=== PATIENT | male | born 1985 | race Two or more races ===

== ENCOUNTER 2016-12-04 17:34 | Inpatient (IN) | payer OTHER ==
[2016-12-04] MEDS ORDERED: LORAZEPAM CARPU-JECT 2 MG/ML DISP.SYRIN ONE ×4 (17:39→23:55)
[2016-12-04] MEDS ORDERED: LORAZEPAM CARPU-JECT 2 MG/ML DISP.SYRIN IVPUSH ONE ×4 (17:48→23:08)
[2016-12-04] MEDS ORDERED: levETIRAcetam 500 MG/5 ML INJECTION VIAL IVPB ONE ×2 (18:28→18:39)
--- NOTE | 2016-12-04 18:37 | PDOC ---
[id number] 4d Clinical Condition (Mental Retardation ) - History of Present Illness Initial Comments: 12/04/16 21:37 The patient is a 31 year old male brought via EMS and presenting with a manager respiratory care from [facility], with a significant past medical history of severe mental retardation (carbamazepine 400 mg BID, tiagabine 4 mg TID), congenital quadraplegia, esophagitis, epilepsy, osteoporosis, non verbal, and scoliosis, who presents to the emergency department with multiple seizures occurring today. On presentation the patient is actively having another seizure , lasting a few seconds before resolving. The patient is non verbal on baseline. According to his old records, the patient usually has two seizures daily. Allergies: None Past surgical history: Peg tube Social history: No alcohol, tobacco or drug use reported <Trey Steel - Last Filed: 12/04/16 22:38> - General History Source: Care Provider, EMS, [facility]way Records, Old Records <Flynn York - Last Filed: 12/07/16 15:48> - General Chief Complaint: Seizure Stated Complaint: SEIZURES Time Seen by Provider: 12/04/16 17:45 Past History <Trey Steel - Last Filed: 12/04/16 22:38> - Past Medical History GI Disorders: Yes (ESOPHAGITIS.) Seizures: Yes Other medical history: PROFOUND MR. CONGENITAL QUADREPLEGIA. OSTEOPOROSIS. SCOLIOSIS. - Surgical History Abdominal Surgery: Yes GI Surgery: Yes (PEG TUBE.) - Psycho/Social/Smoking Cessation Hx Anxiety: No Suicidal Ideation: No Smoking History: Never smoked Number of Cigarettes Smoked Daily: 0 Hx Alcohol Use: No Drug/Substance Use Hx: No Substance Use Type: None <Flynn York - Last Filed: 12/07/16 15:48> - Past Medical History Allergies/Adverse Reactions: Allergies Allergy/AdvReac Type Severity Reaction Status Date / Time No Known Allergies Allergy Verified 12/04/16 17:45 Home Medications: Ambulatory Orders Calcium 500Mg/Vit-D 200 Units [Os-Jose Maria 500+D -] 1 tab GT HS 10/21/14 Cholecalciferol (Vitamin D3) [Vitamin D3] 400 unit GT DAILY 10/21/14 Lactose-Reduced Food/Fiber [Jevity 1.2 Jose Maria Liquid] 100 ml GT Q8H 10/21/14 Magnesium Hydroxide [Milk of Magnesia] 30 ml GT HS 10/21/14 Albuterol 0.083% Nebulizer Denise [Ventolin 0.083% Nebulizer Soln -] 1 neb NEB Q4H PRN 07/08/16 Nystatin Cream [Mycostatin Cream -] 1 applic TP BID 07/08/16 Selenium Sulfide [Selenium Sulfide 2.25% Shampoo] 1 applic TP BID 07/08/16 Triamcinolone 0.5% Ointment [Aristocort 0.5% Ointment -] 0 gm TP TID 07/08/16 Carbamazepine [Carbamazepine ER] 100 mg GT BID 08/21/16 Carbamazepine [Carbamazepine ER] 300 mg GT BID 08/21/16 Clonazepam [Klonopin -] 0.5 mg GT TID 08/21/16 Diazepam Rectal Gel [Diastat Rectal Gel -] 5 mg DC ASDIR PRN 08/21/16 Sennosides [Senna] 2 tab GT HS 08/21/16 Sodium Chloride 2 gm GT TID 08/21/16 Tiagabine HCl 4 mg GT TID 08/21/16 Tizanidine HCl [Zanaflex] 2 mg PO TID 12/05/16 Levetiracetam [Keppra -] 500 mg PO BID #60 tablet 12/06/16 Phenytoin [Dilantin Chewable Tablet -] 100 mg PO TID #90 tab 12/06/16 Review of Systems - Review of Systems Able to Perform ROS?: No Comments:: 12/04/16 21:38 ROS unattainable due to patient medical condition. <Trey Steel - Last Filed: 12/04/16 22:38> *Physical Exam - Vital Signs Last Vital Signs Temp Pulse Resp BP Pulse Ox 100.8 F H 100 H 18 140/70 99 12/04/16 18:48 12/04/16 18:48 12/04/16 18:48 12/04/16 18:48 12/04/16 18:48 - Physical Exam Comments: 12/04/16 21:39 GENERAL: Awake HEAD: No signs of trauma, normocephalic, atraumatic EYES: PERRLA, EOMI, sclera anicteric, conjunctiva clear ENT: Auricles normal inspection, hearing grossly normal, nares patent, oropharynx clear without exudates. Moist mucosa NECK: Normal ROM, supple, no lymphadenopathy, JVD, or masses LUNGS: No distress, speaks full sentences, clear to auscultation bilaterally HEART: +Tachycardia, normal S1 and S2, no murmurs, rubs or gallops, peripheral pulses normal and equal bilaterally. ABDOMEN: +G-tube in place, clean, dry and intact. Soft, nontender, normoactive bowel sounds. No guarding, no rebound. No masses EXTREMITIES: +Spasticity lower and upper extremity. left lower extremity IO. No edema. No clubbing or cyanosis. NEUROLOGICAL: +Grand mal seizures. SKIN: Warm, Dry, normal turgor, no rashes or lesions noted. <Trey Steel - Last Filed: 12/04/16 22:38> - Vital Signs Last Vital Signs Temp Pulse Resp BP Pulse Ox 103 H 24 144/70 98 12/04/16 17:43 12/04/16 17:43 12/04/16 17:43 12/04/16 17:43 <Flynn York - Last Filed: 12/07/16 15:48> Procedures - Central Line Central Line Lumen: triple Central Line Position: femoral (R), femoral (L) Anesthesia: 1% Lidocaine Amount of anesthesia (ccs): 5 Progress: Consent was obtained by the nurse and physician at the facility. Under ultrasound guidance and sterile procedure, multiple attempts were made at R femoral vein. Unable to cannulate despite numerous attempts. An attempt made at the left femoral vein. Again, unable to cannulate despite multiple attempts. ?anatomical variation? Decision was made to leave an angiocath in the left femoral vein for access given multiple seizures. <Flynn York - Last Filed: 12/07/16 15:48> Heart Score/ECG Review #1 ECG reviewed & interpreted by me at: 17:50 12/04/16 22:37 NSR 94, LAFB, Q wave III, no std/nisa, QTC 422 msec <Flynn York - Last Filed: 12/07/16 15:48> ED Treatment Course - LABORATORY CBC & Chemistry Diagram: 12/04/16 18:45 12/04/16 18:45 - ADDITIONAL ORDERS Additional order review: Laboratory Results 12/04/16 12/04/16 18:45 18:45 Sodium 133 L Potassium 4.3 Chloride 96 L Carbon Dioxide 26 Anion Gap 11 BUN 7 Creatinine 0.4 L D Creat Clearance w eGFR > 60 Random Glucose 71 L D Calcium 9.0 Magnesium 2.7 H Total Bilirubin 0.2 D AST 43 H D ALT 71 D Alkaline Phosphatase 156 H Creatine Kinase 104 Troponin I < 0.02 Total Protein 9.3 H Albumin 4.5 Carbamazepine 10.0 12/04/16 18:45 RBC 4.84 MCV 95.9 MCHC 33.7 RDW 12.9 MPV 7.7 Neutrophils % 88.9 H D Lymphocytes % 6.4 L D Monocytes % 3.9 Eosinophils % 0.3 D Basophils % 0.5 - Medications Given in the ED: ED Medications Discontinued Medications Generic Name Dose Route Start Last Admin Trade Name Freq PRN Reason Stop Dose Admin Levetiracetam 1,000 mg 12/04/16 18:28 12/04/16 18:47 Keppra Injection - IVPB 12/04/16 18:29 1,000 mg ONCE ONE Administration Lorazepam 1 mg 12/04/16 17:48 12/04/16 17:48 Ativan Injection - IVPUSH 12/04/16 17:49 1 mg ONCE ONE Administration Lorazepam 2 mg 12/04/16 18:23 12/04/16 18:23 Ativan Injection - IVPUSH 12/04/16 18:24 2 mg ONCE ONE Administration Lorazepam 2 mg 12/04/16 19:07 12/04/16 19:16 Ativan Injection - IVPUSH 12/04/16 19:08 2 mg ONCE ONE Administration <Trey Steel - Last Filed: 12/04/16 22:38> - LABORATORY CBC & Chemistry Diagram: 12/06/16 06:30 12/06/16 06:30 - RADIOLOGY Radiology Studies Ordered: Category Date Time Status CHEST X-RAY PORTABLE* [RAD] Stat Radiology 12/04/16 17:48 Ordered - Medications Given in the ED: ED Medications Discontinued Medications Generic Name Dose Route Start Last Admin Trade Name Freq PRN Reason Stop Dose Admin Lorazepam 1 mg 12/04/16 17:48 12/04/16 17:48 Ativan Injection - IVPUSH 12/04/16 17:49 1 mg ONCE ONE Administration <Flynn York - Last Filed: 12/07/16 15:48> Medical Decision Making - Critical Care Time Total Critical Care Time (minutes): 60 Critical Care Statement: The care of this patient involved high complexity decision making to prevent further life threatening deterioration of the patient 's condition and/or to evalute & treat vital organ system(s) failure or risk of failure. - Medical Decision Making 12/04/16 20:27 Dr. Zhou was consulted regarding the patient at 6:26pm [phone] At 7:11pm Dr. York obtained permission from the [facility] staff to do a central line. <Trey Steel - Last Filed: 12/04/16 22:38> - Medical Decision Making 12/04/16 18:39 Patient arrives by ambulance to the emergency department. Nursing notes are reviewed and incorporated into the medical decision-making. Vital signs reviewed. Peripheral IV access obtained by the nurse, laboratory studies are drawn and sent, reviewed and interpreted by myself. Vital Signs Temp Pulse Resp BP Pulse Ox 103 H 24 144/70 98 12/04/16 17:43 12/04/16 17:43 12/04/16 17:43 12/04/16 17:43 31 year old male From [facility], past medical history of epilepsy on carbamazepine 400 mg BID, tiagabine 4 mg TID, severe mental retardation, congenital quadriplegia, general convulsive epilepsy, pegged, nonverbal presents with multiple seizures. According to the water filter cleaner, the patient has had intermittent seizures since 4:30 PM today. They noted vital signs at [facility] with temperature 98.4, pulse of 126, 95% O2, blood pressure 117/86. They had O2 saturations of 84% during seizures. They had given her first doses Diastat with no effect. The given a second dose of Diastat at 4:36 but the seizures persisted and the patient came into the ED. According to the facility, the patient has been giving his medications. The patient arrived by EMS. EMS had placed a left prox tib IO. The patient has several seizures here. Patient was given repeated doses of Ativan. Case is discussed with neurologist field operations manager Dr. Zhou. Medication list was reviewed. States to start 1 g of Keppra. We'll need to figure out the underlying cause of patient's status epilepticus. 12/04/16 22:31 CBC, BMP 12/04/16 18:45 12/04/16 18:45 CMP Sodium 133 mmol/L (136-145) L 12/04/16 18:45 Potassium 4.3 mmol/L (3.5-5.1) 12/04/16 18:45 Chloride 96 mmol/L (98-107) L 12/04/16 18:45 Carbon Dioxide 26 mmol/L (21-32) 12/04/16 18:45 Anion Gap 11 (8-16) 12/04/16 18:45 BUN 7 mg/dL (7-18) 12/04/16 18:45 Creatinine 0.4 mg/dL (0.7-1.3) L D 12/04/16 18:45 Creat Clearance w eGFR > 60 (>60) 12/04/16 18:45 Random Glucose 71 mg/dL (74-106) L D 12/04/16 18:45 Calcium 9.0 mg/dL (8.5-10.1) 12/04/16 18:45 Magnesium 2.7 mg/dL (1.8-2.4) H 12/04/16 18:45 Total Bilirubin 0.2 mg/dL (0.2-1.0) D 12/04/16 18:45 AST 43 U/L (15-37) H D 12/04/16 18:45 ALT 71 U/L (12-78) D 12/04/16 18:45 Alkaline Phosphatase 156 U/L (45-117) H 12/04/16 18:45 Creatine Kinase 104 IU/L (39-308) 12/04/16 18:45 Troponin I < 0.02 ng/ml (0.00-0.05) 12/04/16 18:45 Total Protein 9.3 g/dl (6.4-8.2) H 12/04/16 18:45 Albumin 4.5 g/dl (3.4-5.0) 12/04/16 18:[address] ordered, though likely secondary to epilepsy. Labs reviewed. Patient continued seizures. Initially, we had difficulty obtaining access. Given that the patient is having repeated seizures, decision to place a central line was discussed with the facility. The facility consent for central venous line placement. Under ultrasound guidance, multiple attempts were made on the right femoral vein but unable to cannulate. There was potentially some concerns for anatomical variation that may have given difficult access. A left-sided femoral was attempted but unsuccessful. Ultimately, given the emergent nature of additional line placements and persistent seizures, decision was made to place an Angiocath in the left femoral vein. Patient was then ordered 1 g of fosphenytoin. After receiving medications, patient's seizures had stopped. Case is discussed with Dr. Zhou. Recommends 500 mg IV keppra BID and 100 mg IV dilantin TID. Case is discussed with Dr. Ramirez who accepts patient to her service. Case discussed with ICU LOAD DROPPER Ricarda who accepts the patient. Case discussed in detail with admitting physician including history, physical exam and ancillary studies. Admitting physician has assumed care for the patient, will follow all pending diagnostics and will complete the evaluation and treatment. 12/05/16 00:55 Pt was noted to have a temp of 100.8. Will initiate IV vanc and zosyn. Obtain blood cultures. <Flynn York - Last Filed: 12/07/16 15:48> *DC/Admit/Observation/Transfer - Attestations Scribe Attestion: 12/04/16 21:39 Documentation prepared by Trey Steel, acting as medical staff manager for Flynn York MD <Trey Steel - Last Filed: 12/04/16 22:38> - Discharge Dispostion Admit: Yes <Flynn York - Last Filed: 12/07/16 15:48> Diagnosis at time of Disposition: Status epilepticus - Discharge Dispostion Disposition: HOME Condition at time of disposition: Stable - Prescriptions
[2016-12-04 18:58] LABS: BASOPHIL 0.5 % (0-2.0); EOSINOPHIL 0.3 % (0-4.5); MCH 32.3 pg (25.7-33.7); MCHC 33.7 g/dl (32.0-35.9); MEAN CELL VOLUME 95.9 fl (80-96); MEAN PLT VOLUME 7.7 fl (7.5-11.1); NEUTROPHILS 88.9 % (42.8-82.8); PLATELET COUNT 427 K/MM3 (134-434); RDW 12.9 % (11.9-15.9); WHITE BLOOD COUNT 20.7 K/mm3 (4.0-10.0)
[2016-12-04] MEDS ORDERED: FOSPHENYTOIN SODIUM 100 MG/2 ML VIAL IVPUSH ONE (19:07)
[2016-12-04 19:36] LABS: ALBUMIN 4.5 g/dl (3.4-5.0); ANION GAP 11 (8-16); BILIRUBIN,TOTAL 0.2 mg/dL (0.2-1.0); CO2 26 mmol/L (21-32); COCKROFT - GAULT 168.23; CREATININE 0.4 mg/dL (0.7-1.3); GLUCOSE,RANDOM 71 mg/dL (74-106); MAGNESIUM 2.7 mg/dL (1.8-2.4); SGOT/AST 43 U/L (15-37); SGPT/ALT 71 U/L (12-78); TOT PROT 9.3 g/dl (6.4-8.2)
[2016-12-04 19:39] LABS: ALK PHOS 156 U/L (45-117); TROPONIN I < 0.02 ng/ml (0.00-0.05)
[2016-12-04] MEDS ORDERED: DEXTROSE 50%-WATER - 25 GM/50 ML VIAL IVPUSH ONE (21:28)
[2016-12-04] MEDS ORDERED: DEXTROSE 50%-WATER 50 ML DISP.SYRIN ONE (22:19)
--- NOTE | 2016-12-04 22:56 | HP ---
[id number] yo M presents from [facility] with Hx significant for seizures. Patient brought to the ED today after multiple episodes of seizure with no improvement on medications. Patient is a poor historian due to severe mental retardation and is nonverbal. ER course was notable for: (1) During his time at ED patient had multiple episodes of seizures and a was given multiple doses of ativan (2) As per recommendations of neurologist, 1000 mg of Kepro was given and 1000 mg of fosfo pentalyn (3) Patient also noted to have low glucose of 70 and dextrose was given (4) Labs reported Leukocytosis Recent Travel: Denies PAST MEDICAL HISTORY:severe mental retardation (carbamazepine 400 mg BID, tiagabine 4 mg TID), congenital quadriplegia, esophagitis, general compulsive epilepsy, cortical blindness, osteoporosis, non verbal, exotropia, and scoliosis PAST SURGICAL HISTORY: orchiopexy. Bilateral femoral head resection. Social History: Smoking: Denies Alcohol: Denies Drugs: Denies Family History: Noncontributory Allergies No Known Allergies Allergy (Verified 12/04/16 17:45) HOME MEDICATIONS: Home Medications Medication Instructions Recorded Calcium 500Mg/Vit-D 200 Units 2 tab GT HS 10/21/14 [Os-Jose Maria 500+D -] Carbamazepine 300 mg GT BID 10/21/14 Cholecalciferol (Vitamin D3) 400 unit GT DAILY 10/21/14 [Vitamin D3] Clonazepam [KlonoPIN] 0.5 mg GT DAILY 10/21/14 Diazepam Rectal Gel [Diastat 5 mg RC PRN PRN 10/21/14 *Rectal Gel*] Lactose-Reduced Food/Fiber [Jevity 100 ml GT Q8H 10/21/14 1.2 Jose Maria Liquid] Magnesium Hydroxide [Milk of 30 ml GT HS 10/21/14 Magnesia] Sodium Chloride 2 gm GT TID 10/21/14 Sodium Chloride 500 mg GT HS 10/21/14 Tiagabine HCl [Gabitirl (Nf) -] 4 mg GT TID 10/21/14 Tizanidine HCl [Zanaflex] 2 mg GT TID 10/21/14 Albuterol 0.083% Nebulizer Denise 1 neb NEB Q4H PRN 07/08/16 [Ventolin 0.083%] Mupirocin Ointment [Bactroban] 1 applic TP BID 07/08/16 Nystatin Cream [Mycostatin] 1 applic TP BID 07/08/16 Selenium Sulfide [Selenium Sulfide 1 applic TP BID 07/08/16 2.25% Shampoo] Sennosides [Senna] 2 tab GT HS 07/08/16 Sulfamethoxazole/Trimethoprim 1 tab PO BID 07/08/16 [Bactrim Ds -] Triamcinolone 0.5% Ointment 0 gm TP TID 07/08/16 [Kenalog] Albuterol 0.083% Nebulizer Denise 1 neb NEB Q4H PRN 08/21/16 [Ventolin 0.083%] Calcium Carbonate/Vitamin D3 1 each GT HS 08/21/16 [Oyster Shell 500-Vit D3 200 Tb] Carbamazepine [Carbamazepine ER] 100 mg GT BID 08/21/16 Carbamazepine [Carbamazepine ER] 300 mg GT BID 08/21/16 Cholecalciferol (Vitamin D3) 2,000 unit GT DAILY 08/21/16 [Vitamin D3] Clonazepam [Klonopin -] 0.5 mg GT TID 08/21/16 Diazepam Rectal Gel [Diastat 5 mg [place] ASDIR PRN 08/21/16 Rectal Gel -] Lactose-Reduced Food/Fiber [Jevity] 100 ml GT ASDIR 08/21/16 Magnesium Hydrox 2400MG/30Ml [Milk 30 ml GT DAILY 08/21/16 of Magnesia -] Sennosides [Senna] 8.6 mg GT HS 08/21/16 Sodium Chloride 2 gm GT TID 08/21/16 Sodium Chloride 500 mg GT HS 08/21/16 Tiagabine HCl 4 mg GT TID 08/21/16 Tizanidine HCl 2 mg GT TID 08/21/16 REVIEW OF SYSTEMS Unable to obtain because patient is nonverbal secondary to severe mental retardation. PHYSICAL EXAMINATION Vital Signs - 24 hr 12/04/16 12/04/16 17:43 18:48 Temperature 100.8 F H Pulse Rate 103 H Pulse Rate [ 100 H Left Radial] Respiratory 24 18 Rate Blood Pressure 144/70 Blood Pressure 140/70 [Right Arm] O2 Sat by Pulse 98 99 Oximetry (%) GENERAL: Awake, alert, and fully oriented, nonverbal. HEENT: Microcephalic with pupils dilated. Oral mucosa without any lesions. No tongue bite escudero. LUNGS: Breath sounds equal, clear to auscultation bilaterally. No wheezes, and no crackles. No accessory muscle use. HEART: Regular rate and rhythm, normal S1 and S2 without murmur, rub or gallop. ABDOMEN: Soft, nontender, not distended, normoactive bowel sounds, no guarding, no rebound, no masses. No hepatomegaly or splenomegaly. Peg with no signs of infection. Surgical scar in LUQ. : Patient in diapers. Incontinent. MUSCULOSKELETAL: Muscle atrophy. No CVA tenderness. UPPER EXTREMITIES: 2+ pulses, warm, Increased muscular tone and contracted with hyperflexion of the wrist. LOWER EXTREMITIES: 2+ pulses, warm, bilateral muscle atrophy and contracted feet. No peripheral edema. NEUROLOGICAL: Severe mental retardation and sedated. PSYCHIATRIC: Sedated SKIN: Warm, dry, normal turgor, no rashes or lesions noted, normal capillary refill. Laboratory Results - last 24 hr 12/04/16 12/04/16 12/04/16 18:45 18:45 18:45 WBC 20.7 H D RBC 4.84 Hgb 15.6 Hct 46.4 MCV 95.9 MCHC 33.7 RDW 12.9 Plt Count 427 D MPV 7.7 Neutrophils % 88.9 H D Lymphocytes % 6.4 L D Monocytes % 3.9 Eosinophils % 0.3 D Basophils % 0.5 Sodium 133 L Potassium 4.3 Chloride 96 L Carbon Dioxide 26 Anion Gap 11 BUN 7 Creatinine 0.4 L D Creat Clearance w eGFR > 60 Random Glucose 71 L D Calcium 9.0 Magnesium 2.7 H Total Bilirubin 0.2 D AST 43 H D ALT 71 D Alkaline Phosphatase 156 H Creatine Kinase 104 Troponin I < 0.02 Total Protein 9.3 H Albumin 4.5 Carbamazepine 10.0 Assessment and Plan 1.) Status epilepticus. -Continue with keppra 500 mg BID -Dilantin 100 mg TID -Ativan 2 mg IV PUSH PRN -Neurology consult -Neuro checks -Aspiration precautions -Ventimask 50 % -Consider intubation to protect airway if needed -Continue peg tube feeding and IVF D5NS @ 100 cc/hr -Follow CBC CMP -MagPhos lactic acid -UA in AM 2.) SIRS criteria. Sepsis source unknown -Zosin -Follow cultures -ID consult Dr. Fitzgerald Documentation prepared by Анна Verduzco, acting as director medical writing for Genevieve Ramirez M.D. <Genevieve Ramirez - Last Filed: 12/19/16 01:05> Visit type - Emergency Visit Emergency Visit: Yes ED Registration Date: 12/05/16 Care time: The patient presented to the Emergency Department on the above date and was hospitalized for further evaluation of their emergent condition. - New Patient This patient is new to me today: Yes Date on this admission: 12/19/16 - Critical Care Critical Care patient: Yes Total Critical Care Time (in minutes): 45 Critical Care Statement: The care of this patient involved high complexity decision making to prevent further life threatening deterioration of the patient 's condition and/or to evalute & treat vital organ system(s) failure or risk of failure.
[2016-12-04] MEDS ORDERED: ACETAMINOPHEN 650 MG SUPP.RECT PR PRN (23:02)
[2016-12-04] MEDS ORDERED: ONDANSETRON 4 MG/2 ML VIAL IVPB PRN (23:02)
[2016-12-04] MEDS ORDERED: DEXTROSE 5%-NORMAL SALINE 1,000 ML IV SCH (23:15)
[2016-12-04] MEDS: PHENYTOIN SODIUM 100 MG/2 ML VIAL IVPB SCH (23:44)
[2016-12-05] MEDS ORDERED: PIPERACILLIN/TAZOB 3.375 GM/50 ML PRE-DOCKED IVPB ONE ×2 (00:54→15:40)
[2016-12-05] MEDS ORDERED: VANCOMYCIN 1,000 MG in DEXTROSE 5%-WATER - 250 ML IVPB ONE (00:54)
[2016-12-05] MEDS ORDERED: VANCOMYCIN 1 GRAM (PRE-DOCKED) 250 ML IVPB ONE (02:19)
[2016-12-05] MEDS ORDERED: LORAZEPAM CARPU-JECT 2 MG/ML DISP.SYRIN IVPUSH ONE (02:48)
[2016-12-05] MEDS ORDERED: LORAZEPAM CARPU-JECT 2 MG/ML DISP.SYRIN ONE (02:48)
--- NOTE | 2016-12-05 04:05 | CONSULT ---
Consult Consult Specialty:: Pulm/CCM Reason for Consultation:: Seizures - History of Present Illness Chief Complaint: Seizures History of Present Illness: 31 yom [facility] resident with PMHX of severe mental retardation, congenital quadraplegia, epilepsy( on Carbamazepine and tiagabine), scoliosis and non-verbal who is brought in by EMS after multiple seizures refractory to normal medical therapy. Lt tibia IO placed by EMS. In ED had witnessed grand mal/partial seizures that was refractory to Keppra but improved with fosphenytoin IV and multiple Ativan pushes. He was seen by neurologist. Started on standing AED's. Labs notable for WBC 20. Blood cultures sent and stated on vanco and Zosyn. He was transferred to ICU for further management Rec'd with O2 sat 1005 on ventimask 50%. No seizure activity noted. Lt fem IV line and Lt tibia IO line in place. 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: Seizure Gastrointestinal: Yes: Other (g-tube) - Alcohol/Substance Use Hx Alcohol Use: No - Smoking History Smoking history: Never smoked Aproximately how many cigarettes per day: 0 Home Medications - Allergies Allergies/Adverse Reactions: Allergies Allergy/AdvReac Type Severity Reaction Status Date / Time No Known Allergies Allergy Verified 12/04/16 17:45 - Home Medications Home Medications: Ambulatory Orders Calcium 500Mg/Vit-D 200 Units [Os-Jose Maria 500+D -] 1 tab GT HS 10/21/14 Cholecalciferol (Vitamin D3) [Vitamin D3] 400 unit GT DAILY 10/21/14 Lactose-Reduced Food/Fiber [Jevity 1.2 Jose Maria Liquid] 100 ml GT Q8H 10/21/14 Magnesium Hydroxide [Milk of Magnesia] 30 ml GT HS 10/21/14 Albuterol 0.083% Nebulizer Denise [Ventolin 0.083%] 1 neb NEB Q4H PRN 07/08/16 Nystatin Cream [Mycostatin] 1 applic TP BID 07/08/16 Selenium Sulfide [Selenium Sulfide 2.25% Shampoo] 1 applic TP BID 07/08/16 Triamcinolone 0.5% Ointment [Kenalog] 0 gm TP TID 07/08/16 Carbamazepine [Carbamazepine ER] 100 mg GT BID 08/21/16 Carbamazepine [Carbamazepine ER] 300 mg GT BID 08/21/16 Clonazepam [Klonopin -] 0.5 mg GT TID 08/21/16 Diazepam Rectal Gel [Diastat Rectal Gel -] 5 mg [place] ASDIR PRN 08/21/16 Sennosides [Senna] 2 tab GT HS 08/21/16 Sodium Chloride 2 gm GT TID 08/21/16 Tiagabine HCl 4 mg GT TID 08/21/16 Tizanidine HCl [Zanaflex] 2 mg PO TID 12/05/16 Family Disease History - Family Disease History Family History: Unable to Obtain Review of Systems Unable to obtain ROS, reason: non-verbal Physical Exam Vital Signs: Vital Signs Temperature 100.8 F H 12/04/16 18:48 Pulse Rate 100 H 12/04/16 18:48 Respiratory Rate 18 12/04/16 18:48 Blood Pressure 140/70 12/04/16 18:48 O2 Sat by Pulse Oximetry (%) 99 12/04/16 18:48 Constitutional: Yes: Thin (contracted) Eyes: Yes: Conjunctiva Clear HENT: Yes: Atraumatic, Other Neck: Yes: Other (Spastic) Cardiovascular: Yes: Regular Rate and Rhythm Respiratory: Yes: Regular, CTA Bilaterally Gastrointestinal: Yes: Normal Bowel Sounds, Soft, Other (PEg site clean) ...Rectal Exam: Yes: Deferred Renal/: Yes: Incontinence Extremities: Yes: Other (warm, deformed and contracted) Edema: No Integumentary: Yes: WNL Neurological: Yes: Unresponsive (non-verbal at baseline) Problem List - Problems (2) Seizure Code(s): R56.9 - UNSPECIFIED CONVULSIONS Assessment/Plan 31 [employer] resident with PMHX of severe mental retardation, congenital quadraplegia, epilepsy( on Carbamazepine and tiagabine), scoliosis and non-verbal who is brought in by EMS after multiple seizures refractory to normal treatment and requiring multiple doses of Ativan and fosphenytoin for control. C/f staus epilepticus in the setting of infection. Neuro: Seizures -Neuro following - Cont Standing Dilantin, Keppra and prn Ativan as needed -f/u blood and urine cultures -Continue empiric Zosyn and vanc as per ID Pulm: Risk for aspiration with seizure -NC O2 for O2 sat >95% - Aspiration precautions -Oral care FEN: -Continue nutrition and hydration -Monitor CPK, electrolytes, lactate, WBC
[2016-12-05 04:31] VITALS: BMI 19.7
[2016-12-05 06:20] LABS: URINE APPEARANCE SLCLOUDY; URINE BILIRUBIN NEGATIVE (NEGATIVE); URINE BLOOD NEGATIVE (NEGATIVE); URINE COLOR LTYELLOW; URINE GLUCOSE (UA) 2+ (NEGATIVE); URINE KETONE NEGATIVE (NEGATIVE); URINE NITRITE POSITIVE (NEGATIVE); URINE PROTEIN NEGATIVE (NEGATIVE); URINE UROBILINOGEN NEGATIVE E.U./dl (0.2-1.0)
[2016-12-05 06:26] LABS: URINE LEUK ESTERASE 3+ (NEGATIVE)
[2016-12-05 06:28] LABS: URINE BACTERIA RARE /hpf (NONE SEEN); URINE RBC 4 /hpf (0-3); URINE WBC 81 /hpf (3-5)
[2016-12-05] MEDS: PHENYTOIN SODIUM 100 MG/2 ML VIAL IVPB SCH ×3 (09:00→22:10)
[2016-12-05] MEDS ORDERED: levETIRAcetam 500 MG/5 ML INJECTION VIAL IVPB ONE (09:00)
[2016-12-05 09:08] LABS: BASOPHIL 0.5 % (0-2.0); EOSINOPHIL 1.3 % (0-4.5); MCH 32.7 pg (25.7-33.7); MCHC 33.7 g/dl (32.0-35.9); MEAN CELL VOLUME 97.1 fl (80-96); MEAN PLT VOLUME 7.6 fl (7.5-11.1); PLATELET COUNT 317 K/MM3 (134-434); RDW 13.1 % (11.9-15.9)
--- NOTE | 2016-12-05 09:33 | PN ---
Teaching Attending Note Name of Resident: Ryann Cardona ATTENDING PHYSICIAN STATEMENT I saw and evaluated the patient. I reviewed the resident's note and discussed the case with the resident. I agree with the resident's findings and plan as documented. Patient is in ICU Vital Signs Temperature 98.3 F 12/05/16 04:17 Pulse Rate 65 12/05/16 07:00 Respiratory Rate 15 12/05/16 07:00 Blood Pressure 89/62 12/05/16 07:00 O2 Sat by Pulse Oximetry (%) 100 12/05/16 04:10 CBCD WBC 11.0 K/mm3 (4.0-10.0) H D 12/05/16 08:00 RBC 4.26 M/mm3 (4.00-5.60) 12/05/16 08:00 Hgb 13.9 GM/dL (11.7-16.9) D 12/05/16 08:00 Hct 41.3 % (35.4-49) 12/05/16 08:00 MCV 97.1 fl (80-96) H 12/05/16 08:00 MCHC 33.7 g/dl (32.0-35.9) 12/05/16 08:00 RDW 13.1 % (11.9-15.9) 12/05/16 08:00 Plt Count 317 K/MM3 (134-434) D 12/05/16 08:00 MPV 7.6 fl (7.5-11.1) 12/05/16 08:00 CMP Sodium 133 mmol/L (136-145) L 12/04/16 18:45 Potassium 4.3 mmol/L (3.5-5.1) 12/04/16 18:45 Chloride 96 mmol/L (98-107) L 12/04/16 18:45 Carbon Dioxide 26 mmol/L (21-32) 12/04/16 18:45 Anion Gap 11 (8-16) 12/04/16 18:45 BUN 7 mg/dL (7-18) 12/04/16 18:45 Creatinine 0.4 mg/dL (0.7-1.3) L D 12/04/16 18:45 Creat Clearance w eGFR > 60 (>60) 12/04/16 18:45 Random Glucose 71 mg/dL (74-106) L D 12/04/16 18:45 Calcium 9.0 mg/dL (8.5-10.1) 12/04/16 18:45 Total Bilirubin 0.2 mg/dL (0.2-1.0) D 12/04/16 18:45 AST 43 U/L (15-37) H D 12/04/16 18:45 ALT 71 U/L (12-78) D 12/04/16 18:45 Alkaline Phosphatase 156 U/L (45-117) H 12/04/16 18:45 Total Protein 9.3 g/dl (6.4-8.2) H 12/04/16 18:45 Albumin 4.5 g/dl (3.4-5.0) 12/04/16 18:45 CARDIAC ENZYMES Creatine Kinase 104 IU/L (39-308) 12/04/16 18:45 Troponin I < 0.02 ng/ml (0.00-0.05) 12/04/16 18:45 Current Medications Generic Name Dose Route Start Last Admin Trade Name Freq PRN Reason Stop Dose Admin Acetaminophen 650 mg 12/04/16 23:02 Tylenol Suppository - [place] Q6H PRN FEVER OR PAIN Chlorhexidine Gluconate 1 applic 12/05/16 22:00 Hibiclens For Decolonization - TP HS [facility] Dextrose/Sodium Chloride 1,000 mls @ 100 mls/hr 12/04/16 23:15 12/04/16 23:54 D5-Ns - IV 100 mls/hr ASDIR VASQUEZ Administration Influenza Virus Vaccine 45 mcg 12/05/16 10:00 Fluvirin IM 12/05/16 10:01 .ONCE ONE Levetiracetam 500 mg 12/05/16 10:00 12/05/16 09:11 Keppra Injection - IVPB 500 mg BID VASQUEZ Administration Mupirocin 1 applic 12/05/16 10:00 12/05/16 09:11 Bactroban Ointment (For Decolonization) - NS 12/10/16 09:59 1 applic BID VASQUEZ Administration Ondansetron HCl 4 mg 12/04/16 23:02 Zofran Injection IVPB Q6H PRN NAUSEA Phenytoin Sodium 100 mg 12/04/16 23:08 12/05/16 09:00 Dilantin Injection - IVPB 100 mg TID VASQUEZ Administration Home Medications Medication Instructions Recorded Calcium 500Mg/Vit-D 200 Units 1 tab GT HS 10/21/14 [Os-[place] 500+D -] Cholecalciferol (Vitamin D3) 400 unit GT DAILY 10/21/14 [Vitamin D3] Lactose-Reduced Food/Fiber [Jevity 100 ml GT Q8H 10/21/14 1.2 [place] Liquid] Magnesium Hydroxide [Milk of 30 ml GT HS 10/21/14 Magnesia] Albuterol 0.083% Nebulizer Denise 1 neb NEB Q4H PRN 07/08/16 [Ventolin 0.083%] Nystatin Cream [Mycostatin] 1 applic TP BID 07/08/16 Selenium Sulfide [Selenium Sulfide 1 applic TP BID 07/08/16 2.25% Shampoo] Triamcinolone 0.5% Ointment 0 gm TP TID 07/08/16 [Kenalog] Carbamazepine [Carbamazepine ER] 100 mg GT BID 08/21/16 Carbamazepine [Carbamazepine ER] 300 mg GT BID 08/21/16 Clonazepam [Klonopin -] 0.5 mg GT TID 08/21/16 Diazepam Rectal Gel [Diastat 5 mg MI ASDIR PRN 08/21/16 Rectal Gel -] Sennosides [Senna] 2 tab GT HS 08/21/16 Sodium Chloride 2 gm GT TID 08/21/16 Tiagabine HCl 4 mg GT TID 08/21/16 Tizanidine HCl [Zanaflex] 2 mg PO TID 12/05/16 ASSESSMENT AND PLAN: 1.) Status epilepticus. -Continue with keppra 500 mg BID -Dilantin 100 mg TID -Ativan 2 mg IV PUSH PRN -Neurology consult -Neuro checks -Aspiration precautions -Ventimask 50 % -Consider intubation to protect airway if needed -Continue peg tube feeding and IVF D5NS @ 100 cc/hr -Follow CBC CMP -MagPhos lactic acid -UA in AM 2.) SIRS criteria. Sepsis source unknown -Zosin -Follow cultures -ID consult Dr. Fitzgerald
[2016-12-05 09:56] LABS: ALBUMIN 3.3 g/dl (3.4-5.0); ALK PHOS 119 U/L (45-117); ANION GAP 12 (8-16); BILIRUBIN,TOTAL 0.5 mg/dL (0.2-1.0); CO2 24 mmol/L (21-32); COCKROFT - GAULT 208; CREATININE 0.3 mg/dL (0.7-1.3); GLUCOSE,RANDOM 97 mg/dL (74-106); PHOSPHOROUS 3.6 mg/dL (2.5-4.9); SGPT/ALT 77 U/L (12-78); TOT PROT 6.9 g/dl (6.4-8.2)
[2016-12-05] MEDS ORDERED: MUPIROCIN 2% TOPICAL OINTMENT FOR DECOLONIZATION NS SCH ×3 (10:00→22:00)
[2016-12-05] MEDS ORDERED: levETIRAcetam 500 MG/5 ML INJECTION VIAL IVPB SCH ×2 (10:00→22:00)
[2016-12-05] MEDS ORDERED: INFLUENZA VACCINE 45 MCG/0.5 ML (MDV 16-17) IM ONE (10:00)
[2016-12-05 10:09] LABS: MAGNESIUM 2.9 mg/dL (1.8-2.4); SGOT/AST 66 U/L (15-37)
[2016-12-05 10:31] LABS: INR 1.16 (0.82-1.09); PROTHROMBIN TIME (PATIENT) 12.8 SEC (9.98-11.88)
[2016-12-05 10:34] LABS: ACTIVATED PTT 34.2 SECONDS (26.9-34.4)
--- NOTE | 2016-12-05 11:43 | EKG ---
Test Reason : Blood Pressure : / mmHG Vent. Rate : 089 BPM Atrial Rate : 089 BPM P-R Int : 142 ms QRS Dur : 090 ms QT Int : 346 ms P-R-T Axes : 042 114 041 degrees QTc Int : 420 ms POOR DATA QUALITY, INTERPRETATION MAY BE ADVERSELY AFFECTED NORMAL SINUS RHYTHM LEFT POSTERIOR FASCICULAR BLOCK INFERIOR INFARCT , AGE UNDETERMINED CANNOT RULE OUT ANTERIOR INFARCT , AGE UNDETERMINED ABNORMAL ECG NO PREVIOUS ECGS AVAILABLE Confirmed by LEWIS OWENS, ANUJ ([id number]) on 12/05/2016 11:42:59 AM Referred By: Confirmed By:ANUJ SAUCEDO MD
--- NOTE | 2016-12-05 11:50 | CONSULT ---
Consult - text type - Consultation Consultation Note: Neurology The patient is a 31 year old male brought via EMS and presenting with a manager respiratory care from [facility], with a significant past medical history of severe mental retardation (carbamazepine 400 mg BID, tiagabine 4 mg TID), congenital quadraplegia, esophagitis, epilepsy, osteoporosis, non verbal, and scoliosis, who presents to the emergency department with multiple seizures occurring today. On presentation to ER the patient experienced a brief episode of generalized tonic clonic activity. The patient is non verbal on baseline. According to his old records, the patient usually has two seizures daily. In the ER he was loaded with phenytoin as well as Keppra. Since then, has been seizure free. Currently in ICU. - General History Source: Care Provider, EMS, [facility] Records, Old Records - General Chief Complaint: Seizure Stated Complaint: SEIZURES Time Seen by Provider: 12/04/16 17:45 Past History GI Disorders: Yes (ESOPHAGITIS.) Seizures: Yes Other medical history: PROFOUND MR. CONGENITAL QUADREPLEGIA. OSTEOPOROSIS. SCOLIOSIS. - Surgical History Abdominal Surgery: Yes GI Surgery: Yes (PEG TUBE.) - Psycho/Social/Smoking Cessation Hx Anxiety: No Suicidal Ideation: No Smoking History: Never smoked Number of Cigarettes Smoked Daily: 0 Hx Alcohol Use: No Drug/Substance Use Hx: No Substance Use Type: None - Past Medical History Allergies/Adverse Reactions: Allergies Allergy/AdvReac Type Severity Reaction Status Date / Time No Known Allergies Allergy Verified 12/04/16 17:45 Home Medications: Ambulatory Orders Calcium 500Mg/Vit-D 200 Units [Os-[place] 500+D -] 2 tab GT HS 10/21/14 Carbamazepine 300 mg GT BID 10/21/14 Cholecalciferol (Vitamin D3) [Vitamin D3] 400 unit GT DAILY 10/21/14 Clonazepam [KlonoPIN] 0.5 mg GT DAILY 10/21/14 Diazepam Rectal Gel [Diastat *Rectal Gel*] 5 mg RC PRN PRN 10/21/14 Lactose-Reduced Food/Fiber [Jevity 1.2 [place] Liquid] 100 ml GT Q8H 10/21/14 Magnesium Hydroxide [Milk of Magnesia] 30 ml GT HS 10/21/14 Sodium Chloride 2 gm GT TID 10/21/14 Sodium Chloride 500 mg GT HS 10/21/14 Tiagabine HCl [Gabitirl (Nf) -] 4 mg GT TID 10/21/14 Tizanidine HCl [Zanaflex] 2 mg GT TID 10/21/14 Albuterol 0.083% Nebulizer Denise [Ventolin 0.083%] 1 neb NEB Q4H PRN 07/08/16 Mupirocin Ointment [Bactroban] 1 applic TP BID 07/08/16 Nystatin Cream [Mycostatin] 1 applic TP BID 07/08/16 Selenium Sulfide [Selenium Sulfide 2.25% Shampoo] 1 applic TP BID 07/08/16 Sennosides [Senna] 2 tab GT HS 07/08/16 Sulfamethoxazole/Trimethoprim [Bactrim Ds -] 1 tab PO BID 07/08/16 Triamcinolone 0.5% Ointment [Kenalog] 0 gm TP TID 07/08/16 Albuterol 0.083% Nebulizer Denise [Ventolin 0.083%] 1 neb NEB Q4H PRN 08/21/16 Calcium Carbonate/Vitamin D3 [Oyster Shell 500-Vit D3 200 Tb] 1 each GT HS 08/21 Carbamazepine [Carbamazepine ER] 100 mg GT BID 08/21/16 Carbamazepine [Carbamazepine ER] 300 mg GT BID 08/21/16 Cholecalciferol (Vitamin D3) [Vitamin D3] 2,000 unit GT DAILY 08/21/16 Clonazepam [Klonopin -] 0.5 mg GT TID 08/21/16 Diazepam Rectal Gel [Diastat Rectal Gel -] [address] ASDIR PRN 08/21/16 Lactose-Reduced Food/Fiber [Jevity] 100 ml GT ASDIR 08/21/16 Magnesium Hydrox 2400MG/30Ml [Milk of Magnesia -] 30 ml GT DAILY 08/21/16 Sennosides [Senna] 8.6 mg GT HS 08/21/16 Sodium Chloride 2 gm GT TID 08/21/16 Sodium Chloride 500 mg GT HS 08/21/16 Tiagabine HCl 4 mg GT TID 08/21/16 Tizanidine HCl 2 mg GT TID 08/21/16 Review of Systems - Review of Systems Able to Perform ROS?: No Comments:: 12/04/16 21:38 ROS unattainable due to patient medical condition. *Physical Exam - Vital Signs Last Vital Signs Temp Pulse Resp BP Pulse Ox 100.8 F H 100 H 18 140/70 99 12/04/16 18:48 12/04/16 18:48 12/04/16 18:48 12/04/16 18:48 12/04/16 18:48 - Physical Exam Comments: 12/04/16 21:39 GENERAL: Awake HEAD: No signs of trauma, normocephalic, atraumatic EYES: PERRLA, EOMI, sclera anicteric, conjunctiva clear ENT: Auricles normal inspection, hearing grossly normal, nares patent, oropharynx clear without exudates. Moist mucosa NECK: Normal ROM, supple, no lymphadenopathy, JVD, or masses LUNGS: No distress, speaks full sentences, clear to auscultation bilaterally HEART: +Tachycardia, normal S1 and S2, no murmurs, rubs or gallops, peripheral pulses normal and equal bilaterally. ABDOMEN: +G-tube in place, clean, dry and intact. Soft, nontender, normoactive bowel sounds. No guarding, no rebound. No masses EXTREMITIES: +Spasticity lower and upper extremity. left lower extremity IO. No edema. No clubbing or cyanosis. NEUROLOGICAL: Nonverbal, not following commands, asleep, no movement disorder, sensory intact to touch SKIN: Warm, Dry, normal turgor, no rashes or lesions noted. Laboratory Results 12/04/16 12/04/16 18:45 18:45 Sodium 133 L Potassium 4.3 Chloride 96 L Carbon Dioxide 26 Anion Gap 11 BUN 7 Creatinine 0.4 L D Creat Clearance w eGFR > 60 Random Glucose 71 L D Calcium 9.0 Magnesium 2.7 H Total Bilirubin 0.2 D AST 43 H D ALT 71 D Alkaline Phosphatase 156 H Creatine Kinase 104 Troponin I < 0.02 Total Protein 9.3 H Albumin 4.5 Carbamazepine 10.0 12/04/16 18:45 RBC 4.84 MCV 95.9 MCHC 33.7 RDW 12.9 MPV 7.7 Neutrophils % 88.9 H D Lymphocytes % 6.4 L D Monocytes % 3.9 Eosinophils % 0.3 D Basophils % 0.5 Medical Decision Making 31 year old male brought via EMS and presenting with a manager respiratory care from [facility], with a significant past medical history of severe mental retardation (carbamazepine 400 mg BID, tiagabine 4 mg TID), congenital quadraplegia, esophagitis, epilepsy, osteoporosis, non verbal, and scoliosis, who presents to the emergency department with multiple seizures occurring today. On presentation to ER the patient experienced a brief episode of generalized tonic clonic activity. The patient is non verbal on baseline. According to his old records, the patient usually has two seizures daily. In the ER he was loaded with phenytoin as well as Keppra. Since then, has been seizure free. Currently in ICU. Can continue both antiepileptics for now. As outpatient or in the future, may be able to discontinue one (would consider tapering off Dilantin due to usp toxicity). Monitor for seizures, if seizure free today and overnight, may be able to return to facility.
[2016-12-05] MEDS ORDERED: ALBUTEROL SO4 0.083% IH SOL 2.5 MG/3 ML VIAL.NEB. NEB PRN ×2 (13:09→18:24)
[2016-12-05] MEDS ORDERED: diazePAM ACUDIAL 5-7.5-10 MG 1 EACH KIT RC PRN ×2 (13:09→18:24)
[2016-12-05] MEDS ORDERED: SODIUM CHLORIDE 1,000 ML IV SCH (13:15)
[2016-12-05] MEDS ORDERED: TIAGABINE HCL 4 MG GT SCH (14:00)
[2016-12-05] MEDS ORDERED: PATIENT'S OWN MEDICATION (NON-FORMULARY) (Tizanidine Hcl [Zanaflex] 2 MG) PO SCH (14:00)
[2016-12-05] MEDS ORDERED: SODIUM CHLORIDE 2 GM GT SCH (14:00)
[2016-12-05] MEDS ORDERED: clonazePAM 0.5 MG TABLET GT SCH (14:00)
[2016-12-05] MEDS ORDERED: ONDANSETRON 4 MG/2 ML VIAL IVPB PRN ×2 (15:40→18:24)
[2016-12-05] MEDS ORDERED: ACETAMINOPHEN 650 MG SUPP.RECT PR PRN ×2 (15:40→18:24)
--- NOTE | 2016-12-05 15:57 | PN ---
Teaching Attending Note Name of Resident: Reilly Bland ATTENDING PHYSICIAN STATEMENT I saw and evaluated the patient. I reviewed the resident's note and discussed the case with the resident. I agree with the resident's findings and plan as documented. SUBJECTIVE: No further seizures noted. NAD. Intake & Output 12/02/16 12/03/16 12/04/16 12/05/16 23:59 23:59 23:59 23:59 Intake Total 250 Balance 250 Weight 98 lb 91 lb 4.342 oz Last Vital Signs Temp Pulse Resp BP Pulse Ox 97.3 F L 85 16 100/69 100 12/05/16 14:00 12/05/16 14:00 12/05/16 14:00 12/05/16 14:00 12/05/16 04:10 Active Medications Acetaminophen (Tylenol Suppository -) 650 mg AR Q6H PRN PRN Reason: FEVER OR PAIN Albuterol Sulfate (Ventolin 0.083% Nebulizer Soln -) 1 amp NEB Q4H PRN PRN Reason: SHORT OF BREATH/WHEEZING Chlorhexidine Gluconate (Hibiclens For Decolonization -) 1 applic TP HS VASQUEZ Clonazepam (Klonopin -) 0.5 mg GT TID VASQUEZ Last Admin: 12/05/16 15:47 Dose: 0.5 mg Diazepam (Diastat Rectal Gel -) 5 mg RC ASDIR PRN PRN Reason: SEIZURE Sodium Chloride (Normal Saline -) 1,000 mls @ 100 mls/hr IV ASDIR VASQUEZ Last Admin: 12/05/16 15:48 Dose: 100 mls/hr Levetiracetam (Keppra Injection -) 500 mg IVPB BID VASQUEZ Magnesium Hydroxide (Milk Of Magnesia -) 30 ml GT HS VASQUEZ Mupirocin (Bactroban Ointment (For Decolonization) -) 1 applic NS BID VASQUEZ Stop: 12/10/16 09:59 Nystatin (Mycostatin Cream -) 1 applic TP BID VASQUEZ Ondansetron HCl (Zofran Injection) 4 mg IVPB Q6H PRN PRN Reason: NAUSEA Phenytoin Sodium (Dilantin Injection -) 100 mg IVPB TID VASQUEZ Piperacillin Sod/Tazobactam Sod (Zosyn 3.375gm Ivpb (Pre-Docked)) 3.375 gm IVPB BID ONE PRN Reason: Protocol Stop: 12/05/16 15:41 Senna (Senna -) 2 tab PO HS VASQUEZ Constitutional: Yes: Thin (contracted) Eyes: Yes: Conjunctiva Clear HENT: Yes: Atraumatic, Other Neck: Yes: Other (Spastic) Cardiovascular: Yes: Regular Rate and Rhythm Respiratory: Yes: Regular, CTA Bilaterally Gastrointestinal: Yes: Normal Bowel Sounds, Soft, Other (PEG site clean) ...Rectal Exam: Yes: Deferred Renal/: Yes: Incontinence Extremities: Yes: Other (warm, deformed and contracted) Edema: No Integumentary: Yes: WNL Neurological: Yes: Unresponsive (non-verbal at baseline) Laboratory Results - last 24 hr 12/04/16 12/04/16 12/04/16 18:45 18:45 18:45 WBC 20.7 H D RBC 4.84 Hgb 15.6 Hct 46.4 MCV 95.9 MCHC 33.7 RDW 12.9 Plt Count 427 D MPV 7.7 Neutrophils % 88.9 H D Lymphocytes % 6.4 L D Monocytes % 3.9 Eosinophils % 0.3 D Basophils % 0.5 INR PTT (Actin FS) Sodium 133 L Potassium 4.3 Chloride 96 L Carbon Dioxide 26 Anion Gap 11 BUN 7 Creatinine 0.4 L D Creat Clearance w eGFR > 60 Random Glucose 71 L D Lactic Acid Calcium 9.0 Phosphorus Magnesium 2.7 H Total Bilirubin 0.2 D AST 43 H D ALT 71 D Alkaline Phosphatase 156 H Creatine Kinase 104 Troponin I < 0.02 Total Protein 9.3 H Albumin 4.5 Urine Color Urine Appearance Urine pH Ur Specific [place] Urine Protein Urine Glucose (UA) Urine Ketones Urine Blood Urine Nitrite Urine Bilirubin Urine Urobilinogen Ur Leukocyte Esterase Urine RBC Urine WBC Urine Bacteria Carbamazepine 10.0 12/05/16 12/05/16 12/05/16 05:00 06:00 06:07 WBC RBC Hgb Hct MCV MCHC RDW Plt Count MPV Neutrophils % Lymphocytes % Monocytes % Eosinophils % Basophils % INR 1.16 H PTT (Actin FS) 34.2 Sodium Potassium Chloride Carbon Dioxide Anion Gap BUN Creatinine Creat Clearance w eGFR Random Glucose Lactic Acid 2.234 H* Calcium Phosphorus Magnesium Total Bilirubin AST ALT Alkaline Phosphatase Creatine Kinase Troponin I Total Protein Albumin Urine Color Ltyellow Urine Appearance Slcloudy Urine pH 7.0 Ur Specific [place] 1.008 Urine Protein Negative Urine Glucose (UA) 2+ H Urine Ketones Negative Urine Blood Negative Urine Nitrite Positive Urine Bilirubin Negative Urine Urobilinogen Negative Ur Leukocyte Esterase 3+ H Urine RBC 4 Urine WBC 81 Urine Bacteria Rare Carbamazepine 12/05/16 12/05/16 08:00 08:00 WBC 11.0 H D RBC 4.26 Hgb 13.9 D Hct 41.3 MCV 97.1 H MCHC 33.7 RDW 13.1 Plt Count 317 D MPV 7.6 Neutrophils % 82.0 Lymphocytes % 10.1 D Monocytes % 6.1 Eosinophils % 1.3 D Basophils % 0.5 INR PTT (Actin FS) Sodium 136 Potassium 4.8 Chloride 100 Carbon Dioxide 24 Anion Gap 12 BUN 5 L D Creatinine 0.3 L D Creat Clearance w eGFR > 60 Random Glucose 97 D Lactic Acid Calcium 8.0 L Phosphorus 3.6 Magnesium 2.9 H Total Bilirubin 0.5 D AST 66 H D ALT 77 Alkaline Phosphatase 119 H D Creatine Kinase Troponin I Total Protein 6.9 D Albumin 3.3 L D Urine Color Urine Appearance Urine pH Ur Specific [place] Urine Protein Urine Glucose (UA) Urine Ketones Urine Blood Urine Nitrite Urine Bilirubin Urine Urobilinogen Ur Leukocyte Esterase Urine RBC Urine WBC Urine Bacteria Carbamazepine Problem List (1) Seizure Code(s): R56.9 - UNSPECIFIED CONVULSIONS Assessment/Plan AEDs per Neuro Aspiration precautions O2 as needed Monitor off ABX Floor Dr Quispe
--- NOTE | 2016-12-05 16:08 | PN ---
Addendum entered and electronically signed by Ryann Cardona RES 12/05/16 16: 26: f/u MRV head and neck Original Note: Physical Exam: SUBJECTIVE: Patient seen and examined Patient resting in bed NAD. Awake but not responding to command, not interacting. appears calm. this is mental status baseline as per sitter. no acute events, no further SZ. afebrile and hemodynamically stable. OBJECTIVE: Vital Signs Period Temp Pulse Resp BP Sys/Ricci Pulse Ox Last 24 Hr 97.3 F-98.3 F 62-106 12-23 89-109/60-69 99-100 GENERAL: The patient is awake, nor interactive, in no acute distress. HEAD: dolichocephaly EYES: PERRL sclera anicteric, conjunctiva clear. No ptosis. ENT:moist mucous membranes. NECK: supple. LUNGS: Breath sounds equal, clear to auscultation bilaterally HEART: Regular rate and rhythm, S1, S2 ABDOMEN: Soft, nontender, nondistended, normoactive bowel sounds EXTREMITIES: 2+ pulses, warm, well-perfused, no edema. NEUROLOGICAL: Cranial nerves II through XII grossly intact. sensory intact to touch PSYCH: not interactive SKIN: Warm, dry Laboratory Results - last 24 hr 12/05/16 12/05/16 12/05/16 05:00 06:00 06:07 WBC RBC Hgb Hct MCV MCHC RDW Plt Count MPV Neutrophils % Lymphocytes % Monocytes % Eosinophils % Basophils % INR 1.16 H PTT (Actin FS) 34.2 Sodium Potassium Chloride Carbon Dioxide Anion Gap BUN Creatinine Creat Clearance w eGFR Random Glucose Lactic Acid 2.234 H* Calcium Phosphorus Magnesium Total Bilirubin AST ALT Alkaline Phosphatase Total Protein Albumin Urine Color Ltyellow Urine Appearance Slcloudy Urine pH 7.0 Ur Specific [place] 1.008 Urine Protein Negative Urine Glucose (UA) 2+ H Urine Ketones Negative Urine Blood Negative Urine Nitrite Positive Urine Bilirubin Negative Urine Urobilinogen Negative Ur Leukocyte Esterase 3+ H Urine RBC 4 Urine WBC 81 Urine Bacteria Rare 12/05/16 12/05/16 08:00 08:00 WBC 11.0 H D RBC 4.26 Hgb 13.9 D Hct 41.3 MCV 97.1 H MCHC 33.7 RDW 13.1 Plt Count 317 D MPV 7.6 Neutrophils % 82.0 Lymphocytes % 10.1 D Monocytes % 6.1 Eosinophils % 1.3 D Basophils % 0.5 INR PTT (Actin FS) Sodium 136 Potassium 4.8 Chloride 100 Carbon Dioxide 24 Anion Gap 12 BUN 5 L D Creatinine 0.3 L D Creat Clearance w eGFR > 60 Random Glucose 97 D Lactic Acid Calcium 8.0 L Phosphorus 3.6 Magnesium 2.9 H Total Bilirubin 0.5 D AST 66 H D ALT 77 Alkaline Phosphatase 119 H D Total Protein 6.9 D Albumin 3.3 L D Urine Color Urine Appearance Urine pH Ur Specific [place] Urine Protein Urine Glucose (UA) Urine Ketones Urine Blood Urine Nitrite Urine Bilirubin Urine Urobilinogen Ur Leukocyte Esterase Urine RBC Urine WBC Urine Bacteria Active Medications Generic Name Dose Route Start Last Admin Trade Name Freq PRN Reason Stop Dose Admin Acetaminophen 650 mg 12/05/16 15:40 Tylenol Suppository - MA Q6H PRN FEVER OR PAIN Albuterol Sulfate 1 amp 12/05/16 13:09 Ventolin 0.083% Nebulizer Soln - NEB Q4H PRN SHORT OF BREATH/WHEEZING Chlorhexidine Gluconate 1 applic 12/05/16 22:00 Hibiclens For Decolonization - TP HS VASQUEZ Clonazepam 0.5 mg 12/05/16 14:00 12/05/16 15:47 Klonopin - GT 0.5 mg TID VSAQUEZ Administration Diazepam 5 mg 12/05/16 13:09 Diastat Rectal Gel - RC ASDIR PRN SEIZURE Sodium Chloride 1,000 mls @ 100 mls/hr 12/05/16 13:15 12/05/16 15:48 Normal Saline - IV 100 mls/hr ASDIR VASQUEZ Administration Levetiracetam 500 mg 12/05/16 22:00 Keppra Injection - IVPB BID VASQUEZ Magnesium Hydroxide 30 ml 12/05/16 22:00 Milk Of Magnesia - GT HS VASQUEZ Mupirocin 1 applic 12/05/16 22:00 Bactroban Ointment (For Decolonization) - NS 12/10/16 09:59 BID VASQUEZ Nystatin 1 applic 12/05/16 22:00 Mycostatin Cream - TP BID VASQUEZ Ondansetron HCl 4 mg 12/05/16 15:40 Zofran Injection IVPB Q6H PRN NAUSEA Phenytoin Sodium 100 mg 12/05/16 22:00 Dilantin Injection - IVPB TID VASQUEZ Piperacillin Sod/Tazobactam Sod 3.375 gm 12/05/16 15:40 Zosyn 3.375gm Ivpb (Pre-Docked) IVPB 12/05/16 15:41 BID ONE Protocol Senna 2 tab 12/05/16 22:00 Senna - PO HS [facility] ASSESSMENT/PLAN: This is a 31 yo M [facility] resident with PMH of epilepsy, severe MR ( nonverbal, on carbamazepine 400 mg BID, tiagabine 4 mg TID), congenital quadraplegia, esophagitis, osteoporosis, and scoliosis, who presents due to multiple seizures refractory to home meds x 1 day. Witnessed generalized tonic clonic SZ in ED. Status epilepticus -refractory to home meds -at baseline has two seizures daily. -s/p phenytoin, Keppra in ED, no more SZ since then -resume other home meds -Neuro consult appreciated -Continue keppra 500 mg BID and Dilantin 100 mg TID; plan to wean off Dilantin -Neuro checks -Aspiration precautions -NC O2 Lactic acidosis -secondary to SZ -NS@100 -monitor Mag, Phos, lactic acid SIRS criteria. -no source -s/p Zosin -unlikely infection -F/u cultures, ID consult FEN NS@100 lytes stable tube feed jevity Dispo: can xfer to med [facility]. If no SZ overnight, can xfer to NH. Problem List - Problems (3) Seizure Code(s): R56.9 - UNSPECIFIED CONVULSIONS (4) Status epilepticus Code(s): G40.901 - EPILEPSY, UNSP, NOT INTRACTABLE, WITH STATUS EPILEPTICUS (5) Mental retardation Code(s): F79 - UNSPECIFIED INTELLECTUAL DISABILITIES Visit type - Emergency Visit Emergency Visit: Yes ED Registration Date: 12/05/16 Care time: The patient presented to the Emergency Department on the above date and was hospitalized for further evaluation of their emergent condition. - New Patient This patient is new to me today: Yes Date on this admission: 12/05/16 - Critical Care Critical Care patient: Yes Total Critical Care Time (in minutes): 45 Critical Care Statement: The care of this patient involved high complexity decision making to prevent further life threatening deterioration of the patient 's condition and/or to evalute & treat vital organ system(s) failure or risk of failure. - Discharge Referral Referred to [facility] No
--- NOTE | 2016-12-05 16:10 | CONSULT ---
Consult Consult Specialty:: infectious diseases Reason for Consultation:: lactic acidosis,leukocytosis - History of Present Illness History of Present Illness: 31 yom [facility] resident with PMHX of severe mental retardation, congenital quadraplegia, epilepsy( on Carbamazepine and tiagabine), scoliosis and non-verbal who is brought in by EMS after multiple seizures refractory to normal medical therapy. Lt tibia IO placed by EMS. In ED had witnessed grand mal/partial seizures that was refractory to Keppra but improved with fosphenytoin IV and multiple Ativan pushes. He was seen by neurologist. Started on standing AED's. Labs notable for WBC 20. Blood cultures sent and stated on vanco and Zosyn. 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 Gastrointestinal: Yes: Other (g-tube) - Alcohol/Substance Use Hx Alcohol Use: No - Smoking History Smoking history: Never smoked Aproximately how many cigarettes per day: 0 Home Medications - Allergies Allergies/Adverse Reactions: Allergies Allergy/AdvReac Type Severity Reaction Status Date / Time No Known Allergies Allergy Verified 12/04/16 17:45 - Home Medications Home Medications: Ambulatory Orders Calcium 500Mg/Vit-D 200 Units [Os-Jose Maria 500+D -] 1 tab GT HS 10/21/14 Cholecalciferol (Vitamin D3) [Vitamin D3] 400 unit GT DAILY 10/21/14 Lactose-Reduced Food/Fiber [Jevity 1.2 Jose Maria Liquid] 100 ml GT Q8H 10/21/14 Magnesium Hydroxide [Milk of Magnesia] 30 ml GT HS 10/21/14 Albuterol 0.083% Nebulizer Denise [Ventolin 0.083%] 1 neb NEB Q4H PRN 07/08/16 Nystatin Cream [Mycostatin] 1 applic TP BID 07/08/16 Selenium Sulfide [Selenium Sulfide 2.25% Shampoo] 1 applic TP BID 07/08/16 Triamcinolone 0.5% Ointment [Kenalog] 0 gm TP TID 07/08/16 Carbamazepine [Carbamazepine ER] 100 mg GT BID 08/21/16 Carbamazepine [Carbamazepine ER] 300 mg GT BID 08/21/16 Clonazepam [Klonopin -] 0.5 mg GT TID 08/21/16 Diazepam Rectal Gel [Diastat Rectal Gel -] 5 mg [place] ASDIR PRN 08/21/16 Sennosides [Senna] 2 tab GT HS 08/21/16 Sodium Chloride 2 gm GT TID 08/21/16 Tiagabine HCl 4 mg GT TID 08/21/16 Tizanidine HCl [Zanaflex] 2 mg PO TID 12/05/16 Review of Systems Unable to obtain ROS, reason: unable to obtain because Physical Exam Vital Signs: Vital Signs Temperature 97.3 F L 12/05/16 14:00 Pulse Rate 85 12/05/16 14:00 Respiratory Rate 16 12/05/16 14:00 Blood Pressure 100/69 12/05/16 14:00 O2 Sat by Pulse Oximetry (%) 100 12/05/16 04:10 Constitutional: Yes: No Distress, Calm, Thin Neck: Yes: Supple Cardiovascular: Yes: Regular Rate and Rhythm Respiratory: Yes: Regular, Poor Air Entry Gastrointestinal: Yes: Normal Bowel Sounds, Soft Musculoskeletal: Yes: Other Extremities: Yes: Other Integumentary: Yes: WNL Neurological: Yes: Alert, Other Labs: CBC, BMP 12/05/16 08:00 12/05/16 08:00 Imaging - Results Chest X-ray: Report Reviewed, Image Reviewed Cat Scan: Report Reviewed, Image Reviewed Assessment/Plan Problem List (1) Seizure Code(s): R56.9 - UNSPECIFIED CONVULSIONS plan after looking at the patient and the xray at the moment i do not think he has aspirated though by tomorrow we will revisit and see if he develops any symptoms plan will not start abx at this time and watch if patient starts showing s/o of fever or any other issues then we will initiate abx
--- NOTE | 2016-12-05 17:59 | PN ---
Physical Exam: SUBJECTIVE: Patient seen and examined OBJECTIVE: Vital Signs Period Temp Pulse Resp BP Sys/Ricci Pulse Ox Last 24 Hr 97.3 F-98.3 F 62-106 12-23 89-109/60-79 99-100 GENERAL: The patient is awake, nor interactive, in no acute distress. HEAD: dolichocephaly EYES: PERRL sclera anicteric, conjunctiva clear. No ptosis. ENT:moist mucous membranes. NECK: supple. LUNGS: Breath sounds equal, clear to auscultation bilaterally HEART: S1, S2 normal ABDOMEN: Soft, nontender, nondistended, normoactive bowel sounds, g tube in situ EXTREMITIES: 2+ pulses, warm, well-perfused, no edema. left groin line present PSYCH: not interactive SKIN: Warm, dry Laboratory Results - last 24 hr 12/05/16 12/05/16 12/05/16 05:00 06:00 06:07 WBC RBC Hgb Hct MCV MCHC RDW Plt Count MPV Neutrophils % Lymphocytes % Monocytes % Eosinophils % Basophils % INR 1.16 H PTT (Actin FS) 34.2 Sodium Potassium Chloride Carbon Dioxide Anion Gap BUN Creatinine Creat Clearance w eGFR Random Glucose Lactic Acid 2.234 H* Calcium Phosphorus Magnesium Total Bilirubin AST ALT Alkaline Phosphatase Total Protein Albumin Urine Color Ltyellow Urine Appearance Slcloudy Urine pH 7.0 Ur Specific [place] 1.008 Urine Protein Negative Urine Glucose (UA) 2+ H Urine Ketones Negative Urine Blood Negative Urine Nitrite Positive Urine Bilirubin Negative Urine Urobilinogen Negative Ur Leukocyte Esterase 3+ H Urine RBC 4 Urine WBC 81 Urine Bacteria Rare 12/05/16 12/05/16 12/05/16 08:00 08:00 16:30 WBC 11.0 H D RBC 4.26 Hgb 13.9 D Hct 41.3 MCV 97.1 H MCHC 33.7 RDW 13.1 Plt Count 317 D MPV 7.6 Neutrophils % 82.0 Lymphocytes % 10.1 D Monocytes % 6.1 Eosinophils % 1.3 D Basophils % 0.5 INR PTT (Actin FS) Sodium 136 Potassium 4.8 Chloride 100 Carbon Dioxide 24 Anion Gap 12 BUN 5 L D Creatinine 0.3 L D Creat Clearance w eGFR > 60 Random Glucose 97 D Lactic Acid 1.316 Calcium 8.0 L Phosphorus 3.6 Magnesium 2.9 H Total Bilirubin 0.5 D AST 66 H D ALT 77 Alkaline Phosphatase 119 H D Total Protein 6.9 D Albumin 3.3 L D Urine Color Urine Appearance Urine pH Ur Specific [place] Urine Protein Urine Glucose (UA) Urine Ketones Urine Blood Urine Nitrite Urine Bilirubin Urine Urobilinogen Ur Leukocyte Esterase Urine RBC Urine WBC Urine Bacteria Active Medications Generic Name Dose Route Start Last Admin Trade Name Freq PRN Reason Stop Dose Admin Acetaminophen 650 mg 12/05/16 15:40 Tylenol Suppository - [place] Q6H PRN FEVER OR PAIN Albuterol Sulfate 1 amp 12/05/16 13:09 Ventolin 0.083% Nebulizer Soln - NEB Q4H PRN SHORT OF BREATH/WHEEZING Carbamazepine 200 mg 12/05/16 22:00 Tegretol Oral Suspension - PO TID VASQUEZ Chlorhexidine Gluconate 1 applic 12/05/16 22:00 Hibiclens For Decolonization - TP HS VASQUEZ Clonazepam 0.5 mg 12/05/16 14:00 12/05/16 15:47 Klonopin - GT 0.5 mg TID VASQUEZ Administration Diazepam 5 mg 12/05/16 13:09 Diastat Rectal Gel - RC ASDIR PRN SEIZURE Levetiracetam 500 mg 12/05/16 22:00 Keppra Injection - IVPB BID VASQUEZ Magnesium Hydroxide 30 ml 12/05/16 22:00 Milk Of Magnesia - GT HS [facility] Mupirocin 1 applic 12/05/16 22:00 Bactroban Ointment (For Decolonization) - NS 12/10/16 09:59 BID VASQUEZ Nystatin 1 applic 12/05/16 22:00 Mycostatin Cream - TP BID VASQUEZ Ondansetron HCl 4 mg 12/05/16 15:40 Zofran Injection IVPB Q6H PRN NAUSEA Phenytoin Sodium 100 mg 12/05/16 22:00 Dilantin Injection - IVPB TID VASQUEZ Senna 2 tab 12/05/16 22:00 Senna - PO HS [facility] ASSESSMENT/PLAN: This is a 31 yo M [facility] resident with PMH of epilepsy, severe MR ( nonverbal, on carbamazepine 400 mg BID, tiagabine 4 mg TID), congenital quadraplegia, esophagitis, osteoporosis, and scoliosis, who presents due to multiple seizures refractory to home meds x 1 day. Witnessed generalized tonic clonic SZ in ED. Status -refractory to home meds -got phenytoin, Keppra in ED, no more SZ since then -resume other home meds -Neuro consult appreciated -Continue keppra 500 mg BID and Dilantin 100 mg TID -Aspiration precautions -NC O2 Lactic acidosis - improved -secondary to SZ IO line removed FEN fluid : though tube lytes stable tube feed jevity Dispo: transfer to [facility] surg Visit type - Emergency Visit Emergency Visit: Yes ED Registration Date: 12/05/16 Care time: The patient presented to the Emergency Department on the above date and was hospitalized for further evaluation of their emergent condition. - New Patient This patient is new to me today: Yes Date on this admission: 12/05/16 - Critical Care Critical Care patient: Yes Total Critical Care Time (in minutes): 45 Critical Care Statement: The care of this patient involved high complexity decision making to prevent further life threatening deterioration of the patient 's condition and/or to evalute & treat vital organ system(s) failure or risk of failure.
[2016-12-05] MEDS ORDERED: MAGNESIUM HYDROX 2400MG/30ML ORAL SUSPENSION 30 ML CUP GT SCH ×2 (22:00)
[2016-12-05] MEDS ORDERED: carBAMazepine 200 MG/10 ML UNIT-DOSE CUP PO SCH (22:00)
[2016-12-05] MEDS ORDERED: NYSTATIN 100,000 UNIT/GM TOPICAL CREAM 15 GM TUBE TP SCH (22:00)
[2016-12-05] MEDS ORDERED: CHLORHEXIDINE GLUCONATE 4% CLEANSER FOR DECOLONIZATION TP SCH ×3 (22:00)
[2016-12-05] MEDS ORDERED: PATIENT'S OWN MEDICATION (NON-FORMULARY) (Selenium Sulfide 1 APPLIC) TP SCH (22:00)
[2016-12-05] MEDS ORDERED: CARBAMAZEPINE 100 MG GT SCH (22:00)
[2016-12-05] MEDS ORDERED: CALCIUM 500MG/VIT-D 200 UNITS COMBO TABLET (FP) GT SCH (22:00)
[2016-12-05] MEDS ORDERED: PATIENT'S OWN MEDICATION (NON-FORMULARY) (Carbamazepine [Carbamazepine Er] 300 MG) GT SCH (22:00)
[2016-12-05] MEDS ORDERED: SENNOSIDES 8.6MG TABLET (FP) PO SCH ×2 (22:00)
[2016-12-05] MEDS ORDERED: PHENYTOIN SODIUM 100 MG/2 ML VIAL IVPB SCH (22:00)
[2016-12-05] MEDS: levETIRAcetam 500 MG/5 ML INJECTION VIAL IVPB SCH (22:10)
[2016-12-05] MEDS: NYSTATIN 100,000 UNIT/GM TOPICAL CREAM 15 GM TUBE TP SCH (22:10)
[2016-12-05] MEDS: clonazePAM 0.5 MG TABLET GT SCH (22:10)
[2016-12-05] MEDS: carBAMazepine 200 MG/10 ML UNIT-DOSE CUP PO SCH (22:11)
[2016-12-06] MEDS: PHENYTOIN SODIUM 100 MG/2 ML VIAL IVPB SCH (06:42)
[2016-12-06] MEDS: clonazePAM 0.5 MG TABLET GT SCH ×2 (06:42→14:01)
[2016-12-06] MEDS: carBAMazepine 200 MG/10 ML UNIT-DOSE CUP PO SCH ×2 (06:42→14:22)
[2016-12-06 08:16] LABS: MCH 33.7 pg (25.7-33.7); MCHC 35.1 g/dl (32.0-35.9); MEAN PLT VOLUME 7.8 fl (7.5-11.1); PLATELET COUNT 323 K/MM3 (134-434); WHITE BLOOD COUNT 7.9 K/mm3 (4.0-10.0)
[2016-12-06 08:43] LABS: CALCIUM 7.7 mg/dL (8.5-10.1)
[2016-12-06 08:47] LABS: CREATININE 0.4 mg/dL (0.7-1.3); MAGNESIUM 2.1 mg/dL (1.8-2.4); PHOSPHOROUS 2.3 mg/dL (2.5-4.9)
[2016-12-06] MEDS ORDERED: SODIUM CHLORIDE 1,000 ML IV SCH (09:15)
[2016-12-06] MEDS: levETIRAcetam 500 MG/5 ML INJECTION VIAL IVPB SCH (09:28)
[2016-12-06] MEDS: NYSTATIN 100,000 UNIT/GM TOPICAL CREAM 15 GM TUBE TP SCH (09:29)
[2016-12-06] MEDS ORDERED: PATIENT'S OWN MEDICATION (NON-FORMULARY) (Cholecalciferol (Vitamin D3) [Vitamin D3] 400 UN GT SCH (10:00)
--- NOTE | 2016-12-06 10:33 | PN ---
Progress Note, Physician History of Present Illness: stable doing well no issues calm - Current Medication List Current Medications: Active Medications Acetaminophen (Tylenol Suppository -) 650 mg [place] Q6H PRN PRN Reason: FEVER OR PAIN Albuterol Sulfate (Ventolin 0.083% Nebulizer Soln -) 1 amp NEB Q4H PRN PRN Reason: SHORT OF BREATH/WHEEZING Carbamazepine (Tegretol Oral Suspension -) 200 mg PO TID [facility] Last Admin: 12/06/16 06:42 Dose: 200 mg Clonazepam (Klonopin -) 0.5 mg GT TID [facility] Last Admin: 12/06/16 06:42 Dose: 0.5 mg Diazepam (Diastat Rectal Gel -) 5 mg RC PRN PRN PRN Reason: SEIZURE Sodium Chloride (Normal Saline -) 1,000 mls @ 100 mls/hr IV ASDIR [facility] Last Admin: 12/06/16 09:28 Dose: 100 mls/hr Levetiracetam (Keppra Injection -) 500 mg IVPB BID [facility] Last Admin: 12/06/16 09:28 Dose: 500 mg Magnesium Hydroxide (Milk Of Magnesia -) 30 ml GT HS [facility] Last Admin: 12/05/16 22:11 Dose: 30 ml Nystatin (Mycostatin Cream -) 1 applic TP BID [facility] Last Admin: 12/06/16 09:29 Dose: 1 applic Ondansetron HCl (Zofran Injection) 4 mg IVPB Q6H PRN PRN Reason: NAUSEA Phenytoin Sodium (Dilantin Injection -) 100 mg IVPB TID [facility] Last Admin: 12/06/16 06:42 Dose: 100 mg Senna (Senna -) 2 tab PO HS [facility] Last Admin: 12/05/16 22:10 Dose: 2 tab - Objective Vital Signs: Vital Signs Temperature 97.9 F 12/06/16 08:43 Pulse Rate 76 12/06/16 08:43 Respiratory Rate 16 12/06/16 08:43 Blood Pressure 110/64 12/06/16 08:43 O2 Sat by Pulse Oximetry (%) 100 12/05/16 04:10 Constitutional: Yes: No Distress, Calm Cardiovascular: Yes: Regular Rate and Rhythm Respiratory: Yes: Regular, Poor Air Entry Gastrointestinal: Yes: Normal Bowel Sounds, Soft Musculoskeletal: Yes: WNL Extremities: Yes: Other Neurological: Yes: Alert, Other Psychiatric: Yes: Other Labs: CBC, BMP 12/06/16 06:30 12/06/16 06:30 INR, PTT INR 1.16 (0.82-1.09) H 12/05/16 06:07 Assessment/Plan Problem List (1) Seizure Code(s): R56.9 - UNSPECIFIED CONVULSIONS plan continue monitoring off of abx rest as per primary
--- NOTE | 2016-12-06 13:10 | PN ---
Progress Note (short form) - Note Progress Note: Neurology The patient is a 31 year old male brought via EMS and presenting with a care director rn from [facility], with a significant past medical history of severe mental retardation (carbamazepine 400 mg BID, tiagabine 4 mg TID), congenital quadraplegia, esophagitis, epilepsy, osteoporosis, non verbal, and scoliosis, who presents to the emergency department with multiple seizures occurring today. On presentation to ER the patient experienced a brief episode of generalized tonic clonic activity. The patient is non verbal on baseline. According to his old records, the patient usually has two seizures daily. In the ER he was loaded with phenytoin as well as Keppra. Since then, has been seizure free. No seizures overnight or today. Active Medications Acetaminophen (Tylenol Suppository -) 650 mg [place] Q6H PRN PRN Reason: FEVER OR PAIN Albuterol Sulfate (Ventolin 0.083% Nebulizer Soln -) 1 amp NEB Q4H PRN PRN Reason: SHORT OF BREATH/WHEEZING Carbamazepine (Tegretol Oral Suspension -) 200 mg PO TID [facility] Last Admin: 12/06/16 06:42 Dose: 200 mg Clonazepam (Klonopin -) 0.5 mg GT TID [facility] Last Admin: 12/06/16 06:42 Dose: 0.5 mg Diazepam (Diastat Rectal Gel -) 5 mg RC PRN PRN PRN Reason: SEIZURE Sodium Chloride (Normal Saline -) 1,000 mls @ 100 mls/hr IV ASDIR [facility] Last Admin: 12/06/16 09:28 Dose: 100 mls/hr Levetiracetam (Keppra Injection -) 500 mg IVPB BID [facility] Last Admin: 12/06/16 09:28 Dose: 500 mg Magnesium Hydroxide (Milk Of Magnesia -) 30 ml GT HS [facility] Last Admin: 12/05/16 22:11 Dose: 30 ml Nystatin (Mycostatin Cream -) 1 applic TP BID [facility] Last Admin: 12/06/16 09:29 Dose: 1 applic Ondansetron HCl (Zofran Injection) 4 mg IVPB Q6H PRN PRN Reason: NAUSEA Phenytoin Sodium (Dilantin Injection -) 100 mg IVPB TID [facility] Last Admin: 12/06/16 06:42 Dose: 100 mg Senna (Senna -) 2 tab PO HS [facility] Last Admin: 04/13/17 22:10 Dose: 2 tab *Physical Exam Vital Signs Temperature 97.9 F 12/06/16 08:43 Pulse Rate 76 12/06/16 08:43 Respiratory Rate 16 12/06/16 08:43 Blood Pressure 110/64 12/06/16 08:43 O2 Sat by Pulse Oximetry (%) 96 12/06/16 09:00 GENERAL: Awake HEAD: No signs of trauma, normocephalic, atraumatic EYES: PERRLA, EOMI, sclera anicteric, conjunctiva clear ENT: Auricles normal inspection, hearing grossly normal, nares patent, oropharynx clear without exudates. Moist mucosa NECK: Normal ROM, supple, no lymphadenopathy, JVD, or masses LUNGS: No distress, speaks full sentences, clear to auscultation bilaterally HEART: +Tachycardia, normal S1 and S2, no murmurs, rubs or gallops, peripheral pulses normal and equal bilaterally. ABDOMEN: +G-tube in place, clean, dry and intact. Soft, nontender, normoactive bowel sounds. No guarding, no rebound. No masses EXTREMITIES: +Spasticity lower and upper extremity. left lower extremity IO. No edema. No clubbing or cyanosis. NEUROLOGICAL: Nonverbal, not following commands, asleep, no movement disorder, sensory intact to touch SKIN: Warm, Dry, normal turgor, no rashes or lesions noted. Laboratory Results 12/04/16 12/04/16 18:45 18:45 Sodium 133 L Potassium 4.3 Chloride 96 L Carbon Dioxide 26 Anion Gap 11 BUN 7 Creatinine 0.4 L D Creat Clearance w eGFR > 60 Random Glucose 71 L D Calcium 9.0 Magnesium 2.7 H Total Bilirubin 0.2 D AST 43 H D ALT 71 D Alkaline Phosphatase 156 H Creatine Kinase 104 Troponin I < 0.02 Total Protein 9.3 H Albumin 4.5 Carbamazepine 10.0 12/04/16 18:45 RBC 4.84 MCV 95.9 MCHC 33.7 RDW 12.9 MPV 7.7 Neutrophils % 88.9 H D Lymphocytes % 6.4 L D Monocytes % 3.9 Eosinophils % 0.3 D Basophils % 0.5 Medical Decision Making 31 year old male brought via EMS and presenting with a care director rn from [facility], with a significant past medical history of severe mental retardation (carbamazepine 400 mg BID, tiagabine 4 mg TID), congenital quadraplegia, esophagitis, epilepsy, osteoporosis, non verbal, and scoliosis, who presents to the emergency department with multiple seizures occurring today. On presentation to ER the patient experienced a brief episode of generalized tonic clonic activity. The patient is non verbal on baseline. According to his old records, the patient usually has two seizures daily. In the ER he was loaded with phenytoin as well as Keppra. Since then, has been seizure free. Currently in ICU. Can continue both antiepileptics for now. As outpatient or in the future, may be able to discontinue one (would consider tapering off Dilantin due to intermediate card tender toxicity). Neurologically stable, no events overnight or today. For discharge back to facility.
--- NOTE | 2016-12-06 13:25 | DS ---
Physical Exam: SUBJECTIVE: Patient seen and examined Patient resting in bed NAD. Awake but not responding to command, not interacting. appears calm. this is mental status baseline as per sitter. no acute events, no further SZ. afebrile and hemodynamically stable. OBJECTIVE: Vital Signs Period Temp Pulse Resp BP Sys/Ricci Pulse Ox Last 24 Hr 97.3 F-97.9 F 76-107 16-20 99-118/62-79 96 PHYSICAL EXAM GENERAL: The patient is awake, nor interactive, in no acute distress. HEAD: dolichocephaly EYES: PERRL sclera anicteric, conjunctiva clear. No ptosis. ENT:moist mucous membranes. NECK: supple. LUNGS: Breath sounds equal, clear to auscultation bilaterally HEART: Regular rate and rhythm, S1, S2 ABDOMEN: Soft, nontender, nondistended, normoactive bowel sounds EXTREMITIES: 2+ pulses, warm, well-perfused, no edema. NEUROLOGICAL: Cranial nerves II through XII grossly intact. sensory intact to touch PSYCH: not interactive SKIN: Warm, dry LABS Laboratory Results - last 24 hr 12/05/16 12/05/16 12/06/16 16:30 16:53 06:30 WBC 7.9 RBC 3.72 L Hgb 12.6 Hct 35.7 MCV 96.0 MCHC 35.1 RDW 13.0 Plt Count 323 MPV 7.8 Sodium Potassium Chloride Carbon Dioxide Anion Gap BUN Creatinine POC Glucometer [phone] Random Glucose Lactic Acid 1.316 Calcium Phosphorus Magnesium 12/06/16 12/06/16 12/06/16 06:30 06:30 06:38 WBC RBC Hgb Hct MCV MCHC RDW Plt Count MPV Sodium 135 L Potassium 3.8 D Chloride 99 Carbon Dioxide 26 Anion Gap 10 BUN 6 L Creatinine 0.4 L D POC Glucometer 152 Random Glucose 143 H D Lactic Acid 2.430 H* Calcium 7.7 L Phosphorus 2.3 L D Magnesium 2.1 D 12/06/16 11:24 WBC RBC Hgb Hct MCV MCHC RDW Plt Count MPV Sodium Potassium Chloride Carbon Dioxide Anion Gap BUN Creatinine POC Glucometer 80 Random Glucose Lactic Acid Calcium Phosphorus Magnesium HOSPITAL COURSE: Date of Admission:12/05/16 This is a 31 yo M [facility] resident with PMH of epilepsy, severe MR ( nonverbal, on carbamazepine 400 mg BID, tiagabine 4 mg TID), congenital quadraplegia, esophagitis, osteoporosis, and scoliosis, who presents due to multiple seizures refractory to home meds x 1 day. Witnessed generalized tonic clonic SZ in ED. Patient was admitted for Status epilepticus and stabilized with phenytoin and Keppra in ED. He was then placed on no keppra 500 mg BID and Dilantin 100 mg TID with no more SZ activity since then. he was evaluated y neurology, whi recommended weaning off Dilantin. Patient remained SZ free for 48 hr and was transferred back to his facility. Date of Discharge: 12/06/16 Minutes to complete discharge: 60 (na) Discharge Summary Reason For Visit: STATUS EPILEPTICUS Current Active Problems Mental retardation (Acute) Status epilepticus (Acute) Condition: Stable - Instructions Diet, Activity, Other Instructions: Pateint was in hospital because of refractory seizures. He was stablilized with Keppra 500 bid and dilantin 100 tid. He had no seizure activeity fopr 48 hr in the hospital. Neurology recommends weaning off Dilantin. Referrals: Josef Zhou MD [Staff Physician] - 2 Weeks Disposition: RETIREMENT FACILITY - Home Medications Comprehensive Discharge Medication List: Ambulatory Orders Calcium 500Mg/Vit-D 200 Units [Os-Jose Maria 500+D -] 1 tab GT HS 10/21/14 Cholecalciferol (Vitamin D3) [Vitamin D3] 400 unit GT DAILY 10/21/14 Lactose-Reduced Food/Fiber [Jevity 1.2 [place] Liquid] 100 ml GT Q8H 10/21/14 Magnesium Hydroxide [Milk of Magnesia] 30 ml GT HS 10/21/14 Albuterol 0.083% Nebulizer Denise [Ventolin 0.083% Nebulizer Soln -] 1 neb NEB Q4H PRN 07/08/16 Nystatin Cream [Mycostatin Cream -] 1 applic TP BID 07/08/16 Selenium Sulfide [Selenium Sulfide 2.25% Shampoo] 1 applic TP BID 07/08/16 Triamcinolone 0.5% Ointment [Aristocort 0.5% Ointment -] 0 gm TP TID 07/08/16 Carbamazepine [Carbamazepine ER] 100 mg GT BID 08/21/16 Carbamazepine [Carbamazepine ER] 300 mg GT BID 08/21/16 Clonazepam [Klonopin -] 0.5 mg GT TID 08/21/16 Diazepam Rectal Gel [Diastat Rectal Gel -] 5 mg [place] ASDIR PRN 08/21/16 Sennosides [Senna] 2 tab GT HS 08/21/16 Sodium Chloride 2 gm GT TID 08/21/16 Tiagabine HCl 4 mg GT TID 08/21/16 Tizanidine HCl [Zanaflex] 2 mg PO TID 12/05/16 Levetiracetam [Keppra -] 500 mg PO BID #60 tablet 12/06/16 Phenytoin [Dilantin Chewable Tablet -] 100 mg PO TID #90 tab 12/06/16 Problem List - Problems (3) Seizure Code(s): R56.9 - UNSPECIFIED CONVULSIONS (4) Status epilepticus Code(s): G40.901 - EPILEPSY, UNSP, NOT INTRACTABLE, WITH STATUS EPILEPTICUS (5) Mental retardation Code(s): F79 - UNSPECIFIED INTELLECTUAL DISABILITIES This patient is new to me today: No Emergency Visit: Yes ED Registration Date: 12/05/16 Care time: The patient presented to the Emergency Department on the above date and was hospitalized for further evaluation of their emergent condition. Critical Care patient: No - Discharge Referral Referred to [facility] No
[2016-12-06] MEDS ORDERED: PT OWN MED DRAWER 7, Y5N ONE (13:57)
[2016-12-06] MEDS ORDERED: PHENYTOIN 50 MG TAB.CHEW PO SCH (14:00)
[2016-12-06 14:56] VITALS: BP 125/75; PULSE 71; TEMP 98.6
--- NOTE | 2016-12-06 16:08 | PN ---
Teaching Attending Note Name of Resident: Ryann Cardona ATTENDING PHYSICIAN STATEMENT I saw and evaluated the patient. I reviewed the resident's note and discussed the case with the resident. I agree with the resident's findings and plan as documented. Patient is stable, no further seizure at this time. No fever, no chills. looks comfortable. Vital Signs Temperature 98.6 F 12/06/16 14:54 Pulse Rate 71 12/06/16 14:54 Respiratory Rate 18 12/06/16 14:54 Blood Pressure 125/75 12/06/16 14:54 O2 Sat by Pulse Oximetry (%) 96 12/06/16 09:00 CBCD WBC 7.9 K/mm3 (4.0-10.0) 12/06/16 06:30 RBC 3.72 M/mm3 (4.00-5.60) L 12/06/16 06:30 Hgb 12.6 GM/dL (11.7-16.9) 12/06/16 06:30 Hct 35.7 % (35.4-49) 12/06/16 06:30 MCV 96.0 fl (80-96) 12/06/16 06:30 MCHC 35.1 g/dl (32.0-35.9) 12/06/16 06:30 RDW 13.0 % (11.9-15.9) 12/06/16 06:30 Plt Count 323 K/MM3 (134-434) 12/06/16 06:30 MPV 7.8 fl (7.5-11.1) 12/06/16 06:30 CMP Sodium 135 mmol/L (136-145) L 12/06/16 06:30 Potassium 3.8 mmol/L (3.5-5.1) D 12/06/16 06:30 Chloride 99 mmol/L (98-107) 12/06/16 06:30 Carbon Dioxide 26 mmol/L (21-32) 12/06/16 06:30 Anion Gap 10 (8-16) 12/06/16 06:30 BUN 6 mg/dL (7-18) L 12/06/16 06:30 Creatinine 0.4 mg/dL (0.7-1.3) L D 12/06/16 06:30 Creat Clearance w eGFR > 60 (>60) 12/05/16 08:00 Random Glucose 143 mg/dL (74-106) H D 12/06/16 06:30 Calcium 7.7 mg/dL (8.5-10.1) L 12/06/16 06:30 Total Bilirubin 0.5 mg/dL (0.2-1.0) D 12/05/16 08:00 AST 66 U/L (15-37) H D 12/05/16 08:00 ALT 77 U/L (12-78) 12/05/16 08:00 Alkaline Phosphatase 119 U/L (45-117) H D 12/05/16 08:00 Total Protein 6.9 g/dl (6.4-8.2) D 12/05/16 08:00 Albumin 3.3 g/dl (3.4-5.0) L D 12/05/16 08:00 CARDIAC ENZYMES Creatine Kinase 104 IU/L (39-308) 12/04/16 18:45 Troponin I < 0.02 ng/ml (0.00-0.05) 12/04/16 18:45 Home Medications Medication Instructions Recorded Calcium 500Mg/Vit-D 200 Units 1 tab GT HS 10/21/14 [Os-Jose Maria 500+D -] Cholecalciferol (Vitamin D3) 400 unit GT DAILY 10/21/14 [Vitamin D3] Lactose-Reduced Food/Fiber [Jevity 100 ml GT Q8H 10/21/14 1.2 Jose Maria Liquid] Magnesium Hydroxide [Milk of 30 ml GT HS 10/21/14 Magnesia] Albuterol 0.083% Nebulizer Denise 1 neb NEB Q4H PRN 07/08/16 [Ventolin 0.083% Nebulizer Soln -] Nystatin Cream [Mycostatin Cream -] 1 applic TP BID 07/08/16 Selenium Sulfide [Selenium Sulfide 1 applic TP BID 07/08/16 2.25% Shampoo] Triamcinolone 0.5% Ointment 0 gm TP TID 07/08/16 [Aristocort 0.5% Ointment -] Carbamazepine [Carbamazepine ER] 100 mg GT BID 08/21/16 Carbamazepine [Carbamazepine ER] 300 mg GT BID 08/21/16 Clonazepam [Klonopin -] 0.5 mg GT TID 08/21/16 Diazepam Rectal Gel [Diastat 5 mg [place] ASDIR PRN 08/21/16 Rectal Gel -] Sennosides [Senna] 2 tab GT HS 08/21/16 Sodium Chloride 2 gm GT TID 08/21/16 Tiagabine HCl 4 mg GT TID 08/21/16 Tizanidine HCl [Zanaflex] 2 mg PO TID 12/05/16 Levetiracetam [Keppra -] 500 mg PO BID #60 tablet 12/06/16 Phenytoin [Dilantin Chewable 100 mg PO TID #90 tab 12/06/16 Tablet -] ASSESSMENT AND PLAN: Patient is a 31 yo M from [facility] with PMHx of severe Mental retardation, seizures, presents with multiple episodes of seizures in ED. # Status epilepticus. no further seizure, was started on keppra 500 mg BID and Dilantin 100mg tid in ED. -Ativan 2 mg IV PUSH PRN, neurology was consulted to continue current regimen. and at one point to taper dilantin off once the patient is more stable. Patient had no further seizure, no fever or chills, no leukocytosis. will send the patient back to [facility]. # S/p leukocytosis as per if improves no antibiotic is needed. Patient has no signs of infection at this time , no fever or chills, no WBC, afebrile. will send the patient back to [facility] # Patient has chronic gann; urine was positive for WBC, but afebrile and no leukocytosis. will not treat at this time.
[2016-12-06] MEDS ORDERED: levETIRAcetam 500 MG/5 ML ORAL SOLUTION (UNIT-DOSE CUPS) PO SCH (22:00)
== END 2016-12-06 15:45 | disposition home or self-care (01) | DRG 100 ==
LOC: JER 17:34 → JERBED 12-05 00:52 → UNDOADMIN 12-05 01:04 → JICU 12-05 03:46 → J8W 12-05 17:55
PROVIDERS: ADMIT Internal Medicine; ATTEND Internal Medicine
PROC: 3E0G76Z Introduction of Nutritional Substance into Upper GI, Via Natural or Artificial Opening (ICD-10-PCS; principal; 2016-12-05)
DX: G40.801 Other epilepsy, not intractable, with status epilepticus (principal); G80.0 Spastic quadriplegic cerebral palsy; F72 Severe intellectual disabilities; E87.2 Acidosis; M81.0 Age-related osteoporosis without current pathological fracture; M41.9 Scoliosis, unspecified; Z93.1 Gastrostomy status; H47.619 Cortical blindness, unspecified side of brain; H50.10 Unspecified exotropia
CPT/HCPCS: 36415; 70450-TC; 71010-TC; 80048; 80053; 80156; 81003; 81015; 82550; 83605; 83735; 84100; 84484; 85025; 85027; 85610; 85730; 87040; 87086; 87186; 93005; 93010; 99285-25; G0008; Q2037

== ENCOUNTER 2017-01-10 14:57 | Emergency (ER) | payer OTHER ==
[2017-01-10 15:10] VITALS: BP 150/76; PULSE 85; BMI 29.2
--- NOTE | 2017-01-10 17:29 | PDOC ---
History of Present Illness - General History Source: Care Provider, Snf Records Exam Limitations: Other (retardation, nonverbal) - History of Present Illness Initial Comments: 01/10/17 17:32 The patient is a 31 year old male with a significant past medical history of mental retardation, congenital quadriplegia, esophagitis, epilepsy, osteoporosis , and scoliosis, brought from [facility] to the Emergency Department after his G-tube fell out earlier today. As per [facility], the patients G- tube fell out while the aid was changing the patient. The patient is nonverbal at baseline. <Michelle Beckham - Last Filed: 01/10/17 17:32> <Jesus Mendoza - Last Filed: 01/10/17 18:56> - General Chief Complaint: G Tube Problem Stated Complaint: G TUBE PROBLEM Time Seen by Provider: 01/10/17 16:50 Past History <Michelle Beckham - Last Filed: 01/10/17 17:32> - Past Medical History GI Disorders: Yes (ESOPHAGITIS.) Seizures: Yes - Surgical History Abdominal Surgery: Yes GI Surgery: Yes (PEG TUBE.) - Psycho/Social/Smoking Cessation Hx Anxiety: No Suicidal Ideation: No Smoking History: Never smoked Have you smoked in the past 12 months: No Number of Cigarettes Smoked Daily: 0 Information on smoking cessation initiated: No Hx Alcohol Use: No Drug/Substance Use Hx: No Substance Use Type: None <Jesus Mendoza - Last Filed: 01/10/17 18:56> - Past Medical History Allergies/Adverse Reactions: Allergies Allergy/AdvReac Type Severity Reaction Status Date / Time No Known Allergies Allergy Verified 01/10/17 15:09 Home Medications: Ambulatory Orders Calcium 500Mg/Vit-D 200 Units [Os-Jose Maria 500+D -] 1 tab GT HS 10/21/14 Cholecalciferol (Vitamin D3) [Vitamin D3] 400 unit GT DAILY 10/21/14 Lactose-Reduced Food/Fiber [Jevity 1.2 Jose Maria Liquid] 100 ml GT Q8H 10/21/14 Magnesium Hydroxide [Milk of Magnesia] 30 ml GT HS 10/21/14 Albuterol 0.083% Nebulizer Denise [Ventolin 0.083% Nebulizer Soln -] 1 neb NEB Q4H PRN 07/08/16 Nystatin Cream [Mycostatin Cream -] 1 applic TP BID 07/08/16 Selenium Sulfide [Selenium Sulfide 2.25% Shampoo] 1 applic TP BID 07/08/16 Triamcinolone 0.5% Ointment [Aristocort 0.5% Ointment -] 0 gm TP TID 07/08/16 Carbamazepine [Carbamazepine ER] 100 mg GT BID 08/21/16 Carbamazepine [Carbamazepine ER] 300 mg GT BID 08/21/16 Clonazepam [Klonopin -] 0.5 mg GT TID 08/21/16 Diazepam Rectal Gel [Diastat Rectal Gel -] 5 mg NE ASDIR PRN 08/21/16 Sennosides [Senna] 2 tab GT HS 08/21/16 Sodium Chloride 2 gm GT TID 08/21/16 Tiagabine HCl 4 mg GT TID 08/21/16 Tizanidine HCl [Zanaflex] 2 mg PO TID 12/05/16 Levetiracetam [Keppra -] 500 mg PO BID #60 tablet 12/06/16 Phenytoin [Dilantin Chewable Tablet -] 100 mg PO TID #90 tab 12/06/16 Review of Systems - Review of Systems Able to Perform ROS?: No (retardation, nonverbal) <Michelle Beckham - Last Filed: 01/10/17 17:32> *Physical Exam - Vital Signs Last Vital Signs Temp Pulse Resp BP Pulse Ox 85 20 150/76 100 01/10/17 15:07 01/10/17 15:07 01/10/17 15:07 01/10/17 15:07 - Physical Exam Comments: 01/10/17 17:33 GENERAL: The patient is awake, alert, and fully oriented, EYES: extraocular movements intact, sclera anicteric, conjunctiva clear. ENT: Normal voice, Moist mucous membranes. ABDOMEN: Soft, nontender, G tube out of place EXTREMITIES:contracted extremities SKIN: Warm, Dry, normal turgor, <Michelle Beckham - Last Filed: 01/10/17 17:32> - Vital Signs Last Vital Signs Temp Pulse Resp BP Pulse Ox 85 20 150/76 100 01/10/17 15:07 01/10/17 15:07 01/10/17 15:07 01/10/17 15:07 <Jesus Mendoza - Last Filed: 01/10/17 18:56> Medical Decision Making - Medical Decision Making 01/10/17 18:[address] on xray geno pinon pt back to his facility I discussed the physical exam findings, ancillary test results and final diagnoses with the patient. I answered all of the patient's questions. The patient was satisfied with the care received and felt comfortable with the discharge plan and treatment plan. The patient will call their primary care physician within 24 hours to arrange follow-up and will return to the Emergency Department with any new, persistent or worsening symptoms. <Jesus Mendoza - Last Filed: 01/10/17 18:56> *DC/Admit/Observation/Transfer - Attestations Scribe Attestion: 01/10/17 17:33 Documentation prepared by Michelle Beckham, acting as medical dir for Jesus Mendoza MD. <Michelle Beckham - Last Filed: 01/10/17 17:32> - Discharge Dispostion Admit: No <Jesus Mendoza - Last Filed: 01/10/17 18:56> Diagnosis at time of Disposition: Gastrojejunostomy tube dislodgement - Referrals Referrals: [facility] [Provider Group] - Patient Instructions Printed Discharge Instructions: How to Care for Your PEG Tube, DI for Gastrostomy Tube Placement in Child
== END 2017-01-10 19:14 | disposition home or self-care (01) ==
LOC: JER 14:57
PROC: 0D20XUZ Change Feeding Device in Upper Intestinal Tract, External Approach (ICD-10-PCS; principal; 2017-01-10)
DX: Z43.1 Encounter for attention to gastrostomy (principal); F79 Unspecified intellectual disabilities; G80.8 Other cerebral palsy; G40.909 Epilepsy, unspecified, not intractable, without status epilepticus; M19.90 Unspecified osteoarthritis, unspecified site; M41.80 Other forms of scoliosis, site unspecified
CPT/HCPCS: 43760; 74000-TC; 99283-25

== ENCOUNTER 2017-03-04 10:56 | Emergency (ER) | payer OTHER ==
[2017-03-04 11:01] VITALS: BMI 20.5
--- NOTE | 2017-03-04 11:08 | PDOC ---
History of Present Illness - General Chief Complaint: G Tube Problem Stated Complaint: G TUBE DISPLACEMENT Time Seen by Provider: 03/04/17 11:07 History Source: Care Provider Exam Limitations: Other (MR and nonverbal at baseline) - History of Present Illness Initial Comments: 03/04/17 11:07 Patient is a nonverbal 31 year old male with medical history significant for mental retardation, congenital quadriplegia, esophagitis, epilepsy, osteoporosis , and scoliosis, sent from [facility] after his G-tube fell out in school earlier today. [facility] sent patient G-tube and a new 14 Maldivian. 03/04/17 11:34 Past History - Past Medical History Allergies/Adverse Reactions: Allergies Allergy/AdvReac Type Severity Reaction Status Date / Time No Known Allergies Allergy Verified 03/04/17 10:57 Home Medications: Ambulatory Orders Calcium 500Mg/Vit-D 200 Units [Os-Jose Maria 500+D -] 1 tab GT HS 10/21/14 Cholecalciferol (Vitamin D3) [Vitamin D3] 400 unit GT DAILY 10/21/14 Lactose-Reduced Food/Fiber [Jevity 1.2 Jose Maria Liquid] 100 ml GT Q8H 10/21/14 Magnesium Hydroxide [Milk of Magnesia] 30 ml GT HS 10/21/14 Albuterol 0.083% Nebulizer Denise [Ventolin 0.083% Nebulizer Soln -] 1 neb NEB Q4H PRN 07/08/16 Nystatin Cream [Mycostatin Cream -] 1 applic TP BID 07/08/16 Selenium Sulfide [Selenium Sulfide 2.25% Shampoo] 1 applic TP BID 07/08/16 Triamcinolone 0.5% Ointment [Aristocort 0.5% Ointment -] 0 gm TP TID 07/08/16 Carbamazepine [Carbamazepine ER] 100 mg GT BID 08/21/16 Carbamazepine [Carbamazepine ER] 300 mg GT BID 08/21/16 Clonazepam [Klonopin -] 0.5 mg GT TID 08/21/16 Diazepam Rectal Gel [Diastat Rectal Gel -] 5 mg [place] ASDIR PRN 08/21/16 Sennosides [Senna] 2 tab GT HS 08/21/16 Tiagabine HCl 4 mg GT TID 08/21/16 Tizanidine HCl [Zanaflex] 2 mg PO TID 12/05/16 Levetiracetam [Keppra -] 500 mg PO BID #60 tablet 12/06/16 Phenytoin [Dilantin Chewable Tablet -] 100 mg PO TID #90 tab 12/06/16 GI Disorders: Yes (ESOPHAGITIS.) Seizures: Yes - Surgical History Abdominal Surgery: Yes GI Surgery: Yes (PEG TUBE.) - Psycho/Social/Smoking Cessation Hx Anxiety: No Suicidal Ideation: No Smoking History: Never smoked Have you smoked in the past 12 months: No Number of Cigarettes Smoked Daily: 0 Information on smoking cessation initiated: No Hx Alcohol Use: No Drug/Substance Use Hx: No Substance Use Type: None *Physical Exam - Vital Signs Last Vital Signs Temp Pulse Resp BP Pulse Ox 82 18 108/65 100 03/04/17 10:58 03/04/17 10:58 03/04/17 10:58 03/04/17 10:58 - Physical Exam General Appearance: Yes: Other (Awake, NAD, at baseline per caregivel) HEENT: positive: Pharynx Normal Respiratory/Chest: positive: Lungs Clear, Normal Breath Sounds Cardiovascular: positive: Regular Rhythm, Regular Rate Gastrointestinal/Abdominal: positive: Other (G-tube site has no pus, erythema or edema.) Medical Decision Making - Medical Decision Making 03/04/17 13:01 Replaced G-tube with the assistance of Dr. Leong through the existing tract using the 14F provided by the home. inflated with 5cc saline KUB showed contrast injected through tube in stomach without leakage (Leroy Escobar) *DC/Admit/Observation/Transfer Diagnosis at time of Disposition: Gastrojejunostomy tube dislodgement - Discharge Dispostion Disposition: HOME Condition at time of disposition: Good Admit: No - Patient Instructions Printed Discharge Instructions: DI for Percutaneous Endoscopic Gastrostomy Additional Instructions: Thank you for trusting us with the care of Mr. Parson. Please follow the previous instructions for the maintenance of the G-Tube and return to the ED if there are any signs of infection or if the tube becomes obstructed or dislodged. - Attestations Physician Attestion: 03/04/17 13:11 I, Dr. Leroy Escobar, attest that this document has been prepared under my direction and personally reviewed by me in its entirety. I further attest, that it accurately reflects all work, treatment, procedures and medical decision -making performed by me.
--- NOTE | 2017-03-04 12:18 | PDOC ---
Attending Attestation - Resident Resident Name: Leroy Escobar - ED Attending Attestation I have performed the following: I have examined & evaluated the patient, The case was reviewed & discussed with the resident, I agree w/resident's findings & plan, Exceptions are as noted - HPI HPI: 03/04/17 12:15 31-year-old male from assisted living facility p/w dislodged g-tube just today. no other complaints, no v/d. - Physicial Exam PE: 03/04/17 12:16 VSS abd soft, G-tube site c/d/i 16Fr g-tube dislodged in its entirety at bedside. BS wnl - Medical Decision Making 03/04/17 12:17 31y/o M with dislodged g-tube, otherwise uncomplicated. sent with 14Fr replacement, which was passed through the existing tract and inflated with 5cc normal saline. Nonbloody gastric content returned. confirmatory AXR then dispo
[2017-03-04 13:42] VITALS: BP 111/62; PULSE 70
== END 2017-03-04 13:42 | disposition home or self-care (01) ==
LOC: JER 10:56
PROC: 0D20XUZ Change Feeding Device in Upper Intestinal Tract, External Approach (ICD-10-PCS; principal; 2017-03-04)
DX: Z43.1 Encounter for attention to gastrostomy (principal); F79 Unspecified intellectual disabilities; G80.8 Other cerebral palsy; G40.909 Epilepsy, unspecified, not intractable, without status epilepticus; K20.9 Esophagitis, unspecified; M81.8 Other osteoporosis without current pathological fracture; M41.9 Scoliosis, unspecified
CPT/HCPCS: 43760; 74000-TC; 99283-25

== ENCOUNTER → 2017-03-07 | Emergency (ER) | payer OTHER ==
[2017-03-07 19:11] VITALS: BP 111/78; PULSE 68; BMI 17.9
--- NOTE | 2017-03-07 20:20 | PDOC ---
*Physical Exam - Vital Signs Last Vital Signs Temp Pulse Resp BP Pulse Ox 68 20 111/78 98 03/07/17 19:07 03/07/17 19:07 03/07/17 19:07 03/07/17 19:07 ED Treatment Course - LABORATORY CBC & Chemistry Diagram: 03/07/17 22:27 03/07/17 21:30 Medical Decision Making - Medical Decision Making 03/07/17 20:20 Pt seen by the Advanced Practice Provider under my direct supervision Ancillary studies reviewed I agree with plan as outlined by the Advanced Practice Provider OTTO Spencer *DC/Admit/Observation/Transfer Diagnosis at time of Disposition: Dependent edema - Discharge Dispostion Disposition: RETIREMENT FACILITY Condition at time of disposition: Stable - Patient Instructions Printed Discharge Instructions: DI for Dependent Edema Additional Instructions: FOLLOW UP WITH PCP REGARDING SWELLING OF FEET. HAVE PATIENT RECLINE TO [address] DE[address] POSITION IF SITTING FOR LONG PERIODS OF TIME, OR HAVE PATIENT IN BED WITH PILLOWS UNDERNEATH FEET. RETURN IF SYMPTOMS WORSEN OR ANY CONCERNS FOR FURTHER EVALUATION. Print Language: THAI
--- NOTE | 2017-03-07 20:25 | PDOC ---
History of Present Illness - General Chief Complaint: Edema Stated Complaint: EVALUATION Time Seen by Provider: 03/07/17 19:17 History Source: [facility] Records Exam Limitations: Clinical Condition - History of Present Illness Initial Comments: 03/07/17 20:12 31yo Male patient from [facility] w/ PmHx: Profound Mental Retardation, Osteoporosis, undescended testicle, Esophagitis, Exotropia, Convulsive Epilepsy, Congenital Quadriplegia, Hyposmolality, presented to ED for reportedly bilateral foot swelling, and low grade fever. Patient given Tylenol around 5pm. No other complaints reported. Timing/Duration: changing over time Severity: mild Modifying Factors: improves with: medication Associated Symptoms: reports: fever/chills, other (Bilateral LE Swelling) Aspirin Received prior to arrival: No: no aspirin today, unknown, 81 mg x 1, 81 mg x 2, 81 mg x 3, 81 mg x 4, 325 mg x 1, provided at home, provided by EMS, provided by ED Asa Contraindications(Core Measure): No: Allergy, Other, Active Blding w/i 24 hrs., Plavix, Receiving Warfarin Beta Robert Contraindications(Core Measure): No: Not Prescribed, Allergy, Bradycardia (HR <60bpm), Advanced Heart Block, Pacemaker, Other Past History - Travel Traveled outside of the country in the last 30 days: No Close contact w/someone who was outside of country & ill: No - Past Medical History Allergies/Adverse Reactions: Allergies Allergy/AdvReac Type Severity Reaction Status Date / Time No Known Allergies Allergy Verified 03/04/17 10:57 Home Medications: Ambulatory Orders Calcium 500Mg/Vit-D 200 Units [Os-Jose Maria 500+D -] 1 tab GT HS 10/21/14 Cholecalciferol (Vitamin D3) [Vitamin D3] 400 unit GT DAILY 10/21/14 Lactose-Reduced Food/Fiber [Jevity 1.2 Jose Maria Liquid] 100 ml GT Q8H 10/21/14 Magnesium Hydroxide [Milk of Magnesia] 30 ml GT HS 10/21/14 Albuterol 0.083% Nebulizer Denise [Ventolin 0.083% Nebulizer Soln -] 1 neb NEB Q4H PRN 07/08/16 Nystatin Cream [Mycostatin Cream -] 1 applic TP BID 07/08/16 Selenium Sulfide [Selenium Sulfide 2.25% Shampoo] 1 applic TP BID 07/08/16 Triamcinolone 0.5% Ointment [Aristocort 0.5% Ointment -] 0 gm TP TID 07/08/16 Carbamazepine [Carbamazepine ER] 100 mg GT BID 08/21/16 Carbamazepine [Carbamazepine ER] 300 mg GT BID 08/21/16 Clonazepam [Klonopin -] 0.5 mg GT TID 08/21/16 Diazepam Rectal Gel [Diastat Rectal Gel -] 5 mg [place] ASDIR PRN 08/21/16 Sennosides [Senna] 2 tab GT HS 08/21/16 Tiagabine HCl 4 mg GT TID 08/21/16 Tizanidine HCl [Zanaflex] 2 mg PO TID 12/05/16 Levetiracetam [Keppra -] 500 mg PO BID #60 tablet 12/06/16 Phenytoin [Dilantin Chewable Tablet -] 100 mg PO TID #90 tab 12/06/16 GI Disorders: Yes (ESOPHAGITIS.) Seizures: Yes Other medical history: profound mental retardation, congenital quadreplegia, blindness - Surgical History Abdominal Surgery: Yes GI Surgery: Yes (PEG TUBE.) - Psycho/Social/Smoking Cessation Hx Anxiety: No Suicidal Ideation: No Smoking History: Never smoked Have you smoked in the past 12 months: No Number of Cigarettes Smoked Daily: 0 Hx Alcohol Use: No Drug/Substance Use Hx: No Substance Use Type: None Review of Systems - Review of Systems Able to Perform ROS?: Yes Is the patient limited Djiboutian proficient: No Constitutional: Yes: Fever Musculoskeletal: Yes: Joint Swelling (Ankle/Foot) All Other Systems: Reviewed and Negative *Physical Exam - Vital Signs Last Vital Signs Temp Pulse Resp BP Pulse Ox 68 20 111/78 98 03/07/17 19:07 03/07/17 19:07 03/07/17 19:07 03/07/17 19:07 - Physical Exam General Appearance: Yes: Nourished, Appropriately Dressed. No: Apparent Distress, Mild Distress, Moderate Distress, Severe Distress Neck: positive: Trachea midline, Supple. negative: Stridor, Lymphadenopathy (R) , Lymphadenopathy (L) Respiratory/Chest: positive: Lungs Clear, Normal Breath Sounds. negative: Chest Tender, Respiratory Distress, Accessory Muscle Use, Labored Respiration, Rapid RR Cardiovascular: positive: Regular Rhythm, Regular Rate. negative: Edema, JVD Gastrointestinal/Abdominal: positive: Normal Bowel Sounds, Soft Extremity: positive: Normal Capillary Refill, Pedal Edema. negative: Normal Inspection (Upper and Lower extremity contractures), Normal Range of Motion, Swelling, Calf Tenderness, Erythema, Inflammation Integumentary: positive: Normal Color, Dry, Warm Neurologic: positive: Alert ED Treatment Course - LABORATORY CBC & Chemistry Diagram: 03/07/17 22:27 03/07/17 21:30 - RADIOLOGY Radiology Studies Ordered: Category Date Time Status FOOT-RIGHT [RAD] Stat Radiology 03/07/17 20:08 Ordered *DC/Admit/Observation/Transfer Diagnosis at time of Disposition: Dependent edema - Discharge Dispostion Disposition: [facility] FACILITY Condition at time of disposition: Stable Admit: No - Patient Instructions Printed Discharge Instructions: DI for Dependent Edema Additional Instructions: FOLLOW UP WITH PCP REGARDING SWELLING OF FEET. HAVE PATIENT RECLINE TO [address] DE[address] POSITION IF SITTING FOR LONG PERIODS OF TIME, OR HAVE PATIENT IN BED WITH PILLOWS UNDERNEATH FEET. RETURN IF SYMPTOMS WORSEN OR ANY CONCERNS FOR FURTHER EVALUATION. Print Language: TAIWANESE
[2017-03-07 22:14] LABS: ALBUMIN 3.9 g/dl (3.4-5.0); ALK PHOS 224 U/L (45-117); ANION GAP 9 (8-16); BILIRUBIN,TOTAL 0.2 mg/dL (0.2-1.0); CALCIUM 9.2 mg/dL (8.5-10.1); CO2 27 mmol/L (21-32); CREATININE 0.3 mg/dL (0.7-1.3); GLUCOSE,RANDOM 67 mg/dL (74-106); SGOT/AST 124 U/L (15-37); SGPT/ALT 132 U/L (12-78)
[2017-03-07 22:36] LABS: BASOPHIL 1.2 % (0-2.0); EOSINOPHIL 8.5 % (0-4.5); MCH 32.6 pg (25.7-33.7); MCHC 33.9 g/dl (32.0-35.9); MEAN CELL VOLUME 96.2 fl (80-96); MEAN PLT VOLUME 7.4 fl (7.5-11.1); NEUTROPHILS 53.3 % (42.8-82.8); PLATELET COUNT 335 K/MM3 (134-434); RDW 13.2 % (11.9-15.9); WHITE BLOOD COUNT 7.1 K/mm3 (4.0-10.0)
== END ==
LOC: JER 19:00
DX: R60.9 Edema, unspecified (principal); F79 Unspecified intellectual disabilities; K20.9 Esophagitis, unspecified; H50.10 Unspecified exotropia; G80.8 Other cerebral palsy; E87.1 Hypo-osmolality and hyponatremia; G40.909 Epilepsy, unspecified, not intractable, without status epilepticus
CPT/HCPCS: 36415; 71010-TC; 73630-TC-RT; 80053; 83605; 85025; 99282-25

== ENCOUNTER 2017-06-08 14:46 | Emergency (ER) | payer OTHER ==
[2017-06-08 14:51] VITALS: BP 109/64; PULSE 75; TEMP 98; BMI 19.3
--- NOTE | 2017-06-08 15:51 | PDOC ---
History of Present Illness - General Chief Complaint: G Tube Problem Stated Complaint: G-TUBE PROBLEM Time Seen by Provider: 06/08/17 15:23 History Source: Patient Exam Limitations: Clinical Condition, Physical Impairment - History of Present Illness Initial Comments: 06/08/17 15:36 The patient is a 31M with an extensive PMH including profound MR and g-tube placement who presents to the ED after he pulled his G-tube out. The g-tube was pulled out today but the aide is unsure of how long it has been out for. Denies fever/chills. Past History - Past Medical History Allergies/Adverse Reactions: Allergies Allergy/AdvReac Type Severity Reaction Status Date / Time No Known Allergies Allergy Verified 06/08/17 14:51 Home Medications: Ambulatory Orders Calcium 500Mg/Vit-D 200 Units [Os-Jose Maria 500+D -] 1 tab GT HS 10/21/14 Cholecalciferol (Vitamin D3) [Vitamin D3] 400 unit GT DAILY 10/21/14 Lactose-Reduced Food/Fiber [Jevity 1.2 Jose Maria Liquid] 100 ml GT Q8H 10/21/14 Magnesium Hydroxide [Milk of Magnesia] 30 ml GT HS 10/21/14 Albuterol 0.083% Nebulizer Denise [Ventolin 0.083% Nebulizer Soln -] 1 neb NEB Q4H PRN 07/08/16 Nystatin Cream [Mycostatin Cream -] 1 applic TP BID 07/08/16 Selenium Sulfide [Selenium Sulfide 2.25% Shampoo] 1 applic TP BID 07/08/16 Triamcinolone 0.5% Ointment [Aristocort 0.5% Ointment -] 0 gm TP TID 07/08/16 Carbamazepine [Carbamazepine ER] 100 mg GT BID 08/21/16 Carbamazepine [Carbamazepine ER] 300 mg GT BID 08/21/16 Clonazepam [Klonopin -] 0.5 mg GT TID 08/21/16 Diazepam Rectal Gel [Diastat Rectal Gel -] 5 mg [place] ASDIR PRN 08/21/16 Sennosides [Senna] 2 tab GT HS 08/21/16 Tiagabine HCl 4 mg GT TID 08/21/16 Tizanidine HCl [Zanaflex] 2 mg PO TID 12/05/16 Levetiracetam [Keppra -] 500 mg PO BID #60 tablet 12/06/16 Phenytoin [Dilantin Chewable Tablet -] 100 mg PO TID #90 tab 12/06/16 GI Disorders: Yes (ESOPHAGITIS.) Seizures: Yes - Surgical History Abdominal Surgery: Yes GI Surgery: Yes (PEG TUBE.) - Suicide/Smoking/Psychosocial Hx Smoking History: Never smoked Have you smoked in the past 12 months: No Number of Cigarettes Smoked Daily: 0 Information on smoking cessation initiated: No Hx Alcohol Use: No Drug/Substance Use Hx: No Substance Use Type: None Review of Systems - Review of Systems Able to Perform ROS?: No (MR, is nonverbal) *Physical Exam - Vital Signs Last Vital Signs Temp Pulse Resp BP Pulse Ox 98.0 F 75 18 109/64 100 06/08/17 14:50 06/08/17 14:50 06/08/17 14:50 06/08/17 14:50 06/08/17 14:50 - Physical Exam General Appearance: Yes: Nourished, Appropriately Dressed, Other (wheelchair bound). No: Apparent Distress HEENT: positive: Normal Voice, Hearing Grossly Normal Respiratory/Chest: positive: Lungs Clear, Normal Breath Sounds. negative: Chest Tender Cardiovascular: positive: Regular Rhythm, Regular Rate, S1, S2 Gastrointestinal/Abdominal: positive: Flat, Soft, Other (G-tube tract present in LUQ, non erythematous). negative: Tender Integumentary: positive: Dry, Warm. negative: Clammy, Diaphoresis Neurologic: positive: Alert, Normal Mood/Affect Medical Decision Making - Medical Decision Making 06/08/17 15:55 The patient is a 31M with an extensive PMH including MR and g-tube placement who presented to the ED with his g-tube out of place today. 3 attempts have been made at returning the G tube with no success (myself, Dr. York, and Dewayne RN). I paged Dr. Bearden who was out of the facility and he recommended obs stay with GI f/u in the morning. I will order basic labs and put in the admit order. 06/08/17 16:25 Dr. Bearden came to the facility and placed the G tube. Ordered XR to confirm placement. 06/08/17 18:22 XR shows proper placement of g-tube. Will d/c patient. *DC/Admit/Observation/Transfer Diagnosis at time of Disposition: Gastrojejunostomy tube dislodgement - Discharge Dispostion Disposition: LONG TERM FACILITY Condition at time of disposition: Stable Admit: No
--- NOTE | 2017-06-08 16:01 | PDOC ---
Attending Attestation - Resident Resident Name: Thomas Pereira - ED Attending Attestation I have performed the following: I have examined & evaluated the patient, The case was reviewed & discussed with the resident, I agree w/resident's findings & plan, Exceptions are as noted - HPI HPI: 06/08/17 15:57 31 year old male from [place], with profound mental retardation, osteoporosis, undescended testicle, esophagitis, exotrpoia, convulsive epilepsy, congenital quadriplegia, hyposmolality presents with G tube replacement. The patient had accidentally pulled out the G tube today. Otherwise, no other complaints. The patient previously had a 16 Georgian G tube. - Physicial Exam PE: 06/08/17 15:59 GENERAL: nonverbal, but not in distress Abdomen: G tube tract intact without erythema, drainage, or purulence - Medical Decision Making 06/08/17 16:00 Vital Signs Temp Pulse Resp BP Pulse Ox 98.0 F 75 18 109/64 100 06/08/17 14:50 06/08/17 14:50 06/08/17 14:50 06/08/17 14:50 06/08/17 14:50 Several attempts to replace the PEG 16 Georgian by both me and the resident Dr. Pereira. Unable to successfully to cannulate the tract. GI consulted and case discussed with Dr. Monisha bearden will stop by and see the patient in the ED for an evaluation. Dispo per Dr. bearden. 06/08/17 16:28 Dr. Bearden had seen the patient and successfully placed the G tube. Will confirm with abd xray and gastrograffin. If in place, will d/c.
--- NOTE | 2017-06-08 16:35 | CON.GI ---
Consult Consult Specialty:: Gastroenterology ( covering Dr Agarwal) Referred by:: Dr. Thomas Pereira Reason for Consultation:: Avulsed G tube - History of Present Illness Chief Complaint: Avulsed G tube History of Present Illness: 31 year old male from [place], with profound mental retardation, osteoporosis, undescended testicle, esophagitis, exotrpoia, convulsive epilepsy, congenital quadriplegia, hyposmolality presents with for G tube rereplacement. The patient had accidentally pulled out the G tube today. Otherwise, no other complaints. The patient previously had a 16 [place]ymra[place] G tube. 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 Gastrointestinal: Yes: GERD, Other (g-tube) Musculoskeletal: Yes: Other (osteoporosis) - Past Surgical History Additional Surgical History: Bucket handle epigastric incision suggest previous laparotomy - Alcohol/Substance Use Hx Alcohol Use: No - Smoking History Smoking history: Never smoked Have you smoked in the past 12 months: No Aproximately how many cigarettes per day: 0 - Social History Usual Living Arrangement: Correction ADL: Support Services Home Medications - Allergies Allergies/Adverse Reactions: Allergies Allergy/AdvReac Type Severity Reaction Status Date / Time No Known Allergies Allergy Verified 06/08/17 14:51 - Home Medications Home Medications: Ambulatory Orders Calcium 500Mg/Vit-D 200 Units [Os-Jose Maria 500+D -] 1 tab GT HS 10/21/14 Cholecalciferol (Vitamin D3) [Vitamin D3] 400 unit GT DAILY 10/21/14 Lactose-Reduced Food/Fiber [Jevity 1.2 Jose Maria Liquid] 100 ml GT Q8H 10/21/14 Magnesium Hydroxide [Milk of Magnesia] 30 ml GT HS 10/21/14 Albuterol 0.083% Nebulizer Denise [Ventolin 0.083% Nebulizer Soln -] 1 neb NEB Q4H PRN 07/08/16 Nystatin Cream [Mycostatin Cream -] 1 applic TP BID 07/08/16 Selenium Sulfide [Selenium Sulfide 2.25% Shampoo] 1 applic TP BID 07/08/16 Triamcinolone 0.5% Ointment [Aristocort 0.5% Ointment -] 0 gm TP TID 07/08/16 Carbamazepine [Carbamazepine ER] 100 mg GT BID 08/21/16 Carbamazepine [Carbamazepine ER] 300 mg GT BID 08/21/16 Clonazepam [Klonopin -] 0.5 mg GT TID 08/21/16 Diazepam Rectal Gel [Diastat Rectal Gel -] 5 mg [place] ASDIR PRN 08/21/16 Sennosides [Senna] 2 tab GT HS 08/21/16 Tiagabine HCl 4 mg GT TID 08/21/16 Tizanidine HCl [Zanaflex] 2 mg PO TID 12/05/16 Levetiracetam [Keppra -] 500 mg PO BID #60 tablet 12/06/16 Phenytoin [Dilantin Chewable Tablet -] 100 mg PO TID #90 tab 12/06/16 Family Disease History - Family Disease History Family History: Unable to Obtain Review of Systems Unable to obtain ROS, reason: unable to obtain Physical Exam-GI Vital Signs: Vital Signs Temperature 98.0 F 06/08/17 14:50 Pulse Rate 75 06/08/17 14:50 Respiratory Rate 18 06/08/17 14:50 Blood Pressure 109/64 06/08/17 14:50 O2 Sat by Pulse Oximetry (%) 100 06/08/17 14:50 Constitutional: Yes: No Distress Eyes: Yes: Conjunctiva Clear HENT: Yes: Atraumatic Neck: Yes: Supple Cardiovascular: Yes: Regular Rate and Rhythm Respiratory: Yes: CTA Bilaterally (healed epigastric bucket handle incision) Gastrointestinal Inspection: Yes: Other (LUQ G tube fistula almost closed- opened using sterile Q tips x 3) ...Auscultate: Yes: Normoactive Bowel Sounds ...Rectal Exam: Yes: Deferred Problem List - Problems (1) Gastrojejunostomy tube dislodgement Assessment/Plan: The old G tube fistula was dilated using 3 sterile Q tips after which a 16FR G tube was inserted. The internal balloon was inflated with 5cc of sterile saline. Using sterile water the tube was irrigated and ausculted to confirm intragastric location. Bile return noted. Will need to get gastrograffin instilled KUB to confirm intragastric location of the G tube before using it. Discussed with Dr. Thomas Pereira who will obtain this study.
== END 2017-06-08 19:00 ==
LOC: JER 14:46
PROC: 0D20XUZ Change Feeding Device in Upper Intestinal Tract, External Approach (ICD-10-PCS; principal; 2017-06-08)
DX: Z43.1 Encounter for attention to gastrostomy (principal); M19.90 Unspecified osteoarthritis, unspecified site; Q53.9 Undescended testicle, unspecified; H50.00 Unspecified esotropia; H50.10 Unspecified exotropia; G40.802 Other epilepsy, not intractable, without status epilepticus; E87.1 Hypo-osmolality and hyponatremia
CPT/HCPCS: 43760; 74000-TC; 99282-25

== ENCOUNTER 2017-09-02 11:23 | Emergency (ER) | payer OTHER ==
[2017-09-02 11:36] VITALS: TEMP 98; BMI 23.8
--- NOTE | 2017-09-02 12:05 | PDOC ---
History of Present Illness - General Chief Complaint: G Tube Problem Stated Complaint: G-TUBE DISPLACEMENT Time Seen by Provider: 09/02/17 12:05 - History of Present Illness Initial Comments: 09/02/17 12:11 Mr. Parson is a 31 yo male w/ pmh of profound mental retardation, osteoporosis, undescended testicle, esophagitis, exotrpoia, convulsive epilepsy, congenital quadriplegia, and hyposmolality who presents w/ complaints of a dislodged g- tube. Per caregiver they noted some blood around the tube earlier today and upon cleaning realized that the balloon had come out. He otherwise has no complaints. The patient denies chest pain, shortness of breath, headache and dizziness. Denies fever, chills, nausea, vomit, diarrhea and constipation. Denies dysuria, frequency, urgency and hematuria. Allergies: NKDA Past History - Past Medical History Allergies/Adverse Reactions: Allergies Allergy/AdvReac Type Severity Reaction Status Date / Time No Known Allergies Allergy Verified 06/08/17 14:51 Home Medications: Ambulatory Orders Calcium 500Mg/Vit-D 200 Units [Os-Jose Maria 500+D -] 1 tab GT HS 10/21/14 Cholecalciferol (Vitamin D3) [Vitamin D3] 400 unit GT DAILY 10/21/14 Magnesium Hydroxide [Milk of Magnesia] 30 ml GT HS 10/21/14 Albuterol 0.083% Nebulizer Denise [Ventolin 0.083% Nebulizer Soln -] 1 neb NEB Q4H PRN 07/08/16 Nystatin Cream [Mycostatin Cream -] 1 applic TP BID 07/08/16 Selenium Sulfide [Selenium Sulfide 2.25% Shampoo] 1 applic TP BID 07/08/16 Triamcinolone 0.5% Ointment [Aristocort 0.5% Ointment -] 0 gm TP TID 07/08/16 Carbamazepine [Carbamazepine ER] 100 mg GT BID 08/21/16 Carbamazepine [Carbamazepine ER] 300 mg GT BID 08/21/16 Clonazepam [Klonopin -] 0.5 mg GT TID 08/21/16 Diazepam Rectal Gel [Diastat Rectal Gel -] 5 mg [place] ASDIR PRN 08/21/16 Sennosides [Senna] 2 tab GT HS 08/21/16 Tiagabine HCl 4 mg GT TID 08/21/16 Tizanidine HCl [Zanaflex] 2 mg PO TID 12/05/16 Levetiracetam [Keppra -] 500 mg PO BID #60 tablet 12/06/16 Phenytoin [Dilantin Chewable Tablet -] 100 mg PO TID #90 tab 12/06/16 Lactose-Reduced Food/Fiber [Jevity 1.2 Jose Maria Liquid] 100 ml GT DAILY 09/02/17 GI Disorders: Yes (ESOPHAGITIS.) Seizures: Yes - Surgical History Abdominal Surgery: Yes GI Surgery: Yes (PEG TUBE.) - Suicide/Smoking/Psychosocial Hx Smoking History: Never smoked Have you smoked in the past 12 months: No Number of Cigarettes Smoked Daily: 0 Information on smoking cessation initiated: No Hx Alcohol Use: No Drug/Substance Use Hx: No Substance Use Type: None Review of Systems - Review of Systems Comments:: 09/02/17 12:51 GENERAL/CONSTITUTIONAL: No fever or chills. No weakness. HEAD, EYES, EARS, NOSE AND THROAT: No change in vision. No ear pain or discharge. No sore throat. CARDIOVASCULAR: No chest pain or shortness of breath RESPIRATORY: No cough, wheezing, or hemoptysis. GASTROINTESTINAL: +Tube pulled out somewhat but not removed as described. No nausea, vomiting, diarrhea or constipation. GENITOURINARY: No dysuria, frequency, or change in urination. MUSCULOSKELETAL: No joint or muscle swelling or pain. No neck or back pain. SKIN: No rash NEUROLOGIC: No headache, vertigo, loss of consciousness, or change in strength/ sensation. ENDOCRINE: No increased thirst. No abnormal weight change HEMATOLOGIC/LYMPHATIC: No anemia, easy bleeding, or history of blood clots. ALLERGIC/IMMUNOLOGIC: No hives or skin allergy. *Physical Exam - Vital Signs Last Vital Signs Temp Pulse Resp BP Pulse Ox 98 F 82 18 110/72 100 09/02/17 11:33 09/02/17 11:33 09/02/17 11:33 09/02/17 11:33 09/02/17 11:33 - Physical Exam Comments: 09/02/17 12:51 GENERAL: Awake and responsive. HEAD: No signs of trauma, normocephalic, atraumatic EYES: PERRLA, EOMI, sclera anicteric, conjunctiva clear ENT: Auricles normal inspection, hearing grossly normal, nares patent, oropharynx clear without exudates. Moist mucosa NECK: Normal ROM, supple, no lymphadenopathy, JVD, or masses LUNGS: No distress, speaks full sentences, clear to auscultation bilaterally HEART: Regular rate and rhythm, normal S1 and S2, no murmurs, rubs or gallops, peripheral pulses normal and equal bilaterally. ABDOMEN: +G-tube balloon visible in PEG location with tip of tube still in place. Soft, nontender, normoactive bowel sounds. No guarding, no rebound. No masses EXTREMITIES: Normal inspection, Normal range of motion, no edema. No clubbing or cyanosis. NEUROLOGICAL: Cranial nerves II through XII grossly intact. Normal speech, normal gait, no focal sensorimotor deficits SKIN: Warm, Dry, normal turgor, no rashes or lesions noted. 09/02/17 21:02 Medical Decision Making - Medical Decision Making 09/02/17 12:55 Mr. Parson is a 31 yo male w/ extensive pmh as above who presents for acute g- tube problem. Attempted to deflate g-tube and replace without success. G-tube removed and new 16F tube placed without difficulty. KUB with gastrographin ordered to confirm placement. 09/02/17 16:37 G-tube confirmed in place. Will discharge to home with instructions to follow- up as needed for further care. Caregiver verbalizes understanding. *DC/Admit/Observation/Transfer Diagnosis at time of Disposition: Gastrojejunostomy tube dislodgement - Discharge Dispostion Disposition: HOME - Referrals Referrals: Andrew Bearden MD [Staff Physician] - - Patient Instructions Printed Discharge Instructions: How to Care for Your PEG Tube Additional Instructions: Please return if any difficulty feeding, pain, fever, or other concerning symptoms. - Post Discharge Activity
[2017-09-02 17:02] VITALS: BP 96/52; PULSE 80
--- NOTE | 2017-09-02 17:58 | PDOC ---
Attending Attestation - HPI HPI: 09/02/17 17:58 Patient is a 31 year old male with a significant past medical history of severe mental retardation, congenital quadriplegia, esophagitis, general compulsive epilepsy, cortical blindness, osteoporosis, non verbal, exotropia, and scoliosis , who was brought by his aid to the ED for G tube replacement. As per patient' s aid, patient pulled out his G tube this morning. She reports it's not completely out but it no longer works when it's flushed. Patient currently has no other complaints while in the ED. History otherwise limited due to pt's clinical status Allergies: None Social history: No smoking. No alcohol. No illicit drugs. Surgical history: orchiopexy. Bilateral femoral head resection. PMD: None - Medical Decision Making 09/02/17 17:58 Documentation prepared by Danny James, acting as medical secretary for Robert Lau MD, MD/DO. <Danny James - Last Filed: 09/02/17 17:58> - Resident Resident Name: Jaiden Hernandez - ED Attending Attestation I have performed the following: I have examined & evaluated the patient, The case was reviewed & discussed with the resident, I agree w/resident's findings & plan, Exceptions are as noted - Physicial Exam PE: 09/02/17 20:57 GENERAL: Awake, non verbal, in no acute distress HEAD: No signs of trauma NECK: Normal ROM, supple, no lymphadenopathy, JVD, or masses LUNGS: Breath sounds equal, clear to auscultation bilaterally. No wheezes, and no crackles HEART: Regular rate and rhythm, normal S1 and S2, no murmurs, rubs or gallops ABDOMEN: Soft, nontender, normoactive bowel sounds. G tube in tract, almost completely removed but balloon is down EXTREMITIES: contracted x4 NEUROLOGICAL: non verbal SKIN: Warm, Dry, normal turgor, no rashes or lesions noted. - Medical Decision Making 09/02/17 20:58 31-year-old male with multiple medical problems including severe mental retardation status post G-tube presents with dislodged G-tube. The 16 Wallisian tube was removed and immediately replaced with a sterile 16 Wallisian G-tube, using sterile lubrication to advance. Some return of gastric contents through the tube visualized. 5 mL of sterile saline or pushed to the balloon. An x-ray was performed with Gastrografin that shows the G-tube to be in good place. The patient's aide was made aware and the patient was discharged home. <Robert Lau - Last Filed: 09/02/17 21:00>
== END 2017-09-02 17:02 | disposition home or self-care (01) ==
LOC: JER 11:23
DX: Z43.1 Encounter for attention to gastrostomy (principal); F71 Moderate intellectual disabilities; G40.909 Epilepsy, unspecified, not intractable, without status epilepticus; G80.8 Other cerebral palsy; E87.1 Hypo-osmolality and hyponatremia; K20.9 Esophagitis, unspecified; Q53.20 Undescended testicle, unspecified, bilateral
CPT/HCPCS: 74018-TC; 99281-25

== ENCOUNTER 2017-09-04 13:15 | Emergency (ER) | payer OTHER ==
[2017-09-04 13:41] VITALS: BP 97/58; PULSE 74; TEMP 97.5; BMI 21.2
--- NOTE | 2017-09-04 19:17 | PDOC ---
Attending Attestation - Resident Resident Name: Jaiden Hernandez - ED Attending Attestation I have performed the following: I have examined & evaluated the patient, The case was reviewed & discussed with the resident, I agree w/resident's findings & plan, Exceptions are as noted - Medical Decision Making 09/04/17 19:17 I, Dr. Ella Membreno, DO, attest that this document has been prepared under my direction and personally reviewed by me in its entirety. I further attest, that it accurately reflects all work, treatment, procedures and medical decision -making performed by me. 09/04/17 20:49 a/p: 31yo male with bleeding around peg tube -will inflate balloon and put a dressing around peg -bleeding stopped -will obtain KUB -stable for d/c to home if KUB shows tube intact and bleeding stops 09/04/17 20:50 bleeding has stopped kub shows tube in place stable for d/c to home tube is functional <Ella Membreno - Last Filed: 09/04/17 20:50> - HPI HPI: 09/04/17 21:22 Patient is a 31 year old male with a significant past medical history of severe mental retardation, congenital quadriplegia, esophagitis, general compulsive epilepsy, cortical blindness, osteoporosis, non verbal, exotropia, and scoliosis , who was brought by his aid to the ED for G tube replacement. As per patient' s aid, patient pulled out his G tube this morning. She reports intermittent bleeding from peg tube sight, but states it is currently still functional. History otherwise limited due to pt's clinical status Allergies: None Social history: No smoking. No alcohol. No illicit drugs. Surgical history: orchiopexy. Bilateral femoral head resection. PMD: None - Physicial Exam PE: 09/04/17 21:22 GENERAL: Awake, alert, and fully oriented, in no acute distress HEAD: No signs of trauma EYES: PERRLA, EOMI, sclera anicteric, conjunctiva clear ENT: Auricles normal inspection, hearing grossly normal, nares patent, oropharynx clear without exudates. Moist mucosa NECK: Normal ROM, supple, no lymphadenopathy, JVD, or masses LUNGS: Breath sounds equal, clear to auscultation bilaterally. No wheezes, and no crackles HEART: Regular rate and rhythm, normal S1 and S2, no murmurs, rubs or gallops ABDOMEN: + Bleeding around peg tube. +Oozing from site. Soft, nontender, normoactive bowel sounds. No guarding, no rebound. No masses EXTREMITIES: Normal range of motion, no edema. No clubbing or cyanosis. No cords, erythema, or tenderness NEUROLOGICAL: Cranial nerves II through XII grossly intact. Normal speech, normal gait SKIN: Warm, Dry, normal turgor, no rashes or lesions noted. - Medical Decision Making 09/04/17 21:22 Documentation prepared by Danny James, acting as medical liaison for Ella Membreno DO, MD/. <Danny James - Last Filed: 09/04/17 21:22>
--- NOTE | 2017-09-04 19:39 | PDOC ---
History of Present Illness - General Chief Complaint: G Tube Problem Stated Complaint: G TUB BLEEDING Time Seen by Provider: 09/04/17 18:51 - History of Present Illness Initial Comments: 09/04/17 19:29 Mr. Parson is a 31 yo male w/ pmh of profound mental retardation, osteoporosis, undescended testicle, esophagitis, exotrpoia, convulsive epilepsy, congenital quadriplegia, and hyposmolality who presents w/ complaints of blood seeping from his PEG site. Per aid who accompanies him the tube has been operating appropriately but the nurses became concerned this morning and wanted him evaluated. The patient denies chest pain, shortness of breath, headache and dizziness. Denies fever, chills, nausea, vomit, diarrhea and constipation. Denies dysuria, frequency, urgency and hematuria. Allergies: NKDA Past History - Past Medical History Allergies/Adverse Reactions: Allergies Allergy/AdvReac Type Severity Reaction Status Date / Time No Known Allergies Allergy Verified 09/04/17 13:41 Home Medications: Ambulatory Orders Calcium 500Mg/Vit-D 200 Units [Os-Jose Maria 500+D -] 1 tab GT HS 10/21/14 Cholecalciferol (Vitamin D3) [Vitamin D3] 400 unit GT DAILY 10/21/14 Magnesium Hydroxide [Milk of Magnesia] 30 ml GT HS 10/21/14 Albuterol 0.083% Nebulizer Denise [Ventolin 0.083% Nebulizer Soln -] 1 neb NEB Q4H PRN 07/08/16 Nystatin Cream [Mycostatin Cream -] 1 applic TP BID 07/08/16 Selenium Sulfide [Selenium Sulfide 2.25% Shampoo] 1 applic TP BID 07/08/16 Triamcinolone 0.5% Ointment [Aristocort 0.5% Ointment -] 0 gm TP TID 07/08/16 Carbamazepine [Carbamazepine ER] 100 mg GT BID 08/21/16 Carbamazepine [Carbamazepine ER] 300 mg GT BID 08/21/16 Clonazepam [Klonopin -] 0.5 mg GT TID 08/21/16 Diazepam Rectal Gel [Diastat Rectal Gel -] 5 mg [place] ASDIR PRN 08/21/16 Sennosides [Senna] 2 tab GT HS 08/21/16 Tiagabine HCl 4 mg GT TID 08/21/16 Tizanidine HCl [Zanaflex] 2 mg PO TID 12/05/16 Levetiracetam [Keppra -] 500 mg PO BID #60 tablet 12/06/16 Phenytoin [Dilantin Chewable Tablet -] 100 mg PO TID #90 tab 12/06/16 Lactose-Reduced Food/Fiber [Jevity 1.2 Jose Maria Liquid] 100 ml GT DAILY 09/02/17 COPD: No GI Disorders: Yes (ESOPHAGITIS.) Seizures: Yes - Surgical History Abdominal Surgery: Yes GI Surgery: Yes (PEG TUBE.) - Suicide/Smoking/Psychosocial Hx Smoking History: Never smoked Have you smoked in the past 12 months: No Number of Cigarettes Smoked Daily: 0 Information on smoking cessation initiated: No Hx Alcohol Use: No Drug/Substance Use Hx: No Substance Use Type: None Review of Systems - Review of Systems Comments:: 09/04/17 19:32 GENERAL/CONSTITUTIONAL: No fever or chills. No weakness. HEAD, EYES, EARS, NOSE AND THROAT: No change in vision. No ear pain or discharge. No sore throat. CARDIOVASCULAR: No chest pain or shortness of breath RESPIRATORY: No cough, wheezing, or hemoptysis. GASTROINTESTINAL: +Bleeding from PEG today as described. GENITOURINARY: No dysuria, frequency, or change in urination. MUSCULOSKELETAL: No joint or muscle swelling or pain. No neck or back pain. SKIN: No rash NEUROLOGIC: No headache, vertigo, loss of consciousness, or change in strength/ sensation. ENDOCRINE: No increased thirst. No abnormal weight change HEMATOLOGIC/LYMPHATIC: No anemia, easy bleeding, or history of blood clots. ALLERGIC/IMMUNOLOGIC: No hives or skin allergy. *Physical Exam - Vital Signs Last Vital Signs Temp Pulse Resp BP Pulse Ox 97.5 F L 74 17 97/58 97 09/04/17 13:36 09/04/17 13:36 09/04/17 13:36 09/04/17 13:36 09/04/17 13:36 - Physical Exam Comments: 09/04/17 19:33 GENERAL: Awake, alert, and fully oriented, in no acute distress HEAD: No signs of trauma, normocephalic, atraumatic EYES: PERRLA, EOMI, sclera anicteric, conjunctiva clear ENT: Auricles normal inspection, hearing grossly normal, nares patent, oropharynx clear without exudates. Moist mucosa NECK: Normal ROM, supple, no lymphadenopathy, JVD, or masses LUNGS: No distress, speaks full sentences, clear to auscultation bilaterally HEART: Regular rate and rhythm, normal S1 and S2, no murmurs, rubs or gallops, peripheral pulses normal and equal bilaterally. ABDOMEN: +PEG tube leaking serosanguinous flood / blood EXTREMITIES: Normal inspection, Normal range of motion, no edema. No clubbing or cyanosis. NEUROLOGICAL: Unable to assess. SKIN: Warm, Dry, normal turgor, no rashes or lesions noted. Medical Decision Making - Medical Decision Making 09/04/17 19:39 Mr. Parson is a 31 yo male w/ complicated pmh as above who presents with PEG tube leaking serosanguinous flood / blood after replacement 2 days ago. Suspect site irritated by placement. Bleeding stopped with surgicell and pads replaced. Will order KUB to confirm placement and discharge. 09/04/17 20:36 G-tube confirmed in-place without acute issue. Will discharge patient with instructions to follow-up as needed for any further problems. *DC/Admit/Observation/Transfer Diagnosis at time of Disposition: Gastrojejunostomy tube status - Discharge Dispostion Disposition: HOME - Referrals - Patient Instructions Printed Discharge Instructions: DI for Percutaneous Endoscopic Gastrostomy Additional Instructions: Please return if any further problems w/ PEG tube. Follow-up with primary care provider for further evaluation. - Post Discharge Activity
== END 2017-09-04 20:58 | disposition home or self-care (01) ==
LOC: JER 13:15
DX: K94.21 Gastrostomy hemorrhage (principal); F73 Profound intellectual disabilities; Q53.20 Undescended testicle, unspecified, bilateral; G80.8 Other cerebral palsy; K20.8 Other esophagitis; H50.10 Unspecified exotropia
CPT/HCPCS: 74018-TC; 99281-25

== ENCOUNTER 2018-07-10 13:22 | Emergency (ER) | payer OTHER ==
--- NOTE | 2018-07-10 13:43 | PDOC ---
History of Present Illness - General Chief Complaint: Seizure Stated Complaint: DIFFICULTY BREATHING Time Seen by Provider: 07/10/18 13:38 History Source: Care Provider, Retirement Records Exam Limitations: Clinical Condition, Physical Impairment (non-verbal) - History of Present Illness Initial Comments: Pt is a 32 yo M, with PMH of severe MR (is non-verbal), congenital quadriplegia , convulsive epilepsy, and G-tube, who is presenting via EMS from [facility] , after a witnessed seizure. The pt is accompanied by an aide, who states she is unfamiliar with the pt and did not see the seizure. Multiple attempts were made to contact [facility], and varying stories were provided. Dr. Chris Johnson ([phone]) stated that the pt usually has singular seizures only, but today the pt had a cluster of 3 generalized seizures, each for about a minute. They deny any falls from the bed. Protocol at [facility] is that nurses only provide rectal diazepam if the pt is seizing for 3 or more minutes, so no diazepam was provided. Dr. Johnson state after the last seizure, the pt had respiratory distress (desaturating down to low 80s% on RA), which was improved after positioning. 07/10/18 23:45 Past History - Travel Traveled outside of the country in the last 30 days: No Close contact w/someone who was outside of country & ill: No - Past Medical History Allergies/Adverse Reactions: Allergies Allergy/AdvReac Type Severity Reaction Status Date / Time No Known Allergies Allergy Verified 07/10/18 13:40 Home Medications: Ambulatory Orders Calcium 500Mg/Vit-D 200 Units [Os-Jose Maria 500+D -] 1 tab GT HS 10/21/14 Cholecalciferol (Vitamin D3) [Vitamin D3] 400 unit GT DAILY 10/21/14 Magnesium Hydroxide [Milk of Magnesia] 30 ml GT HS 10/21/14 Albuterol 0.083% Nebulizer Denise [Ventolin 0.083% Nebulizer Soln -] 1 neb NEB Q4H PRN 07/08/16 Nystatin Cream [Mycostatin Cream -] 1 applic TP BID 07/08/16 Selenium Sulfide [Selenium Sulfide 2.25% Shampoo] 1 applic TP BID 07/08/16 Triamcinolone 0.5% Ointment [Aristocort 0.5% Ointment -] 0 gm TP TID 07/08/16 Carbamazepine [Carbamazepine ER] 100 mg GT BID 08/21/16 Carbamazepine [Carbamazepine ER] 300 mg GT BID 08/21/16 Diazepam Rectal Gel [Diastat Rectal Gel -] 5 mg OK ASDIR PRN 08/21/16 Sennosides [Senna] 2 tab GT HS 08/21/16 Tiagabine HCl 4 mg GT TID 08/21/16 clonazePAM [Klonopin -] 0.5 mg GT TID 08/21/16 Tizanidine HCl [Zanaflex] 2 mg GT TID 12/05/16 Lactose-Reduced Food/Fiber [Jevity 1.2 Jose Maria Liquid] 100 ml GT DAILY 09/02/17 Phenytoin [Dilantin Chewable Tablet -] 100 mg GT TID 07/10/18 levETIRAcetam [Keppra -] 500 mg PO TID 07/10/18 COPD: No GI Disorders: Yes (ESOPHAGITIS.) Seizures: Yes - Surgical History Abdominal Surgery: Yes GI Surgery: Yes (PEG TUBE.) - Suicide/Smoking/Psychosocial Hx Smoking History: Never smoked Have you smoked in the past 12 months: No Number of Cigarettes Smoked Daily: 0 Hx Alcohol Use: No Drug/Substance Use Hx: No Substance Use Type: None Review of Systems - Review of Systems Able to Perform ROS?: No (pt non-verbal) Comments:: varying stories from [facility] regarding events of today. Paperwork provided has minimal information about any ROS over past week. Aide that was sent with pt had not taken care of this pt before. 07/10/18 23:51 Is the patient limited Luxembourgish proficient: Yes Neurological: Yes: Seizure *Physical Exam - Physical Exam General Appearance: Yes: Nourished, Appropriately Dressed, Thin. No: Apparent Distress (pt lying comfortably. non-verbal at baseline. no active seizures since pt arrived in dept. vitals stable.) HEENT: positive: EOMI, XAVIER, Normal ENT Inspection, Symmetrical, TMs Normal, Pharynx Normal, Hearing Grossly Normal (tracks with eyes and turns head appropriately to verbal stimulus). negative: Normal Voice (non-verbal), Scleral Icterus (R), Scleral Icterus (L), Pharyngeal Erythema, Tonsillar Exudate , Tonsillar Erythema, Nasal Congestion, Rhinorrhea, TM Bulging, TM Dull, TM Erythema, Thrush Neck: positive: Trachea midline, Normal Thyroid, Supple, Other (severe scoliosis ). negative: Tender, Rigid, Lymphadenopathy (R), Lymphadenopathy (L) Respiratory/Chest: positive: Lungs Clear, Rhonchi. negative: Chest Tender, Normal Breath Sounds (coarse breath sounds in upper lung jones b/l), Respiratory Distress, Accessory Muscle Use, Crackles, Wheezing, Dullness, Plerual Rub Cardiovascular: positive: Regular Rhythm, Regular Rate, S1, S2. negative: Edema , JVD, Murmur Vascular Pulses: Carotid (R): 4+, Carotid (L): 4+ Gastrointestinal/Abdominal: positive: Normal Bowel Sounds, Flat, Soft. negative : Tender, Organomegaly, Pulsatile Mass, Distended, Guarding, Rebound Male Genitalia: positive: normal genitalia. negative: other (no diaper rashes or sores) Rectal Exam: positive: deferred. negative: other (no sacral compression ulcers) Lymphatic: negative: Adenopathy, Tenderness Musculoskeletal: positive: Decreased Range of Motion (pt holding arms and feet in flexion (congenital quadriplegia)). negative: Normal Inspection, CVA Tenderness, Vertebral Tenderness Extremity: positive: Normal Capillary Refill, Normal Inspection, Pelvis Stable. negative: Normal Range of Motion (see above), Tender, Pedal Edema Integumentary: positive: Normal Color, Dry, Warm. negative: Jaundice, Clammy, Diaphoresis, Rash, Ecchymosis Neurologic: positive: Alert, Normal Mood/Affect (appropriate for pt baseline), Normal Response. negative: welcome desk agent II-XII NML intact (unable to test), Fully Oriented (unable to test), Motor Strength 5/5 (unable to test, but pt flexes strongly away from stimuli), EOM Palsy, Facial Droop ED Treatment Course - LABORATORY CBC & Chemistry Diagram: 07/10/18 15:21 07/10/18 15:21 Medical Decision Making - Medical Decision Making Pt was seen at bedside, also will be seen by attending Dr. Lau. Pt presenting via EMS from [facility], after a witnessed seizure. The pt is accompanied by an aide, who states she is unfamiliar with the pt and did not see the seizure. Multiple attempts were made to contact [facility], and varying stories were provided. Dr. Chris Johnson ([phone]) stated that the pt usually has singular seizures only, but today the pt had a cluster of 3 generalized seizures, each for about a minute. They deny any falls from the bed. Protocol at [facility] is that nurses only provide rectal diazepam if the pt is seizing for 3 or more minutes, so no diazepam was provided. Pt has PMH of severe MR (is non-verbal), congenital quadriplegia, convulsive epilepsy, and G-tube. PE showed rectal temp 98.5 at bedside, vitals stable (BP 133/91, HR 83), saturating 95-97% on RA. Considering exacerbation of chronic seizure disorder, toxic/metabolic, infectious (pneumonia, UTI), non-therapeutic seizure medication. Ordered work-up including CT head non-contrast, CBC, CMP, ECG, troponin, Mg, Phos, lipase, blood cultures, lactic acid, UA, seizure medication levels ( dilantin/keppra). Will continue to reassess pt and monitor for symptomatic improvement. 07/10/18 14:38 Pt continues to be stable and lying comfortably. CBC WNL. UA negative for infection. Chest x-ray appears clear with no sign of acute infection or aspiration. Pending CMP, cardiac profile, and seizure medication levels (dilantin & keppra) . 07/10/18 15:51 CMP WNL for pt baseline. Trop <.02 07/10/18 16:01 Lab called, keppra level will be send-out tests. These test is not urgent at this time, as they were completed recently in the correction and were in therapeutic range. Pt taken for head CT, r/o new masses or head trauma. Varying stories came from the correction as to how the event took place, and pt is non-verbal. 07/10/18 16:21 Dilantin level 38.9 (supratherapeutic), will inform [facility] team. 07/10/18 16:27 [id number] CT/HEAD CT WITHOUT CONTRAST Cranial CT without contrast Clinical information given: seizure, unknown history, nonverbal multiplanar imaging was performed. Intravenous contrast was not administered No intracranial hemorrhage is seen. There is no extra-axial fluid collection. No discrete infarct is identified within the limitations of CT. There is no obvious mass lesion on noncontrast imaging. Note is again made of bilateral frontal lobe and bilateral anterior temporal lobe atrophy. Focal calcification is again seen within the left cerebellar hemisphere. There is minimal to mild ventricular dilatation probably due to central atrophy. The calvarium demonstrates an elongated appearance in the anteroposterior dimension which may be on the basis of premature closure of the sagittal suture. No calvarial fracture is noted. Impression: The intracranial structures demonstrate no definite interval change is in comparison to a prior CT exam of 12/05/2016. Bilateral frontal and temporal lobe atrophy. Bilateral cerebellar atrophy is also seen. Nonspecific left cerebellar calcification is noted - ? history of hypothyroidism or lead poisoning. At least moderate mucosal thickening is seen within the left sphenoid sinus which appears increased since the prior exam (versus being recurrent in nature). 07/10/18 17:49 Vitals have been stable, no repeated seizure activity during his stay. CT showed no acute changes. Care team from [facility] is at bedside to transfer pt back to the facility. Strict return precautions provided with care team understanding. 07/10/18 17:49 07/10/18 23:39 07/11/18 18:44 *DC/Admit/Observation/Transfer Diagnosis at time of Disposition: Seizure - Discharge Dispostion Disposition: HALFWAY FACILITY Condition at time of disposition: Improved Decision to Admit order: No - Referrals Referrals: Chris Johnson Jr [Non Staff, Medical] - - Patient Instructions Printed Discharge Instructions: DI for Seizure Disorder -- Adult Additional Instructions: You were seen in the ER today for a seizure. The results of your labs and imaging today were normal. Your dilantin level today was elevated at 38.1, and we recommend follow-up testing. Please return to the ER if you have any continued seizures, worsening pain, development of fevers or chills, loss of consciousness, inability to tolerate food or fluids, or any other concerns. - Post Discharge Activity
[2018-07-10 13:49] VITALS: BMI 19.9
[2018-07-10 14:55] VITALS: TEMP 98.5
--- NOTE | 2018-07-10 15:02 | PDOC ---
Attending Attestation - Medical Decision Making 07/10/18 15:18 Call placed to [facility] at 2:06, went to voicemail. Case discussed with Dr. Johnson at 3:12. <Alva Watts - Last Filed: 07/10/18 15:18> - Resident Resident Name: Chica Saxena - ED Attending Attestation I have performed the following: I have examined & evaluated the patient, The case was reviewed & discussed with the resident, I agree w/resident's findings & plan, Exceptions are as noted - HPI HPI: 07/10/18 15:19 The patient is a 32-year-old male with past medical history significant for Congenital quadriplegia, esophagitis, seizure disorder, and scoliosis presents to the emergency department from [facility] via EMS s/p multiple seizures. Per Dr. Johnson from [facility], pt had three <1 minute long seizures at about 1 pm, each by 5-10 mins. He states the pt desaturated to the 70s in between the seizures and appeared to have difficulty breathing. Per aide, the symptoms resolved after repositioning the patient. His aide states that he currently is at his baseline. He has had no recent fevers, vomiting, diarrhea per the [place] staff. The patient is unable to provide history secondary to mental status. Allergies: NKA Social history: None reported Surgical history: Peg tube. PCP: From [facility]. - Physicial Exam PE: 07/10/18 15:31 GENERAL: Awake, eyes open HEAD: No signs of trauma ENT: Auricles normal inspection, moist mucosa NECK: No lymphadenopathy, JVD, or masses LUNGS: Breath sounds equal, clear to auscultation bilaterally. No wheezes, and no crackles HEART: Regular rate and rhythm, normal S1 and S2, no murmurs, rubs or gallops ABDOMEN: Soft, non distended EXTREMITIES: contracted x4, tracks examiner NEUROLOGICAL: nonverbal at baseline SKIN: Warm, Dry, normal turgor, no rashes or lesions noted. - Medical Decision Making 07/10/18 15:33 43yo M with his congenital quadraplegia, seizure d/o (has frequent seizures per [facility] staff) presents to the ED with hypoxia and respiratory distress in between seizures that has since resolved after repositioning. Dr. Johnson states pt does not usually have respiratory distress when he has seizures. States his seizures today occurred in a cluster of 3 and were less than a minute which is different. Normally, pt has single long seizure. Pt now at baseline with normal vitals and satting 98% on RA. Lungs are clear. WIll check labs, XR, observe and reassess. 07/10/18 17:49 Labs unremarkable except for dilantin level which is elevated (likely because this is a random level) PT with no respiratory distress during observation in ED O2 sat wnl on RA throughout Staff at bedside state pt has been at baseline during entire ED stay Will DC back to [facility], advised staff to have dilantin level repeated within a 2-3 days Return precautions given <Robert Lau - Last Filed: 07/10/18 22:18>
[2018-07-10 15:29] LABS: BASO % 1.1 % (0-2.0); HEMATOCRIT 40.8 % (35.4-49); HEMOGLOBIN 13.4 GM/dL (11.7-16.9); LYMPH % 32.8 % (8-40); MCH 31.9 pg (25.7-33.7); MCHC 32.9 g/dl (32.0-35.9); MEAN CELL VOLUME 96.7 fl (80-96); MONO % 8.9 % (3.8-10.2); NEUT % 51.2 % (42.8-82.8); PLATELET COUNT 314 K/MM3 (134-434); RBC 4.22 M/mm3 (4.00-5.60); RDW 12.9 % (11.9-15.9)
[2018-07-10 15:47] LABS: URINE APPEARANCE CLEAR; URINE BILIRUBIN NEGATIVE (<2.0 mg/dL); URINE COLOR LTYELLOW; URINE GLUCOSE (UA) NEGATIVE (NEGATIVE); URINE KETONE NEGATIVE (NEGATIVE); URINE LEUK ESTERASE NEGATIVE (NEGATIVE); URINE NITRITE NEGATIVE (NEGATIVE); URINE PROTEIN NEGATIVE (NEGATIVE); URINE UROBILINOGEN NEGATIVE mg/dL (0.2-1.0)
[2018-07-10 15:51] LABS: ALBUMIN 3.8 g/dl (3.4-5.0); ALK PHOS 131 U/L (45-117); ANION GAP 9 MMOL/L (8-16); BILIRUBIN,TOTAL 0.2 mg/dL (0.2-1); BLOOD UREA NITROGEN 7 mg/dL (7-18); CALCIUM 8.5 mg/dL (8.5-10.1); CHLORIDE 102 mmol/L (98-107); CO2 27 mmol/L (21-32); CREATININE 0.2 mg/dL (0.55-1.3); GLUCOSE,RANDOM 77 mg/dL (74-106); LIPASE 223 U/L (73-393); MAGNESIUM 2.2 mg/dL (1.8-2.4); POTASSIUM 3.9 mmol/L (3.5-5.1); SGOT/AST 16 U/L (15-37); SGPT/ALT 29 U/L (13-61); SODIUM 137 mmol/L (136-145); TOT PROT 7.4 g/dl (6.4-8.2)
[2018-07-10 16:14] LABS: INR 0.98 (0.83-1.09); PROTHROMBIN TIME (PATIENT) 11.6 SEC (9.7-13.0)
[2018-07-10 17:49] VITALS: BP 124/85; PULSE 78
--- NOTE | 2018-07-13 23:46 | EKG ---
Test Reason : Blood Pressure : / mmHG Vent. Rate : 081 BPM Atrial Rate : 081 BPM P-R Int : 144 ms QRS Dur : 090 ms QT Int : 366 ms P-R-T Axes : 046 095 039 degrees QTc Int : 425 ms NORMAL SINUS RHYTHM RIGHTWARD AXIS INFERIOR INFARCT (CITED ON OR BEFORE 04-DEC-2016) ABNORMAL ECG WHEN COMPARED WITH ECG OF 04-DEC-2016 17:51, NO SIGNIFICANT CHANGE WAS FOUND Confirmed by GUILLE OWENS, JACLYN ([id number]) on 07/13/2018 11:46:00 PM Referred By: Confirmed By:JACLYN HAN MD
== END 2018-07-10 17:53 ==
LOC: JER 13:22
DX: R56.9 Unspecified convulsions (principal); G80.8 Other cerebral palsy; G40.909 Epilepsy, unspecified, not intractable, without status epilepticus; F79 Unspecified intellectual disabilities; Z93.1 Gastrostomy status
CPT/HCPCS: 36415; 70450-TC; 71045-TC-FY; 80053; 80185; 81003; 82550; 83605; 83690; 83735; 84100; 84484; 85025; 85610; 87040; 93005; 93010; 99283-25

== ENCOUNTER 2019-01-08 10:44 | Emergency (ER) | payer OTHER ==
--- NOTE | 2019-01-08 10:56 | PDOC ---
History of Present Illness - General Stated Complaint: SEIZURE Time Seen by Provider: 01/08/19 10:56 History Source: Care Provider Exam Limitations: Clinical Condition, Physical Impairment - History of Present Illness Initial Comments: 01/08/19 12:12 The patient is a 32-year-old male with past medical history significant for Congenital quadriplegia, esophagitis, seizure disorder, and scoliosis presents to the emergency department from [facility] via EMS s/p shaking and breathing problem. His ocular care aide states that he witnessed events says he was shaking back and forth and looked as if you was having trouble breathing. Nurse was called and pulse ox was in the 80's. EMS was called and patient was transported to [facility]. While her in ER he has been sleeping and minimally arousable. Timing/Duration: 1-3 hours Past History - Past Medical History Allergies/Adverse Reactions: Allergies Allergy/AdvReac Type Severity Reaction Status Date / Time No Known Allergies Allergy Verified 01/08/19 11:07 Home Medications: Ambulatory Orders Calcium 500Mg/Vit-D 200 Units [Os-Jose Maria 500+D -] 1 tab GT HS 10/21/14 Cholecalciferol (Vitamin D3) [Vitamin D3] 400 unit GT DAILY 10/21/14 Magnesium Hydroxide [Milk of Magnesia] 30 ml GT HS 10/21/14 Albuterol 0.083% Nebulizer Denise [Ventolin 0.083% Nebulizer Soln -] 1 neb NEB Q4H PRN 07/08/16 Nystatin Cream [Mycostatin Cream -] 1 applic TP BID 07/08/16 Selenium Sulfide [Selenium Sulfide 2.25% Shampoo] 1 applic TP BID 07/08/16 Triamcinolone 0.5% Ointment [Aristocort 0.5% Ointment -] 0 gm TP TID 07/08/16 Carbamazepine [Carbamazepine ER] 100 mg GT BID 08/21/16 Carbamazepine [Carbamazepine ER] 300 mg GT BID 08/21/16 Diazepam Rectal Gel [Diastat Rectal Gel -] 5 mg ND ASDIR PRN 08/21/16 Sennosides [Senna] 2 tab GT HS 08/21/16 Tiagabine HCl 4 mg GT TID 08/21/16 clonazePAM [Klonopin -] 0.5 mg GT TID 08/21/16 Tizanidine HCl [Zanaflex] 2 mg GT TID 12/05/16 Lactose-Reduced Food/Fiber [Jevity 1.2 Jose Maria Liquid] 100 ml GT DAILY 09/02/17 Phenytoin [Dilantin Chewable Tablet -] 100 mg GT TID 07/10/18 levETIRAcetam [Keppra -] 500 mg PO TID 07/10/18 COPD: No GI Disorders: Yes (ESOPHAGITIS.) Seizures: Yes - Surgical History Abdominal Surgery: Yes GI Surgery: Yes (PEG TUBE.) - Suicide/Smoking/Psychosocial Hx Smoking History: Never smoked Have you smoked in the past 12 months: No Number of Cigarettes Smoked Daily: 0 Hx Alcohol Use: No Drug/Substance Use Hx: No Substance Use Type: None Review of Systems - Review of Systems Able to Perform ROS?: No Is the patient limited Rwandan proficient: No *Physical Exam - Physical Exam General Appearance: No: Apparent Distress HEENT: positive: Pharynx Normal Neck: positive: Supple Respiratory/Chest: positive: Decreased Breath Sounds. negative: Respiratory Distress, Accessory Muscle Use Cardiovascular: positive: Regular Rhythm, Regular Rate, S1, S2. negative: Edema , JVD, Murmur Vascular Pulses: Dorsalis-Pedis (R): 1+, Doralis-Pedis (L): 1+ Gastrointestinal/Abdominal: positive: Normal Bowel Sounds, Flat, Soft, Other (g tube in place) ED Treatment Course - LABORATORY CBC & Chemistry Diagram: 01/08/19 12:06 01/08/19 12:06 Medical Decision Making - Medical Decision Making 01/08/19 14:41 Labs and CXR are all negative. No signs of infection. This is his normal pattern of seizure as per [facility] nurse. He is stable and can return to [facility]. *DC/Admit/Observation/Transfer Diagnosis at time of Disposition: Seizure - Discharge Dispostion Disposition: HOME Condition at time of disposition: Stable Decision to Admit order: No - Referrals - Patient Instructions Printed Discharge Instructions: DI for Seizure Disorder -- Child Additional Instructions: Increase activity as tolerated. Resume PEG feeds. Follow up with primary within a week. If experience multiple seizures back to back or your develop fever or chills please return to ER. immediately. - Post Discharge Activity
[2019-01-08 11:22] VITALS: TEMP 97.1; BMI 21.6
[2019-01-08 12:19] LABS: BASO % 3.4 % (0-2.0); EOS % 14.4 % (0-4.5); HEMATOCRIT 38.1 % (35.4-49); HEMOGLOBIN 12.9 GM/dL (11.7-16.9); LYMPH % 32.5 % (8-40); MCH 32.9 pg (25.7-33.7); MCHC 33.7 g/dl (32.0-35.9); MEAN CELL VOLUME 97.6 fl (80-96); MEAN PLT VOLUME 7.8 fl (7.5-11.1); MONO % 6.5 % (3.8-10.2); NEUT % 43.2 % (42.8-82.8); PLATELET COUNT 364 K/MM3 (134-434); RDW 13.2 % (11.9-15.9); WHITE BLOOD COUNT 5.3 K/mm3 (4.0-10.0)
--- NOTE | 2019-01-08 12:25 | PDOC ---
Documentation entered by Naresh Vincent SCRIBE, acting as scribe for Suyapa Montenegro MD. Suyapa Montenegro MD: This documentation has been prepared by the Carlton boyer Nirvannie, SCRIBE, under my direction and personally reviewed by me in its entirety. I confirm that the documentation accurately reflects all work, treatment, procedures, and medical decision making performed by me. Attending Attestation - Resident Resident Name: Chaz Maldonado - ED Attending Attestation I have performed the following: I have examined & evaluated the patient, The case was reviewed & discussed with the resident, I agree w/resident's findings & plan - HPI HPI: 01/08/19 12:08 The patient is a 33 year old male, with a significant past medical history of Congenital quadriplegia, esophagitis, seizure disorder, and scoliosis presents to the emergency department from [facility] via EMS s/p possible seizure. As per facility, he was at adult day care at which time he began having rapid, shallow breathing and his oxygen saturation was found to be within the 80s, prompting his arrival to the ED. The facility notes the patient has a history of seizures and normally sleeps after episodes. History is limited secondary to patients clinical condition thus, was obtained via facility workers. Allergies: NKDA Social History: [facility]. - Physicial Exam PE: 01/08/19 12:08 GENERAL: Awake, alert, nonverbal HEAD: No signs of trauma EYES: PERRLA, EOMI, sclera anicteric, conjunctiva clear ENT: Auricles normal inspection, hearing grossly normal, nares patent, oropharynx clear without exudates. Dry mucosa NECK: Normal ROM, supple, no lymphadenopathy, JVD, or masses LUNGS: +Transmitted upper airway sounds. Breath sounds equal, clear to auscultation bilaterally. No wheezes, and no crackles HEART: Regular rate and rhythm, normal S1 and S2, no murmurs, rubs or gallops ABDOMEN: Soft, nontender, normoactive bowel sounds. No guarding, no rebound. No masses EXTREMITIES: Contracted extremities. No edema. No clubbing or cyanosis. No cords, erythema, or tenderness NEUROLOGICAL: Limited by disabilities (patient is wheelchair bound and contracted). Opens eyes and moves them normally SKIN: Warm, Dry, normal turgor, no rashes or lesions noted. - Medical Decision Making Pt with seizure, no change from prior pattern. Will check basic labs to check electrolytes. His breathing is sonorous, which may be his baseline. Will obtain CXR to further evaluate.
[2019-01-08 12:48] LABS: ALBUMIN 3.6 g/dl (3.4-5.0); BILIRUBIN,TOTAL 0.2 mg/dL (0.2-1); CALCIUM 8.7 mg/dL (8.5-10.1); CREATININE 0.2 mg/dL (0.55-1.3); POTASSIUM 4.3 mmol/L (3.5-5.1); TOT PROT 6.9 g/dl (6.4-8.2)
--- NOTE | 2019-01-08 14:36 | EKG ---
Test Reason : Blood Pressure : / mmHG Vent. Rate : 072 BPM Atrial Rate : 072 BPM P-R Int : 148 ms QRS Dur : 090 ms QT Int : 366 ms P-R-T Axes : 042 071 057 degrees QTc Int : 400 ms NORMAL SINUS RHYTHM NORMAL ECG WHEN COMPARED WITH ECG OF 10-JUL-2018 15:53, NO SIGNIFICANT CHANGE WAS FOUND Confirmed by ADDI GOODMAN MD ([id number]) on 01/08/2019 2:36:14 PM Referred By: Confirmed By:ADDI GOODMAN MD
[2019-01-08 16:06] VITALS: BP 113/75; PULSE 78
== END 2019-01-08 16:05 | disposition home or self-care (01) ==
LOC: JER 10:44
DX: G40.909 Epilepsy, unspecified, not intractable, without status epilepticus (principal); M41.80 Other forms of scoliosis, site unspecified; G80.8 Other cerebral palsy; K20.8 Other esophagitis; Z93.1 Gastrostomy status
CPT/HCPCS: 36415; 71045-TC-FY; 80053; 85025; 93005; 93010; 99283-25

== ENCOUNTER 2019-01-28 12:27 | Emergency (ER) | payer OTHER | END 2019-01-28 17:32 | LOC: JER 12:27 ==

== ENCOUNTER 2019-07-06 20:36 | Inpatient (IN) | payer OTHER ==
--- NOTE | 2019-07-06 20:43 | PDOC ---
Attending Attestation - Resident Resident Name: Mirian Ocampo - ED Attending Attestation I have performed the following: I have examined & evaluated the patient, The case was reviewed & discussed with the resident, I agree w/resident's findings & plan - HPI HPI: 07/06/19 23:16 see resident hpi - Physicial Exam PE: 07/06/19 23:16 agree with resident exam - Medical Decision Making 07/06/19 23:16 33-year-old male with acute respiratory distress, intubated prior to arrival Chest x-ray shows no focal infiltrate Due to patient's significant past medical history and mental status as well as increased secretions working diagnosis is aspiration pneumonia, subclinical versus mucous plugging We will cover with antibiotics and admit to ICU due to intubation status
[2019-07-06] MEDS ORDERED: ETOMIDATE 20 MG/10 ML AMPUL IVPUSH ONE (20:47)
[2019-07-06] MEDS ORDERED: ROCURONIUM BROMIDE 50 MG/5 ML VIAL IV ONE (20:48)
[2019-07-06] MEDS ORDERED: RAPID SEQUENCE INTUBATION KIT NR ONE (21:39)
[2019-07-06 21:43] LABS: BASO % 1.2 % (0-2.0); EOS % 7.2 % (0-4.5); HEMATOCRIT 42.8 % (35.4-49); HEMOGLOBIN 14.9 GM/dL (11.7-16.9); LYMPH % 29.3 % (8-40); MCH 33.4 pg (25.7-33.7); MCHC 34.7 g/dl (32.0-35.9); MEAN CELL VOLUME 96.3 fl (80-96); MEAN PLT VOLUME 8.7 fl (7.5-11.1); MONO % 9.4 % (3.8-10.2); NEUT % 52.9 % (42.8-82.8); PLATELET COUNT 335 K/MM3 (134-434); RBC 4.45 M/mm3 (4.00-5.60); RDW 12.9 % (11.9-15.9); WHITE BLOOD COUNT 7.4 K/mm3 (4.0-10.0)
--- NOTE | 2019-07-06 21:48 | PDOC ---
History of Present Illness - General Chief Complaint: Respiratory Stated Complaint: RESPIRATORY DISTRESS Time Seen by Provider: 07/06/19 20:43 - History of Present Illness Initial Comments: 07/06/19 21:46 The patient is a 33 y/o male with a PMHx of profound MR, seizure, congenital quadriplegia, esophagitis, hyponatremia, osteoporosis and scoliosis who was BIBEMS from [facility] for hypoxia. As per EMS, patient was noted to be saturating at 92% on RA with increased work of breathing and copious oral secretions. Patient was noted to be at his baseline mental status which is non-verbal. S/p intubation in the field with Pedro + Etomidate for RSI. As per EMR, patient last evaluated in our ED in 01/2019 for shortness of breath at which time work-up was negative for acute pathology and was discharged back to [place]. NKDA PMD: Dr. Chris Johnson Past History - Past Medical History Allergies/Adverse Reactions: Allergies Allergy/AdvReac Type Severity Reaction Status Date / Time No Known Allergies Allergy Verified 01/28/19 12:56 Home Medications: Ambulatory Orders Calcium 500Mg/Vit-D 200 Units [Os-Jose Maria 500+D -] 1 tab GT HS 10/21/14 Cholecalciferol (Vitamin D3) [Vitamin D3] 400 unit GT DAILY 10/21/14 Magnesium Hydroxide [Milk of Magnesia] 30 ml GT HS 10/21/14 Albuterol 0.083% Nebulizer Denise [Ventolin 0.083% Nebulizer Soln -] 1 neb NEB Q4H PRN 07/08/16 Nystatin Cream [Mycostatin Cream -] 1 applic TP BID 07/08/16 Selenium Sulfide [Selenium Sulfide 2.25% Shampoo] 1 applic TP BID 07/08/16 Triamcinolone 0.5% Ointment [Aristocort 0.5% Ointment -] 0 gm TP TID 07/08/16 Carbamazepine [Carbamazepine ER] 100 mg GT BID 08/21/16 Carbamazepine [Carbamazepine ER] 300 mg GT BID 08/21/16 Diazepam Rectal Gel [Diastat Rectal Gel -] 5 mg SD ASDIR PRN 08/21/16 Sennosides [Senna] 2 tab GT HS 08/21/16 Tiagabine HCl 4 mg GT TID 08/21/16 clonazePAM [Klonopin -] 0.5 mg GT TID 08/21/16 Tizanidine HCl [Zanaflex] 2 mg GT TID 12/05/16 Lactose-Reduced Food/Fiber [Jevity 1.2 Jose Maria Liquid] 100 ml GT DAILY 09/02/17 Phenytoin [Dilantin Chewable Tablet -] 100 mg GT TID 07/10/18 levETIRAcetam [Keppra -] 500 mg PO TID 07/10/18 COPD: No Dementia: No (profound metnal retardation, difuses osteoporosis,) Diabetes: (cortical blindness, exotropia, orciopexy, scolisis,) GI Disorders: Yes (ESOPHAGITIS.) Seizures: Yes (convulsive epilepsy) - Surgical History Abdominal Surgery: Yes GI Surgery: Yes (PEG TUBE. jevity 1.2cal (4cans)) - Psycho Social/Smoking Cessation Hx Smoking History: Never smoked Have you smoked in the past 12 months: No Number of Cigarettes Smoked Daily: 0 Information on smoking cessation initiated: No Hx Alcohol Use: No Drug/Substance Use Hx: No Substance Use Type: None Review of Systems - Review of Systems Able to Perform ROS?: No (patient is non-verbal; MR) *Physical Exam - Vital Signs Last Vital Signs Temp Pulse Resp BP Pulse Ox 97.8 F 96 H 21 H 167/113 H 100 07/06/19 20:38 07/06/19 20:38 07/06/19 20:45 07/06/19 20:38 07/06/19 20:38 - Physical Exam Comments: 07/07/19 03:28 Intubated, sedated, small for stated age CV: S1, S2 Respiratory: scattered Rhonchi on lung auscultation Extremity: contracted extremities, 2+ DP pulses B/L ED Treatment Course - LABORATORY CBC & Chemistry Diagram: 07/06/19 21:30 07/06/19 21:30 - ADDITIONAL ORDERS Additional order review: 07/06/19 21:30 RBC 4.45 MCV 96.3 H MCHC 34.7 RDW 12.9 MPV 8.7 Neutrophils % 52.9 Lymphocytes % 29.3 Monocytes % 9.4 Eosinophils % 7.2 H Basophils % 1.2 - RADIOLOGY Radiology Studies Ordered: Category Date Time Status CHEST X-RAY PORTABLE* [RAD] Stat Radiology 07/06/19 20:44 Ordered - Medications Given in the ED: ED Medications Discontinued Medications Generic Name Dose Route Start Last Admin Trade Name Scotty PRN Reason Stop Dose Admin Rocuronium Jenks 50 mg 07/06/19 20:48 07/06/19 21:42 Zemuron - IV 07/06/19 20:49 Not Given ONCE ONE Medical Decision Making - Medical Decision Making 07/06/19 22:10 33 y/o male from [place] w/acute onset of hypoxia. S/p intubation in the field. At presentation patient had scattered rhonchi. Evaluate for Aspiration PNA vs. Mucous Plugging vs. Bronchitis vs. PE Will cover for aspiration PNA pending labs, CXR CXR showed no focal infiltrate EKG shows possible S1T2Q3 pattern c/w possible PE CTA pending Patient endorsed to ICU and hospitalist teams for further evaluation. Discharge - Discharge Information Problems reviewed: Yes Clinical Impression/Diagnosis: Hypoxia Condition: Fair - Admission Yes - Follow up/Referral - Patient Discharge Instructions - Post Discharge Activity
[2019-07-06 21:55] LABS: INR 1.04 (0.83-1.09); PROTHROMBIN TIME (PATIENT) 12.3 SEC (9.7-13.0)
[2019-07-06 21:58] LABS: ACTIVATED PTT 26.2 SECONDS (25.2-36.5)
[2019-07-06 22:15] LABS: ALBUMIN 3.6 g/dl (3.4-5.0); BILIRUBIN,TOTAL 0.4 mg/dL (0.2-1); BLOOD UREA NITROGEN 7.9 mg/dL (7-18); CALCIUM 8.3 mg/dL (8.5-10.1); CREATININE 0.3 mg/dL (0.55-1.3); POTASSIUM 3.3 mmol/L (3.5-5.1); TOT PROT 7.1 g/dl (6.4-8.2)
[2019-07-06 23:01] LABS: ARTERIAL BLD GAS O2 SATURATION 99.4 % (95-98); ARTERIAL BLOOD GAS PCO2 41.7 mmHg (35-45); ARTERIAL BLOOD GAS PO2 177 mmHg (80-100); ARTERIAL BLOOD GAS pH 7.43 (7.35-7.45); CARBOXYHEMOGLOBIN 0.5 % (0-2)
[2019-07-06 23:02] LABS: ALLENS TEST POSITIVE
[2019-07-06] MEDS ORDERED: PROPOFOL 20 ML ONE (23:27)
[2019-07-06] MEDS ORDERED: PROPOFOL 200 MG/20 ML VIAL IVPUSH ONE (23:33)
--- NOTE | 2019-07-06 23:34 | PN ---
Teaching Attending Note Name of Resident: Jeanette Adam ATTENDING PHYSICIAN STATEMENT I saw and evaluated the patient. I reviewed the resident's note and discussed the case with the resident. I agree with the resident's findings and plan as documented. SUBJECTIVE: Patient is a 33 year old man with a PMH of Profound Mental Retardation, Seizure , Cortical blindness, Congenital quadriplegia, Esophagitis, Hyponatremia, Osteoporosis and Scoliosis who was BIBEMS from [facility] for hypoxia. As per EMS, patient was noted to be saturating at 92% on RA with increased work of breathing. Patient was noted to be at his baseline mental status which is non-verbal. Was intubated in the field by EMS with Rocuronium + Etomidate for Rapid Sequence Intubation. Patient was evaluated in our ER in 2018 for shortness of breath at which time work-up was negative for acute pathology and was discharged to [place]. OBJECTIVE: Intubated and sedated on propofol Vital Signs Period Temp Pulse Resp BP Sys/Ricci Pulse Ox Last 24 Hr 97.8 F-98.7 F 86-96 15-22 134-167/98-113 98-100 HEENT: No Jaundice, eye redness or discharge, PERRLA, Normocephalic, atraumatic. External ears are normal. No nasal discharge. Neck: Supple, nontender. No palpable adenopathy or thyromegaly. No JVD Chest: Good effort. Clear to auscultation and percussion. Heart: Regular. No S3, rub or murmur Abdomen: Not distended, soft, nontender and no HSM. PEG in place. No rebound or guarding. Normal bowel sounds. Ext: Peripheral pulses intact. No leg edema. Skin: Warm and dry. No petechiae, rash or ecchymosis. Neuro: Intubated and sedated. Responds to painful stimuli. Psych: Unable to assess. Current Medications Generic Name Dose Route Start Last Admin Trade Name Freq PRN Reason Stop Dose Admin Chlorhexidine Gluconate 1 applic 07/07/19 22:00 Hibiclens For Decolonization - TP HS VASQUEZ Propofol 1,000,000 mcg in 100 mls @ 1.279 mls/hr 07/07/19 00:30 07/07/19 00: 54 Diprivan - IVPB 5 mcg/kg/min TITR VASQUEZ 1.279 mls/hr Administration Protocol 5 MCG/KG/MIN Potassium Chloride 10 meq in 100 mls @ 100 mls/hr 07/07/19 01:45 Potassium Chloride 10 Meq Premix Ivpb - IVPB 07/07/19 04:44 Q60M VASQUEZ Potassium Chloride 10 meq in 100 mls @ 100 mls/hr 07/07/19 03:15 Potassium Chloride 10 Meq Premix Ivpb - IVPB 07/07/19 06:14 Q60M VASQUEZ Mupirocin 1 applic 07/07/19 10:00 Bactroban Ointment (For Decolonization) - NS 07/12/19 09:[address] [facility] Potassium Chloride 40 meq 07/07/19 03:17 Potassium Chloride Oral Liquid PEG 07/07/19 03:18 ONCE ONE Home Medications Medication Instructions Recorded Calcium 500Mg/Vit-D 200 Units 1 tab GT HS 10/21/14 [Os-Jose Maria 500+D -] Cholecalciferol (Vitamin D3) 400 unit GT DAILY 10/21/14 [Vitamin D3] Magnesium Hydroxide [Milk of 30 ml GT HS 10/21/14 Magnesia] Albuterol 0.083% Nebulizer Denise 1 neb NEB Q4H PRN 07/08/16 [Ventolin 0.083% Nebulizer Soln -] Nystatin Cream [Mycostatin Cream -] 1 applic TP BID 07/08/16 Selenium Sulfide [Selenium Sulfide 1 applic TP BID 07/08/16 2.25% Shampoo] Triamcinolone 0.5% Ointment 0 gm TP TID 07/08/16 [Aristocort 0.5% Ointment -] Carbamazepine [Carbamazepine ER] 100 mg GT BID 08/21/16 Carbamazepine [Carbamazepine ER] 300 mg GT BID 08/21/16 Diazepam Rectal Gel [Diastat 5 mg HI ASDIR PRN 08/21/16 Rectal Gel -] Sennosides [Senna] 2 tab GT HS 08/21/16 Tiagabine HCl 4 mg GT TID 08/21/16 clonazePAM [Klonopin -] 0.5 mg GT TID 08/21/16 Tizanidine HCl [Zanaflex] 2 mg GT TID 12/05/16 Lactose-Reduced Food/Fiber [Jevity 100 ml GT DAILY 09/02/17 1.2 Jose Maria Liquid] Phenytoin [Dilantin Chewable 100 mg GT TID 07/10/18 Tablet -] levETIRAcetam [Keppra -] 500 mg PO TID 07/10/18 Abnormal Lab Results 07/06/19 07/06/19 07/06/19 21:30 21:30 22:40 MCV 96.3 H Eosinophils % 7.2 H ABG pO2 at Pt Temp 177 H ABG HCO3 27.1 H ABG O2 Sat (Measured) 99.4 H ABG Base Excess 3.0 H Sodium 135 L Potassium 3.3 L Creatinine 0.3 L Calcium 8.3 L Alkaline Phosphatase 130 H ASSESSMENT AND PLAN: 1. Acute hypoxic respiratory failure - Pulmonary embolism or mucus plugging may be the culprit. CXR does no show any acute infiltrate. EKG shows NSR with new T wave inversion in III. Initial troponin is negative. Will repeat EKG and troponin to rule out ACS. Patient is at risk for aspiration, but we will withhold antibiotics pending CTA of chest to rule out PE. Continue pulmonary toilet, ventilator management, IV protonix, and IV NS in the ICU. On propofol for sedation. Will repeat CXR in 12 hours. Urinalysis is pending, but chronic hyponatremia likely due to poor solute intake and/or use of excess free water to flush PEG. Will get UA, ensure adequate caloric intake and use NS to flush PEG QID. Hypokalemia may be due to excess renal and stool losses (on laxatives) combined with poor intake. Will check serum Mg+, phosphate and give KCL IV and via PEG. Will check Vitamin D and PTH and continue Oscal with Vitamin D - in liquid form - to correct hypocalcemia. Will continue comprehensive care for all of patients comorbid conditions including seizure precautions and frequent repositioning to avoid decubitus ulcers.. 2. DVT prophylaxis - Lovenox 40 mg SQ q 24 hours. 3. Advance directives - Full code
[2019-07-07] MEDS ORDERED: ENOXAPARIN NA (PORCINE) 40 MG/0.4 ML DISP.SYRIN SQ ONE (00:16)
[2019-07-07] MEDS ORDERED: PROPOFOL 1,000,000 MCG/100 ML VIAL IVPB SCH (00:30)
--- NOTE | 2019-07-07 01:53 | CONSULT ---
Consultation: REQUESTING PROVIDER: CONSULT REQUEST: We have been asked to medically evaluate this patient for ICU admission. HISTORY OF PRESENT ILLNESS: 33 y/o/m with PMHx of profound MR, seizure, congenital quadriplegia, esophagitis , hyponatremia, osteoporosis and scoliosis who was BIBEMS from [facility] for hypoxia. Patient was intubated, unable to contribute to history. Per [place], around 1945 patient was noted to be in respiratory distress with O2 saturation in the high 90s. He was given a nebulizer treatment without improvement. His O2 saturation went down to 88% and he was put on a non rebreather which improved his O2 saturation to 95%. 911 was called due to continued respiratory distress and patient was intubated by EMS. Per the ED, EMS stated that patient had high work of breathing, large amount of secretions and required intubation. Per NH, patient did not have any fevers, cough, seizures and was in normal state of health earlier today. REVIEW OF SYSTEMS: patient unable to provide 2/2 mental status PHYSICAL EXAMINATION Vital Signs - 24 hr 07/06/19 07/06/19 07/06/19 20:38 20:45 22:24 Temperature 97.8 F Pulse Rate 96 H Pulse Rate [ 90 Right] Respiratory 22 H 21 H 22 H Rate Blood Pressure 167/113 H Blood Pressure 144/98 [Right Arm] O2 Sat by Pulse 100 99 99 Oximetry (%) 07/07/19 07/07/19 00:38 01:15 Temperature 98.7 F Pulse Rate Pulse Rate [ 86 Right] Respiratory 21 H 15 Rate Blood Pressure Blood Pressure 134/113 H [Right Arm] O2 Sat by Pulse 98 Oximetry (%) GENERAL: intubated, awake, distressed likely 2/2 intubation HEAD: Normal with no signs of trauma. EYES: PERRL, EOMI EARS, NOSE, THROAT: nares congested, dry mucous membranes NECK: supple, trachea midline LUNGS: Breath sounds equal, clear to auscultation bilaterally. No wheezes, no rhonchi, and no crackles. No accessory muscle use. HEART: RRR, no mumur noted ABDOMEN: Soft, nontender, not distended, normoactive bowel sounds, no guarding, no rebound, no masses. MUSCULOSKELETAL: contracted upper extremities, contracted feet bilaterally. EXTREMITIES: 2+ pulses, warm, well-perfused. No cyanosis. No clubbing. Cap refill <2 seconds. No peripheral edema. Laboratory Results - last 24 hr 07/06/19 07/06/19 07/06/19 21:30 21:30 21:30 WBC 7.4 RBC 4.45 Hgb 14.9 Hct 42.8 MCV 96.3 H MCH 33.4 MCHC 34.7 RDW 12.9 Plt Count 335 MPV 8.7 Absolute Neuts (auto) 3.9 Neutrophils % 52.9 Lymphocytes % 29.3 Monocytes % 9.4 Eosinophils % 7.2 H Basophils % 1.2 Nucleated RBC % 0 PT with INR 12.30 INR 1.04 PTT (Actin FS) 26.2 Puncture Site ABG pH ABG pCO2 at Pt Temp ABG pO2 at Pt Temp ABG HCO3 ABG O2 Sat (Measured) ABG O2 Content ABG Base Excess Dominic Test Carboxyhemoglobin Methemoglobin O2 Delivery Device Oxygen Flow Rate Vent Mode Vent Rate Mechanical Rate PEEP Pressure Support Vent Sodium Potassium Chloride Carbon Dioxide Anion Gap BUN Creatinine Est GFR (CKD-EPI)AfAm Est GFR (CKD-EPI)NonAf Random Glucose Calcium Total Bilirubin AST ALT Alkaline Phosphatase Creatine Kinase 119 Troponin I < 0.02 Total Protein Albumin 07/06/19 07/06/19 21:30 22:40 WBC RBC Hgb Hct MCV MCH MCHC RDW Plt Count MPV Absolute Neuts (auto) Neutrophils % Lymphocytes % Monocytes % Eosinophils % Basophils % Nucleated RBC % PT with INR INR PTT (Actin FS) Puncture Site Right femoral ABG pH 7.43 ABG pCO2 at Pt Temp 41.7 ABG pO2 at Pt Temp 177 H ABG HCO3 27.1 H ABG O2 Sat (Measured) 99.4 H ABG O2 Content 19.7 ABG Base Excess 3.0 H Dominic Test Positive Carboxyhemoglobin 0.5 Methemoglobin < 1.0 O2 Delivery Device Vent Oxygen Flow Rate 100% Vent Mode A/c Vent Rate 20 Mechanical Rate Yes PEEP 5.0 Pressure Support Vent 250 Sodium 135 L Potassium 3.3 L Chloride 100 Carbon Dioxide 27 Anion Gap 8 BUN 7.9 Creatinine 0.3 L Est GFR (CKD-EPI)AfAm 203.57 Est GFR (CKD-EPI)NonAf 175.65 Random Glucose 88 Calcium 8.3 L Total Bilirubin 0.4 AST 30 ALT 32 Alkaline Phosphatase 130 H Creatine Kinase Troponin I Total Protein 7.1 Albumin 3.6 Active Medications Generic Name Dose Route Start Last Admin Trade Name Scotty PRN Reason Stop Dose Admin Chlorhexidine Gluconate 1 applic 07/07/19 22:00 Hibiclens For Decolonization - TP HS VASQUEZ Propofol 1,000,000 mcg in 100 mls @ 1.279 mls/hr 07/07/19 00:30 07/07/19 00: 54 Diprivan - IVPB 5 mcg/kg/min TITR VASQUEZ 1.279 mls/hr Administration Protocol 5 MCG/KG/MIN Mupirocin 1 applic 07/07/19 10:00 Bactroban Ointment (For Decolonization) - NS 07/12/19 09:59 BID VASQUEZ ASSESSMENT/PLAN: 33 y/o/m with PMHx of profound MR, seizure, congenital quadriplegia, esophagitis , hyponatremia, osteoporosis and scoliosis who was BIBEMS from [facility] for hypoxia. Patient was intubated on arrival. #Neuro - history of profound MR, seizures - Keppra level, Phenytoin level ordered with morning labs - Propofol drip for sedation while intubated - Continue home anti-epileptic medications #Cardio - EKG concerning for S1, Q3, T3. On previous EKGs patient has had S1, Q3, but not T3 - negative trop #Respiratory - hypoxia possibly 2/2 mucous plugging that may have cleared during EMS transport vs. aspiration vs. PE - Intubated - Chest CTA to r/o PE - CXR without clear acute pathology, pending radiology read #GI - alk phos 130, hx of elevated alk phos on previous admissions #Renal - BUN/Cr 7.9/0.3 - no active issues #ID - will consider empiric abx coverage for possible aspiration pneumonia after CTA - afebrile, normal WBC - Blood, sputum, urine cx pending - Legionella antigen ordered - Rapid flu, RSV ordered #Prophylaxis - Lovenox #FEN - Hypokalemia, repleted - NPO while intubated #Disposition - admit to ICU for further monitoring Visit type - Emergency Visit Emergency Visit: Yes ED Registration Date: 07/07/19 Care time: The patient presented to the Emergency Department on the above date and was hospitalized for further evaluation of their emergent condition. - New Patient This patient is new to me today: Yes Date on this admission: 11/14/19 - Critical Care Critical Care patient: Yes Total Critical Care Time (in minutes): 36 Critical Care Statement: The care of this patient involved high complexity decision making to prevent further life threatening deterioration of the patient 's condition and/or to evaluate & treat vital organ system(s) failure or risk of failure. ATTENDING PHYSICIAN STATEMENT I saw and evaluated the patient. I reviewed the resident's note and discussed the case with the resident. I agree with the resident's findings and plan as documented. SUBJECTIVE: OBJECTIVE: ASSESSMENT AND PLAN:
[2019-07-07] MEDS ORDERED: KCL 10 MEQ IVPB 10 MEQ/100 ML INFUS.BAG IVPB SCH (03:15)
[2019-07-07] MEDS ORDERED: POTASSIUM CHLORIDE ORAL LIQUID 20 MEQ/15 ML PEG ONE (03:17)
--- NOTE | 2019-07-07 03:20 | HP ---
CHIEF COMPLAINT: respiratory distress PCP: Dr. Johnson HISTORY OF PRESENT ILLNESS: Pt is a 33 y/o M w/ pmhx of profound mental retardation, seizure, congenital quadriplegia, esophagitis, hyponatremia, osteoporosis and scoliosis presenting to ED via EMS from [facility] due to hypoxia and acute respiratory distress. Per EMS, pt was in respiratory distress, saturating at 92 % with increased work of breathing and had increased secretions. Pt was intubated by EMS with 20 mg Etomidate, 50mg Rocuronium, and 10mg Versed. Called [facility] to get additional history however the nurse was not able to provide additional details. Pt was intubated on arrival with is aid at the bedside, however she did not witness the incident or know anything about what had happened. ER course was notable for: (1) sedated with propofol (2) trop negative (3) EKG with old S1Q3 and new T3 Recent Travel: denies PAST MEDICAL HISTORY: profound mental retardation, seizure, congenital quadriplegia, esophagitis, hyponatremia, osteoporosis and scoliosis PAST SURGICAL HISTORY: PEG TUBE. jevity 1.2cal (4cans) Social History: Smoking: denies Alcohol: denies Drugs: denies Allergies No Known Allergies Allergy (Verified 01/28/19 12:56) HOME MEDICATIONS: Home Medications Medication Instructions Recorded Calcium 500Mg/Vit-D 200 Units 1 tab GT HS 10/21/14 [Os-Jose Maria 500+D -] Cholecalciferol (Vitamin D3) 400 unit GT DAILY 10/21/14 [Vitamin D3] Magnesium Hydroxide [Milk of 30 ml GT HS 10/21/14 Magnesia] Albuterol 0.083% Nebulizer Denise 1 neb NEB Q4H PRN 07/08/16 [Ventolin 0.083% Nebulizer Soln -] Nystatin Cream [Mycostatin Cream -] 1 applic TP BID 07/08/16 Selenium Sulfide [Selenium Sulfide 1 applic TP BID 07/08/16 2.25% Shampoo] Triamcinolone 0.5% Ointment 0 gm TP TID 07/08/16 [Aristocort 0.5% Ointment -] Carbamazepine [Carbamazepine ER] 100 mg GT BID 08/21/16 Carbamazepine [Carbamazepine ER] 300 mg GT BID 08/21/16 Diazepam Rectal Gel [Diastat 5 mg CO ASDIR PRN 08/21/16 Rectal Gel -] Sennosides [Senna] 2 tab GT HS 08/21/16 Tiagabine HCl 4 mg GT TID 08/21/16 clonazePAM [Klonopin -] 0.5 mg GT TID 08/21/16 Tizanidine HCl [Zanaflex] 2 mg GT TID 12/05/16 Lactose-Reduced Food/Fiber [Jevity 100 ml GT DAILY 09/02/17 1.2 Jose Maria Liquid] Phenytoin [Dilantin Chewable 100 mg GT TID 07/10/18 Tablet -] levETIRAcetam [Keppra -] 500 mg PO TID 07/10/18 REVIEW OF SYSTEMS: Unable to obtain as pt was intubated and non-verbal at baseline PHYSICAL EXAMINATION Vital Signs - 24 hr 07/06/19 07/06/19 07/06/19 20:38 20:45 22:24 Temperature 97.8 F Pulse Rate 96 H Pulse Rate [ 90 Right] Respiratory 22 H 21 H 22 H Rate Blood Pressure 167/113 H Blood Pressure 144/98 [Right Arm] O2 Sat by Pulse 100 99 99 Oximetry (%) 07/07/19 07/07/19 00:38 01:15 Temperature 98.7 F Pulse Rate Pulse Rate [ 86 Right] Respiratory 21 H 15 Rate Blood Pressure Blood Pressure 134/113 H [Right Arm] O2 Sat by Pulse 98 Oximetry (%) GENERAL: intubated, awake, distressed likely 2/2 intubation HEAD: Normal with no signs of trauma. EYES: PERRL, EOMI EARS, NOSE, THROAT: nares congested, dry mucous membranes NECK: supple, trachea midline LUNGS: Breath sounds equal, clear to auscultation bilaterally. No wheezes, no rhonchi, and no crackles. No accessory muscle use. HEART: RRR, no mumur noted ABDOMEN: Soft, nontender, not distended, normoactive bowel sounds, no guarding, no rebound, no masses. MUSCULOSKELETAL: contracted upper extremities, contracted feet bilaterally. EXTREMITIES: 2+ pulses, warm, well-perfused. No cyanosis. No clubbing. Cap refill <2 seconds. No peripheral edema. Laboratory Results - last 24 hr 07/06/19 07/06/19 07/06/19 21:30 21:30 21:30 WBC 7.4 RBC 4.45 Hgb 14.9 Hct 42.8 MCV 96.3 H MCH 33.4 MCHC 34.7 RDW 12.9 Plt Count 335 MPV 8.7 Absolute Neuts (auto) 3.9 Neutrophils % 52.9 Lymphocytes % 29.3 Monocytes % 9.4 Eosinophils % 7.2 H Basophils % 1.2 Nucleated RBC % 0 PT with INR 12.30 INR 1.04 PTT (Actin FS) 26.2 Puncture Site ABG pH ABG pCO2 at Pt Temp ABG pO2 at Pt Temp ABG HCO3 ABG O2 Sat (Measured) ABG O2 Content ABG Base Excess Dominic Test Carboxyhemoglobin Methemoglobin O2 Delivery Device Oxygen Flow Rate Vent Mode Vent Rate Mechanical Rate PEEP Pressure Support Vent Sodium Potassium Chloride Carbon Dioxide Anion Gap BUN Creatinine Est GFR (CKD-EPI)AfAm Est GFR (CKD-EPI)NonAf Random Glucose Calcium Total Bilirubin AST ALT Alkaline Phosphatase Creatine Kinase 119 Troponin I < 0.02 Total Protein Albumin 07/06/19 07/06/19 21:30 22:40 WBC RBC Hgb Hct MCV MCH MCHC RDW Plt Count MPV Absolute Neuts (auto) Neutrophils % Lymphocytes % Monocytes % Eosinophils % Basophils % Nucleated RBC % PT with INR INR PTT (Actin FS) Puncture Site Right femoral ABG pH 7.43 ABG pCO2 at Pt Temp 41.7 ABG pO2 at Pt Temp 177 H ABG HCO3 27.1 H ABG O2 Sat (Measured) 99.4 H ABG O2 Content 19.7 ABG Base Excess 3.0 H Dominic Test Positive Carboxyhemoglobin 0.5 Methemoglobin < 1.0 O2 Delivery Device Vent Oxygen Flow Rate 100% Vent Mode A/c Vent Rate 20 Mechanical Rate Yes PEEP 5.0 Pressure Support Vent 250 Sodium 135 L Potassium 3.3 L Chloride 100 Carbon Dioxide 27 Anion Gap 8 BUN 7.9 Creatinine 0.3 L Est GFR (CKD-EPI)AfAm 203.57 Est GFR (CKD-EPI)NonAf 175.65 Random Glucose 88 Calcium 8.3 L Total Bilirubin 0.4 AST 30 ALT 32 Alkaline Phosphatase 130 H Creatine Kinase Troponin I Total Protein 7.1 Albumin 3.6 ASSESSMENT/PLAN: Pt is a 33 y/o M w/ pmhx of profound mental retardation, seizure, congenital quadriplegia, esophagitis, hyponatremia, osteoporosis and scoliosis presenting to ED via EMS from [facility] due to hypoxia and acute respiratory distress. # Acute Hypoxic Respiratory Failure- PE vs mucus plugging vs. aspiration pneumonitis. CXR without evidence of acute infiltrate or obvious mucous plug. EKG shows NSR with new T wave inversion in III. Initial troponin was negative - repeat EKG and troponin to r/o ACS - CTA to r/o PE - Rapid strep, sputum cx, RSV to r/o infectious etiologies - cont pulmonary toilet - vent management per ICU team - IV protonix 40 daily - IV NS @ 75cc/h - propofol for sedation - repeat CXR in AM # Hyponatremia- appears chronic, likely 2/2 to low solute intake and/or use of excess free water to flush PEG. - F/U urinalysis - ensure adequate caloric intake - use NS to flush PEG QID. - IV NS @ 75cc/h # Hypokalemia/ Hypocalcemia- may be due to excess renal and stool losses (on laxatives) combined with poor intake. - f/u serum Mg+ - phosphate - KCL IV and via PEG. - check Vitamin D and PTH - continue Oscal with Vitamin D - in liquid form - to correct hypocalcemia. # Seizure disorder- Pt takes carbamazepine, keppra, and phenytoin at home. Carbamazepine is not available IV but will continue to admin keppra and phenytoin IV. Pt is strictly NPO for now, will resume Carbamazepine when it is safe to do so. # FEN - IV NS@ 75cc/h - replete prn - NPO while intubated # PPx - DVT: Lovenox 40 mg SQ q 24 hours - GI: Protonix 40mg IV daily # Dispo- admit to ICU, can likely be extubated tomorrow, full code Visit type - Emergency Visit Emergency Visit: Yes ED Registration Date: 07/07/19 Care time: The patient presented to the Emergency Department on the above date and was hospitalized for further evaluation of their emergent condition. - New Patient This patient is new to me today: Yes Date on this admission: 07/07/19 - Critical Care Critical Care patient: No ATTENDING PHYSICIAN STATEMENT I saw and evaluated the patient. I reviewed the resident's note and discussed the case with the resident. I agree with the resident's findings and plan as documented. SUBJECTIVE: OBJECTIVE: ASSESSMENT AND PLAN:
[2019-07-07] MEDS: KCL 10 MEQ IVPB 10 MEQ/100 ML INFUS.BAG IVPB SCH ×4 (03:56→07:12)
[2019-07-07 04:08] LABS: BASO % 0.8 % (0-2.0); EOS % 6.1 % (0-4.5); HEMATOCRIT 41.7 % (35.4-49); HEMOGLOBIN 14.7 GM/dL (11.7-16.9); LYMPH % 16.8 % (8-40); MCH 34.1 pg (25.7-33.7); MCHC 35.2 g/dl (32.0-35.9); MEAN CELL VOLUME 96.8 fl (80-96); MEAN PLT VOLUME 9.5 fl (7.5-11.1); MONO % 6.2 % (3.8-10.2); NEUT % 70.1 % (42.8-82.8); PLATELET COUNT 307 K/MM3 (134-434); RBC 4.31 M/mm3 (4.00-5.60); RDW 12.7 % (11.9-15.9); WHITE BLOOD COUNT 8.9 K/mm3 (4.0-10.0)
[2019-07-07 04:31] LABS: PH,URINE 8.5 (5.0-8.0); URINE APPEARANCE Clear; URINE BILIRUBIN Negative (NEGATIVE); URINE COLOR Dark yellow; URINE GLUCOSE (UA) Negative (NEGATIVE); URINE KETONE Negative (NEGATIVE); URINE LEUK ESTERASE Negative (NEGATIVE); URINE NITRITE Negative (NEGATIVE); URINE PROTEIN Trace (NEGATIVE); URINE UROBILINOGEN 0.2 mg/dL (0.2-1.0)
[2019-07-07 04:33] LABS: ALBUMIN 3.7 g/dl (3.4-5.0); BILIRUBIN,TOTAL 0.8 mg/dL (0.2-1); BLOOD UREA NITROGEN 7.4 mg/dL (7-18); CALCIUM 8.4 mg/dL (8.5-10.1); CREATININE 0.3 mg/dL (0.55-1.3); MAGNESIUM 2.6 mg/dL (1.8-2.4); PHOSPHOROUS 2.8 mg/dL (2.5-4.9); POTASSIUM 3.4 mmol/L (3.5-5.1)
[2019-07-07] MEDS ORDERED: SODIUM CHLORIDE 1,000 ML IV SCH (04:45)
[2019-07-07] MEDS: PHENYTOIN SODIUM 100 MG/2 ML VIAL IVPB SCH ×2 (05:00→09:08)
[2019-07-07] MEDS: levETIRAcetam 500 MG/5 ML INJECTION VIAL IVPB SCH ×2 (05:00→09:05)
[2019-07-07 06:02] LABS: EPI CELLS 4 /HPF (0-5/HPF); HYALINE CASTS 2 /lpf (0-8); URINE RBC 60 /hpf (0-4); URINE WBC 5 /hpf (0-5)
[2019-07-07 06:03] LABS: URINE BACTERIA 5 /hpf (NEGATIVE)
--- NOTE | 2019-07-07 07:34 | PN ---
Physical Exam: SUBJECTIVE: Patient seen and examined by the bedside. He is intubated, and is moving his head around. OBJECTIVE: Vital Signs Period Temp Pulse Resp BP Sys/Ricci Pulse Ox Last 24 Hr 97.4 F-98.7 F 67-96 15-22 110-167/80-113 98-100 GENERAL: Intubated, moving head HEAD: Microcephalic features ENT: nares patent, intubated LUNGS: Clear B/L, no wheezing or crackles HEART: RRR, no murmur, rub or gallop. ABDOMEN: Soft, nontender, nondistended, normoactive bowel sounds, no organomegaly EXTREMITIES: 2+ pulses, no edema NEUROLOGICAL: suffers from mental retardation SKIN: Warm, dry, normal turgor, no rashes or lesions noted Laboratory Results - last 24 hr 07/06/19 07/06/19 07/06/19 21:30 21:30 21:30 WBC 7.4 RBC 4.45 Hgb 14.9 Hct 42.8 MCV 96.3 H MCH 33.4 MCHC 34.7 RDW 12.9 Plt Count 335 MPV 8.7 Absolute Neuts (auto) 3.9 Neutrophils % 52.9 Lymphocytes % 29.3 Monocytes % 9.4 Eosinophils % 7.2 H Basophils % 1.2 Nucleated RBC % 0 PT with INR 12.30 INR 1.04 PTT (Actin FS) 26.2 Puncture Site ABG pH ABG pCO2 at Pt Temp ABG pO2 at Pt Temp ABG HCO3 ABG O2 Sat (Measured) ABG O2 Content ABG Base Excess Dominic Test Carboxyhemoglobin Methemoglobin O2 Delivery Device Oxygen Flow Rate Vent Mode Vent Rate Mechanical Rate PEEP Pressure Support Vent Sodium Potassium Chloride Carbon Dioxide Anion Gap BUN Creatinine Est GFR (CKD-EPI)AfAm Est GFR (CKD-EPI)NonAf Random Glucose Lactic Acid Calcium Phosphorus Magnesium Total Bilirubin AST ALT Alkaline Phosphatase Creatine Kinase 119 Troponin I < 0.02 Total Protein Albumin Urine Color Urine Appearance Urine pH Ur Specific [place] Urine Protein Urine Glucose (UA) Urine Ketones Urine Blood Urine Nitrite Urine Bilirubin Urine Urobilinogen Ur Leukocyte Esterase Urine WBC (Auto) Urine RBC (Auto) Urine Casts (Auto) U Epithel Cells (Auto) Urine Bacteria (Auto) Phenytoin Carbamazepine Influenza A (Rapid) Influenza B (Rapid) RSV Rapid 07/06/19 07/06/19 07/07/19 21:30 22:40 02:45 WBC RBC Hgb Hct MCV MCH MCHC RDW Plt Count MPV Absolute Neuts (auto) Neutrophils % Lymphocytes % Monocytes % Eosinophils % Basophils % Nucleated RBC % PT with INR INR PTT (Actin FS) Puncture Site Right femoral ABG pH 7.43 ABG pCO2 at Pt Temp 41.7 ABG pO2 at Pt Temp 177 H ABG HCO3 27.1 H ABG O2 Sat (Measured) 99.4 H ABG O2 Content 19.7 ABG Base Excess 3.0 H Dominic Test Positive Carboxyhemoglobin 0.5 Methemoglobin < 1.0 O2 Delivery Device Vent Oxygen Flow Rate 100% Vent Mode A/c Vent Rate 20 Mechanical Rate Yes PEEP 5.0 Pressure Support Vent 250 Sodium 135 L Potassium 3.3 L Chloride 100 Carbon Dioxide 27 Anion Gap 8 BUN 7.9 Creatinine 0.3 L Est GFR (CKD-EPI)AfAm 203.57 Est GFR (CKD-EPI)NonAf 175.65 Random Glucose 88 Lactic Acid Calcium 8.3 L Phosphorus Magnesium Total Bilirubin 0.4 AST 30 ALT 32 Alkaline Phosphatase 130 H Creatine Kinase Troponin I Total Protein 7.1 Albumin 3.6 Urine Color Urine Appearance Urine pH Ur Specific [place] Urine Protein Urine Glucose (UA) Urine Ketones Urine Blood Urine Nitrite Urine Bilirubin Urine Urobilinogen Ur Leukocyte Esterase Urine WBC (Auto) Urine RBC (Auto) Urine Casts (Auto) U Epithel Cells (Auto) Urine Bacteria (Auto) Phenytoin Carbamazepine Influenza A (Rapid) Negative Influenza B (Rapid) Negative RSV Rapid 07/07/19 07/07/19 07/07/19 02:45 02:45 02:45 WBC RBC Hgb Hct MCV MCH MCHC RDW Plt Count MPV Absolute Neuts (auto) Neutrophils % Lymphocytes % Monocytes % Eosinophils % Basophils % Nucleated RBC % PT with INR INR PTT (Actin FS) Puncture Site ABG pH ABG pCO2 at Pt Temp ABG pO2 at Pt Temp ABG HCO3 ABG O2 Sat (Measured) ABG O2 Content ABG Base Excess Dominic Test Carboxyhemoglobin Methemoglobin O2 Delivery Device Oxygen Flow Rate Vent Mode Vent Rate Mechanical Rate PEEP Pressure Support Vent Sodium 132 L Potassium 3.4 L Chloride 98 Carbon Dioxide 27 Anion Gap 8 BUN 7.4 Creatinine 0.3 L Est GFR (CKD-EPI)AfAm 203.57 Est GFR (CKD-EPI)NonAf 175.65 Random Glucose 113 H Lactic Acid Calcium 8.4 L Phosphorus 2.8 Magnesium 2.6 H Total Bilirubin 0.8 AST 34 ALT 38 Alkaline Phosphatase 136 H Creatine Kinase Troponin I Total Protein 7.0 Albumin 3.7 Urine Color Urine Appearance Urine pH Ur Specific [place] Urine Protein Urine Glucose (UA) Urine Ketones Urine Blood Urine Nitrite Urine Bilirubin Urine Urobilinogen Ur Leukocyte Esterase Urine WBC (Auto) Urine RBC (Auto) Urine Casts (Auto) U Epithel Cells (Auto) Urine Bacteria (Auto) Phenytoin 12.8 Carbamazepine >20.0 Influenza A (Rapid) Influenza B (Rapid) RSV Rapid Negative 07/07/19 07/07/19 07/07/19 02:45 02:45 02:45 WBC 8.9 RBC 4.31 Hgb 14.7 Hct 41.7 MCV 96.8 H MCH 34.1 H MCHC 35.2 RDW 12.7 Plt Count 307 MPV 9.5 Absolute Neuts (auto) 6.3 Neutrophils % 70.1 D Lymphocytes % 16.8 D Monocytes % 6.2 Eosinophils % 6.1 H Basophils % 0.8 Nucleated RBC % 0 PT with INR INR PTT (Actin FS) Puncture Site ABG pH ABG pCO2 at Pt Temp ABG pO2 at Pt Temp ABG HCO3 ABG O2 Sat (Measured) ABG O2 Content ABG Base Excess Dominic Test Carboxyhemoglobin Methemoglobin O2 Delivery Device Oxygen Flow Rate Vent Mode Vent Rate Mechanical Rate PEEP Pressure Support Vent Sodium Potassium Chloride Carbon Dioxide Anion Gap BUN Creatinine Est GFR (CKD-EPI)AfAm Est GFR (CKD-EPI)NonAf Random Glucose Lactic Acid 1.4 Calcium Phosphorus Magnesium Total Bilirubin AST ALT Alkaline Phosphatase Creatine Kinase Troponin I Total Protein Albumin Urine Color Dark yellow Urine Appearance Clear Urine pH 8.5 H Ur Specific [place] 1.020 Urine Protein Trace Urine Glucose (UA) Negative Urine Ketones Negative Urine Blood 3+ H Urine Nitrite Negative Urine Bilirubin Negative Urine Urobilinogen 0.2 Ur Leukocyte Esterase Negative Urine WBC (Auto) 5 Urine RBC (Auto) 60 Urine Casts (Auto) 2 U Epithel Cells (Auto) 4 Urine Bacteria (Auto) 5 Phenytoin Carbamazepine Influenza A (Rapid) Influenza B (Rapid) RSV Rapid Active Medications Generic Name Dose Route Start Last Admin Trade Name Freq PRN Reason Stop Dose Admin Chlorhexidine Gluconate 1 applic 07/07/19 22:00 Hibiclens For Decolonization - TP HS VASQUEZ Propofol 1,000,000 mcg in 100 mls @ 1.279 mls/hr 07/07/19 00:30 07/07/19 05: 49 Diprivan - IVPB 30 mcg/kg/min TITR VASQUEZ 7.675 mls/hr Titration Protocol 5 MCG/KG/MIN Sodium Chloride 1,000 mls @ 75 mls/hr 07/07/19 04:45 07/07/19 05:16 Normal Saline - IV 75 mls/hr ASDIR V[facility]Z Administration Levetiracetam 500 mg 07/07/19 04:30 07/07/19 05:00 Keppra Injection - IVPB 500 mg Q8H-IV VASQUEZ Administration Mupirocin 1 applic 07/07/19 10:00 Bactroban Ointment (For Decolonization) - NS 07/12/19 09:59 BID VASQUEZ Pantoprazole Sodium 40 mg 07/07/19 10:00 Protonix Iv IVPUSH DAILY V[facility]QUEZ Phenytoin Sodium 100 mg 07/07/19 04:05 07/07/19 05:00 Dilantin Injection - IVPB 100 mg Q8H-IV VASQUEZ Administration ASSESSMENT/PLAN: 33 YO M with PMH of profound MR, seizure, congenital quadriplegia, esophagitis, hyponatremia, osteoporosis and scoliosis who was BIBEMS from [facility] for hypoxia. He was intubated by EMS after he was found to have O2 sat in the 80s with increased work of breathing involving grunting and accessory muscle use. #Neuro - Hx of seizures, continue home meds Diazepam, Phenytoin, Keppra, Clonazepam - Phenytoin level 12.8, Tegratol >20.0 - Propofol drip for sedation while intubated - Continue home anti-epileptic medications #Cardio - EKG concerning for S1, Q3, T3. On previous EKGs patient has had S1, Q3, but not T3, not suspecting PE - Negative trop #Respiratory - Extubated today, on non rebreather - CXR (07/07): Dense retrocardiac infiltrate, no change since yesterday - Echo with doppler ordered #GI - ALP 136, hx of elevated ALP on previous admissions #Renal - BUN/Cr 7.4/0.3 #ID - Afebrile, normal WBC - Sputum cx pending - Rapid flu, RSV negative #Prophylaxis - Lovenox 40mg SQ 1x #FEN - N/s @ 75 - Enteral feeds #Disposition - Transfer to /S Visit type - Emergency Visit Emergency Visit: Yes ED Registration Date: 07/07/19 Care time: The patient presented to the Emergency Department on the above date and was hospitalized for further evaluation of their emergent condition. - New Patient This patient is new to me today: Yes Date on this admission: 07/07/19 - Critical Care Critical Care patient: Yes Total Critical Care Time (in minutes): 37 Critical Care Statement: The care of this patient involved high complexity decision making to prevent further life threatening deterioration of the patient 's condition and/or to evaluate & treat vital organ system(s) failure or risk of failure. ATTENDING PHYSICIAN STATEMENT I saw and evaluated the patient. I reviewed the resident's note and discussed the case with the resident. I agree with the resident's findings and plan as documented. SUBJECTIVE: OBJECTIVE: ASSESSMENT AND PLAN:
[2019-07-07 07:52] LABS: HEMATOCRIT 40.7 % (35.4-49); HEMOGLOBIN 14.2 GM/dL (11.7-16.9); MCH 33.4 pg (25.7-33.7); MEAN CELL VOLUME 95.4 fl (80-96); MEAN PLT VOLUME 8.1 fl (7.5-11.1); PLATELET COUNT 310 K/MM3 (134-434); RBC 4.27 M/mm3 (4.00-5.60); RDW 12.2 % (11.9-15.9); WHITE BLOOD COUNT 9.8 K/mm3 (4.0-10.0)
[2019-07-07] MEDS: MUPIROCIN 2% TOPICAL OINTMENT FOR DECOLONIZATION NS SCH ×2 (09:09→21:55)
[2019-07-07] MEDS ORDERED: INSULIN (NOVOLOG) ASPART 100 UNITS/ML 10ML VIAL ONE (09:19)
[2019-07-07] MEDS ORDERED: levETIRAcetam 500 MG/5 ML INJECTION VIAL IVPB SCH (10:00)
[2019-07-07] MEDS ORDERED: PANTOPRAZOLE SODIUM 40 MG VIAL IVPUSH SCH (10:00)
[2019-07-07] MEDS ORDERED: ENOXAPARIN NA (PORCINE) 40 MG/0.4 ML DISP.SYRIN SQ SCH (10:30)
[2019-07-07] MEDS ORDERED: SCOPOLAMINE HYDROBROMIDE 1 PATCH PATCH.TD72 TD SCH (10:45)
[2019-07-07] MEDS ORDERED: ALBUTEROL SO4 0.083% IH SOL 2.5 MG/3 ML VIAL.NEB. NEB PRN (11:38)
[2019-07-07] MEDS ORDERED: diazePAM ACUDIAL 5-7.5-10 MG 1 EACH KIT RC PRN (11:38)
--- NOTE | 2019-07-07 12:04 | PN ---
Teaching Attending Note Name of Resident: Vishnu Choi ATTENDING PHYSICIAN STATEMENT I saw and evaluated the patient. I reviewed the resident's note and discussed the case with the resident. I agree with the resident's findings and plan as documented. SUBJECTIVE: Pt seen and examined in the ICU. Intubated, saturating well on 40% FiO2, tolerated CPAP/PS and subsequently extubated to ventimask during rounds. OBJECTIVE: Vital Signs Period Temp Pulse Resp BP Sys/Ricci Pulse Ox Last 24 Hr 97.4 F-99.0 F 65-96 15-22 108-167/80-113 98-100 Intake & Output 07/04/19 07/05/19 07/06/19 07/07/19 23:59 23:59 23:59 23:59 Intake Total 328 Output Total 400 Balance -72 Weight 42.638 kg 37.7 kg Gen: extubated Heart: RRR Lung: decreased breath sounds at the bases Abd: soft, nontender Ext: no edema CBC, BMP 07/07/19 07:05 07/07/19 02:45 Active Medications Albuterol Sulfate (Ventolin 0.083% Nebulizer Soln -) 1 amp NEB Q4H PRN PRN Reason: SHORT OF BREATH/WHEEZING Calcium Carbonate/Cholecalciferol (Os-[place] 500+D -) 1 tab GT HS VASQUEZ Chlorhexidine Gluconate (Hibiclens For Decolonization -) 1 applic TP HS VASQUEZ Clonazepam (Klonopin -) 0.5 mg GT TID VASQUEZ Diazepam (Diastat Rectal Gel -) 5 mg RC ASDIR PRN PRN Reason: SEIZURE Enoxaparin Sodium (Lovenox -) 40 mg SQ BID VASQUEZ Last Admin: 07/07/19 10:41 Dose: 40 mg Propofol (Diprivan -) 1,000,000 mcg in 100 mls @ 1.279 mls/hr IVPB TITR VASQUEZ; Protocol Last Titration: 07/07/19 08:30 Dose: 15 mcg/kg/min, 3.837 mls/hr Sodium Chloride (Normal Saline -) 1,000 mls @ 75 mls/hr IV ASDIR VASQUEZ Last Admin: 07/07/19 05:16 Dose: 75 mls/hr Levetiracetam (Keppra -) 500 mg PO TID VASQUEZ Magnesium Hydroxide (Milk Of Magnesia -) 30 ml GT HS VASQUEZ Mupirocin (Bactroban Ointment (For Decolonization) -) 1 applic NS BID [facility] Stop: 07/12/19 09:59 Last Admin: 07/07/19 09:09 Dose: 1 applic Non-Formulary Medication (Carbamazepine [Carbamazepine Er]) 100 mg GT BID VAS[facility]Z Non-Formulary Medication (Carbamazepine [Carbamazepine Er]) 300 mg GT BID VASQUEZ Non-Formulary Medication (Cholecalciferol (Vitamin D3) [Vitamin D3]) 400 unit GT DAILY [facility] Non-Formulary Medication (Selenium Sulfide) 1 applic TP BID [facility] Non-Formulary Medication (Tiagabine Hcl [Tiagabine Hcl]) 4 mg GT TID [facility] Non-Formulary Medication (Tizanidine Hcl [Zanaflex]) 2 mg GT TID [facility] Nystatin (Mycostatin Cream -) 1 applic TP BID [facility]AS[facility]Z Pantoprazole Sodium (Protonix Iv) 40 mg IVPUSH DAILY [facility] Last Admin: 07/07/19 09:08 Dose: 40 mg Phenytoin Sodium (Dilantin Chewable Tablet -) 100 mg GT TID VAS[facility]Z Scopolamine HBr (Transderm-Scop -) 1 patch TD Q72H [facility] Last Admin: 07/07/19 10:44 Dose: 1 patch Senna (Senna -) 2 tab PO HS VASQUEZ Triamcinolone Acetonide (Aristocort 0.5% Ointment -) 0.5 applic TP TID [facility] ASSESSMENT AND PLAN: s/p Acute Hypoxic Respiratory Failure r/o Aspiration Pneumonitis Mental Retardation Seizure Disorder Functional Quadriplegia Hyponatremia - pt saturating well, not tachycardic, no infiltrates - can monitor off antibiotics - less likely VTE - O2 to keep SpO2 >90% - inhaled bronchodilators as needed - continue antiepileptics - aspiration precautions - enteral feeds - DVT prophylaxis
--- NOTE | 2019-07-07 13:21 | ECHO ---
Name: SVETLANA MARINELLI Exam:Adult Echocardiogram Study Date: 07/07/2019 11:46 AM Age: 33 yrs Reason For Study: R HEART STRAIN Height: 54 in Weight: 83 lb BSA: 1.2 m2 MMode/2D Measurements & Calculations IVSd: 0.73 cm Ao root diam: 2.5 cm LVIDd: 3.3 cm LA dimension: 1.9 cm LVIDs: 2.2 cm LVPWd: 0.78 cm EDV(Teich): 45.1 ml LVOT diam: 2.0 cm ESV(Teich): 16.0 ml Doppler Measurements & Calculations MV E max vinicius: 98.0 cm/sec Ao V2 max: 207.7 cm/sec MV A max vinicius: 67.9 cm/sec Ao max P.3 mmHg MV E/A: 1.4 Ao V2 mean: 140.1 cm/sec MV dec time: 0.09 sec Ao mean P.1 mmHg Ao V2 VTI: 29.6 cm ROBERTO(I,D): 1.0 cm2 ROBERTO(V,D): 1.1 cm2 LV V1 max P.3 mmHg SV(LVOT): 30.7 ml LV V1 mean P.2 mmHg LV V1 max: 76.2 cm/sec LV V1 mean: 48.2 cm/sec LV V1 VTI: 10.2 cm Med Peak E' Vinicius: 11.7 cm/sec Med E/e': 8.3 Lat Peak E' Vinicius: 10.9 cm/sec Lat E/e': 9.0 Procedure The study was technically difficult with many images being suboptimal in quality. Left Ventricle The left ventricular size, thickness and function are normal. The left ventricle is not well visualiz ed. The left ventricular ejection fraction is normal. Left Ventricular Filling pattern is normal for age. Reg ional wall motion abnormalities cannot be excluded due to limited visualization. Right Ventricle The right ventricle is not well visualized. Atria Normal left and right atrial size and function. Mitral Valve There is mild mitral valve thickening. The mitral valve is not well visualized. There is no mitral va lve stenosis. There is mild mitral regurgitation. Tricuspid Valve There is mild tricuspid valve thickening. The tricuspid valve is not well visualized. There is no tri cuspid stenosis. There was insufficient TR detected to calculate RV systolic pressure. Aortic Valve The aortic valve is not well visualized. No hemodynamically significant valvular aortic stenosis. No aortic regurgitation is present. Pulmonic Valve The pulmonic valve is not well visualized. Great Vessels The aortic root is normal size. Pericardium/Pleura There is no pericardial effusion. Interpretation Summary The left ventricular size, thickness and function are normal The left ventricular ejection fraction is normal. Regional wall motion abnormalities cannot be excluded due to limited visualization. Left Ventricular Filling pattern is normal for age. There is mild mitral regurgitation. There was insufficient TR detected to calculate RV systolic pressure. The study was technically difficult with many images being suboptimal in quality. The right ventricle is not well visualized. The aortic valve is not well visualized. MD Aftab García 07/07/2019 01:21 PM
[2019-07-07] MEDS ORDERED: TIAGABINE HCL 4 MG GT SCH (14:00)
--- NOTE | 2019-07-07 14:42 | PN ---
Teaching Attending Note Name of Resident: Анна Liz ATTENDING PHYSICIAN STATEMENT I saw and evaluated the patient. I reviewed the resident's note and discussed the case with the resident. I agree with the resident's findings and plan as documented. SUBJECTIVE: seen at around 9:30 am Unable to obtain hx due to MR. OBJECTIVE: Intubated, uncomfortable. CV; RRR Lungs: limited exam, clear anteriorly Abd: soft, Limited exam Legs : no edema . muscle atrophy ASSESSMENT AND PLAN: 33 y /o man with h/o MR, seizure disorder, congenital quadriplegia, esophagitis , chronic hyponatremia, osteoporosis and scoliosis who was sent from [facility] due to hypoxia and resp distress. 1- Acute resp failure : ? aspiration pneumonitis. No clinical signs of PNA . No infiltrate on cxray. EKG with S1, Q3T3 but this was on old EKGs form 01/10 and older. - clinical suspicion fro PE is low. this was d/w ICU resident - Extuabated today - Unsuccessful to reach [facility] for further details about presentation. 2- H/o Seizure: will confirm meds with [facility] - cont carbamazepine, keppra, phyenitoine diazepam. - Need to bring Tiagabine form [facility] 3- DVT Px : add heparin sq Critical Care Total Critical Care Time (in minutes): 40 Critical Care Statement: The care of this patient involved high complexity decision making to prevent further life threatening deterioration of the patient 's condition and/or to evaluate & treat vital organ system(s) failure or risk of failure.
[2019-07-07] MEDS: levETIRAcetam 500 MG TABLET (FP) PO SCH ×2 (14:47→21:51)
[2019-07-07] MEDS: clonazePAM 0.5 MG TABLET GT SCH ×2 (14:48→21:51)
[2019-07-07] MEDS: TRIAMCINOLONE ACET 0.5% OINT 15 GM TUBE TP SCH ×2 (14:48→21:55)
--- NOTE | 2019-07-07 16:16 | PN ---
Physical Exam: SUBJECTIVE: Patient seen and examined in the morning. No acute events overnight. Patient unable to communicate. OBJECTIVE: Vital Signs Period Temp Pulse Resp BP Sys/Ricci Pulse Ox Last 24 Hr 97.4 F-99.0 F 65-96 15-34 102-167/59-113 98-100 GENERAL: The patient was sedated. HEAD: No signs of trauma. EYES: PERRL, sclera anicteric, conjunctiva clear. . LUNGS: Breath sounds equal HEART: Regular rate and rhythm, S1, S2 without murmur, rub or gallop. ABDOMEN: Soft, nontender, nondistended, normoactive bowel sounds EXTREMITIES: 2+ pulses, warm, well-perfused, no edema. Hands and feet are contracted. Laboratory Results - last 24 hr 07/06/19 07/06/19 07/06/19 21:30 21:30 21:30 WBC 7.4 RBC 4.45 Hgb 14.9 Hct 42.8 MCV 96.3 H MCH 33.4 MCHC 34.7 RDW 12.9 Plt Count 335 MPV 8.7 Absolute Neuts (auto) 3.9 Neutrophils % 52.9 Lymphocytes % 29.3 Monocytes % 9.4 Eosinophils % 7.2 H Basophils % 1.2 Nucleated RBC % 0 PT with INR 12.30 INR 1.04 PTT (Actin FS) 26.2 Puncture Site ABG pH ABG pCO2 at Pt Temp ABG pO2 at Pt Temp ABG HCO3 ABG O2 Sat (Measured) ABG O2 Content ABG Base Excess Dominic Test Carboxyhemoglobin Methemoglobin O2 Delivery Device Oxygen Flow Rate Vent Mode Vent Rate Mechanical Rate PEEP Pressure Support Vent Sodium Potassium Chloride Carbon Dioxide Anion Gap BUN Creatinine Est GFR (CKD-EPI)AfAm Est GFR (CKD-EPI)NonAf Random Glucose Lactic Acid Calcium Phosphorus Magnesium Total Bilirubin AST ALT Alkaline Phosphatase Creatine Kinase 119 Troponin I < 0.02 Total Protein Albumin Urine Color Urine Appearance Urine pH Ur Specific [place] Urine Protein Urine Glucose (UA) Urine Ketones Urine Blood Urine Nitrite Urine Bilirubin Urine Urobilinogen Ur Leukocyte Esterase Urine WBC (Auto) Urine RBC (Auto) Urine Casts (Auto) U Epithel Cells (Auto) Urine Bacteria (Auto) Phenytoin Carbamazepine Influenza A (Rapid) Influenza B (Rapid) RSV Rapid 07/06/19 07/06/19 07/07/19 21:30 22:40 02:45 WBC RBC Hgb Hct MCV MCH MCHC RDW Plt Count MPV Absolute Neuts (auto) Neutrophils % Lymphocytes % Monocytes % Eosinophils % Basophils % Nucleated RBC % PT with INR INR PTT (Actin FS) Puncture Site Right femoral ABG pH 7.43 ABG pCO2 at Pt Temp 41.7 ABG pO2 at Pt Temp 177 H ABG HCO3 27.1 H ABG O2 Sat (Measured) 99.4 H ABG O2 Content 19.7 ABG Base Excess 3.0 H Dominic Test Positive Carboxyhemoglobin 0.5 Methemoglobin < 1.0 O2 Delivery Device Vent Oxygen Flow Rate 100% Vent Mode A/c Vent Rate 20 Mechanical Rate Yes PEEP 5.0 Pressure Support Vent 250 Sodium 135 L Potassium 3.3 L Chloride 100 Carbon Dioxide 27 Anion Gap 8 BUN 7.9 Creatinine 0.3 L Est GFR (CKD-EPI)AfAm 203.57 Est GFR (CKD-EPI)NonAf 175.65 Random Glucose 88 Lactic Acid Calcium 8.3 L Phosphorus Magnesium Total Bilirubin 0.4 AST 30 ALT 32 Alkaline Phosphatase 130 H Creatine Kinase Troponin I Total Protein 7.1 Albumin 3.6 Urine Color Urine Appearance Urine pH Ur Specific [place] Urine Protein Urine Glucose (UA) Urine Ketones Urine Blood Urine Nitrite Urine Bilirubin Urine Urobilinogen Ur Leukocyte Esterase Urine WBC (Auto) Urine RBC (Auto) Urine Casts (Auto) U Epithel Cells (Auto) Urine Bacteria (Auto) Phenytoin Carbamazepine Influenza A (Rapid) Negative Influenza B (Rapid) Negative RSV Rapid 07/07/19 07/07/19 07/07/19 02:45 02:45 02:45 WBC RBC Hgb Hct MCV MCH MCHC RDW Plt Count MPV Absolute Neuts (auto) Neutrophils % Lymphocytes % Monocytes % Eosinophils % Basophils % Nucleated RBC % PT with INR INR PTT (Actin FS) Puncture Site ABG pH ABG pCO2 at Pt Temp ABG pO2 at Pt Temp ABG HCO3 ABG O2 Sat (Measured) ABG O2 Content ABG Base Excess Dominic Test Carboxyhemoglobin Methemoglobin O2 Delivery Device Oxygen Flow Rate Vent Mode Vent Rate Mechanical Rate PEEP Pressure Support Vent Sodium 132 L Potassium 3.4 L Chloride 98 Carbon Dioxide 27 Anion Gap 8 BUN 7.4 Creatinine 0.3 L Est GFR (CKD-EPI)AfAm 203.57 Est GFR (CKD-EPI)NonAf 175.65 Random Glucose 113 H Lactic Acid Calcium 8.4 L Phosphorus 2.8 Magnesium 2.6 H Total Bilirubin 0.8 AST 34 ALT 38 Alkaline Phosphatase 136 H Creatine Kinase Troponin I Total Protein 7.0 Albumin 3.7 Urine Color Urine Appearance Urine pH Ur Specific [place] Urine Protein Urine Glucose (UA) Urine Ketones Urine Blood Urine Nitrite Urine Bilirubin Urine Urobilinogen Ur Leukocyte Esterase Urine WBC (Auto) Urine RBC (Auto) Urine Casts (Auto) U Epithel Cells (Auto) Urine Bacteria (Auto) Phenytoin 12.8 Carbamazepine >20.0 Influenza A (Rapid) Influenza B (Rapid) RSV Rapid Negative 07/07/19 07/07/19 07/07/19 02:45 02:45 02:45 WBC 8.9 RBC 4.31 Hgb 14.7 Hct 41.7 MCV 96.8 H MCH 34.1 H MCHC 35.2 RDW 12.7 Plt Count 307 MPV 9.5 Absolute Neuts (auto) 6.3 Neutrophils % 70.1 D Lymphocytes % 16.8 D Monocytes % 6.2 Eosinophils % 6.1 H Basophils % 0.8 Nucleated RBC % 0 PT with INR INR PTT (Actin FS) Puncture Site ABG pH ABG pCO2 at Pt Temp ABG pO2 at Pt Temp ABG HCO3 ABG O2 Sat (Measured) ABG O2 Content ABG Base Excess Dominic Test Carboxyhemoglobin Methemoglobin O2 Delivery Device Oxygen Flow Rate Vent Mode Vent Rate Mechanical Rate PEEP Pressure Support Vent Sodium Potassium Chloride Carbon Dioxide Anion Gap BUN Creatinine Est GFR (CKD-EPI)AfAm Est GFR (CKD-EPI)NonAf Random Glucose Lactic Acid 1.4 Calcium Phosphorus Magnesium Total Bilirubin AST ALT Alkaline Phosphatase Creatine Kinase Troponin I Total Protein Albumin Urine Color Dark yellow Urine Appearance Clear Urine pH 8.5 H Ur Specific [place] 1.020 Urine Protein Trace Urine Glucose (UA) Negative Urine Ketones Negative Urine Blood 3+ H Urine Nitrite Negative Urine Bilirubin Negative Urine Urobilinogen 0.2 Ur Leukocyte Esterase Negative Urine WBC (Auto) 5 Urine RBC (Auto) 60 Urine Casts (Auto) 2 U Epithel Cells (Auto) 4 Urine Bacteria (Auto) 5 Phenytoin Carbamazepine Influenza A (Rapid) Influenza B (Rapid) RSV Rapid 07/07/19 07:05 WBC 9.8 RBC 4.27 Hgb 14.2 Hct 40.7 MCV 95.4 MCH 33.4 MCHC 35.0 RDW 12.2 Plt Count 310 MPV 8.1 D Absolute Neuts (auto) Neutrophils % Lymphocytes % Monocytes % Eosinophils % Basophils % Nucleated RBC % PT with INR INR PTT (Actin FS) Puncture Site ABG pH ABG pCO2 at Pt Temp ABG pO2 at Pt Temp ABG HCO3 ABG O2 Sat (Measured) ABG O2 Content ABG Base Excess Dominic Test Carboxyhemoglobin Methemoglobin O2 Delivery Device Oxygen Flow Rate Vent Mode Vent Rate Mechanical Rate PEEP Pressure Support Vent Sodium Potassium Chloride Carbon Dioxide Anion Gap BUN Creatinine Est GFR (CKD-EPI)AfAm Est GFR (CKD-EPI)NonAf Random Glucose Lactic Acid Calcium Phosphorus Magnesium Total Bilirubin AST ALT Alkaline Phosphatase Creatine Kinase Troponin I Total Protein Albumin Urine Color Urine Appearance Urine pH Ur Specific [place] Urine Protein Urine Glucose (UA) Urine Ketones Urine Blood Urine Nitrite Urine Bilirubin Urine Urobilinogen Ur Leukocyte Esterase Urine WBC (Auto) Urine RBC (Auto) Urine Casts (Auto) U Epithel Cells (Auto) Urine Bacteria (Auto) Phenytoin Carbamazepine Influenza A (Rapid) Influenza B (Rapid) RSV Rapid Active Medications Generic Name Dose Route Start Last Admin Trade Name Freq PRN Reason Stop Dose Admin Albuterol Sulfate 1 amp 07/07/19 11:38 Ventolin 0.083% Nebulizer Soln - NEB Q4H PRN SHORT OF BREATH/WHEEZING Calcium Carbonate/Cholecalciferol 1 tab 07/07/19 22:00 Os-Jose Maria 500+D - GT HS [facility] Carbamazepine 400 mg 07/07/19 22:00 Tegretol Oral Suspension - GT BID [facility] Chlorhexidine Gluconate 1 applic 07/07/19 22:00 Hibiclens For Decolonization - TP HS [facility] Cholecalciferol 400 unit 07/08/19 10:00 Vitamin D3 - NR DAILY [facility] Clonazepam 0.5 mg 07/07/19 14:00 07/07/19 14:48 Klonopin - GT 0.5 mg TID [facility] Administration Diazepam 5 mg 07/07/19 11:38 Diastat Rectal Gel - RC ASDIR PRN SEIZURE Heparin Sodium (Porcine) 5,000 unit 07/07/19 22:00 Heparin - SQ TID [facility] Propofol 1,000,000 mcg in 100 mls @ 1.279 mls/hr 07/07/19 00:30 07/07/19 08: 30 Diprivan - IVPB 15 mcg/kg/min TITR [facility] 3.837 mls/hr Titration Protocol 5 MCG/KG/MIN Sodium Chloride 1,000 mls @ 75 mls/hr 07/07/19 04:45 07/07/19 05:16 Normal Saline - IV 75 mls/hr ASDIR [facility] Administration Levetiracetam 500 mg 07/07/19 14:00 07/07/19 14:47 Keppra - PO 500 mg TID [facility] Administration Magnesium Hydroxide 30 ml 07/07/19 22:00 Milk Of Magnesia - GT HS [facility] Mupirocin 1 applic 07/07/19 10:00 07/07/19 09:09 Bactroban Ointment (For Decolonization) - NS 07/12/19 09:59 1 applic BID [facility] Administration Non-Formulary Medication 1 applic 07/07/19 22:00 Selenium Sulfide TP BID [facility] Non-Formulary Medication 1 each 07/07/19 22:00 Patient's Own Med GT TID [facility] Nystatin 1 applic 07/07/19 22:00 Mycostatin Cream - TP BID [facility] Pantoprazole Sodium 40 mg 07/07/19 10:00 07/07/19 09:08 Protonix Iv IVPUSH 40 mg DAILY [facility] Administration Phenytoin Sodium 100 mg 07/07/19 14:00 Dilantin Oral Suspension - GT TID [facility] Scopolamine HBr 1 patch 07/07/19 10:45 07/07/19 10:44 Transderm-Scop - TD 1 patch Q72H [facility] Administration Senna 2 tab 07/07/19 22:00 Senna - PO HS [facility] Tizanidine HCl 2 mg 07/07/19 14:00 Tizanidine Hcl GT TID [facility] Triamcinolone Acetonide 0.5 applic 07/07/19 14:00 07/07/19 14:48 Aristocort 0.5% Ointment - TP 0.5 applic TID [facility] Administration ASSESSMENT/PLAN: 33 M with PMH of mental disability, seizures, congenital quadriplegia, esophagitis, chronic hyponatremia, and scoliosis who presents with acute hypoxic respiratory failure. 1) Acute Hypoxic Respiratory Failure: -As per aid at bedside, patient has had reccurent episodes of shortness of breath at [facility], usually alleviated by sitting upright. -Likely secondary to aspiration pneumonitis. -Rapid Strep negative -Influenza negative -Off ventilator -Repeat Chest X-Ray 2)Hx of Seizure -Continue carbamazepine 400 mg GT BID -Continue Keppra 500 mg TID PO -Continue Phenytoin 100 mg GT TID 3)Chronic Hyponatremia -Continue monitoring CMP -Continue NS @ 75 ml/hr DVT Prophylaxis: Heparin 5000 units SQ TID F: NS @ 75 ml/hr E: Trend CMP N: Feeding through G-tube. Visit type - Emergency Visit Emergency Visit: Yes ED Registration Date: 07/07/19 Care time: The patient presented to the Emergency Department on the above date and was hospitalized for further evaluation of their emergent condition. - New Patient This patient is new to me today: Yes Date on this admission: 07/07/19 - Critical Care Critical Care patient: Yes Total Critical Care Time (in minutes): 35 Critical Care Statement: The care of this patient involved high complexity decision making to prevent further life threatening deterioration of the patient 's condition and/or to evaluate & treat vital organ system(s) failure or risk of failure. ATTENDING PHYSICIAN STATEMENT I saw and evaluated the patient. I reviewed the resident's note and discussed the case with the resident. I agree with the resident's findings and plan as documented. SUBJECTIVE: OBJECTIVE: ASSESSMENT AND PLAN:
[2019-07-07] MEDS: TIZANIDINE HCL 2 MG TABLET GT SCH ×2 (16:34→21:52)
[2019-07-07] MEDS: PHENYTOIN 100 MG/4 ML U-D CUP GT SCH ×2 (16:35→21:53)
[2019-07-07] MEDS ORDERED: RAPID SEQUENCE INTUBATION KIT NR ONE (20:33)
[2019-07-07] MEDS: HEPARIN NA (PORCINE) 5,000 UNITS/ML 1ML VIAL SQ SCH (21:51)
[2019-07-07] MEDS: TIAGABINE 4 MG GT SCH (21:52)
[2019-07-07] MEDS: carBAMazepine 100 MG/5 ML UNIT-DOSE CUP GT SCH (21:53)
[2019-07-07] MEDS ORDERED: CHLORHEXIDINE GLUCONATE 4% CLEANSER FOR DECOLONIZATION TP SCH (22:00)
[2019-07-07] MEDS ORDERED: CALCIUM 500MG/VIT-D 200 UNITS COMBO TABLET (FP) GT SCH (22:00)
[2019-07-07] MEDS ORDERED: carBAMazepine 200 MG/10 ML UNIT-DOSE CUP GT SCH ×5 (22:00)
[2019-07-07] MEDS ORDERED: SENNOSIDES 8.6MG TABLET (FP) PO SCH (22:00)
[2019-07-07] MEDS ORDERED: MAGNESIUM HYDROX 2400MG/30ML ORAL SUSPENSION 30 ML CUP GT SCH (22:00)
[2019-07-07] MEDS ORDERED: PATIENT'S OWN MEDICATION (NON-FORMULARY) (Selenium Sulfide 1 APPLIC) TP SCH (22:00)
[2019-07-07] MEDS ORDERED: NYSTATIN 100,000 UNIT/GM TOPICAL CREAM 15 GM TUBE TP SCH (22:00)
[2019-07-08] MEDS ORDERED: PT OWN MED DRAWER 7, Y5N ONE ×3 (00:26→11:32)
[2019-07-08] MEDS ORDERED: diazePAM ACUDIAL 5-7.5-10 MG 1 EACH KIT RC PRN (00:32)
[2019-07-08] MEDS ORDERED: SODIUM CHLORIDE 1,000 ML IV SCH (00:32)
[2019-07-08] MEDS: ALBUTEROL SO4 0.083% IH SOL 2.5 MG/3 ML VIAL.NEB. NEB PRN ×2 (02:14→06:38)
[2019-07-08] MEDS: TRIAMCINOLONE ACET 0.5% OINT 15 GM TUBE TP SCH ×3 (05:54→23:29)
[2019-07-08] MEDS: PHENYTOIN 50 MG TAB.CHEW GT SCH ×3 (05:54→23:31)
[2019-07-08] MEDS: HEPARIN NA (PORCINE) 5,000 UNITS/ML 1ML VIAL SQ SCH ×3 (05:55→23:31)
[2019-07-08] MEDS: TIAGABINE 4 MG GT SCH ×3 (05:57→23:32)
[2019-07-08] MEDS: clonazePAM 0.5 MG TABLET GT SCH ×3 (05:57→23:31)
[2019-07-08] MEDS ORDERED: levETIRAcetam 500 MG TABLET (FP) PO SCH (06:00)
[2019-07-08] MEDS: TIZANIDINE HCL 2 MG TABLET GT SCH ×3 (06:37→23:30)
[2019-07-08 08:41] LABS: BASO % 0.6 % (0-2.0); HEMATOCRIT 36.1 % (35.4-49); HEMOGLOBIN 12.4 GM/dL (11.7-16.9); LYMPH % 12.3 % (8-40); MCH 32.9 pg (25.7-33.7); MCHC 34.3 g/dl (32.0-35.9); MEAN CELL VOLUME 95.9 fl (80-96); MEAN PLT VOLUME 8.7 fl (7.5-11.1); MONO % 4.6 % (3.8-10.2); NEUT % 78.5 % (42.8-82.8); PLATELET COUNT 292 K/MM3 (134-434); RBC 3.76 M/mm3 (4.00-5.60); RDW 12.7 % (11.9-15.9); WHITE BLOOD COUNT 11.1 K/mm3 (4.0-10.0)
[2019-07-08 09:09] LABS: ALBUMIN 3.5 g/dl (3.4-5.0); ALK PHOS 140 U/L (45-117); ANION GAP 9 MMOL/L (8-16); BILIRUBIN,TOTAL 0.5 mg/dL (0.2-1); CALCIUM 8.2 mg/dL (8.5-10.1); CHLORIDE 99 mmol/L (98-107); CO2 26 mmol/L (21-32); CREATININE < 0.2 mg/dL (0.55-1.3); GLUCOSE,RANDOM 80 mg/dL (74-106); POTASSIUM 3.4 mmol/L (3.5-5.1); SGOT/AST 29 U/L (15-37); SGPT/ALT 35 U/L (13-61); SODIUM 134 mmol/L (136-145); TOT PROT 6.6 g/dl (6.4-8.2)
[2019-07-08] MEDS ORDERED: [UNRECOGNIZED DRUG - OTHER] GT SCH (10:00)
[2019-07-08] MEDS ORDERED: LACTOSE REDUCED FOOD GT SCH (10:00)
[2019-07-08] MEDS ORDERED: CHOLECALCIFEROL (VIT D3) 400 UNIT (10 MCG) TABLET NR SCH (10:00)
[2019-07-08] MEDS ORDERED: FIBER GT SCH (10:00)
[2019-07-08] MEDS ORDERED: POTASSIUM CHLORIDE ORAL LIQUID 20 MEQ/15 ML PO ONE (10:25)
[2019-07-08] MEDS: carBAMazepine 100 MG/5 ML UNIT-DOSE CUP GT SCH ×2 (11:33→23:32)
[2019-07-08] MEDS: CHOLECALCIFEROL (VIT D SOLUTION) 400 UNIT/1 ML DROPS GT SCH (11:35)
[2019-07-08] MEDS: NYSTATIN 100,000 UNIT/GM TOPICAL CREAM 15 GM TUBE TP SCH ×2 (11:37→23:28)
[2019-07-08] MEDS: PANTOPRAZOLE SODIUM 40 MG VIAL IVPUSH SCH (11:58)
--- NOTE | 2019-07-08 12:40 | EKG ---
Test Reason : Blood Pressure : / mmHG Vent. Rate : 085 BPM Atrial Rate : 085 BPM P-R Int : 132 ms QRS Dur : 092 ms QT Int : 342 ms P-R-T Axes : 063 072 048 degrees QTc Int : 406 ms NORMAL SINUS RHYTHM INFERIOR INFARCT (CITED ON OR BEFORE 28-JAN-2019) ABNORMAL ECG WHEN COMPARED WITH ECG OF 28-JAN-2019 15:47, NO SIGNIFICANT CHANGE WAS FOUND Confirmed by LEWIS OWENS, ANUJ ([id number]) on 07/08/2019 12:40:11 PM Referred By: Confirmed By:ANUJ SAUCEDO MD
[2019-07-08] MEDS: levETIRAcetam 500 MG/5 ML ORAL SOLUTION (UNIT-DOSE CUPS) GT SCH ×2 (15:01→23:31)
[2019-07-08] MEDS: SELENIUM SULFIDE 2.25% 180 ML SHAMPOO TP SCH ×2 (15:11→23:28)
--- NOTE | 2019-07-08 15:29 | PN ---
Progress Note (short form) - Note Progress Note: PULMONARY Pt nonverbal. No fevers recorded. Vital Signs Period Temp Pulse Resp BP Sys/Ricci Pulse Ox Last 24 Hr 97.5 F-98.9 F 78-94 19-27 99-146/60-88 98-100 Gen: breathing nonlabored Heart: RRR Lung: decreased breath sounds at the bases Abd: soft, nontender Ext: no edema CBC, BMP 07/08/19 07:38 07/08/19 07:38 Active Medications Albuterol Sulfate (Ventolin 0.083% Nebulizer Soln -) 1 amp NEB Q4H PRN PRN Reason: SHORT OF BREATH/WHEEZING Last Admin: 07/08/19 06:38 Dose: 1 amp Calcium Carbonate/Cholecalciferol (Os-Jose Maria 500+D -) 1 tab GT HS [facility] Carbamazepine (Carbamazepine) 400 mg GT BID [facility] Last Admin: 07/08/19 11:33 Dose: 400 mg Cholecalciferol (Vitamin D3 Oral Solution -) 400 unit GT DAILY [facility] Last Admin: 07/08/19 11:35 Dose: 400 units Clonazepam (Klonopin -) 0.5 mg GT TID [facility] Last Admin: 07/08/19 15:00 Dose: 0.5 mg Diazepam (Diastat Rectal Gel -) 5 mg RC ASDIR PRN PRN Reason: SEIZURE Heparin Sodium (Porcine) (Heparin -) 5,000 unit SQ TID [facility] Last Admin: 07/08/19 15:01 Dose: 5,000 unit Sodium Chloride (Normal Saline -) 1,000 mls @ 75 mls/hr IV ASDIR [facility] Last Admin: 07/08/19 02:32 Dose: 75 mls/hr Levetiracetam (Keppra Oral Solution -) 500 mg GT TID [facility] Last Admin: 07/08/19 15:01 Dose: 500 mg Magnesium Hydroxide (Milk Of Magnesia -) 30 ml GT HS [facility] Patient's Own Med ( (Tiagabine 4mg)) 1 each GT TID [facility] Last Admin: 07/08/19 15:03 Dose: 1 each Nystatin (Mycostatin Cream -) 1 applic TP BID [facility] Last Admin: 07/08/19 11:37 Dose: 1 applic Pantoprazole Sodium (Protonix Iv) 40 mg IVPUSH DAILY [facility] Last Admin: 07/08/19 11:58 Dose: 40 mg Phenytoin Sodium (Dilantin Chewable Tablet -) 100 mg GT TID [facility] Last Admin: 07/08/19 15:01 Dose: 100 mg Scopolamine HBr (Transderm-Scop -) 1 patch TD Q72H [facility] Selenium Sulfide (Selenium Sulfide 2.25% Shampoo) 1 applic TP BID [facility] Last Admin: 07/08/19 15:11 Dose: 1 applic Senna (Senna -) 2 tab PO HS [facility] Tizanidine HCl (Tizanidine Hcl) 2 mg GT TID [facility] Last Admin: 07/08/19 15:04 Dose: 2 mg Triamcinolone Acetonide (Aristocort 0.5% Ointment -) 0.5 applic TP TID [facility] Last Admin: 07/08/19 15:06 Dose: 0.5 applic A/P s/p Acute Hypoxic Respiratory Failure r/o Aspiration Pneumonitis Mental Retardation Seizure Disorder Functional Quadriplegia Hyponatremia - can monitor off antibiotics - O2 to keep SpO2 >90% - inhaled bronchodilators as needed - continue antiepileptics - aspiration precautions - enteral feeds - DVT prophylaxis
[2019-07-08 15:54] VITALS: BMI 20.9
--- NOTE | 2019-07-08 18:02 | PN ---
Physical Exam: SUBJECTIVE: Patient seen and examined OBJECTIVE: Vital Signs Period Temp Pulse Resp BP Sys/Ricci Pulse Ox Last 24 Hr 97.5 F-98.5 F 78-90 19-24 113-146/71-92 98-100 GENERAL: The patient is awake, alert, and fully oriented, in no acute distress. HEAD: Normal with no signs of trauma. EYES: PERRL, extraocular movements intact, sclera anicteric, conjunctiva clear. No ptosis. ENT: Ears normal, nares patent, oropharynx clear without exudates, moist mucous membranes. NECK: Trachea midline, full range of motion, supple. LUNGS: Breath sounds equal, clear to auscultation bilaterally, no wheezes, no crackles, no accessory muscle use. HEART: Regular rate and rhythm, S1, S2 without murmur, rub or gallop. ABDOMEN: Soft, nontender, nondistended, normoactive bowel sounds, no guarding, no rebound, no hepatosplenomegaly, no masses. EXTREMITIES: 2+ pulses, warm, well-perfused, no edema. NEUROLOGICAL: Cranial nerves II through XII grossly intact. Normal speech, gait not observed. PSYCH: Normal mood, normal affect. SKIN: Warm, dry, normal turgor, no rashes or lesions noted Laboratory Results - last 24 hr 07/07/19 07/08/19 07/08/19 07:05 07:38 07:38 WBC 11.1 H RBC 3.76 L Hgb 12.4 Hct 36.1 MCV 95.9 MCH 32.9 MCHC 34.3 RDW 12.7 Plt Count 292 MPV 8.7 Absolute Neuts (auto) 8.7 H Neutrophils % 78.5 Lymphocytes % 12.3 D Monocytes % 4.6 Eosinophils % 4.0 Basophils % 0.6 Nucleated RBC % 0 Sodium 134 L Potassium 3.4 L Chloride 99 Carbon Dioxide 26 Anion Gap 9 BUN 3.0 L Creatinine < 0.2 L Est GFR (CKD-EPI)AfAm 240.49 Est GFR (CKD-EPI)NonAf 207.50 Random Glucose 80 Calcium 8.2 L Total Bilirubin 0.5 AST 29 ALT 35 Alkaline Phosphatase 140 H Total Protein 6.6 Albumin 3.5 PTH Intact 45 Active Medications Generic Name Dose Route Start Last Admin Trade Name Freq PRN Reason Stop Dose Admin Albuterol Sulfate 1 amp 07/08/19 00:32 07/08/19 06:38 Ventolin 0.083% Nebulizer Soln - NEB 1 amp Q4H PRN Administration SHORT OF BREATH/WHEEZING Calcium Carbonate/Cholecalciferol 1 tab 07/08/19 22:00 Os-Jose Maria 500+D - GT HS [facility] Carbamazepine 400 mg 07/07/19 22:00 07/08/19 11:33 Carbamazepine GT 400 mg BID [facility] Administration Cholecalciferol 400 unit 07/08/19 10:00 07/08/19 11:35 Vitamin D3 Oral Solution - GT 400 units DAILY [facility] Administration Clonazepam 0.5 mg 07/08/19 06:00 07/08/19 15:00 Klonopin - GT 0.5 mg TID [facility] Administration Diazepam 5 mg 07/08/19 00:32 Diastat Rectal Gel - RC ASDIR PRN SEIZURE Heparin Sodium (Porcine) 5,000 unit 07/07/19 22:00 07/08/19 15:01 Heparin - SQ 5,000 unit TID [facility] Administration Levetiracetam 500 mg 07/08/19 14:00 07/08/19 15:01 Keppra Oral Solution - GT 500 mg TID [facility] Administration Magnesium Hydroxide 30 ml 07/08/19 22:00 Milk Of Magnesia - GT HS [facility] Patient's Own Med ( 1 each 07/07/19 22:00 07/08/19 15:03 Tiagabine 4mg) GT 1 each TID [facility] Administration Nystatin 1 applic 07/08/19 10:00 07/08/19 11:37 Mycostatin Cream - TP 1 applic BID [facility] Administration Pantoprazole Sodium 40 mg 07/08/19 10:00 07/08/19 11:58 Protonix Iv IVPUSH 40 mg DAILY [facility] Administration Phenytoin Sodium 100 mg 07/08/19 06:00 07/08/19 15:01 Dilantin Chewable Tablet - GT 100 mg TID [facility] Administration Scopolamine HBr 1 patch 07/10/19 10:45 Transderm-Scop - TD Q72H [facility] Selenium Sulfide 1 applic 07/08/19 10:00 07/08/19 15:11 Selenium Sulfide 2.25% Shampoo TP 1 applic BID [facility] Administration Senna 2 tab 07/08/19 22:00 Senna - PO HS [facility] Tizanidine HCl 2 mg 07/08/19 06:30 07/08/19 15:04 Tizanidine Hcl GT 2 mg TID [facility] Administration Triamcinolone Acetonide 0.5 applic 07/08/19 06:00 07/08/19 15:06 Aristocort 0.5% Ointment - TP 0.5 applic TID [facility] Administration ASSESSMENT/PLAN: 33 M with PMH of mental disability, seizures, congenital quadriplegia, esophagitis, chronic hyponatremia, and scoliosis who presents with acute hypoxic respiratory failure. 1) Acute Hypoxic Respiratory Failure: -As per aid at bedside, patient has had reccurent episodes of shortness of breath at [facility], usually alleviated by sitting upright. -Likely secondary to aspiration pneumonitis. -WBC 11.1, continue monitoring. -Rapid Strep negative -Influenza negative -Off ventilator, weaning off of Nasal cannula. Pre and Post oxygen: 94 ad 98% O2 -Repeat Chest X-Ray 2)Hx of Seizure -Continue carbamazepine 400 mg GT BID -Continue Keppra 500 mg TID PO -Continue Phenytoin 100 mg GT TID -Continue Tiagabine 4 mg GT daily 3)Chronic Hyponatremia -Continue monitoring CMP -Continue NS @ 75 ml/hr DVT Prophylaxis: Heparin 5000 units SQ TID F: NS @ 75 ml/hr E: Trend CMP N: Feeding through G-tube. Visit type - Emergency Visit Emergency Visit: Yes ED Registration Date: 07/07/19 Care time: The patient presented to the Emergency Department on the above date and was hospitalized for further evaluation of their emergent condition. - New Patient This patient is new to me today: No - Critical Care Critical Care patient: No ATTENDING PHYSICIAN STATEMENT I saw and evaluated the patient. I reviewed the resident's note and discussed the case with the resident. I agree with the resident's findings and plan as documented. SUBJECTIVE: OBJECTIVE: ASSESSMENT AND PLAN:
--- NOTE | 2019-07-08 19:21 | PN ---
Teaching Attending Note Name of Resident: Анна Liz ATTENDING PHYSICIAN STATEMENT I saw and evaluated the patient. I reviewed the resident's note and discussed the case with the resident. I agree with the resident's findings and plan as documented. SUBJECTIVE: no events over night OBJECTIVE: NAD, awake CV; RRR Lungs: CTAB Abd: soft, NT, ND , nL BS Legs: no edema . muscle atrophy ASSESSMENT AND PLAN: 33 y /o man with h/o MR, seizure disorder, congenital quadriplegia, esophagitis , chronic hyponatremia, osteoporosis and scoliosis who was sent from [place] due to hypoxia and resp distress. 1- Acute resp failure: ? aspiration pneumonitis. WBC is rising, but no fever . ? infiltrate on cxray - will watch for leukocytosis and fever until am. before we decide on Starting Abx if needed - wean off O2 if possible 2- H/o Seizure: - cont carbamazepine, keppra, phyenitoine diazepam. 3- start TF. consult nutrition . stop IVF DVT Px : heparin sq
[2019-07-08] MEDS: MAGNESIUM HYDROX 2400MG/30ML ORAL SUSPENSION 30 ML CUP GT SCH (23:30)
[2019-07-08] MEDS: CALCIUM 500MG/VIT-D 200 UNITS COMBO TABLET (FP) GT SCH (23:30)
[2019-07-08] MEDS: SENNOSIDES 8.6MG TABLET (FP) PO SCH (23:31)
[2019-07-09] MEDS: ALBUTEROL SO4 0.083% IH SOL 2.5 MG/3 ML VIAL.NEB. NEB PRN ×2 (05:56→20:30)
[2019-07-09] MEDS: levETIRAcetam 500 MG/5 ML ORAL SOLUTION (UNIT-DOSE CUPS) GT SCH ×3 (05:59→21:45)
[2019-07-09] MEDS: clonazePAM 0.5 MG TABLET GT SCH ×3 (05:59→21:45)
[2019-07-09] MEDS: HEPARIN NA (PORCINE) 5,000 UNITS/ML 1ML VIAL SQ SCH ×3 (05:59→21:46)
[2019-07-09] MEDS: PHENYTOIN 50 MG TAB.CHEW GT SCH ×3 (05:59→21:45)
[2019-07-09] MEDS: TIZANIDINE HCL 2 MG TABLET GT SCH ×3 (06:01→21:44)
[2019-07-09] MEDS: TRIAMCINOLONE ACET 0.5% OINT 15 GM TUBE TP SCH ×3 (06:01→21:42)
[2019-07-09] MEDS: TIAGABINE 4 MG GT SCH ×3 (06:02→21:44)
[2019-07-09 07:48] LABS: BASO % 0.6 % (0-2.0); EOS % 7.9 % (0-4.5); HEMATOCRIT 35.8 % (35.4-49); HEMOGLOBIN 12.4 GM/dL (11.7-16.9); LYMPH % 31.1 % (8-40); MCH 33.1 pg (25.7-33.7); MCHC 34.6 g/dl (32.0-35.9); MEAN CELL VOLUME 95.5 fl (80-96); MEAN PLT VOLUME 8.5 fl (7.5-11.1); NEUT % 51.4 % (42.8-82.8); PLATELET COUNT 288 K/MM3 (134-434); RBC 3.75 M/mm3 (4.00-5.60); RDW 12.6 % (11.9-15.9); WHITE BLOOD COUNT 4.9 K/mm3 (4.0-10.0)
[2019-07-09 08:17] LABS: CALCIUM 8.7 mg/dL (8.5-10.1); CREATININE 0.3 mg/dL (0.55-1.3); POTASSIUM 3.6 mmol/L (3.5-5.1)
[2019-07-09 08:26] LABS: BLOOD UREA NITROGEN 2.8 mg/dL (7-18)
[2019-07-09] MEDS ORDERED: PT OWN MED DRAWER 7, Y5N ONE ×2 (09:44→15:14)
[2019-07-09] MEDS: AMINO ACIDS/PROTEIN HYDROLYS 30 ML LIQUID.PKT PO SCH (10:58)
[2019-07-09] MEDS: CHOLECALCIFEROL (VIT D SOLUTION) 400 UNIT/1 ML DROPS GT SCH (10:59)
[2019-07-09] MEDS: SELENIUM SULFIDE 2.25% 180 ML SHAMPOO TP SCH ×2 (11:00→21:41)
[2019-07-09] MEDS: carBAMazepine 100 MG/5 ML UNIT-DOSE CUP GT SCH ×2 (11:01→21:45)
[2019-07-09] MEDS: NYSTATIN 100,000 UNIT/GM TOPICAL CREAM 15 GM TUBE TP SCH ×2 (11:02→21:42)
--- NOTE | 2019-07-09 12:11 | PN ---
Progress Note, Physician History of Present Illness: pulmonary awake,non-verbal,-resp distress - Current Medication List Current Medications: Active Medications Albuterol Sulfate (Ventolin 0.083% Nebulizer Soln -) 1 amp NEB Q4H PRN PRN Reason: SHORT OF BREATH/WHEEZING Last Admin: 07/09/19 05:56 Dose: 1 amp Amino Acids (Prosource No Carb Liquid Pkt) 30 ml PO DAILY [facility] Last Admin: 07/09/19 10:58 Dose: 30 ml Calcium Carbonate/Cholecalciferol (Os-Jose Maria 500+D -) 1 tab GT HS [facility] Last Admin: 07/08/19 23:30 Dose: 1 tab Carbamazepine (Carbamazepine) 400 mg GT BID [facility] Last Admin: 07/09/19 11:01 Dose: 400 mg Cholecalciferol (Vitamin D3 Oral Solution -) 400 unit GT DAILY [facility] Last Admin: 07/09/19 10:59 Dose: 400 units Clonazepam (Klonopin -) 0.5 mg GT TID [facility] Last Admin: 07/09/19 05:59 Dose: 0.5 mg Diazepam (Diastat Rectal Gel -) 5 mg RC ASDIR PRN PRN Reason: SEIZURE Heparin Sodium (Porcine) (Heparin -) 5,000 unit SQ TID [facility] Last Admin: 07/09/19 05:59 Dose: 5,000 unit Levetiracetam (Keppra Oral Solution -) 500 mg GT TID [facility] Last Admin: 07/09/19 05:59 Dose: 500 mg Magnesium Hydroxide (Milk Of Magnesia -) 30 ml GT HS [facility] Last Admin: 07/08/19 23:30 Dose: 30 ml Patient's Own Med ( (Tiagabine 4mg)) 1 each GT TID [facility] Last Admin: 07/09/19 06:02 Dose: 1 each Nystatin (Mycostatin Cream -) 1 applic TP BID [facility] Last Admin: 07/09/19 11:02 Dose: 1 applic Pantoprazole Sodium (Protonix Iv) 40 mg IVPUSH DAILY [facility] Last Admin: 07/08/19 11:58 Dose: 40 mg Phenytoin Sodium (Dilantin Chewable Tablet -) 100 mg GT TID [facility] Last Admin: 07/09/19 05:59 Dose: 100 mg Scopolamine HBr (Transderm-Scop -) 1 patch TD Q72H [facility] Selenium Sulfide (Selenium Sulfide 2.25% Shampoo) 1 applic TP BID [facility] Last Admin: 07/09/19 11:00 Dose: 1 applic Senna (Senna -) 2 tab PO HS [facility] Last Admin: 07/08/19 23:31 Dose: 2 tab Tizanidine HCl (Tizanidine Hcl) 2 mg GT TID [facility] Last Admin: 07/09/19 06:01 Dose: 2 mg Triamcinolone Acetonide (Aristocort 0.5% Ointment -) 0.5 applic TP TID [facility] Last Admin: 07/09/19 06:01 Dose: 0.5 applic - Objective Vital Signs: Vital Signs Temperature 98.2 F 07/09/19 06:00 Pulse Rate 71 07/09/19 06:00 Respiratory Rate 16 07/09/19 06:00 Blood Pressure 104/64 07/09/19 06:00 O2 Sat by Pulse Oximetry (%) 98 07/08/19 21:00 Constitutional: Yes: Calm, Thin Eyes: Yes: WNL HENT: Yes: WNL Neck: Yes: WNL Cardiovascular: Yes: Regular Rate and Rhythm, S1, S2 Respiratory: Yes: Diminished Gastrointestinal: Yes: Normal Bowel Sounds, Soft Extremities: Yes: Shortened (contracted) Edema: No Labs: CBC, BMP 07/09/19 06:46 07/09/19 06:46 INR, PTT INR 1.04 (0.83-1.09) 07/06/19 21:30 Problem List - Problems (1) Hypoxia Code(s): R09.02 - HYPOXEMIA (2) Epilepsy Code(s): G40.909 - EPILEPSY, UNSP, NOT INTRACTABLE, WITHOUT STATUS EPILEPTICUS (3) Gastrojejunostomy tube status Code(s): Z93.4 - OTHER ARTIFICIAL OPENINGS OF GASTROINTESTINAL TRACT STATUS (4) Mental retardation Code(s): F79 - UNSPECIFIED INTELLECTUAL DISABILITIES (5) Seizure Code(s): R56.9 - UNSPECIFIED CONVULSIONS Assessment/Plan A/P s/p Acute Hypoxic Respiratory Failure improved r/o Aspiration Pneumonitis Mental Retardation Seizure Disorder Functional Quadriplegia Hyponatremia - can monitor off antibiotics - O2 to keep SpO2 >90% - inhaled bronchodilators as needed - antiepileptics - aspiration precautions - enteral feeds - DVT prophylaxis DR JENSEN
[2019-07-09] MEDS: PANTOPRAZOLE SODIUM 40 MG VIAL IVPUSH SCH (12:34)
--- NOTE | 2019-07-09 14:18 | PN ---
Teaching Attending Note Name of Resident: Yamila Kelly ATTENDING PHYSICIAN STATEMENT I saw and evaluated the patient. I reviewed the resident's note and discussed the case with the resident. I agree with the resident's findings and plan as documented. SUBJECTIVE: No events over night OBJECTIVE: NAD, awake CV; RRR Lungs: CTAB Abd: soft, NT, ND , nL BS Legs: no edema. muscle atrophy ASSESSMENT AND PLAN: 33 y /o man with h/o MR, seizure disorder, congenital quadriplegia, esophagitis , chronic hyponatremia, osteoporosis and scoliosis who was sent from [place] due to hypoxia and resp distress. 1- Acute resp failure:due to aspiration pneumonitis. no fever and leukocytosis resolved off Abx. per resp eval yesterday he did not need O2 . today O2 was taken off and he does not require it. 2- H/o Seizure: - cont carbamazepine, keppra, phyenitoine diazepam. 3-Nutrition : cont TF Medically stable and ready for DC. Davey OWENS declined
--- NOTE | 2019-07-09 14:35 | PN ---
Physical Exam: SUBJECTIVE: Patient seen and examined in the morning. No acute events overnight. Patient unable to communicate. OBJECTIVE: Vital Signs Period Temp Pulse Resp BP Sys/Ricci Pulse Ox Last 24 Hr 97.3 F-98.7 F 66-80 16-18 100-128/62-90 98 GENERAL: The patient is awake, alert,,not in acute distress. HEAD: Normal with no signs of trauma. EYES: PERRL, sclera anicteric. ENT: Moist mucous membranes. . LUNGS: Breath sounds equal, clear to auscultation bilaterally. HEART: Regular rate and rhythm, S1, S2 without murmur, rub or gallop. ABDOMEN: Soft, nontender, nondistended, normoactive bowel sounds EXTREMITIES: 2+ pulses, warm, well-perfused, no edema. Laboratory Results - last 24 hr 07/09/19 07/09/19 06:46 06:46 WBC 4.9 RBC 3.75 L Hgb 12.4 Hct 35.8 MCV 95.5 MCH 33.1 MCHC 34.6 RDW 12.6 Plt Count 288 MPV 8.5 Absolute Neuts (auto) 2.5 Neutrophils % 51.4 D Lymphocytes % 31.1 D Monocytes % 9.0 D Eosinophils % 7.9 H D Basophils % 0.6 Nucleated RBC % 0 Sodium 132 L Potassium 3.6 Chloride 97 L Carbon Dioxide 29 Anion Gap 6 L BUN 2.8 L* Creatinine 0.3 L Est GFR (CKD-EPI)AfAm 203.57 Est GFR (CKD-EPI)NonAf 175.65 Random Glucose 122 H Calcium 8.7 Active Medications Generic Name Dose Route Start Last Admin Trade Name Jhonq PRN Reason Stop Dose Admin Albuterol Sulfate 1 amp 07/08/19 00:32 07/09/19 05:56 Ventolin 0.083% Nebulizer Soln - NEB 1 amp Q4H PRN Administration SHORT OF BREATH/WHEEZING Amino Acids 30 ml 07/09/19 10:00 07/09/19 10:58 Prosource No Carb Liquid Pkt PO 30 ml DAILY [facility] Administration Calcium Carbonate/Cholecalciferol 1 tab 07/08/19 22:00 07/08/19 23:30 Os-Jose Maria 500+D - GT 1 tab HS [facility] Administration Carbamazepine 400 mg 07/07/19 22:00 07/09/19 11:01 Carbamazepine GT 400 mg BID [facility] Administration Cholecalciferol 400 unit 07/08/19 10:00 07/09/19 10:59 Vitamin D3 Oral Solution - GT 400 units DAILY [facility] Administration Clonazepam 0.5 mg 07/08/19 06:00 07/09/19 05:59 Klonopin - GT 0.5 mg TID [facility] Administration Diazepam 5 mg 07/08/19 00:32 Diastat Rectal Gel - RC ASDIR PRN SEIZURE Heparin Sodium (Porcine) 5,000 unit 07/07/19 22:00 07/09/19 05:59 Heparin - SQ 5,000 unit TID [facility] Administration Levetiracetam 500 mg 07/08/19 14:00 07/09/19 05:59 Keppra Oral Solution - GT 500 mg TID [facility] Administration Magnesium Hydroxide 30 ml 07/08/19 22:00 07/08/19 23:30 Milk Of Magnesia - GT 30 ml HS [facility] Administration Patient's Own Med ( 1 each 07/07/19 22:00 07/09/19 06:02 Tiagabine 4mg) GT 1 each TID [facility] Administration Nystatin 1 applic 07/08/19 10:00 07/09/19 11:02 Mycostatin Cream - TP 1 applic BID [facility] Administration Pantoprazole Sodium 40 mg 07/08/19 10:00 07/09/19 12:34 Protonix Iv IVPUSH 40 mg DAILY [facility] Administration Phenytoin Sodium 100 mg 07/08/19 06:00 07/09/19 05:59 Dilantin Chewable Tablet - GT 100 mg TID [facility] Administration Scopolamine HBr 1 patch 07/10/19 10:45 Transderm-Scop - TD Q72H [facility] Selenium Sulfide 1 applic 07/08/19 10:00 07/09/19 11:00 Selenium Sulfide 2.25% Shampoo TP 1 applic BID [facility] Administration Senna 2 tab 07/08/19 22:00 07/08/19 23:31 Senna - PO 2 tab HS [facility] Administration Tizanidine HCl 2 mg 07/08/19 06:30 07/09/19 06:01 Tizanidine Hcl GT 2 mg TID [facility] Administration Triamcinolone Acetonide 0.5 applic 07/08/19 06:00 07/09/19 06:01 Aristocort 0.5% Ointment - TP 0.5 applic TID [facility] Administration ASSESSMENT/PLAN: 33 M with PMH of mental disability, seizures, congenital quadriplegia, esophagitis, chronic hyponatremia, and scoliosis who presents with acute hypoxic respiratory failure. 1) Acute Hypoxic Respiratory Failure: -As per aid at bedside, patient has had recurrent episodes of shortness of breath at [facility], usually alleviated by sitting upright. -Likely secondary to aspiration pneumonitis. -WBC trended down to 4.9 -Rapid Strep negative -Influenza negative -Off ventilator, weaned off NC. -Repeat Chest X-Ray 2)Hx of Seizure -Continue carbamazepine 400 mg GT BID -Continue Keppra 500 mg TID PO -Continue Phenytoin 100 mg GT TID -Continue Tiagabine 4 mg GT daily 3)Chronic Hyponatremia -Continue monitoring CMP DVT Prophylaxis: Heparin 5000 units SQ TID F: NS @ 75 ml/hr E: Trend CMP N: Feeding through G-tube. Visit type - Emergency Visit Emergency Visit: Yes ED Registration Date: 07/07/19 Care time: The patient presented to the Emergency Department on the above date and was hospitalized for further evaluation of their emergent condition. - New Patient This patient is new to me today: No - Critical Care Critical Care patient: No ATTENDING PHYSICIAN STATEMENT I saw and evaluated the patient. I reviewed the resident's note and discussed the case with the resident. I agree with the resident's findings and plan as documented. SUBJECTIVE: OBJECTIVE: ASSESSMENT AND PLAN:
[2019-07-09] MEDS: CALCIUM 500MG/VIT-D 200 UNITS COMBO TABLET (FP) GT SCH (21:44)
[2019-07-09] MEDS: MAGNESIUM HYDROX 2400MG/30ML ORAL SUSPENSION 30 ML CUP GT SCH (21:45)
[2019-07-09] MEDS: SENNOSIDES 8.6MG TABLET (FP) PO SCH (21:46)
[2019-07-10] MEDS: TRIAMCINOLONE ACET 0.5% OINT 15 GM TUBE TP SCH ×2 (05:44→14:42)
[2019-07-10] MEDS: HEPARIN NA (PORCINE) 5,000 UNITS/ML 1ML VIAL SQ SCH ×2 (05:45→13:37)
[2019-07-10] MEDS: levETIRAcetam 500 MG/5 ML ORAL SOLUTION (UNIT-DOSE CUPS) GT SCH ×2 (05:45→13:37)
[2019-07-10] MEDS: PHENYTOIN 50 MG TAB.CHEW GT SCH ×2 (05:45→13:37)
[2019-07-10] MEDS: clonazePAM 0.5 MG TABLET GT SCH ×2 (05:45→13:37)
[2019-07-10] MEDS: TIZANIDINE HCL 2 MG TABLET GT SCH ×2 (05:46→13:39)
[2019-07-10] MEDS: TIAGABINE 4 MG GT SCH ×2 (05:46→13:39)
[2019-07-10 06:03] VITALS: TEMP 98.1
[2019-07-10] MEDS ORDERED: INSULIN (NOVOLOG MIX 70/30) 100 UNITS/ML MDV SQ ONE (06:24)
[2019-07-10 08:45] LABS: BASO % 0.6 % (0-2.0); EOS % 6.8 % (0-4.5); HEMATOCRIT 39.2 % (35.4-49); HEMOGLOBIN 13.6 GM/dL (11.7-16.9); MCH 33.1 pg (25.7-33.7); MCHC 34.7 g/dl (32.0-35.9); MEAN CELL VOLUME 95.4 fl (80-96); MEAN PLT VOLUME 8.2 fl (7.5-11.1); MONO % 10.5 % (3.8-10.2); NEUT % 58.1 % (42.8-82.8); PLATELET COUNT 309 K/MM3 (134-434); RBC 4.11 M/mm3 (4.00-5.60); RDW 12.6 % (11.9-15.9); WHITE BLOOD COUNT 6.1 K/mm3 (4.0-10.0)
[2019-07-10 09:02] LABS: BLOOD UREA NITROGEN 5.8 mg/dL (7-18); CALCIUM 8.8 mg/dL (8.5-10.1); CREATININE 0.3 mg/dL (0.55-1.3); POTASSIUM 4.3 mmol/L (3.5-5.1)
--- NOTE | 2019-07-10 10:01 | PN ---
Teaching Attending Note Name of Resident: Yamila Kelly ATTENDING PHYSICIAN STATEMENT I saw and evaluated the patient. I reviewed the resident's note and discussed the case with the resident. I agree with the resident's findings and plan as documented. SUBJECTIVE: No events over night OBJECTIVE: NAD, awake CV; RRR Lungs: CTAB Abd: soft, NT, ND , nL BS . PEG in Legs: no edema. muscle atrophy ASSESSMENT AND PLAN: 33 y /o man with h/o MR, seizure disorder, congenital quadriplegia, esophagitis , chronic hyponatremia, osteoporosis and scoliosis who was sent from [place] due to hypoxia and resp distress. 1- Acute resp failure:due to aspiration pneumonitis. no leukocytosis. low grade fever 2 pm yesterday. if no fever by 2 pm ( 24 hr ) will dc does not require O2 at dc 2- H/o Seizure: - cont carbamazepine, keppra, phyenitoine diazepam. 3-Nutrition : cont TF if no recurrence in fever at 2 pm , an be dc
[2019-07-10] MEDS ORDERED: SCOPOLAMINE HYDROBROMIDE 1 PATCH PATCH.TD72 TD SCH (10:45)
[2019-07-10] MEDS: carBAMazepine 100 MG/5 ML UNIT-DOSE CUP GT SCH (11:37)
[2019-07-10] MEDS: AMINO ACIDS/PROTEIN HYDROLYS 30 ML LIQUID.PKT PO SCH (11:38)
[2019-07-10] MEDS: CHOLECALCIFEROL (VIT D SOLUTION) 400 UNIT/1 ML DROPS GT SCH (11:38)
[2019-07-10] MEDS: PANTOPRAZOLE SODIUM 40 MG VIAL IVPUSH SCH (11:38)
[2019-07-10] MEDS: NYSTATIN 100,000 UNIT/GM TOPICAL CREAM 15 GM TUBE TP SCH (11:40)
[2019-07-10] MEDS: SELENIUM SULFIDE 2.25% 180 ML SHAMPOO TP SCH (11:40)
[2019-07-10 15:23] VITALS: BP 120/77; PULSE 83
--- NOTE | 2019-07-10 17:00 | DS ---
Physical Exam: SUBJECTIVE: Patient seen and examined in the morning. No acute events overnight. Patient unable to communicate. OBJECTIVE: Vital Signs Period Temp Pulse Resp BP Sys/Ricci Pulse Ox Last 24 Hr 98.1 F-98.9 F 76-89 18-20 120-139/74-87 97-97 PHYSICAL EXAM GENERAL: The patient was sedated. HEAD: No signs of trauma. EYES: PERRL, sclera anicteric, conjunctiva clear. LUNGS: Breath sounds equal HEART: Regular rate and rhythm, S1, S2 without murmur, rub or gallop. ABDOMEN: Soft, nontender, nondistended, normoactive bowel sounds EXTREMITIES: 2+ pulses, warm, well-perfused, no edema. Hands and feet are contracted. LABS Laboratory Results - last 24 hr 07/10/19 07/10/19 07:20 07:20 WBC 6.1 RBC 4.11 Hgb 13.6 Hct 39.2 MCV 95.4 MCH 33.1 MCHC 34.7 RDW 12.6 Plt Count 309 MPV 8.2 Absolute Neuts (auto) 3.5 Neutrophils % 58.1 Lymphocytes % 24.0 D Monocytes % 10.5 H Eosinophils % 6.8 H Basophils % 0.6 Nucleated RBC % 0 Sodium 134 L Potassium 4.3 Chloride 96 L Carbon Dioxide 32 Anion Gap 6 L BUN 5.8 L Creatinine 0.3 L Est GFR (CKD-EPI)AfAm 203.57 Est GFR (CKD-EPI)NonAf 175.65 Random Glucose 93 Calcium 8.8 HOSPITAL COURSE: Date of Admission:07/07/19 Date of Discharge: 07/10/19 33 M with PMH of mental disability, seizures, congenital quadriplegia, esophagitis, chronic hyponatremia, and scoliosis who presents with acute hypoxic respiratory failure. Patient was intubated by EMS during transport from [facility] to emergency department. When he arrived the patient was resisting the ventilator, so decision was made to sedate using propofol and patient was transferred to ICU. Patient sedation was stopped the morning after admission, and extubated. Patient was transferred to medicine floor the night after admission on 2L NC. Patient was on 1L NC on the second day of admission, and nasal cannula was removed the third day of admission. Patient was sent home on 07/10/19 stable. Patient was not started on any antibiotics, although there was an elevation of WBC on the second day of admission, but returned to normal for rest of stay. Relevant imaging done this stay: Chest X-Ray 07/06/19: New retrocardiac atelectasis or infiltrate. Chest X-Ray 07/07/19: No significant change from 07/06 Chest X-Ray 07/08/19: Element of atelecatasis or infiltrate at the left base with questionable hiatal hernia. Minutes to complete discharge: 35 Discharge Summary Problems reviewed: Yes Reason For Visit: RESPIRATORY DISTRESS Condition: Improved - Instructions Diet, Activity, Other Instructions: patient was admitted and treated for acute respiratory failure due to aspiration pneumonitis No change in medications was done continue tube feeds as per preadmission routine Bring back to ER with shortness of breath, fevers, or worsening condition aspiration precautions Referrals: Nikkie Almaraz NP [Other] Disposition: HOME - Home Medications Comprehensive Discharge Medication List: Ambulatory Orders Calcium 500Mg/Vit-D 200 Units [Os-Jose Maria 500+D -] 1 tab GT HS 10/21/14 Cholecalciferol (Vitamin D3) [Vitamin D3] 400 unit GT DAILY 10/21/14 Magnesium Hydroxide [Milk of Magnesia] 30 ml GT HS 10/21/14 Albuterol 0.083% Nebulizer Denise [Ventolin 0.083% Nebulizer Soln -] 1 neb NEB Q4H PRN 07/08/16 Nystatin Cream [Mycostatin Cream -] 1 applic TP BID 07/08/16 Selenium Sulfide [Selenium Sulfide 2.25% Shampoo] 1 applic TP BID 07/08/16 Triamcinolone 0.5% Ointment [Aristocort 0.5% Ointment -] 0 gm TP TID 07/08/16 Carbamazepine [Carbamazepine ER] 100 mg GT BID 08/21/16 Carbamazepine [Carbamazepine ER] 300 mg GT BID 08/21/16 Diazepam Rectal Gel [Diastat Rectal Gel -] 5 mg AK ASDIR PRN 08/21/16 Sennosides [Senna] 2 tab GT HS 08/21/16 Tiagabine HCl 4 mg GT TID 08/21/16 clonazePAM [Klonopin -] 0.5 mg GT TID 08/21/16 Tizanidine HCl [Zanaflex] 2 mg GT TID 12/05/16 Lactose-Reduced Food/Fiber [Jevity 1.2 Jose Maria Liquid] 100 ml GT DAILY 09/02/17 Phenytoin [Dilantin Chewable Tablet -] 100 mg GT TID 07/10/18 levETIRAcetam [Keppra -] 500 mg PO TID 07/10/18 This patient is new to me today: No Emergency Visit: Yes ED Registration Date: 07/07/19 Care time: The patient presented to the Emergency Department on the above date and was hospitalized for further evaluation of their emergent condition. Critical Care patient: No - Discharge Referral Referred to [facility] Med [facility] No ATTENDING PHYSICIAN STATEMENT I saw and evaluated the patient. I reviewed the resident's note and discussed the case with the resident. I agree with the resident's findings and plan as documented. SUBJECTIVE: OBJECTIVE: ASSESSMENT AND PLAN:
== END 2019-07-10 15:39 | disposition home or self-care (01) | DRG 208 ==
LOC: JER 20:36 → JERBED 07-07 00:12 → JICU 07-07 02:22 → J5S 07-08 00:05
PROVIDERS: ADMIT Internal Medicine; ATTEND Internal Medicine
PROC: 5A1935Z Respiratory Ventilation, Less than 24 Consecutive Hours (ICD-10-PCS; principal; 2019-07-07)
PROC: 3E0G76Z Introduction of Nutritional Substance into Upper GI, Via Natural or Artificial Opening (ICD-10-PCS; 2019-07-07)
DX: J96.01 Acute respiratory failure with hypoxia (principal); R53.2 Functional quadriplegia; J69.0 Pneumonitis due to inhalation of food and vomit; F73 Profound intellectual disabilities; E87.1 Hypo-osmolality and hyponatremia; M81.0 Age-related osteoporosis without current pathological fracture; G80.8 Other cerebral palsy; M41.9 Scoliosis, unspecified; H47.619 Cortical blindness, unspecified side of brain; E87.6 Hypokalemia; E83.51 Hypocalcemia; Z93.1 Gastrostomy status; G40.909 Epilepsy, unspecified, not intractable, without status epilepticus
CPT/HCPCS: 31500; 36415; 36600; 71045-TC-FY; 80048; 80053; 80177; 80185; 81003; 82375; 82550; 82803; 83050; 83605; 83735; 83970; 84100; 84484; 85025; 85027; 85610; 85730; 87070; 87186; 87205; 87804; 87807; 87899; 93005; 93010; 93306-TC; 93970-TC; 94002; 94640; 94761; 99284-25; J1644; J7030

== ENCOUNTER 2019-07-27 19:35 | Emergency (ER) | payer OTHER ==
[2019-07-27 19:49] VITALS: PULSE 77; BMI 24.3
--- NOTE | 2019-07-27 19:54 | PDOC ---
History of Present Illness - General Stated Complaint: FEVER Time Seen by Provider: 07/27/19 19:38 - History of Present Illness Initial Comments: Eric Parson is a 33yo with a PMH of intellectual disability, seizures, congenital quadriplegia, cortical blindness, osteoporosis, chronic hyponatremia and scoliosis who was BIBA from [place] with report of fever and cough. Per report, he was noted to have a fever of 100.9 at 6pm today. He was also breathing rapidly, rate of 26/min reported, and had a productive cough. He was given 650mg of acetaminophen and temp decreased to 99 prior to EMS arrival. EMS had no additional information. Past History - Past Medical History Allergies/Adverse Reactions: Allergies Allergy/AdvReac Type Severity Reaction Status Date / Time No Known Allergies Allergy Verified 01/28/19 12:56 Home Medications: Ambulatory Orders Calcium 500Mg/Vit-D 200 Units [Os-Jose Maria 500+D -] 1 tab GT HS 10/21/14 Cholecalciferol (Vitamin D3) [Vitamin D3] 400 unit GT DAILY 10/21/14 Magnesium Hydroxide [Milk of Magnesia] 30 ml GT HS 10/21/14 Albuterol 0.083% Nebulizer Denise [Ventolin 0.083% Nebulizer Soln -] 1 neb NEB Q4H PRN 07/08/16 Nystatin Cream [Mycostatin Cream -] 1 applic TP BID 07/08/16 Selenium Sulfide [Selenium Sulfide 2.25% Shampoo] 1 applic TP BID 07/08/16 Triamcinolone 0.5% Ointment [Aristocort 0.5% Ointment -] 0 gm TP TID 07/08/16 Carbamazepine [Carbamazepine ER] 100 mg GT BID 08/21/16 Carbamazepine [Carbamazepine ER] 300 mg GT BID 08/21/16 Diazepam Rectal Gel [Diastat Rectal Gel -] 5 mg SD ASDIR PRN 08/21/16 Sennosides [Senna] 2 tab GT HS 08/21/16 Tiagabine HCl 4 mg GT TID 08/21/16 clonazePAM [Klonopin -] 0.5 mg GT TID 08/21/16 Tizanidine HCl [Zanaflex] 2 mg GT TID 12/05/16 Lactose-Reduced Food/Fiber [Jevity 1.2 Jose Maria Liquid] 100 ml GT DAILY 09/02/17 Phenytoin [Dilantin Chewable Tablet -] 100 mg GT TID 07/10/18 levETIRAcetam [Keppra -] 500 mg PO TID 07/10/18 COPD: No Dementia: No (profound metnal retardation, difuses osteoporosis,) Diabetes: (cortical blindness, exotropia, orciopexy, scolisis,) GI Disorders: Yes (ESOPHAGITIS.) Seizures: Yes (convulsive epilepsy) - Surgical History Abdominal Surgery: Yes GI Surgery: Yes (PEG TUBE. jevity 1.2cal (4cans)) - Psycho Social/Smoking Cessation Hx Smoking History: Never smoked Have you smoked in the past 12 months: No Number of Cigarettes Smoked Daily: 0 Information on smoking cessation initiated: No Hx Alcohol Use: No Drug/Substance Use Hx: No Substance Use Type: None Review of Systems - Review of Systems Comments:: Patient nonverbal *Physical Exam - Vital Signs Last Vital Signs Temp Pulse Resp BP Pulse Ox 99.3 F 77 22 H 99/73 98 07/27/19 19:46 07/27/19 19:46 07/27/19 19:46 07/27/19 19:46 07/27/19 19:46 - Physical Exam General: In no acute distress HEENT: Atraumatic, dry mouth, no rhinorrhea, sclera clear Cards: RRR, no murmur appreciated Pulm: Comfortable on room air, clear to auscultation bilaterally Abd: Soft, nontender, nondistended Ext: Atraumatic. No LE edema. Extremities contracted Skin: Normal color, no rashes or lesions Neuro: Awake, unresponsive, CN grossly intact ED Treatment Course - LABORATORY CBC & Chemistry Diagram: 07/27/19 20:40 07/27/19 20:40 Medical Decision Making - Medical Decision Making 07/27/19 19:53 Eric Parson is a 33yo with a PMH of intellectual disability, seizures, congenital quadriplegia, cortical blindness, osteoporosis, chronic hyponatremia and scoliosis who was BIBA from [place] with report of fever and cough this evening. - No fever in the ED - Pt non-verbal, unable to give additional details, no concerning findings on exam - Septic workup ordered 07/27/19 21:16 - Labs reviewed. Notable for leukocytosis to 11.8 but no other significant abnormalities - Flu and RSV not yet sent, will order now - Will most likely d/c home when resulted 07/27/19 22:19 - RSV and influenza negative - Most likely viral URI - Will d/c home with PMD follow up Discussed with Dr Yolie Cotto PGY2 Discharge - Discharge Information Problems reviewed: Yes Clinical Impression/Diagnosis: Fever Qualifiers: Fever type: unspecified Qualified Code(s): R50.9 - Fever, unspecified Condition: Stable - Follow up/Referral - Patient Discharge Instructions Patient Printed Discharge Instructions: DI for Cough -- Adult Additional Instructions: Discharge Instructions: You were seen in the emergency department for fever and cough You had a flu test sent that was negative. Your symptoms are most likely caused by a viral infection such as the common cold. You should feel better within a week without any additional treatment. Home Care and Follow Up: - Make sure you are drinking plenty of fluids while you are sick. Increase your normal fluid intake. It is OK if you do not feel like eating as long as you are staying well hydrated - You may use medications such as acetaminophen (Tylenol) 650-1000mg or ibuprofen (Advil, Motrin) 400-600mg every 6 hours as needed for pain or fever over 101F - Consider placing a humidifier in your room overnight to help relieve congestion and reduce drying of your nose and mouth. - If you use additional cold medications, make sure they do not contain medicines you are already taking such as acetaminophen or ibuprofen - You should feel better within a week, though cough can sometimes last longer. If you are not feeling better in a week, follow up with your primary doctor. - Seek immediate care if you have worsening symptoms, you are unable to stay hydrated, you develop high fevers over 104F that do not come down with medication, or you have any other medical emergency. - Post Discharge Activity
--- NOTE | 2019-07-27 20:11 | PDOC ---
Attending Attestation - Resident Resident Name: YadielMinnie - ED Attending Attestation I have performed the following: I have examined & evaluated the patient, The case was reviewed & discussed with the resident, I agree w/resident's findings & plan - HPI HPI: 07/27/19 20:14 see resident hpi - Physicial Exam PE: 07/27/19 20:15 agree with resident exam - Medical Decision Making 07/27/19 20:16 33-year-old male with severe cognitive deficit and a resident of a shelter facility with fever Plan for sepsis evaluation Admission pending results
[2019-07-27 20:54] LABS: VENOUS PH 7.39 (7.31-7.41); VENOUS PO2 51.6 mmHg (28-48)
[2019-07-27 21:12] LABS: PH,URINE >= 9.0 (5.0-8.0); URINE APPEARANCE CLEAR; URINE BILIRUBIN NEGATIVE (NEGATIVE); URINE COLOR YELLOW; URINE GLUCOSE (UA) NEGATIVE (NEGATIVE); URINE KETONE NEGATIVE (NEGATIVE); URINE LEUK ESTERASE NEGATIVE (NEGATIVE); URINE NITRITE NEGATIVE (NEGATIVE); URINE PROTEIN NEGATIVE (NEGATIVE); URINE UROBILINOGEN 0.2 mg/dL (0.2-1.0)
[2019-07-27 21:19] LABS: BASO % 0.5 % (0-2.0); EOS % 1.1 % (0-4.5); HEMATOCRIT 36.8 % (35.4-49); HEMOGLOBIN 12.5 GM/dL (11.7-16.9); LYMPH % 14.7 % (8-40); MCH 32.8 pg (25.7-33.7); MEAN CELL VOLUME 96.4 fl (80-96); MEAN PLT VOLUME 8.7 fl (7.5-11.1); MONO % 5.2 % (3.8-10.2); NEUT % 78.5 % (42.8-82.8); PLATELET COUNT 369 K/MM3 (134-434); RBC 3.81 M/mm3 (4.00-5.60); RDW 13.1 % (11.9-15.9); WHITE BLOOD COUNT 11.8 K/mm3 (4.0-10.0)
[2019-07-27 21:20] LABS: ALBUMIN 3.3 g/dl (3.4-5.0); BILIRUBIN,TOTAL 0.4 mg/dL (0.2-1); BLOOD UREA NITROGEN 7.2 mg/dL (7-18); CALCIUM 8.4 mg/dL (8.5-10.1); CREATININE 0.3 mg/dL (0.55-1.3); POTASSIUM 3.8 mmol/L (3.5-5.1); TOT PROT 6.4 g/dl (6.4-8.2)
[2019-07-27 21:23] LABS: INR 1.05 (0.83-1.09); PROTHROMBIN TIME (PATIENT) 12.4 SEC (9.7-13.0)
[2019-07-27 21:26] LABS: ACTIVATED PTT 33.4 SECONDS (25.2-36.5)
[2019-07-27 23:10] VITALS: BP 101/67; TEMP 98.6
--- NOTE | 2019-07-28 09:59 | EKG ---
Test Reason : Blood Pressure : / mmHG Vent. Rate : 074 BPM Atrial Rate : 074 BPM P-R Int : 150 ms QRS Dur : 086 ms QT Int : 376 ms P-R-T Axes : 035 065 052 degrees QTc Int : 417 ms NORMAL SINUS RHYTHM LOW VOLTAGE QRS INFERIOR INFARCT (CITED ON OR BEFORE 28-JAN-2019) ABNORMAL ECG WHEN COMPARED WITH ECG OF 06-JUL-2019 23:30, NO SIGNIFICANT CHANGE WAS FOUND Confirmed by HEATHER OWENS, WAGNER ([id number]) on 07/28/2019 9:59:16 AM Referred By: Confirmed By:WAGNER ROMERO MD
== END 2019-07-27 23:10 ==
LOC: JER 19:35
DX: R50.9 Fever, unspecified (principal); F79 Unspecified intellectual disabilities; R56.9 Unspecified convulsions; G82.50 Quadriplegia, unspecified; H47.619 Cortical blindness, unspecified side of brain; M81.0 Age-related osteoporosis without current pathological fracture; E87.1 Hypo-osmolality and hyponatremia
CPT/HCPCS: 36415; 71045-TC-FY; 80053; 81003; 82803; 83605; 84484; 85025; 85610; 85730; 87040; 87086; 87186; 87804; 87807; 93005; 93010; 99282-25

== ENCOUNTER 2019-10-27 12:49 | Emergency (ER) | payer OTHER ==
--- NOTE | 2019-10-27 13:16 | PDOC ---
History of Present Illness - General Chief Complaint: Injury Stated Complaint: FALL - History of Present Illness Initial Comments: The pt is a 33M w/ a PMH of intellectual disability, seizures, congenital quadriplegia, cortical blindness, osteoporosis, chronic hyponatremia and scoliosis who was BIBA from [facility] who presents for evaluation after falling out of his wheelchair. The aid reports that the pt's seat belt was not fastened. Pt is not able to provide a history Aid denies recent illness, fevers/chills, cough, N/V PMH: profound intellectula disability, osteoporosis, general convulsive epilepsy , congenital quadriplegia, cortical blindness PSH: Orchiopexy, PEG tube 10/27/19 13:17 Past History - Past Medical History Allergies/Adverse Reactions: Allergies Allergy/AdvReac Type Severity Reaction Status Date / Time No Known Allergies Allergy Verified 01/28/19 12:56 Home Medications: Ambulatory Orders Calcium 500Mg/Vit-D 200 Units [Os-Jose Maria 500+D -] 1 tab GT HS 10/21/14 Cholecalciferol (Vitamin D3) [Vitamin D3] 400 unit GT DAILY 10/21/14 Magnesium Hydroxide [Milk of Magnesia] 30 ml GT HS 10/21/14 Albuterol 0.083% Nebulizer Denise [Ventolin 0.083% Nebulizer Soln -] 1 neb NEB Q4H PRN 07/08/16 Nystatin Cream [Mycostatin Cream -] 1 applic TP BID 07/08/16 Selenium Sulfide [Selenium Sulfide 2.25% Shampoo] 1 applic TP BID 07/08/16 Triamcinolone 0.5% Ointment [Aristocort 0.5% Ointment -] 0 gm TP TID 07/08/16 Carbamazepine [Carbamazepine ER] 100 mg GT BID 08/21/16 Carbamazepine [Carbamazepine ER] 300 mg GT BID 08/21/16 Diazepam Rectal Gel [Diastat Rectal Gel -] 5 mg SC ASDIR PRN 08/21/16 Sennosides [Senna] 2 tab GT HS 08/21/16 Tiagabine HCl 4 mg GT TID 08/21/16 clonazePAM [Klonopin -] 0.5 mg GT TID 08/21/16 Tizanidine HCl [Zanaflex] 2 mg GT TID 12/05/16 Lactose-Reduced Food/Fiber [Jevity 1.2 Jose Maria Liquid] 100 ml GT DAILY 09/02/17 Phenytoin [Dilantin Chewable Tablet -] 100 mg GT TID 07/10/18 levETIRAcetam [Keppra -] 500 mg PO TID 07/10/18 COPD: No Dementia: No (profound metnal retardation, difuses osteoporosis,) Diabetes: (cortical blindness, exotropia, orciopexy, scolisis,) GI Disorders: Yes (ESOPHAGITIS.) Seizures: Yes (convulsive epilepsy) - Surgical History Abdominal Surgery: Yes GI Surgery: Yes (PEG TUBE. jevity 1.2cal (4cans)) - Immunization History Td Vaccination: Yes TDAP Vaccination: Yes - Psycho Social/Smoking Cessation Hx Smoking History: Never smoked Have you smoked in the past 12 months: No Number of Cigarettes Smoked Daily: 0 Information on smoking cessation initiated: No Hx Alcohol Use: No Drug/Substance Use Hx: No Substance Use Type: None Review of Systems - Review of Systems Able to Perform ROS?: No (2/2 medical condition) *Physical Exam - Vital Signs Last Vital Signs Temp Pulse Resp BP Pulse Ox 97.4 F L 97 H 22 H 152/104 H 95 10/27/19 12:52 10/27/19 12:52 10/27/19 12:52 10/27/19 12:52 10/27/19 12:52 - Physical Exam GENERAL: Awake, does not follow commands HEAD: Frontal maxillary laxity, 2 vertical lacerations superior to superior lateral incisors, clot noted posterior to left central incisor, no active hemorrhage, EYES: PERRLA, EOMI ENT: B/l EAM w/ copious cerumen, no septal hematoma, no blood in nares LUNGS: No distress, clear to auscultation bilaterally HEART: Regular rate and rhythm, normal S1 and S2, no murmurs appreciated ABDOMEN: Soft, no grimace to palpation; PEG tube in place, normoactive bowel sounds EXTREMITIES: Normal inspection, Normal range of motion, no edema. No clubbing or cyanosis NEUROLOGICAL: Cranial nerves II through XII grossly intact SKIN: Warm, Dry 10/27/19 13:16 ED Treatment Course - LABORATORY CBC & Chemistry Diagram: 10/27/19 13:59 10/27/19 13:59 Medical Decision Making - Medical Decision Making The pt is a 33M w/ a PMH of intellectual disability, seizures, congenital quadriplegia, cortical blindness, osteoporosis, chronic hyponatremia and scoliosis who was BIBA from [facility] who presents for evaluation after falling out of his wheelchair w/ frontal maxillary laxity and possible open fracture. ED Course CT head, c-spine, facial bones CMP, CBC Unasyn 3g IV once Ancef 2g IV once Boostrix 10/27/19 14:15 Will give home AEDs Pt w/ persistent facial bleeding 10/27/19 15:53 CT w/ lucenty at the anterior/ midline of the maxillary ridge with minimal cortical irregularity that may represent a nondisplaced fracture 10/27/19 17:19 No leukocytosis No anemia Lytes overall unremarkable No CAITLYN LFTs unremarkable Plan for transfer for OMFS evaluation Pt accepted for transfer by Dr. Coyle Pt consented for transfer by [facility] Manager, Danny Medina Dispo: Transfer 10/27/19 17:45 Discharge - Discharge Information Problems reviewed: Yes Clinical Impression/Diagnosis: Open maxillary fracture Qualifiers: Encounter type: initial encounter Laterality: unspecified laterality Qualified Code(s): S02.401B - Maxillary fracture, unspecified side, initial encounter for open fracture Condition: Fair Disposition: TRANSFER ACUTE CARE/OTHER HOSP - Admission No - Follow up/Referral - Patient Discharge Instructions - Post Discharge Activity - Transfer to Acute Care Facility Receiving Facility Name: [facility], [place] Accepting Physician:: Dr. Coyle
[2019-10-27 13:22] VITALS: BMI 20.5
[2019-10-27] MEDS ORDERED: AMPICILLIN NA/SULBACTAM NA 3 GM in SODIUM CHLORIDE 100 ML IVPB ONE ×2 (13:42→15:00)
[2019-10-27] MEDS ORDERED: ceFAZolin 2 GRAM PREMIX BAG IVPB ONE ×2 (13:42→15:00)
[2019-10-27] MEDS ORDERED: CEFAZOLIN 2 GM/D5W 2 GM/50 ML ML IVPB ONE (13:45)
[2019-10-27 14:12] LABS: BASO % 1.3 % (0-2.0); EOS % 2.7 % (0-4.5); HEMATOCRIT 39.2 % (35.4-49); HEMOGLOBIN 13.5 GM/dL (11.7-16.9); LYMPH % 11.8 % (8-40); MCH 33.2 pg (25.7-33.7); MCHC 34.6 g/dl (32.0-35.9); MEAN CELL VOLUME 96.2 fl (80-96); MEAN PLT VOLUME 8.2 fl (7.5-11.1); MONO % 7.5 % (3.8-10.2); NEUT % 76.7 % (42.8-82.8); PLATELET COUNT 386 K/MM3 (134-434); RBC 4.08 M/mm3 (4.00-5.60); RDW 13.2 % (11.9-15.9); WHITE BLOOD COUNT 9.4 K/mm3 (4.0-10.0)
--- NOTE | 2019-10-27 14:26 | PDOC ---
Documentation entered by Renaldo Interiano SCRIBE, acting as scribe for Karime Dennison MD. Karime Dennison MD: This documentation has been prepared by the Jaydon boyer Elijah, SCRIBE, under my direction and personally reviewed by me in its entirety. I confirm that the documentation accurately reflects all work, treatment, procedures, and medical decision making performed by me. Attending Attestation - Resident Resident Name: Stef Lindsey - ED Attending Attestation I have performed the following: I have examined & evaluated the patient, The case was reviewed & discussed with the resident, I agree w/resident's findings & plan, Exceptions are as noted - HPI HPI: 10/27/19 13:44 Patient is a 33 year old male with a significant pmh of intellectual disability , seizures, congenital quadriplegia, cortical blindness, osteoporosis, chronic hyponatremia and scoliosis who presents today from [facility] s/p fall. As per person at bedside, patient was brought into [facility] for his daily activities and fell from his wheelchair because the seatbelt restraint was not placed. History limited secondary to patient's conditions. Allergies: NKA - Physicial Exam PE: 10/27/19 14:22 NAD, well behavd. blood in OP, + chronic anterior deformity of jaw/face, + midface instability to 4 frontal upper incisors. + lacerations to anterior gums over b/l central frontal incisors, + extrusion of all 4 frontal incisors. no other visible OP injuries no visible epistaxis no midline cspine stepoffs rrr ctabl soft ntnd 4 ext contractures nonverbal at baseline, pt aide, pt is at baseline behavior status. - Medical Decision Making 10/27/19 14:24 33yoM w/ severe disability and delay presents w/ acute facial trauma after fall out of wheelchair presents with signfiicnat facial injury, concern for laforte fracture. - ct head, cspine, maxface - labs - pain control - ancef and unasyn for presumed open fractures to mouth/face - reeval and dispo per results. Concern that pt may need to be transferred for further management of facial trauma.
[2019-10-27 14:51] LABS: ALBUMIN 3.7 g/dl (3.4-5.0); BILIRUBIN,TOTAL 0.4 mg/dL (0.2-1); BLOOD UREA NITROGEN 9.6 mg/dL (7-18); CALCIUM 8.8 mg/dL (8.5-10.1); CREATININE 0.3 mg/dL (0.55-1.3); POTASSIUM 3.8 mmol/L (3.5-5.1); TOT PROT 7.8 g/dl (6.4-8.2)
[2019-10-27] MEDS ORDERED: levETIRAcetam 500 MG/5 ML INJECTION VIAL IVPB ONE ×2 (15:23→16:21)
[2019-10-27] MEDS ORDERED: carBAMazepine 200 MG/10 ML UNIT-DOSE CUP PO ONE (15:24)
[2019-10-27] MEDS ORDERED: clonazePAM 0.5 MG TABLET PEG ONE (15:24)
[2019-10-27] MEDS ORDERED: DIPHTH,PERTUSS(ACELL),TET 0.5 ML DISP.SYRIN IM ONE ×2 (15:30→16:39)
[2019-10-27] MEDS ORDERED: clonazePAM 0.5 MG TABLET ONE (16:21)
[2019-10-27 19:54] VITALS: BP 152/84; PULSE 110
[2019-10-27 19:58] VITALS: TEMP 98
== END 2019-10-27 17:55 | disposition short-term general hospital (02) ==
LOC: JER 12:49
PROC: 3E03329 Introduction of Other Anti-infective into Peripheral Vein, Percutaneous Approach (ICD-10-PCS; principal; 2019-10-27)
PROC: 3E033GC Introduction of Other Therapeutic Substance into Peripheral Vein, Percutaneous Approach (ICD-10-PCS; 2019-10-27)
PROC: 3E0234Z Introduction of Serum, Toxoid and Vaccine into Muscle, Percutaneous Approach (ICD-10-PCS; 2019-10-27)
DX: S02.401B Maxillary fracture, unspecified side, initial encounter for open fracture (principal); G80.8 Other cerebral palsy; H47.619 Cortical blindness, unspecified side of brain; M81.0 Age-related osteoporosis without current pathological fracture; E87.1 Hypo-osmolality and hyponatremia; F79 Unspecified intellectual disabilities
CPT/HCPCS: 36415; 70450-TC; 70486-TC; 72125-TC; 80053; 85025; 90715; 99284-25

== ENCOUNTER 2020-11-19 10:30 | Inpatient (IN) | payer OTHER ==
[2020-11-19 10:39] VITALS: BMI 26.5
[2020-11-19 13:19] LABS: BASO % 0.5 % (0-2.0); EOS % 0.5 % (0-4.5); HEMOGLOBIN 14.4 GM/dL (11.7-16.9); LYMPH % 15.6 % (8-40); MCH 35.2 pg (25.7-33.7); MCHC 34.1 g/dl (32.0-35.9); MEAN PLT VOLUME 9.2 fl (7.5-11.1); MONO % 6.5 % (3.8-10.2); NEUT % 76.9 % (42.8-82.8); PLATELET COUNT 276 K/MM3 (134-434); RBC 4.08 M/mm3 (4.00-5.60); RDW 13.7 % (11.9-15.9); WHITE BLOOD COUNT 11.2 K/mm3 (4.0-10.0)
[2020-11-19 13:44] LABS: POTASSIUM 4.2 mmol/L (3.5-5.1)
[2020-11-19 13:46] LABS: BLOOD UREA NITROGEN 14.6 mg/dL (7-18); CALCIUM 9.3 mg/dL (8.5-10.1)
[2020-11-19 13:47] LABS: ALBUMIN 3.7 g/dl (3.4-5.0)
[2020-11-19 13:50] LABS: CREATININE 0.3 mg/dL (0.55-1.3)
[2020-11-19 13:51] LABS: BILIRUBIN,TOTAL 0.3 mg/dL (0.2-1); TOT PROT 7.4 g/dl (6.4-8.2)
[2020-11-19] MEDS ORDERED: VANCOMYCIN 1 GM in D5W (PRE-DOCKED) 1,000 MG/250 ML IVPB ONE (14:48)
[2020-11-19] MEDS ORDERED: ACETAMINOPHEN 1000 MG/100 ML VIAL (NON FORMULARY) IVPB ONE (15:57)
[2020-11-19] MEDS ORDERED: PIPERACILLIN/TAZOB 3.375 GM 3.375 GM in DEXTROSE 5%-WATER - 50 ML IVPB ONE (15:58)
[2020-11-19] MEDS ORDERED: ACETAMINOPHEN INJECTION 100 ML IVPB ONE (16:05)
[2020-11-19] MEDS ORDERED: VANCOMYCIN 1 GRAM (PRE-DOCKED) 1,000 MG/250 ML BAG IVPB ONE (16:05)
[2020-11-19] MEDS ORDERED: PIPERACILLIN/TAZOB 3.375 GM 3.375 GM/50 ML BAG IVPB ONE (16:06)
[2020-11-19] MEDS ORDERED: methylPREDNISolone NA SUCC 125 MG/2 ML VIAL IVPUSH ONE (18:23)
[2020-11-19] MEDS ORDERED: FAMOTIDINE 20 MG/50 ML IVPB 20 MG/50 ML MG IVPB ONE ×2 (18:23→18:44)
[2020-11-19] MEDS ORDERED: methylPREDNISolone NA SUCC 125 MG/2 ML VIAL ONE (18:44)
[2020-11-19] MEDS ORDERED: diazePAM RECTAL GEL 5 MG KIT (PRE-CALIBRATED) RC PRN (21:26)
[2020-11-19] MEDS ORDERED: SIMETHICONE 40 MG/0.6 ML BOTTLE GT PRN (21:26)
[2020-11-19] MEDS ORDERED: ACETAMINOPHEN 650 MG/20.3 ML ORAL SOLUTION (CUPS) GT PRN (21:26)
[2020-11-19] MEDS ORDERED: BISACODYL 10 MG SUPP.RECT RC PRN (21:26)
[2020-11-19] MEDS ORDERED: ALBUTEROL SO4 0.083% IH SOL 2.5 MG/3 ML VIAL.NEB. NEB PRN (21:26)
[2020-11-19] MEDS ORDERED: VANCOMYCIN 1 GRAM (PRE-DOCKED) 1,000 MG/250 ML BAG IVPB SCH ×2 (21:30→22:00)
[2020-11-19] MEDS ORDERED: TIZANIDINE HCL 2 MG TABLET GT SCH (22:00)
[2020-11-19] MEDS ORDERED: carBAMazepine 100 MG/5 ML UNIT-DOSE CUP GT SCH ×2 (22:00→22:03)
[2020-11-19] MEDS ORDERED: CHOLECALCIFEROL (VIT D SOLUTION) 400 UNIT/1 ML DROPS GT SCH (22:00)
[2020-11-19] MEDS ORDERED: PATIENT'S OWN MEDICATION (NON-FORMULARY) (Protein Supplement [Promod] 946 ML Liquid) GT SCH (22:00)
[2020-11-19] MEDS ORDERED: TIAGABINE HCL 4 MG GT SCH (22:00)
[2020-11-19] MEDS ORDERED: CARBAMAZEPINE 300 MG GT SCH (22:00)
[2020-11-19] MEDS: SELENIUM SULFIDE 2.5% LOTION 4 OZ. TP SCH (23:00)
[2020-11-19] MEDS: TRIAMCINOLONE ACET 0.5% OINT 15 GM TUBE TP SCH (23:00)
[2020-11-19] MEDS: clonazePAM 0.5 MG TABLET GT SCH (23:00)
[2020-11-19] MEDS ORDERED: PT OWN MED DRAWER 7, Y5N ONE ×2 (23:05→23:18)
[2020-11-19] MEDS: levETIRAcetam 500 MG/5 ML ORAL SOLUTION (UNIT-DOSE CUPS) PO SCH (23:08)
[2020-11-19] MEDS: SENNOSIDES 8.8 MG/5 ML BULK BOTTLE GT SCH (23:08)
[2020-11-19] MEDS: PHENYTOIN 100 MG/4 ML U-D CUP GT SCH (23:09)
[2020-11-19] MEDS: SODIUM CHLORIDE 1 GM TABLET GT SCH (23:14)
[2020-11-19] MEDS: CALCIUM 500MG/VIT-D 200 UNITS COMBO TABLET (FP) GT SCH (23:20)
[2020-11-19] MEDS: MAGNESIUM HYDROX 2400MG/30ML ORAL SUSPENSION 30 ML CUP GT SCH (23:20)
[2020-11-20] MEDS: TRIAMCINOLONE ACET 0.5% OINT 15 GM TUBE TP SCH ×3 (05:28→22:59)
[2020-11-20] MEDS ORDERED: PT OWN MED DRAWER 7, Y5N ONE ×2 (05:42→06:53)
[2020-11-20] MEDS: levETIRAcetam 500 MG/5 ML ORAL SOLUTION (UNIT-DOSE CUPS) PO SCH ×3 (05:44→22:52)
[2020-11-20] MEDS: clonazePAM 0.5 MG TABLET GT SCH ×3 (05:44→22:51)
[2020-11-20] MEDS: SODIUM CHLORIDE 1 GM TABLET GT SCH ×3 (05:45→23:35)
[2020-11-20] MEDS: TIZANIDINE HCL 2 MG TABLET GT SCH ×3 (05:45→22:56)
[2020-11-20 07:44] LABS: ALBUMIN 3.3 g/dl (3.4-5.0); BLOOD UREA NITROGEN 14.9 mg/dL (7-18); CALCIUM 8.6 mg/dL (8.5-10.1)
[2020-11-20 07:45] LABS: MAGNESIUM 2.5 mg/dL (1.8-2.4)
[2020-11-20 07:47] LABS: BASO % 0.3 % (0-2.0); EOS % 1.2 % (0-4.5); HEMOGLOBIN 13.4 GM/dL (11.7-16.9); LYMPH % 28.1 % (8-40); MCH 35.9 pg (25.7-33.7); MCHC 35.3 g/dl (32.0-35.9); MEAN CELL VOLUME 101.7 fl (80-96); MEAN PLT VOLUME 8.6 fl (7.5-11.1); NEUT % 63.4 % (42.8-82.8); PLATELET COUNT 282 K/MM3 (134-434); RBC 3.74 M/mm3 (4.00-5.60); RDW 13.6 % (11.9-15.9); URIC ACID 1.8 mg/dL (2.6-7.2); WHITE BLOOD COUNT 7.8 K/mm3 (4.0-10.0)
[2020-11-20 07:48] LABS: CREATININE 0.4 mg/dL (0.55-1.3); PHOSPHOROUS 3.6 mg/dL (2.5-4.9)
[2020-11-20 07:49] LABS: BILIRUBIN,TOTAL 0.4 mg/dL (0.2-1); TOT PROT 6.9 g/dl (6.4-8.2)
[2020-11-20] MEDS: PHENYTOIN 100 MG/4 ML U-D CUP GT SCH ×4 (10:25→22:51)
[2020-11-20] MEDS: ENOXAPARIN NA (PORCINE) 40 MG/0.4 ML DISP.SYRIN SQ SCH (10:25)
[2020-11-20] MEDS: carBAMazepine 100 MG/5 ML UNIT-DOSE CUP GT SCH ×2 (10:25→22:55)
[2020-11-20] MEDS: SELENIUM SULFIDE 2.5% LOTION 4 OZ. TP SCH ×2 (10:26→22:58)
[2020-11-20] MEDS ORDERED: PATIENT'S OWN MEDICATION (NON-FORMULARY) (Lactose-Reduced Food/Fiber [Jevity 1.5 Cal Liqui GT SCH (18:00)
[2020-11-20] MEDS ORDERED: DEXTROSE 5%-WATER - 50 ML IVPB ONE (19:50)
[2020-11-20] MEDS ORDERED: cefTRIAXone SODIUM 1 GM VIAL ONE (19:50)
[2020-11-20] MEDS: CEFTRIAXONE 1 GM in DEXTROSE 5%-WATER - 50 ML IVPB SCH (20:01)
[2020-11-20] MEDS: CLINDAMYCIN 600MG PREMIX IVPB 600 MG/50 ML BAG IVPB SCH (20:02)
[2020-11-20] MEDS ORDERED: SODIUM CHLORIDE 1 GM TABLET GT SCH (21:00)
[2020-11-20] MEDS: MAGNESIUM HYDROX 2400MG/30ML ORAL SUSPENSION 30 ML CUP GT SCH (22:51)
[2020-11-20] MEDS: CALCIUM 500MG/VIT-D 200 UNITS COMBO TABLET (FP) GT SCH (22:51)
[2020-11-20] MEDS: SENNOSIDES 8.8 MG/5 ML BULK BOTTLE GT SCH (22:52)
[2020-11-20] MEDS: CHOLECALCIFEROL (VIT D SOLUTION) 400 UNIT/1 ML DROPS GT SCH (23:35)
[2020-11-21] MEDS: CLINDAMYCIN 600MG PREMIX IVPB 600 MG/50 ML BAG IVPB SCH ×3 (01:12→17:14)
[2020-11-21] MEDS: SODIUM CHLORIDE 1 GM TABLET GT SCH ×3 (05:16→21:15)
[2020-11-21] MEDS: levETIRAcetam 500 MG/5 ML ORAL SOLUTION (UNIT-DOSE CUPS) PO SCH ×3 (05:16→21:15)
[2020-11-21] MEDS: TIZANIDINE HCL 2 MG TABLET GT SCH ×3 (05:16→21:15)
[2020-11-21] MEDS: clonazePAM 0.5 MG TABLET GT SCH ×3 (05:19→21:14)
[2020-11-21] MEDS: TRIAMCINOLONE ACET 0.5% OINT 15 GM TUBE TP SCH ×3 (05:21→21:18)
[2020-11-21 08:09] LABS: POTASSIUM 4.3 mmol/L (3.5-5.1)
[2020-11-21 08:13] LABS: CALCIUM 8.5 mg/dL (8.5-10.1)
[2020-11-21 08:14] LABS: ALBUMIN 3.2 g/dl (3.4-5.0); BLOOD UREA NITROGEN 13.1 mg/dL (7-18); HEMOGLOBIN 13.3 GM/dL (11.7-16.9); MAGNESIUM 2.4 mg/dL (1.8-2.4)
[2020-11-21 08:16] LABS: BASO % 0.3 % (0-2.0); EOS % 3.3 % (0-4.5); HEMATOCRIT 38.6 % (35.4-49); LYMPH % 23.1 % (8-40); MCH 35.2 pg (25.7-33.7); MCHC 34.3 g/dl (32.0-35.9); MEAN CELL VOLUME 102.4 fl (80-96); MEAN PLT VOLUME 8.8 fl (7.5-11.1); MONO % 7.3 % (3.8-10.2); PHOSPHOROUS 3.6 mg/dL (2.5-4.9); PLATELET COUNT 262 K/MM3 (134-434); RBC 3.77 M/mm3 (4.00-5.60); RDW 13.8 % (11.9-15.9)
[2020-11-21 08:17] LABS: CREATININE 0.3 mg/dL (0.55-1.3)
[2020-11-21 08:18] LABS: BILIRUBIN,TOTAL 0.4 mg/dL (0.2-1)
[2020-11-21 08:19] LABS: TOT PROT 6.4 g/dl (6.4-8.2)
[2020-11-21] MEDS ORDERED: DEXTROSE 5%-WATER - 50 ML IVPB ONE (09:05)
[2020-11-21] MEDS ORDERED: cefTRIAXone SODIUM 1 GM VIAL ONE (09:05)
[2020-11-21] MEDS: CEFTRIAXONE 1 GM in DEXTROSE 5%-WATER - 50 ML IVPB SCH (09:18)
[2020-11-21] MEDS: PHENYTOIN 100 MG/4 ML U-D CUP GT SCH ×4 (09:18→21:16)
[2020-11-21] MEDS: carBAMazepine 100 MG/5 ML UNIT-DOSE CUP GT SCH ×2 (09:18→21:16)
[2020-11-21] MEDS: ENOXAPARIN NA (PORCINE) 40 MG/0.4 ML DISP.SYRIN SQ SCH (09:19)
[2020-11-21] MEDS: SELENIUM SULFIDE 2.5% LOTION 4 OZ. TP SCH ×2 (14:29→21:18)
[2020-11-21] MEDS: CALCIUM 500MG/VIT-D 200 UNITS COMBO TABLET (FP) GT SCH (21:14)
[2020-11-21] MEDS: MAGNESIUM HYDROX 2400MG/30ML ORAL SUSPENSION 30 ML CUP GT SCH (21:14)
[2020-11-21] MEDS: SENNOSIDES 8.8 MG/5 ML BULK BOTTLE GT SCH (21:14)
[2020-11-21] MEDS: CHOLECALCIFEROL (VIT D SOLUTION) 400 UNIT/1 ML DROPS GT SCH (21:16)
[2020-11-22] MEDS: CLINDAMYCIN 600MG PREMIX IVPB 600 MG/50 ML BAG IVPB SCH ×3 (01:13→17:08)
[2020-11-22] MEDS: SODIUM CHLORIDE 1 GM TABLET GT SCH ×3 (05:14→21:56)
[2020-11-22] MEDS: TIZANIDINE HCL 2 MG TABLET GT SCH ×3 (05:14→21:56)
[2020-11-22] MEDS: levETIRAcetam 500 MG/5 ML ORAL SOLUTION (UNIT-DOSE CUPS) PO SCH ×3 (05:14→21:55)
[2020-11-22] MEDS: clonazePAM 0.5 MG TABLET GT SCH ×3 (05:14→21:56)
[2020-11-22] MEDS: TRIAMCINOLONE ACET 0.5% OINT 15 GM TUBE TP SCH ×3 (05:15→21:53)
[2020-11-22 07:23] LABS: BASO % 0.4 % (0-2.0); EOS % 6.5 % (0-4.5); HEMATOCRIT 38.9 % (35.4-49); HEMOGLOBIN 13.6 GM/dL (11.7-16.9); MCH 35.7 pg (25.7-33.7); MEAN PLT VOLUME 8.6 fl (7.5-11.1); MONO % 11.5 % (3.8-10.2); NEUT % 36.6 % (42.8-82.8); PLATELET COUNT 287 K/MM3 (134-434); RBC 3.82 M/mm3 (4.00-5.60); WHITE BLOOD COUNT 5.2 K/mm3 (4.0-10.0)
[2020-11-22 07:44] LABS: POTASSIUM 4.2 mmol/L (3.5-5.1)
[2020-11-22 08:16] LABS: ALBUMIN 3.4 g/dl (3.4-5.0); BLOOD UREA NITROGEN 9.2 mg/dL (7-18); MAGNESIUM 2.6 mg/dL (1.8-2.4)
[2020-11-22 08:20] LABS: PHOSPHOROUS 4.2 mg/dL (2.5-4.9)
[2020-11-22 08:21] LABS: TOT PROT 6.9 g/dl (6.4-8.2)
[2020-11-22 08:23] LABS: CREATININE 0.3 mg/dL (0.55-1.3)
[2020-11-22 08:24] LABS: BILIRUBIN,TOTAL 0.4 mg/dL (0.2-1)
[2020-11-22] MEDS ORDERED: DEXTROSE 5%-WATER - 50 ML IVPB ONE (09:06)
[2020-11-22] MEDS ORDERED: cefTRIAXone SODIUM 1 GM VIAL ONE (09:06)
[2020-11-22] MEDS: carBAMazepine 100 MG/5 ML UNIT-DOSE CUP GT SCH ×2 (11:08→21:56)
[2020-11-22] MEDS: PHENYTOIN 100 MG/4 ML U-D CUP GT SCH ×4 (11:18→21:56)
[2020-11-22] MEDS: CEFTRIAXONE 1 GM in DEXTROSE 5%-WATER - 50 ML IVPB SCH (12:24)
[2020-11-22] MEDS: AMINO ACIDS/PROTEIN HYDROLYS 30 ML LIQUID.PKT PO SCH (12:25)
[2020-11-22] MEDS: SELENIUM SULFIDE 2.5% LOTION 4 OZ. TP SCH ×2 (12:30→21:53)
[2020-11-22] MEDS: ENOXAPARIN NA (PORCINE) 40 MG/0.4 ML DISP.SYRIN SQ SCH (12:31)
[2020-11-22] MEDS: SENNOSIDES 8.8 MG/5 ML BULK BOTTLE GT SCH (21:55)
[2020-11-22] MEDS: CALCIUM 500MG/VIT-D 200 UNITS COMBO TABLET (FP) GT SCH (21:55)
[2020-11-22] MEDS: CHOLECALCIFEROL (VIT D SOLUTION) 400 UNIT/1 ML DROPS GT SCH (21:56)
[2020-11-22] MEDS: MAGNESIUM HYDROX 2400MG/30ML ORAL SUSPENSION 30 ML CUP GT SCH (21:56)
[2020-11-23] MEDS: CLINDAMYCIN 600MG PREMIX IVPB 600 MG/50 ML BAG IVPB SCH ×3 (01:46→18:01)
[2020-11-23] MEDS: levETIRAcetam 500 MG/5 ML ORAL SOLUTION (UNIT-DOSE CUPS) PO SCH ×3 (05:43→22:32)
[2020-11-23] MEDS: TIZANIDINE HCL 2 MG TABLET GT SCH ×3 (05:43→22:33)
[2020-11-23] MEDS: clonazePAM 0.5 MG TABLET GT SCH ×3 (05:43→22:35)
[2020-11-23] MEDS: SODIUM CHLORIDE 1 GM TABLET GT SCH ×3 (05:43→22:32)
[2020-11-23] MEDS: TRIAMCINOLONE ACET 0.5% OINT 15 GM TUBE TP SCH ×3 (05:45→22:35)
[2020-11-23 07:40] LABS: BASO % 0.7 % (0-2.0); EOS % 5.8 % (0-4.5); HEMATOCRIT 39.2 % (35.4-49); HEMOGLOBIN 13.7 GM/dL (11.7-16.9); LYMPH % 43.1 % (8-40); MCH 35.7 pg (25.7-33.7); MCHC 34.9 g/dl (32.0-35.9); MEAN CELL VOLUME 102.4 fl (80-96); MEAN PLT VOLUME 9.2 fl (7.5-11.1); MONO % 12.7 % (3.8-10.2); NEUT % 37.7 % (42.8-82.8); PLATELET COUNT 287 K/MM3 (134-434); RBC 3.82 M/mm3 (4.00-5.60); RDW 14.2 % (11.9-15.9); WHITE BLOOD COUNT 5.4 K/mm3 (4.0-10.0)
[2020-11-23 08:03] LABS: POTASSIUM 4.5 mmol/L (3.5-5.1)
[2020-11-23 08:10] LABS: ALBUMIN 3.3 g/dl (3.4-5.0); BLOOD UREA NITROGEN 14.5 mg/dL (7-18); CALCIUM 9.2 mg/dL (8.5-10.1)
[2020-11-23 08:11] LABS: MAGNESIUM 2.8 mg/dL (1.8-2.4)
[2020-11-23 08:13] LABS: CREATININE 0.3 mg/dL (0.55-1.3)
[2020-11-23 08:14] LABS: PHOSPHOROUS 4.8 mg/dL (2.5-4.9)
[2020-11-23 08:15] LABS: BILIRUBIN,TOTAL 0.4 mg/dL (0.2-1); TOT PROT 6.7 g/dl (6.4-8.2)
[2020-11-23] MEDS ORDERED: DEXTROSE 5%-WATER - 50 ML IVPB ONE (09:09)
[2020-11-23] MEDS ORDERED: cefTRIAXone SODIUM 1 GM VIAL ONE (09:09)
[2020-11-23] MEDS: CEFTRIAXONE 1 GM in DEXTROSE 5%-WATER - 50 ML IVPB SCH (10:11)
[2020-11-23] MEDS: PHENYTOIN 100 MG/4 ML U-D CUP GT SCH ×4 (10:12→22:31)
[2020-11-23] MEDS: ENOXAPARIN NA (PORCINE) 40 MG/0.4 ML DISP.SYRIN SQ SCH (10:12)
[2020-11-23] MEDS: carBAMazepine 100 MG/5 ML UNIT-DOSE CUP GT SCH ×2 (10:12→22:31)
[2020-11-23] MEDS: SELENIUM SULFIDE 2.5% LOTION 4 OZ. TP SCH ×2 (10:13→22:35)
[2020-11-23] MEDS: AMINO ACIDS/PROTEIN HYDROLYS 30 ML LIQUID.PKT PO SCH (10:25)
[2020-11-23] MEDS: MAGNESIUM HYDROX 2400MG/30ML ORAL SUSPENSION 30 ML CUP GT SCH (22:30)
[2020-11-23] MEDS: CALCIUM 500MG/VIT-D 200 UNITS COMBO TABLET (FP) GT SCH (22:31)
[2020-11-23] MEDS: CHOLECALCIFEROL (VIT D SOLUTION) 400 UNIT/1 ML DROPS GT SCH (22:32)
[2020-11-23] MEDS: SENNOSIDES 8.8 MG/5 ML BULK BOTTLE GT SCH (22:34)
[2020-11-24] MEDS: CLINDAMYCIN 600MG PREMIX IVPB 600 MG/50 ML BAG IVPB SCH ×3 (01:14→17:34)
[2020-11-24] MEDS: levETIRAcetam 500 MG/5 ML ORAL SOLUTION (UNIT-DOSE CUPS) PO SCH ×3 (05:03→22:55)
[2020-11-24] MEDS: SODIUM CHLORIDE 1 GM TABLET GT SCH ×3 (05:03→22:55)
[2020-11-24] MEDS: clonazePAM 0.5 MG TABLET GT SCH ×3 (05:04→22:54)
[2020-11-24] MEDS: TRIAMCINOLONE ACET 0.5% OINT 15 GM TUBE TP SCH ×3 (05:05→22:56)
[2020-11-24] MEDS: TIZANIDINE HCL 2 MG TABLET GT SCH ×3 (06:07→22:56)
[2020-11-24 07:52] LABS: BASO % 0.3 % (0-2.0); EOS % 8.3 % (0-4.5); HEMOGLOBIN 13.1 GM/dL (11.7-16.9); MCH 35.4 pg (25.7-33.7); MCHC 34.6 g/dl (32.0-35.9); MEAN CELL VOLUME 102.4 fl (80-96); MEAN PLT VOLUME 8.5 fl (7.5-11.1); NEUT % 43.4 % (42.8-82.8); PLATELET COUNT 318 K/MM3 (134-434); RBC 3.71 M/mm3 (4.00-5.60); RDW 14.2 % (11.9-15.9); WHITE BLOOD COUNT 5.7 K/mm3 (4.0-10.0)
[2020-11-24 08:01] LABS: POTASSIUM 4.3 mmol/L (3.5-5.1)
[2020-11-24 08:15] LABS: ALBUMIN 3.3 g/dl (3.4-5.0); BLOOD UREA NITROGEN 11.6 mg/dL (7-18); CALCIUM 8.9 mg/dL (8.5-10.1); MAGNESIUM 2.3 mg/dL (1.8-2.4)
[2020-11-24 08:18] LABS: CREATININE 0.3 mg/dL (0.55-1.3)
[2020-11-24 08:19] LABS: BILIRUBIN,TOTAL 0.3 mg/dL (0.2-1); PHOSPHOROUS 3.9 mg/dL (2.5-4.9); TOT PROT 6.8 g/dl (6.4-8.2)
[2020-11-24] MEDS ORDERED: DEXTROSE 5%-WATER - 50 ML IVPB ONE (08:57)
[2020-11-24] MEDS ORDERED: cefTRIAXone SODIUM 1 GM VIAL ONE (08:57)
[2020-11-24] MEDS ORDERED: PT OWN MED DRAWER 7, Y5N ONE ×2 (08:58→22:45)
[2020-11-24] MEDS: carBAMazepine 100 MG/5 ML UNIT-DOSE CUP GT SCH ×2 (09:13→22:54)
[2020-11-24] MEDS: AMINO ACIDS/PROTEIN HYDROLYS 30 ML LIQUID.PKT PO SCH (09:13)
[2020-11-24] MEDS: ENOXAPARIN NA (PORCINE) 40 MG/0.4 ML DISP.SYRIN SQ SCH (09:14)
[2020-11-24] MEDS: CEFTRIAXONE 1 GM in DEXTROSE 5%-WATER - 50 ML IVPB SCH (09:15)
[2020-11-24] MEDS: SELENIUM SULFIDE 2.5% LOTION 4 OZ. TP SCH ×2 (09:15→22:56)
[2020-11-24] MEDS: PHENYTOIN 100 MG/4 ML U-D CUP GT SCH ×4 (10:30→22:54)
[2020-11-24] MEDS: CALCIUM 500MG/VIT-D 200 UNITS COMBO TABLET (FP) GT SCH (22:54)
[2020-11-24] MEDS: MAGNESIUM HYDROX 2400MG/30ML ORAL SUSPENSION 30 ML CUP GT SCH (22:54)
[2020-11-24] MEDS: SENNOSIDES 8.8 MG/5 ML BULK BOTTLE GT SCH (22:55)
[2020-11-24] MEDS: CHOLECALCIFEROL (VIT D SOLUTION) 400 UNIT/1 ML DROPS GT SCH (22:57)
[2020-11-25] MEDS: CLINDAMYCIN 600MG PREMIX IVPB 600 MG/50 ML BAG IVPB SCH ×3 (01:58→17:39)
[2020-11-25] MEDS ORDERED: PT OWN MED DRAWER 7, Y5N ONE (05:20)
[2020-11-25] MEDS: SODIUM CHLORIDE 1 GM TABLET GT SCH ×3 (05:22→22:24)
[2020-11-25] MEDS: clonazePAM 0.5 MG TABLET GT SCH ×3 (05:22→22:23)
[2020-11-25] MEDS: TRIAMCINOLONE ACET 0.5% OINT 15 GM TUBE TP SCH ×3 (05:23→22:23)
[2020-11-25] MEDS: TIZANIDINE HCL 2 MG TABLET GT SCH ×3 (05:23→22:25)
[2020-11-25] MEDS: levETIRAcetam 500 MG/5 ML ORAL SOLUTION (UNIT-DOSE CUPS) PO SCH ×3 (05:23→22:22)
[2020-11-25 08:03] LABS: BASO % 0.6 % (0-2.0); EOS % 9.3 % (0-4.5); HEMATOCRIT 39.5 % (35.4-49); HEMOGLOBIN 13.3 GM/dL (11.7-16.9); LYMPH % 41.7 % (8-40); MCH 34.6 pg (25.7-33.7); MCHC 33.7 g/dl (32.0-35.9); MEAN CELL VOLUME 102.7 fl (80-96); MEAN PLT VOLUME 8.8 fl (7.5-11.1); MONO % 10.6 % (3.8-10.2); NEUT % 37.8 % (42.8-82.8); PLATELET COUNT 309 K/MM3 (134-434); RBC 3.85 M/mm3 (4.00-5.60); RDW 13.9 % (11.9-15.9); WHITE BLOOD COUNT 4.8 K/mm3 (4.0-10.0)
[2020-11-25 08:09] LABS: POTASSIUM 4.4 mmol/L (3.5-5.1)
[2020-11-25 08:14] LABS: ALBUMIN 3.4 g/dl (3.4-5.0); BLOOD UREA NITROGEN 11.8 mg/dL (7-18); CALCIUM 8.6 mg/dL (8.5-10.1); MAGNESIUM 2.4 mg/dL (1.8-2.4)
[2020-11-25 08:17] LABS: CREATININE 0.3 mg/dL (0.55-1.3); PHOSPHOROUS 4.3 mg/dL (2.5-4.9)
[2020-11-25 08:18] LABS: BILIRUBIN,TOTAL 0.6 mg/dL (0.2-1); TOT PROT 6.8 g/dl (6.4-8.2)
[2020-11-25] MEDS ORDERED: cefTRIAXone SODIUM 1 GM VIAL ONE (09:28)
[2020-11-25] MEDS ORDERED: DEXTROSE 5%-WATER - 50 ML IVPB ONE (09:29)
[2020-11-25] MEDS: carBAMazepine 100 MG/5 ML UNIT-DOSE CUP GT SCH ×2 (10:02→22:24)
[2020-11-25] MEDS: PHENYTOIN 100 MG/4 ML U-D CUP GT SCH ×4 (10:02→22:23)
[2020-11-25] MEDS: AMINO ACIDS/PROTEIN HYDROLYS 30 ML LIQUID.PKT PO SCH (10:02)
[2020-11-25] MEDS: ENOXAPARIN NA (PORCINE) 40 MG/0.4 ML DISP.SYRIN SQ SCH (10:03)
[2020-11-25] MEDS: SELENIUM SULFIDE 2.5% LOTION 4 OZ. TP SCH ×2 (10:03→22:24)
[2020-11-25] MEDS: CEFTRIAXONE 1 GM in DEXTROSE 5%-WATER - 50 ML IVPB SCH (11:37)
[2020-11-25] MEDS: MAGNESIUM HYDROX 2400MG/30ML ORAL SUSPENSION 30 ML CUP GT SCH (22:21)
[2020-11-25] MEDS: CHOLECALCIFEROL (VIT D SOLUTION) 400 UNIT/1 ML DROPS GT SCH (22:22)
[2020-11-25] MEDS: SENNOSIDES 8.8 MG/5 ML BULK BOTTLE GT SCH (22:22)
[2020-11-25] MEDS: CALCIUM 500MG/VIT-D 200 UNITS COMBO TABLET (FP) GT SCH (22:23)
[2020-11-26] MEDS: CLINDAMYCIN 600MG PREMIX IVPB 600 MG/50 ML BAG IVPB SCH ×3 (01:09→17:10)
[2020-11-26] MEDS: levETIRAcetam 500 MG/5 ML ORAL SOLUTION (UNIT-DOSE CUPS) PO SCH ×3 (05:17→21:47)
[2020-11-26] MEDS: SODIUM CHLORIDE 1 GM TABLET GT SCH ×3 (05:17→21:48)
[2020-11-26] MEDS: clonazePAM 0.5 MG TABLET GT SCH ×2 (05:17→14:51)
[2020-11-26] MEDS: TRIAMCINOLONE ACET 0.5% OINT 15 GM TUBE TP SCH ×3 (05:17→21:47)
[2020-11-26] MEDS: TIZANIDINE HCL 2 MG TABLET GT SCH ×3 (05:18→21:48)
[2020-11-26] MEDS ORDERED: cefTRIAXone SODIUM 1 GM VIAL ONE (08:09)
[2020-11-26] MEDS ORDERED: DEXTROSE 5%-WATER - 50 ML IVPB ONE (08:09)
[2020-11-26] MEDS: AMINO ACIDS/PROTEIN HYDROLYS 30 ML LIQUID.PKT PO SCH (09:06)
[2020-11-26] MEDS: CEFTRIAXONE 1 GM in DEXTROSE 5%-WATER - 50 ML IVPB SCH (09:06)
[2020-11-26] MEDS: carBAMazepine 100 MG/5 ML UNIT-DOSE CUP GT SCH ×2 (09:06→21:45)
[2020-11-26] MEDS: PHENYTOIN 100 MG/4 ML U-D CUP GT SCH ×4 (10:16→21:45)
[2020-11-26] MEDS: ENOXAPARIN NA (PORCINE) 40 MG/0.4 ML DISP.SYRIN SQ SCH (10:19)
[2020-11-26] MEDS: SELENIUM SULFIDE 2.5% LOTION 4 OZ. TP SCH ×2 (14:47→21:48)
[2020-11-26] MEDS: MAGNESIUM HYDROX 2400MG/30ML ORAL SUSPENSION 30 ML CUP GT SCH (21:46)
[2020-11-26] MEDS: SENNOSIDES 8.8 MG/5 ML BULK BOTTLE GT SCH (21:46)
[2020-11-26] MEDS: CHOLECALCIFEROL (VIT D SOLUTION) 400 UNIT/1 ML DROPS GT SCH (21:46)
[2020-11-26] MEDS: CALCIUM 500MG/VIT-D 200 UNITS COMBO TABLET (FP) GT SCH (21:47)
[2020-11-27] MEDS: CLINDAMYCIN 600MG PREMIX IVPB 600 MG/50 ML BAG IVPB SCH ×2 (01:38→09:20)
[2020-11-27] MEDS: levETIRAcetam 500 MG/5 ML ORAL SOLUTION (UNIT-DOSE CUPS) PO SCH ×2 (05:40→14:39)
[2020-11-27] MEDS: SODIUM CHLORIDE 1 GM TABLET GT SCH ×2 (05:40→14:39)
[2020-11-27] MEDS: TRIAMCINOLONE ACET 0.5% OINT 15 GM TUBE TP SCH (05:40)
[2020-11-27] MEDS: TIZANIDINE HCL 2 MG TABLET GT SCH (05:40)
[2020-11-27] MEDS ORDERED: DEXTROSE 5%-WATER - 50 ML IVPB ONE (09:13)
[2020-11-27] MEDS ORDERED: cefTRIAXone SODIUM 1 GM VIAL ONE (09:13)
[2020-11-27] MEDS: CEFTRIAXONE 1 GM in DEXTROSE 5%-WATER - 50 ML IVPB SCH (09:21)
[2020-11-27] MEDS: carBAMazepine 100 MG/5 ML UNIT-DOSE CUP GT SCH (09:22)
[2020-11-27] MEDS: AMINO ACIDS/PROTEIN HYDROLYS 30 ML LIQUID.PKT PO SCH (09:22)
[2020-11-27] MEDS: PHENYTOIN 100 MG/4 ML U-D CUP GT SCH ×2 (09:23→14:39)
[2020-11-27] MEDS: SELENIUM SULFIDE 2.5% LOTION 4 OZ. TP SCH (09:25)
[2020-11-27] MEDS ORDERED: [UNRECOGNIZED DRUG - OTHER] GT SCH (14:00)
[2020-11-27] MEDS ORDERED: LACTOSE REDUCED FOOD GT SCH (14:00)
[2020-11-27] MEDS ORDERED: FIBER GT SCH (14:00)
[2020-11-27 15:06] VITALS: BP 136/85; PULSE 110; TEMP 97.4
== END 2020-11-27 15:40 | disposition home or self-care (01) | DRG 548 ==
LOC: JER 10:30 → JERBED 17:58 → J7W 20:28
PROVIDERS: ADMIT Internal Medicine; ATTEND Student in an Organized Health Care Education/Training Program
PROC: 0S9C3ZX Drainage of Right Knee Joint, Percutaneous Approach, Diagnostic (ICD-10-PCS; principal; 2020-11-21)
DX: M00.861 Arthritis due to other bacteria, right knee (principal); R53.2 Functional quadriplegia; L03.115 Cellulitis of right lower limb; F73 Profound intellectual disabilities; G80.8 Other cerebral palsy; Z93.1 Gastrostomy status; H47.619 Cortical blindness, unspecified side of brain; Q02 Microcephaly; D72.829 Elevated white blood cell count, unspecified; M81.0 Age-related osteoporosis without current pathological fracture; R74.01 Elevation of levels of liver transaminase levels; K21.9 Gastro-esophageal reflux disease without esophagitis
CPT/HCPCS: 36415; 71045-TC-FY; 73560-TC-RT-FY; 73700-TC-RT; 80053; 82962; 83605; 83735; 84100; 84443; 84550; 85025; 85651; 86140; 87040; 87081; 93005; 93010; 93971-TC; 97161-GP; 99285-25; C9803; J0131; U0003; U0005

== ENCOUNTER 2022-01-31 00:52 | Inpatient (IN) | payer OTHER ==
[2022-01-31] MEDS ORDERED: ACETAMINOPHEN 1000 MG/100 ML BAG IVPB ONE (01:06)
[2022-01-31] MEDS ORDERED: SODIUM CHLORIDE 0.9% 500 ML INFUS.BAG IV ONE (01:06)
[2022-01-31] MEDS ORDERED: PIPERACILLIN/TAZOB 4.5 GM 4.5 GM in DEXTROSE 5%-WATER 100 ML IVPB ONE (01:33)
[2022-01-31] MEDS ORDERED: DEXAMETHASONE SOD PHOSPHATE 10 MG/1 ML VIAL IVPUSH ONE (01:33)
[2022-01-31] MEDS ORDERED: LINEZOLID 600 MG PREMIX BAG 600 MG in PREMIX 300 IVPB ONE (01:35)
[2022-01-31] MEDS ORDERED: ACETAMINOPHEN INJECTION 100 ML IVPB ONE (01:42)
[2022-01-31 01:47] LABS: VENOUS BASE EXCESS 0.2 mmol/L (-2-2); VENOUS O2 SATURATION 83.2 % (70-80); VENOUS PCO2 56.6 mmHg (38-52); VENOUS PH 7.31 (7.310-7.410)
[2022-01-31 02:07] LABS: CHLORIDE 98 mmol/L (98-107); SODIUM 135 mmol/L (136-145)
[2022-01-31 02:10] LABS: ALBUMIN 3.7 g/dl (3.4-5.0); ANION GAP 10 MMOL/L (8-16); BLOOD UREA NITROGEN 12.2 mg/dL (7-18); CALCIUM 8.5 mg/dL (8.5-10.1); CO2 27 mmol/L (21-32)
[2022-01-31 02:13] LABS: EPI CELLS 23 /uL (0-25.1); HYALINE CASTS 2 /uL (0-3.1); PH,URINE 5.5 (5.0-8.0); URINE APPEARANCE CLEAR; URINE BACTERIA 94 /uL (0-1359); URINE BILIRUBIN NEGATIVE (NEGATIVE); URINE COLOR YELLOW; URINE GLUCOSE (UA) 1+ (NEGATIVE); URINE KETONE NEGATIVE (NEGATIVE); URINE LEUK ESTERASE NEGATIVE (NEGATIVE); URINE NITRITE NEGATIVE (NEGATIVE); URINE PROTEIN TRACE (NEGATIVE); URINE RBC 64 /uL (0-23.9); URINE UROBILINOGEN 0.2 mg/dL (0.2-1.0); URINE WBC 21 /uL (0-25.8)
[2022-01-31 02:13] LABS: CREATININE 0.5 mg/dL (0.55-1.3); SGOT/AST 37 U/L (15-37); SGPT/ALT 44 U/L (13-61)
[2022-01-31 02:14] LABS: BASO % 0.4 % (0-2.0); HEMATOCRIT 43.4 % (35.4-49); HEMOGLOBIN 14.7 GM/dL (11.7-16.9); LYMPH % 4.2 % (8-40); MCH 33.7 pg (25.7-33.7); MCHC 33.8 g/dl (32.0-35.9); MEAN CELL VOLUME 99.8 fl (80-96); MEAN PLT VOLUME 9.5 fl (7.5-11.1); MONO % 1.5 % (3.8-10.2); NEUT % 91.9 % (42.8-82.8); PLATELET COUNT 71 10^3/uL (134-434); RBC 4.35 M/mm3 (4.00-5.60); RDW 13.9 % (11.9-15.9); WHITE BLOOD COUNT 10.1 K/mm3 (4.0-10.0)
[2022-01-31 02:15] LABS: BILIRUBIN,TOTAL < 0.1 mg/dL (0.2-1); TOT PROT 7.5 g/dl (6.4-8.2)
[2022-01-31 02:16] LABS: ALK PHOS 132 U/L (45-117)
[2022-01-31 02:22] LABS: GLUCOSE,RANDOM 274 mg/dL (74-106); LACTIC ACID 2.7 mmol/L (0.4-2.0)
[2022-01-31 02:30] LABS: INR 1.08 (0.83-1.09); PROTHROMBIN TIME (PATIENT) 12.4 SEC (9.7-13.0)
[2022-01-31 03:28] LABS: ANISOCYTOSIS 1+; MACROCYTOSIS 1+
[2022-01-31] MEDS ORDERED: DEXAMETHASONE SOD PHOSPHATE 10 MG/1 ML VIAL ONE (03:38)
[2022-01-31] MEDS ORDERED: SIMETHICONE 40 MG/0.6 ML BOTTLE GT PRN (04:39)
[2022-01-31] MEDS ORDERED: diazePAM RECTAL GEL 10 MG KIT (PRE-CALIBRATED) RC PRN (04:39)
[2022-01-31] MEDS ORDERED: TIZANIDINE HCL 2 MG GT SCH (06:00)
[2022-01-31] MEDS ORDERED: TIAGABINE HCL 4 MG GT SCH (06:00)
[2022-01-31] MEDS ORDERED: clonazePAM 0.5 MG TABLET ONE ×2 (06:32→21:14)
[2022-01-31] MEDS: SODIUM CHLORIDE 1 GM TABLET GT SCH ×3 (06:39→22:07)
[2022-01-31] MEDS: levETIRAcetam 500 MG/5 ML ORAL SOLUTION (UNIT-DOSE CUPS) GT SCH ×3 (06:39→22:07)
[2022-01-31] MEDS: clonazePAM 0.5 MG TABLET GT SCH ×3 (06:39→22:07)
[2022-01-31 07:51] LABS: HEMATOCRIT 38.2 % (35.4-49); MCH 33.4 pg (25.7-33.7); MEAN CELL VOLUME 98.5 fl (80-96); MEAN PLT VOLUME 7.9 fl (7.5-11.1); PLATELET COUNT 322 10^3/uL (134-434); RBC 3.88 M/mm3 (4.00-5.60); RDW 13.9 % (11.9-15.9); WHITE BLOOD COUNT 15.3 K/mm3 (4.0-10.0)
[2022-01-31 08:06] LABS: CALCIUM 8.1 mg/dL (8.5-10.1)
[2022-01-31 08:07] LABS: ALBUMIN 3.3 g/dl (3.4-5.0); BLOOD UREA NITROGEN 7.6 mg/dL (7-18); MAGNESIUM 2.5 mg/dL (1.8-2.4); PHOSPHOROUS 2.8 mg/dL (2.5-4.9)
[2022-01-31 08:09] LABS: BILIRUBIN,TOTAL 0.3 mg/dL (0.2-1); TOT PROT 6.8 g/dl (6.4-8.2)
[2022-01-31 08:10] LABS: CREATININE 0.2 mg/dL (0.55-1.3)
[2022-01-31] MEDS ORDERED: PIPERACILLIN/TAZOB 4.5 GM 4.5 GM in DEXTROSE 5%-WATER 100 ML IVPB SCH (09:00)
[2022-01-31] MEDS ORDERED: DEXAMETHASONE SOD PHOSPHATE 4 MG/1 ML VIAL ONE (09:13)
[2022-01-31] MEDS ORDERED: PIPERACILLIN/TAZOB 4.5 GM 4.5 GM/100 ML BAG IVPB ONE (09:14)
[2022-01-31] MEDS ORDERED: ENOXAPARIN NA (PORCINE) 40 MG/0.4 ML DISP.SYRIN SQ ONE (09:15)
[2022-01-31] MEDS: DEXAMETHASONE SOD PHOSPHATE 4 MG/1 ML VIAL IVPUSH SCH (09:36)
[2022-01-31] MEDS: AMINO ACIDS/PROTEIN HYDROLYS 30 ML LIQUID.PKT PO SCH ×2 (09:36→22:07)
[2022-01-31] MEDS: PHENYTOIN 100 MG/4 ML U-D CUP GT SCH ×4 (09:36→22:06)
[2022-01-31] MEDS: ENOXAPARIN NA (PORCINE) 40 MG/0.4 ML DISP.SYRIN SQ SCH (09:36)
[2022-01-31] MEDS ORDERED: PATIENT'S OWN MEDICATION (NON-FORMULARY) (Carbamazepine [Carbamazepine Er] 100 MG Cpmp.12h GT SCH (10:00)
[2022-01-31] MEDS ORDERED: [UNRECOGNIZED DRUG - OTHER] GT SCH (10:00)
[2022-01-31] MEDS ORDERED: LACTOSE REDUCED FOOD GT SCH (10:00)
[2022-01-31] MEDS ORDERED: FIBER GT SCH (10:00)
[2022-01-31] MEDS ORDERED: CARBAMAZEPINE 300 MG GT SCH (10:00)
[2022-01-31] MEDS ORDERED: REMDESIVIR 200 MG in SODIUM CHLORIDE 250 ML IVPB ONE (14:00)
[2022-01-31] MEDS ORDERED: PIPERACILLIN/TAZOB 3.375 GM 3.375 GM/50 ML BAG IVPB ONE (18:53)
[2022-01-31] MEDS: PIPERACILLIN/TAZOB 3.375 GM 3.375 GM in DEXTROSE 5%-WATER - 50 ML IVPB SCH (19:00)
[2022-01-31] MEDS ORDERED: AZITHROMYCIN IVPB 500 MG/250 ML BAG IVPB ONE ×2 (19:15→19:16)
[2022-01-31] MEDS ORDERED: SENNOSIDES 8.6MG TABLET (FP) PO ONE (21:14)
[2022-01-31] MEDS ORDERED: MAGNESIUM HYDROX 2400MG/30ML ORAL SUSPENSION 30 ML CUP ONE (21:15)
[2022-01-31] MEDS ORDERED: SENNOSIDES 8.8 MG/5 ML BULK BOTTLE GT SCH (22:00)
[2022-01-31] MEDS ORDERED: SODIUM CHLORIDE 1 GM TABLET GT SCH (22:00)
[2022-01-31] MEDS ORDERED: LINEZOLID 600 MG PREMIX BAG 600 MG/300 ML BAG IVPB SCH (22:00)
[2022-01-31] MEDS ORDERED: MAGNESIUM HYDROX 2400MG/30ML ORAL SUSPENSION 30 ML CUP GT SCH (22:00)
[2022-02-01] MEDS ORDERED: PIPERACILLIN/TAZOBACTAM 3.375 GM VIAL IVPB ONE ×3 (01:25→16:01)
[2022-02-01] MEDS ORDERED: DEXTROSE 5%-WATER - 50 ML IVPB ONE ×3 (01:25→16:01)
[2022-02-01] MEDS: PIPERACILLIN/TAZOB 3.375 GM 3.375 GM in DEXTROSE 5%-WATER - 50 ML IVPB SCH ×3 (02:00→17:00)
[2022-02-01] MEDS: clonazePAM 0.5 MG TABLET GT SCH ×4 (05:55→22:47)
[2022-02-01] MEDS: SODIUM CHLORIDE 1 GM TABLET GT SCH ×4 (05:56→22:50)
[2022-02-01] MEDS: levETIRAcetam 500 MG/5 ML ORAL SOLUTION (UNIT-DOSE CUPS) GT SCH ×4 (05:56→22:47)
[2022-02-01] MEDS ORDERED: METOPROLOL TARTRATE 5 MG/5 ML VIAL IVPUSH ONE (06:42)
[2022-02-01] MEDS ORDERED: PROPOFOL 1,000,000 MCG/100 ML VIAL IVPB SCH (07:30)
[2022-02-01] MEDS ORDERED: FENTANYL NS IVPB 500 MCG/100 ML BAG IVPB SCH (07:30)
[2022-02-01] MEDS: ACETAMINOPHEN 1000 MG/100 ML BAG IVPB PRN ×2 (07:48→16:36)
[2022-02-01] MEDS ORDERED: PIPERACILLIN/TAZOB 4.5 GM 4.5 GM in DEXTROSE 5%-WATER 100 ML IVPB SCH (09:00)
[2022-02-01 09:01] LABS: HEMATOCRIT 38.9 % (35.4-49); HEMOGLOBIN 13.4 GM/dL (11.7-16.9); MCH 33.6 pg (25.7-33.7); MCHC 34.5 g/dl (32.0-35.9); MEAN CELL VOLUME 97.6 fl (80-96); MEAN PLT VOLUME 8.1 fl (7.5-11.1); PLATELET COUNT 330 10^3/uL (134-434); RBC 3.99 M/mm3 (4.00-5.60); RDW 13.8 % (11.9-15.9); WHITE BLOOD COUNT 16.1 K/mm3 (4.0-10.0)
[2022-02-01] MEDS: DEXAMETHASONE SOD PHOSPHATE 4 MG/1 ML VIAL IVPUSH SCH ×2 (09:11→22:46)
[2022-02-01] MEDS: MUPIROCIN 2% TOPICAL OINTMENT FOR DECOLONIZATION NS SCH ×2 (09:12→22:46)
[2022-02-01] MEDS: ENOXAPARIN NA (PORCINE) 40 MG/0.4 ML DISP.SYRIN SQ SCH (09:12)
[2022-02-01] MEDS: AMINO ACIDS/PROTEIN HYDROLYS 30 ML LIQUID.PKT PO SCH (09:12)
[2022-02-01 09:23] LABS: ALBUMIN 3.1 g/dl (3.4-5.0); CALCIUM 8.3 mg/dL (8.5-10.1)
[2022-02-01 09:24] LABS: BLOOD UREA NITROGEN 7.8 mg/dL (7-18); MAGNESIUM 2.6 mg/dL (1.8-2.4)
[2022-02-01 09:27] LABS: CREATININE 0.4 mg/dL (0.55-1.3); PHOSPHOROUS 1.8 mg/dL (2.5-4.9)
[2022-02-01 09:28] LABS: BILIRUBIN,TOTAL 0.3 mg/dL (0.2-1); TOT PROT 6.4 g/dl (6.4-8.2)
[2022-02-01] MEDS ORDERED: PANTOPRAZOLE SODIUM 40 MG VIAL IVPUSH SCH (10:00)
[2022-02-01] MEDS ORDERED: AZITHROMYCIN IVPB 500 MG/250 ML BAG IVPB SCH (10:00)
[2022-02-01 10:09] LABS: ARTERIAL BLD GAS O2 SATURATION 97.1 % (95-98); ARTERIAL BLOOD GAS BASE EXCESS 3.3 mmol/L (-2-2); ARTERIAL BLOOD GAS pH 7.427 (7.350-7.450)
[2022-02-01 10:10] LABS: ALLENS TEST POSITIVE; VENT MODE A/C; VENT RATE 16
[2022-02-01] MEDS: PHENYTOIN 100 MG/4 ML U-D CUP GT SCH ×6 (10:42→22:46)
[2022-02-01] MEDS: INSULIN SLIDING SCALE (NOVOLOG) 1 VIAL SQ SCH ×3 (11:12→23:30)
[2022-02-01 12:25] LABS: ANISOCYTOSIS 1+; MACROCYTOSIS 1+
[2022-02-01] MEDS ORDERED: REMDESIVIR 100 MG in SODIUM CHLORIDE 250 ML IVPB SCH (12:32)
[2022-02-01] MEDS: LINEZOLID 600 MG PREMIX BAG 600 MG/300 ML BAG IVPB SCH ×2 (13:07→23:32)
[2022-02-01] MEDS ORDERED: SIMETHICONE 40 MG/0.6 ML BOTTLE GT PRN (13:20)
[2022-02-01] MEDS ORDERED: diazePAM RECTAL GEL 10 MG KIT (PRE-CALIBRATED) RC PRN (13:20)
[2022-02-01] MEDS: PROPOFOL 1,000,000 MCG/100 ML VIAL IVPB SCH ×2 (13:23→19:00)
[2022-02-01] MEDS ORDERED: TIAGABINE HCL 4 MG GT SCH (14:00)
[2022-02-01] MEDS: carBAMazepine 200 MG/10 ML UNIT-DOSE CUP PO SCH ×3 (14:30→23:00)
[2022-02-01] MEDS: TIZANIDINE HCL 2 MG TABLET GT SCH ×2 (16:22→22:51)
[2022-02-01] MEDS ORDERED: LORazepam 2 MG/ML SDV VIAL IVPUSH PRN (19:29)
[2022-02-01] MEDS ORDERED: LINEZOLID 600 MG PREMIX BAG 600 MG/300 ML BAG IVPB SCH (22:00)
[2022-02-01] MEDS: CHLORHEXIDINE GLUCONATE 4% CLEANSER FOR DECOLONIZATION TP SCH (22:47)
[2022-02-01] MEDS: MAGNESIUM HYDROX 2400MG/30ML ORAL SUSPENSION 30 ML CUP GT SCH (22:48)
[2022-02-01] MEDS: SENNOSIDES 8.8 MG/5 ML BULK BOTTLE GT SCH (22:48)
[2022-02-01] MEDS: AMINO ACIDS/PROTEIN HYDROLYS 30 ML LIQUID.PKT GT SCH (22:48)
[2022-02-01] MEDS ORDERED: POTASSIUM PHOSPHATE 30 MM in SODIUM CHLORIDE 250 ML IVPB ONE (23:00)
[2022-02-02] MEDS ORDERED: PIPERACILLIN/TAZOBACTAM 3.375 GM VIAL IVPB ONE ×3 (02:10→15:07)
[2022-02-02] MEDS ORDERED: DEXTROSE 5%-WATER - 50 ML IVPB ONE ×3 (02:11→15:07)
[2022-02-02] MEDS: PIPERACILLIN/TAZOB 3.375 GM 3.375 GM in DEXTROSE 5%-WATER - 50 ML IVPB SCH ×3 (02:59→18:06)
[2022-02-02] MEDS: HEPARIN NA (PORCINE) 5,000 UNITS/ML 1ML VIAL SQ SCH ×3 (06:41→23:11)
[2022-02-02] MEDS: levETIRAcetam 500 MG/5 ML ORAL SOLUTION (UNIT-DOSE CUPS) GT SCH ×3 (06:41→23:11)
[2022-02-02] MEDS: SODIUM CHLORIDE 1 GM TABLET GT SCH ×3 (06:42→23:12)
[2022-02-02] MEDS: TIZANIDINE HCL 2 MG TABLET GT SCH ×3 (06:42→23:12)
[2022-02-02] MEDS: carBAMazepine 200 MG/10 ML UNIT-DOSE CUP PO SCH ×4 (06:42→23:16)
[2022-02-02] MEDS: clonazePAM 0.5 MG TABLET GT SCH ×3 (06:42→23:11)
[2022-02-02] MEDS: INSULIN SLIDING SCALE (NOVOLOG) 1 VIAL SQ SCH ×4 (07:12→23:11)
[2022-02-02 07:16] LABS: BASO % 0.2 % (0-2.0); EOS % 0.1 % (0-4.5); HEMATOCRIT 34.8 % (35.4-49); HEMOGLOBIN 11.9 GM/dL (11.7-16.9); MCH 33.3 pg (25.7-33.7); MCHC 34.3 g/dl (32.0-35.9); MEAN CELL VOLUME 97.1 fl (80-96); MEAN PLT VOLUME 8.5 fl (7.5-11.1); MONO % 3.3 % (3.8-10.2); NEUT % 89.4 % (42.8-82.8); PLATELET COUNT 265 10^3/uL (134-434); RBC 3.58 M/mm3 (4.00-5.60); RDW 13.9 % (11.9-15.9); WHITE BLOOD COUNT 16.7 K/mm3 (4.0-10.0)
[2022-02-02 07:42] LABS: ALBUMIN 2.5 g/dl (3.4-5.0); BLOOD UREA NITROGEN 12.2 mg/dL (7-18); MAGNESIUM 2.9 mg/dL (1.8-2.4)
[2022-02-02 07:45] LABS: CREATININE 0.3 mg/dL (0.55-1.3); PHOSPHOROUS 3.7 mg/dL (2.5-4.9)
[2022-02-02 07:46] LABS: BILIRUBIN,TOTAL 0.3 mg/dL (0.2-1); TOT PROT 5.6 g/dl (6.4-8.2)
[2022-02-02] MEDS ORDERED: ENOXAPARIN NA (PORCINE) 40 MG/0.4 ML DISP.SYRIN SQ SCH (10:00)
[2022-02-02] MEDS: MUPIROCIN 2% TOPICAL OINTMENT FOR DECOLONIZATION NS SCH ×2 (10:00→23:09)
[2022-02-02] MEDS ORDERED: PANTOPRAZOLE SODIUM 40 MG VIAL IVPUSH SCH (10:00)
[2022-02-02] MEDS: AMINO ACIDS/PROTEIN HYDROLYS 30 ML LIQUID.PKT GT SCH ×2 (10:03→23:10)
[2022-02-02] MEDS: DEXAMETHASONE SOD PHOSPHATE 4 MG/1 ML VIAL IVPUSH SCH ×2 (10:03→23:10)
[2022-02-02] MEDS: FAMOTIDINE 40 MG/5 ML ORAL SUSPENSION PEG SCH (10:05)
[2022-02-02] MEDS: PHENYTOIN 100 MG/4 ML U-D CUP GT SCH ×4 (10:07→23:13)
[2022-02-02] MEDS: SIMETHICONE 40 MG/0.6 ML BOTTLE GT PRN (10:14)
[2022-02-02] MEDS: PROPOFOL 1,000,000 MCG/100 ML VIAL IVPB SCH ×2 (10:16→15:25)
[2022-02-02] MEDS: AZITHROMYCIN IVPB 500 MG/250 ML BAG IVPB SCH (10:17)
[2022-02-02] MEDS: REMDESIVIR 100 MG in SODIUM CHLORIDE 250 ML IVPB SCH (12:25)
[2022-02-02] MEDS: LINEZOLID 600 MG PREMIX BAG 600 MG/300 ML BAG IVPB SCH ×2 (15:27→23:13)
[2022-02-02] MEDS: MAGNESIUM HYDROX 2400MG/30ML ORAL SUSPENSION 30 ML CUP GT SCH (23:11)
[2022-02-02] MEDS: CHLORHEXIDINE GLUCONATE 4% CLEANSER FOR DECOLONIZATION TP SCH (23:11)
[2022-02-02] MEDS: SENNOSIDES 8.8 MG/5 ML BULK BOTTLE GT SCH (23:11)
[2022-02-02] MEDS ORDERED: DEXMEDETOMIDINE IN 0.9 % NACL 400 MCG/100 ML VIAL IVPB SCH (23:30)
[2022-02-03] MEDS ORDERED: PIPERACILLIN/TAZOBACTAM 3.375 GM VIAL IVPB ONE ×3 (00:53→17:18)
[2022-02-03] MEDS ORDERED: DEXTROSE 5%-WATER - 50 ML IVPB ONE ×3 (00:53→17:18)
[2022-02-03] MEDS: PIPERACILLIN/TAZOB 3.375 GM 3.375 GM in DEXTROSE 5%-WATER - 50 ML IVPB SCH ×3 (01:21→17:24)
[2022-02-03] MEDS: PROPOFOL 1,000,000 MCG/100 ML VIAL IVPB SCH ×2 (01:21→14:15)
[2022-02-03] MEDS: VANCOMYCIN 250 MG/5 ML ORAL SOLUTION GT SCH ×4 (01:31→17:13)
[2022-02-03 06:25] LABS: HEMATOCRIT 29.1 % (35.4-49); HEMOGLOBIN 10.1 GM/dL (11.7-16.9); MCH 33.9 pg (25.7-33.7); MCHC 34.8 g/dl (32.0-35.9); MEAN CELL VOLUME 97.5 fl (80-96); MEAN PLT VOLUME 8.6 fl (7.5-11.1); PLATELET COUNT 243 10^3/uL (134-434); RBC 2.99 M/mm3 (4.00-5.60); WHITE BLOOD COUNT 13.4 K/mm3 (4.0-10.0)
[2022-02-03] MEDS: HEPARIN NA (PORCINE) 5,000 UNITS/ML 1ML VIAL SQ SCH ×3 (06:33→22:04)
[2022-02-03] MEDS: clonazePAM 0.5 MG TABLET GT SCH ×3 (06:34→22:04)
[2022-02-03] MEDS: levETIRAcetam 500 MG/5 ML ORAL SOLUTION (UNIT-DOSE CUPS) GT SCH ×3 (06:34→22:04)
[2022-02-03] MEDS: TIZANIDINE HCL 2 MG TABLET GT SCH ×3 (06:34→22:05)
[2022-02-03] MEDS: carBAMazepine 200 MG/10 ML UNIT-DOSE CUP PO SCH ×4 (06:35→23:08)
[2022-02-03] MEDS: SODIUM CHLORIDE 1 GM TABLET GT SCH ×3 (06:35→22:05)
[2022-02-03 06:42] LABS: BLOOD UREA NITROGEN 10.4 mg/dL (7-18)
[2022-02-03 06:43] LABS: ALBUMIN 2.4 g/dl (3.4-5.0); CALCIUM 8.2 mg/dL (8.5-10.1); MAGNESIUM 2.4 mg/dL (1.8-2.4)
[2022-02-03] MEDS: INSULIN SLIDING SCALE (NOVOLOG) 1 VIAL SQ SCH ×4 (06:44→22:55)
[2022-02-03 06:46] LABS: CREATININE 0.3 mg/dL (0.55-1.3)
[2022-02-03 06:47] LABS: BILIRUBIN,TOTAL 0.2 mg/dL (0.2-1); TOT PROT 5.3 g/dl (6.4-8.2)
[2022-02-03] MEDS ORDERED: FENTANYL NS IVPB 500 MCG/100 ML BAG IVPB SCH (07:00)
[2022-02-03] MEDS ORDERED: POTASSIUM CHLORIDE ORAL LIQUID 20 MEQ/15 ML PO ONE (07:51)
[2022-02-03 09:59] LABS: ANISOCYTOSIS 0; MACROCYTOSIS 1+
[2022-02-03] MEDS: REMDESIVIR 100 MG in SODIUM CHLORIDE 250 ML IVPB SCH (10:55)
[2022-02-03] MEDS: DEXAMETHASONE SOD PHOSPHATE 4 MG/1 ML VIAL IVPUSH SCH ×2 (10:55→22:03)
[2022-02-03] MEDS: AMINO ACIDS/PROTEIN HYDROLYS 30 ML LIQUID.PKT GT SCH ×2 (10:55→22:03)
[2022-02-03] MEDS: FAMOTIDINE 40 MG/5 ML ORAL SUSPENSION PEG SCH (10:56)
[2022-02-03] MEDS: PHENYTOIN 100 MG/4 ML U-D CUP GT SCH ×4 (10:59→22:03)
[2022-02-03] MEDS: MUPIROCIN 2% TOPICAL OINTMENT FOR DECOLONIZATION NS SCH ×2 (11:00→22:05)
[2022-02-03] MEDS: LINEZOLID 600 MG PREMIX BAG 600 MG/300 ML BAG IVPB SCH (11:07)
[2022-02-03] MEDS: AZITHROMYCIN IVPB 500 MG/250 ML BAG IVPB SCH (11:07)
[2022-02-03] MEDS: MAGNESIUM HYDROX 2400MG/30ML ORAL SUSPENSION 30 ML CUP GT SCH (22:04)
[2022-02-03] MEDS: CHLORHEXIDINE GLUCONATE 4% CLEANSER FOR DECOLONIZATION TP SCH (22:05)
[2022-02-03] MEDS: SENNOSIDES 8.8 MG/5 ML BULK BOTTLE GT SCH (22:05)
[2022-02-04] MEDS ORDERED: PIPERACILLIN/TAZOBACTAM 3.375 GM VIAL IVPB ONE ×4 (00:10→22:54)
[2022-02-04] MEDS ORDERED: DEXTROSE 5%-WATER - 50 ML IVPB ONE ×4 (00:11→22:54)
[2022-02-04] MEDS: LINEZOLID 600 MG PREMIX BAG 600 MG/300 ML BAG IVPB SCH (00:15)
[2022-02-04] MEDS: VANCOMYCIN 250 MG/5 ML ORAL SOLUTION GT SCH ×4 (00:15→17:44)
[2022-02-04] MEDS: PIPERACILLIN/TAZOB 3.375 GM 3.375 GM in DEXTROSE 5%-WATER - 50 ML IVPB SCH ×3 (02:05→17:49)
[2022-02-04] MEDS: HEPARIN NA (PORCINE) 5,000 UNITS/ML 1ML VIAL SQ SCH ×3 (05:22→22:14)
[2022-02-04] MEDS: carBAMazepine 200 MG/10 ML UNIT-DOSE CUP PO SCH ×3 (05:23→17:47)
[2022-02-04] MEDS: SODIUM CHLORIDE 1 GM TABLET GT SCH ×3 (05:23→22:15)
[2022-02-04] MEDS: levETIRAcetam 500 MG/5 ML ORAL SOLUTION (UNIT-DOSE CUPS) GT SCH ×3 (05:23→22:14)
[2022-02-04] MEDS: clonazePAM 0.5 MG TABLET GT SCH ×3 (05:23→22:14)
[2022-02-04] MEDS: TIZANIDINE HCL 4 MG TABLET GT SCH ×3 (05:23→22:15)
[2022-02-04 06:51] LABS: BASO % 0.2 % (0-2.0); EOS % 0.2 % (0-4.5); HEMATOCRIT 29.6 % (35.4-49); HEMOGLOBIN 10.3 GM/dL (11.7-16.9); LYMPH % 16.5 % (8-40); MCHC 34.8 g/dl (32.0-35.9); MEAN CELL VOLUME 97.7 fl (80-96); MEAN PLT VOLUME 8.3 fl (7.5-11.1); MONO % 6.7 % (3.8-10.2); NEUT % 76.4 % (42.8-82.8); PLATELET COUNT 292 10^3/uL (134-434); RBC 3.02 M/mm3 (4.00-5.60); WHITE BLOOD COUNT 4.9 K/mm3 (4.0-10.0)
[2022-02-04] MEDS: INSULIN SLIDING SCALE (NOVOLOG) 1 VIAL SQ SCH ×4 (07:00→22:52)
[2022-02-04 07:08] LABS: CALCIUM 8.3 mg/dL (8.5-10.1)
[2022-02-04 07:09] LABS: ALBUMIN 2.3 g/dl (3.4-5.0); BLOOD UREA NITROGEN 6.3 mg/dL (7-18); MAGNESIUM 2.2 mg/dL (1.8-2.4)
[2022-02-04 07:12] LABS: CREATININE 0.2 mg/dL (0.55-1.3); PHOSPHOROUS 2.5 mg/dL (2.5-4.9)
[2022-02-04 07:13] LABS: TOT PROT 5.5 g/dl (6.4-8.2)
[2022-02-04 07:14] LABS: BILIRUBIN,TOTAL 0.3 mg/dL (0.2-1)
[2022-02-04] MEDS: AZITHROMYCIN IVPB 500 MG/250 ML BAG IVPB SCH (10:10)
[2022-02-04] MEDS: PHENYTOIN 100 MG/4 ML U-D CUP GT SCH ×4 (10:11→22:14)
[2022-02-04] MEDS: FAMOTIDINE 40 MG/5 ML ORAL SUSPENSION PEG SCH (10:14)
[2022-02-04] MEDS: DEXAMETHASONE SOD PHOSPHATE 4 MG/1 ML VIAL IVPUSH SCH (10:25)
[2022-02-04] MEDS: MUPIROCIN 2% TOPICAL OINTMENT FOR DECOLONIZATION NS SCH ×2 (10:26→22:13)
[2022-02-04] MEDS: AMINO ACIDS/PROTEIN HYDROLYS 30 ML LIQUID.PKT GT SCH ×2 (10:29→22:14)
[2022-02-04] MEDS: PROPOFOL 1,000,000 MCG/100 ML VIAL IVPB SCH ×2 (11:19→13:26)
[2022-02-04] MEDS: REMDESIVIR 100 MG in SODIUM CHLORIDE 250 ML IVPB SCH (12:53)
[2022-02-04] MEDS: CHLORHEXIDINE GLUCONATE 4% CLEANSER FOR DECOLONIZATION TP SCH (22:13)
[2022-02-04] MEDS: MAGNESIUM HYDROX 2400MG/30ML ORAL SUSPENSION 30 ML CUP GT SCH (22:14)
[2022-02-04] MEDS: SENNOSIDES 8.8 MG/5 ML BULK BOTTLE GT SCH (22:15)
[2022-02-05] MEDS: VANCOMYCIN 250 MG/5 ML ORAL SOLUTION GT SCH ×5 (00:24→23:45)
[2022-02-05] MEDS: carBAMazepine 200 MG/10 ML UNIT-DOSE CUP PO SCH ×5 (00:24→23:46)
[2022-02-05] MEDS: PIPERACILLIN/TAZOB 3.375 GM 3.375 GM in DEXTROSE 5%-WATER - 50 ML IVPB SCH ×3 (01:20→17:58)
[2022-02-05] MEDS: clonazePAM 0.5 MG TABLET GT SCH ×3 (05:37→21:24)
[2022-02-05] MEDS: SODIUM CHLORIDE 1 GM TABLET GT SCH ×3 (05:37→21:25)
[2022-02-05] MEDS: HEPARIN NA (PORCINE) 5,000 UNITS/ML 1ML VIAL SQ SCH ×3 (05:37→21:23)
[2022-02-05] MEDS: levETIRAcetam 500 MG/5 ML ORAL SOLUTION (UNIT-DOSE CUPS) GT SCH ×3 (05:37→21:23)
[2022-02-05] MEDS: TIZANIDINE HCL 4 MG TABLET GT SCH ×3 (05:38→21:25)
[2022-02-05] MEDS: INSULIN SLIDING SCALE (NOVOLOG) 1 VIAL SQ SCH ×4 (07:10→21:59)
[2022-02-05 07:21] LABS: BASO % 0.6 % (0-2.0); HEMOGLOBIN 10.2 GM/dL (11.7-16.9); LYMPH % 55.3 % (8-40); MCH 33.2 pg (25.7-33.7); MCHC 34.2 g/dl (32.0-35.9); MEAN CELL VOLUME 97.1 fl (80-96); MEAN PLT VOLUME 7.9 fl (7.5-11.1); MONO % 10.5 % (3.8-10.2); NEUT % 27.6 % (42.8-82.8); PLATELET COUNT 360 10^3/uL (134-434); RBC 3.09 M/mm3 (4.00-5.60); RDW 14.2 % (11.9-15.9); WHITE BLOOD COUNT 5.9 K/mm3 (4.0-10.0)
[2022-02-05 07:32] LABS: CHLORIDE 108 mmol/L (98-107); SODIUM 143 mmol/L (136-145)
[2022-02-05 07:34] LABS: ALBUMIN 2.3 g/dl (3.4-5.0); CALCIUM 8.6 mg/dL (8.5-10.1); GLUCOSE,RANDOM 111 mg/dL (74-106)
[2022-02-05 07:35] LABS: CO2 28 mmol/L (21-32); MAGNESIUM 2.1 mg/dL (1.8-2.4)
[2022-02-05 07:36] LABS: SGPT/ALT 39 U/L (13-61)
[2022-02-05 07:37] LABS: CREATININE 0.2 mg/dL (0.55-1.3); PHOSPHOROUS 4.6 mg/dL (2.5-4.9); SGOT/AST 17 U/L (15-37)
[2022-02-05 07:38] LABS: BILIRUBIN,TOTAL 0.2 mg/dL (0.2-1); TOT PROT 5.3 g/dl (6.4-8.2)
[2022-02-05 07:39] LABS: ALK PHOS 75 U/L (45-117)
[2022-02-05 07:43] LABS: ANION GAP 7 MMOL/L (8-16)
[2022-02-05] MEDS ORDERED: PIPERACILLIN/TAZOBACTAM 3.375 GM VIAL IVPB ONE ×2 (08:56→14:41)
[2022-02-05] MEDS ORDERED: DEXTROSE 5%-WATER - 50 ML IVPB ONE ×2 (08:56→14:41)
[2022-02-05] MEDS: KCL 10 MEQ IVPB 10 MEQ/100 ML INFUS.BAG IVPB SCH ×3 (09:10→11:14)
[2022-02-05] MEDS: MUPIROCIN 2% TOPICAL OINTMENT FOR DECOLONIZATION NS SCH ×2 (10:14→21:22)
[2022-02-05] MEDS: DEXAMETHASONE SOD PHOSPHATE 4 MG/1 ML VIAL IVPUSH SCH (10:15)
[2022-02-05] MEDS: PHENYTOIN 100 MG/4 ML U-D CUP GT SCH ×4 (10:17→21:30)
[2022-02-05] MEDS: AMINO ACIDS/PROTEIN HYDROLYS 30 ML LIQUID.PKT GT SCH ×2 (10:20→21:24)
[2022-02-05] MEDS: AZITHROMYCIN IVPB 500 MG/250 ML BAG IVPB SCH (10:20)
[2022-02-05] MEDS: FAMOTIDINE 40 MG/5 ML ORAL SUSPENSION PEG SCH (10:22)
[2022-02-05] MEDS: POTASSIUM CHLORIDE ORAL LIQUID 20 MEQ/15 ML PO SCH ×2 (10:23→21:24)
[2022-02-05] MEDS: REMDESIVIR 100 MG in SODIUM CHLORIDE 250 ML IVPB SCH (11:13)
[2022-02-05] MEDS: PROPOFOL 1,000,000 MCG/100 ML VIAL IVPB SCH (14:49)
[2022-02-05] MEDS: CHLORHEXIDINE GLUCONATE 4% CLEANSER FOR DECOLONIZATION TP SCH (21:23)
[2022-02-05] MEDS: MAGNESIUM HYDROX 2400MG/30ML ORAL SUSPENSION 30 ML CUP GT SCH (21:24)
[2022-02-05] MEDS: SENNOSIDES 8.8 MG/5 ML BULK BOTTLE GT SCH (21:24)
[2022-02-06] MEDS ORDERED: PIPERACILLIN/TAZOBACTAM 3.375 GM VIAL IVPB ONE ×3 (01:29→17:02)
[2022-02-06] MEDS ORDERED: DEXTROSE 5%-WATER - 50 ML IVPB ONE ×3 (01:29→17:02)
[2022-02-06] MEDS: PIPERACILLIN/TAZOB 3.375 GM 3.375 GM in DEXTROSE 5%-WATER - 50 ML IVPB SCH ×3 (01:32→18:02)
[2022-02-06] MEDS: VANCOMYCIN 250 MG/5 ML ORAL SOLUTION GT SCH ×4 (05:30→23:28)
[2022-02-06] MEDS: clonazePAM 0.5 MG TABLET GT SCH ×3 (05:30→21:40)
[2022-02-06] MEDS: SODIUM CHLORIDE 1 GM TABLET GT SCH ×3 (05:30→21:40)
[2022-02-06] MEDS: HEPARIN NA (PORCINE) 5,000 UNITS/ML 1ML VIAL SQ SCH ×3 (05:30→21:40)
[2022-02-06] MEDS: carBAMazepine 200 MG/10 ML UNIT-DOSE CUP PO SCH ×4 (05:30→23:28)
[2022-02-06] MEDS: levETIRAcetam 500 MG/5 ML ORAL SOLUTION (UNIT-DOSE CUPS) GT SCH ×3 (05:30→21:40)
[2022-02-06] MEDS: TIZANIDINE HCL 4 MG TABLET GT SCH ×3 (05:30→21:41)
[2022-02-06] MEDS: INSULIN SLIDING SCALE (NOVOLOG) 1 VIAL SQ SCH ×3 (06:20→22:20)
[2022-02-06 07:00] LABS: BASO % 0.3 % (0-2.0); EOS % 6.6 % (0-4.5); HEMATOCRIT 36.2 % (35.4-49); HEMOGLOBIN 12.5 GM/dL (11.7-16.9); LYMPH % 44.2 % (8-40); MCH 33.9 pg (25.7-33.7); MCHC 34.5 g/dl (32.0-35.9); MEAN CELL VOLUME 98.4 fl (80-96); MEAN PLT VOLUME 8.2 fl (7.5-11.1); MONO % 13.3 % (3.8-10.2); NEUT % 35.6 % (42.8-82.8); PLATELET COUNT 495 10^3/uL (134-434); RBC 3.68 M/mm3 (4.00-5.60); RDW 14.1 % (11.9-15.9); WHITE BLOOD COUNT 7.3 K/mm3 (4.0-10.0)
[2022-02-06 07:25] LABS: CALCIUM 9.3 mg/dL (8.5-10.1)
[2022-02-06 07:26] LABS: BLOOD UREA NITROGEN 6.4 mg/dL (7-18); MAGNESIUM 2.2 mg/dL (1.8-2.4); PHOSPHOROUS 3.9 mg/dL (2.5-4.9)
[2022-02-06 07:28] LABS: BILIRUBIN,TOTAL 0.3 mg/dL (0.2-1)
[2022-02-06 07:29] LABS: CREATININE 0.2 mg/dL (0.55-1.3)
[2022-02-06] MEDS: DEXAMETHASONE SOD PHOSPHATE 4 MG/1 ML VIAL IVPUSH SCH (09:24)
[2022-02-06] MEDS: AMINO ACIDS/PROTEIN HYDROLYS 30 ML LIQUID.PKT GT SCH ×2 (09:25→21:40)
[2022-02-06] MEDS: PHENYTOIN 100 MG/4 ML U-D CUP GT SCH ×4 (09:26→21:40)
[2022-02-06] MEDS: AZITHROMYCIN IVPB 500 MG/250 ML BAG IVPB SCH (09:29)
[2022-02-06] MEDS: REMDESIVIR 100 MG in SODIUM CHLORIDE 250 ML IVPB SCH (12:41)
[2022-02-06] MEDS: SENNOSIDES 8.8 MG/5 ML BULK BOTTLE GT SCH (21:40)
[2022-02-06] MEDS: MAGNESIUM HYDROX 2400MG/30ML ORAL SUSPENSION 30 ML CUP GT SCH (21:40)
[2022-02-06] MEDS: CHLORHEXIDINE GLUCONATE 4% CLEANSER FOR DECOLONIZATION TP SCH (21:40)
[2022-02-07] MEDS ORDERED: PIPERACILLIN/TAZOBACTAM 3.375 GM VIAL IVPB ONE ×2 (00:02→09:13)
[2022-02-07] MEDS ORDERED: DEXTROSE 5%-WATER - 50 ML IVPB ONE ×2 (00:02→09:14)
[2022-02-07] MEDS: PIPERACILLIN/TAZOB 3.375 GM 3.375 GM in DEXTROSE 5%-WATER - 50 ML IVPB SCH ×2 (01:13→09:20)
[2022-02-07] MEDS: levETIRAcetam 500 MG/5 ML ORAL SOLUTION (UNIT-DOSE CUPS) GT SCH ×3 (06:01→22:32)
[2022-02-07] MEDS: HEPARIN NA (PORCINE) 5,000 UNITS/ML 1ML VIAL SQ SCH ×3 (06:01→22:32)
[2022-02-07] MEDS: SODIUM CHLORIDE 1 GM TABLET GT SCH ×3 (06:01→22:32)
[2022-02-07] MEDS: clonazePAM 0.5 MG TABLET GT SCH ×3 (06:02→22:32)
[2022-02-07] MEDS: TIZANIDINE HCL 4 MG TABLET GT SCH ×3 (06:02→22:32)
[2022-02-07] MEDS: carBAMazepine 200 MG/10 ML UNIT-DOSE CUP PO SCH ×3 (06:47→18:55)
[2022-02-07] MEDS: INSULIN SLIDING SCALE (NOVOLOG) 1 VIAL SQ SCH ×4 (06:56→22:57)
[2022-02-07 07:10] LABS: BASO % 0.9 % (0-2.0); EOS % 5.9 % (0-4.5); HEMATOCRIT 36.4 % (35.4-49); HEMOGLOBIN 12.2 GM/dL (11.7-16.9); LYMPH % 48.9 % (8-40); MCH 33.5 pg (25.7-33.7); MCHC 33.6 g/dl (32.0-35.9); MEAN CELL VOLUME 99.8 fl (80-96); MEAN PLT VOLUME 7.8 fl (7.5-11.1); MONO % 13.8 % (3.8-10.2); NEUT % 30.5 % (42.8-82.8); PLATELET COUNT 448 10^3/uL (134-434); RBC 3.65 M/mm3 (4.00-5.60); RDW 14.1 % (11.9-15.9)
[2022-02-07] MEDS: VANCOMYCIN 250 MG/5 ML ORAL SOLUTION GT SCH ×3 (08:16→18:55)
[2022-02-07 08:29] LABS: ALBUMIN 2.8 g/dl (3.4-5.0); BLOOD UREA NITROGEN 8.3 mg/dL (7-18); CALCIUM 8.8 mg/dL (8.5-10.1); MAGNESIUM 2.4 mg/dL (1.8-2.4)
[2022-02-07 08:32] LABS: CREATININE 0.2 mg/dL (0.55-1.3); PHOSPHOROUS 4.1 mg/dL (2.5-4.9)
[2022-02-07 08:33] LABS: BILIRUBIN,TOTAL 0.2 mg/dL (0.2-1)
[2022-02-07 08:34] LABS: TOT PROT 6.2 g/dl (6.4-8.2)
[2022-02-07] MEDS: PHENYTOIN 100 MG/4 ML U-D CUP GT SCH ×4 (09:20→22:31)
[2022-02-07] MEDS: DEXAMETHASONE SOD PHOSPHATE 4 MG/1 ML VIAL IVPUSH SCH (09:21)
[2022-02-07] MEDS: SIMETHICONE 40 MG/0.6 ML BOTTLE GT PRN (11:19)
[2022-02-07] MEDS: AMINO ACIDS/PROTEIN HYDROLYS 30 ML LIQUID.PKT GT SCH ×2 (11:19→22:31)
[2022-02-07] MEDS: FAMOTIDINE 40 MG/5 ML ORAL SUSPENSION PEG SCH ×2 (11:20→19:21)
[2022-02-07] MEDS: REMDESIVIR 100 MG in SODIUM CHLORIDE 250 ML IVPB SCH (12:50)
[2022-02-07] MEDS: MAGNESIUM HYDROX 2400MG/30ML ORAL SUSPENSION 30 ML CUP GT SCH (22:31)
[2022-02-07] MEDS: SENNOSIDES 8.8 MG/5 ML BULK BOTTLE GT SCH (22:32)
[2022-02-07] MEDS: CHLORHEXIDINE GLUCONATE 4% CLEANSER FOR DECOLONIZATION TP SCH (22:32)
[2022-02-08] MEDS: carBAMazepine 200 MG/10 ML UNIT-DOSE CUP PO SCH ×4 (00:16→17:10)
[2022-02-08] MEDS: VANCOMYCIN 250 MG/5 ML ORAL SOLUTION GT SCH ×4 (00:16→17:10)
[2022-02-08] MEDS: SODIUM CHLORIDE 1 GM TABLET GT SCH ×3 (05:40→22:01)
[2022-02-08] MEDS: levETIRAcetam 500 MG/5 ML ORAL SOLUTION (UNIT-DOSE CUPS) GT SCH ×3 (05:40→22:02)
[2022-02-08] MEDS: clonazePAM 0.5 MG TABLET GT SCH ×3 (05:40→22:02)
[2022-02-08] MEDS: HEPARIN NA (PORCINE) 5,000 UNITS/ML 1ML VIAL SQ SCH ×3 (05:40→22:02)
[2022-02-08] MEDS: TIZANIDINE HCL 4 MG TABLET GT SCH ×3 (05:41→22:01)
[2022-02-08] MEDS: INSULIN SLIDING SCALE (NOVOLOG) 1 VIAL SQ SCH ×4 (06:20→22:48)
[2022-02-08 08:55] LABS: BASO % 0.3 % (0-2.0); EOS % 4.6 % (0-4.5); HEMATOCRIT 34.7 % (35.4-49); HEMOGLOBIN 11.9 GM/dL (11.7-16.9); LYMPH % 49.9 % (8-40); MCH 33.8 pg (25.7-33.7); MCHC 34.3 g/dl (32.0-35.9); MEAN CELL VOLUME 98.5 fl (80-96); MEAN PLT VOLUME 7.6 fl (7.5-11.1); MONO % 14.3 % (3.8-10.2); NEUT % 30.9 % (42.8-82.8); PLATELET COUNT 614 10^3/uL (134-434); RBC 3.52 M/mm3 (4.00-5.60); WHITE BLOOD COUNT 6.8 K/mm3 (4.0-10.0)
[2022-02-08 09:26] LABS: ALBUMIN 2.9 g/dl (3.4-5.0); BLOOD UREA NITROGEN 9.3 mg/dL (7-18); CALCIUM 8.8 mg/dL (8.5-10.1); MAGNESIUM 2.6 mg/dL (1.8-2.4)
[2022-02-08 09:29] LABS: CREATININE 0.2 mg/dL (0.55-1.3)
[2022-02-08 09:31] LABS: BILIRUBIN,TOTAL 0.2 mg/dL (0.2-1); TOT PROT 6.3 g/dl (6.4-8.2)
[2022-02-08] MEDS: AMINO ACIDS/PROTEIN HYDROLYS 30 ML LIQUID.PKT GT SCH ×2 (09:50→22:03)
[2022-02-08] MEDS: DEXAMETHASONE SOD PHOSPHATE 4 MG/1 ML VIAL IVPUSH SCH (09:50)
[2022-02-08] MEDS: FAMOTIDINE 40 MG/5 ML ORAL SUSPENSION PEG SCH (09:51)
[2022-02-08] MEDS: PHENYTOIN 100 MG/4 ML U-D CUP GT SCH ×4 (09:51→22:02)
[2022-02-08] MEDS: REMDESIVIR 100 MG in SODIUM CHLORIDE 250 ML IVPB SCH (11:27)
[2022-02-08] MEDS: MAGNESIUM HYDROX 2400MG/30ML ORAL SUSPENSION 30 ML CUP GT SCH (22:01)
[2022-02-08] MEDS: SENNOSIDES 8.8 MG/5 ML BULK BOTTLE GT SCH (22:03)
[2022-02-09] MEDS: carBAMazepine 200 MG/10 ML UNIT-DOSE CUP PO SCH ×2 (01:00→06:45)
[2022-02-09] MEDS: VANCOMYCIN 250 MG/5 ML ORAL SOLUTION GT SCH ×4 (01:00→17:04)
[2022-02-09] MEDS: HEPARIN NA (PORCINE) 5,000 UNITS/ML 1ML VIAL SQ SCH ×3 (06:00→21:30)
[2022-02-09] MEDS: TIZANIDINE HCL 4 MG TABLET GT SCH ×3 (06:00→21:28)
[2022-02-09] MEDS: clonazePAM 0.5 MG TABLET GT SCH (06:00)
[2022-02-09] MEDS: levETIRAcetam 500 MG/5 ML ORAL SOLUTION (UNIT-DOSE CUPS) GT SCH ×3 (06:00→21:29)
[2022-02-09] MEDS: SODIUM CHLORIDE 1 GM TABLET GT SCH ×3 (06:05→21:28)
[2022-02-09] MEDS: INSULIN SLIDING SCALE (NOVOLOG) 1 VIAL SQ SCH ×4 (06:30→21:50)
[2022-02-09] MEDS ORDERED: METOPROLOL TARTRATE 5 MG/5 ML VIAL IVPUSH ONE (06:46)
[2022-02-09] MEDS ORDERED: dilTIAZem HCL 25 MG/5 ML - 5 ML VIAL IVPUSH ONE (06:58)
[2022-02-09] MEDS ORDERED: SIMETHICONE 40 MG/0.6 ML BOTTLE GT PRN (07:11)
[2022-02-09 08:51] LABS: BASO % 0.5 % (0-2.0); EOS % 0.3 % (0-4.5); HEMATOCRIT 37.5 % (35.4-49); HEMOGLOBIN 12.9 GM/dL (11.7-16.9); LYMPH % 12.1 % (8-40); MCH 33.6 pg (25.7-33.7); MCHC 34.4 g/dl (32.0-35.9); MEAN CELL VOLUME 97.6 fl (80-96); MEAN PLT VOLUME 7.3 fl (7.5-11.1); MONO % 5.8 % (3.8-10.2); NEUT % 81.3 % (42.8-82.8); PLATELET COUNT 695 10^3/uL (134-434); RBC 3.84 M/mm3 (4.00-5.60); RDW 14.3 % (11.9-15.9)
[2022-02-09 09:14] LABS: ALBUMIN 3.1 g/dl (3.4-5.0); BLOOD UREA NITROGEN 7.6 mg/dL (7-18); CALCIUM 9.2 mg/dL (8.5-10.1); CREATININE 0.3 mg/dL (0.55-1.3)
[2022-02-09 09:15] LABS: BILIRUBIN,TOTAL 0.3 mg/dL (0.2-1); MAGNESIUM 2.3 mg/dL (1.8-2.4); TOT PROT 6.7 g/dl (6.4-8.2)
[2022-02-09 09:17] LABS: PHOSPHOROUS 2.8 mg/dL (2.5-4.9)
[2022-02-09] MEDS ORDERED: DEXAMETHASONE SOD PHOSPHATE 4 MG/1 ML VIAL IVPUSH SCH (10:00)
[2022-02-09] MEDS: AMINO ACIDS/PROTEIN HYDROLYS 30 ML LIQUID.PKT GT SCH ×2 (10:19→21:29)
[2022-02-09] MEDS: PHENYTOIN 100 MG/4 ML U-D CUP GT SCH ×4 (10:21→21:30)
[2022-02-09] MEDS: FAMOTIDINE 40 MG/5 ML ORAL SUSPENSION PEG SCH (10:22)
[2022-02-09] MEDS: carBAMazepine 200 MG/10 ML UNIT-DOSE CUP GT SCH ×2 (11:06→17:03)
[2022-02-09] MEDS ORDERED: REMDESIVIR 100 MG in SODIUM CHLORIDE 250 ML IVPB SCH (12:00)
[2022-02-09] MEDS: clonazePAM 0.25 MG ODT TABLETS SL SCH ×2 (13:24→21:29)
[2022-02-09] MEDS: MAGNESIUM HYDROX 2400MG/30ML ORAL SUSPENSION 30 ML CUP GT SCH (21:28)
[2022-02-09] MEDS: SENNOSIDES 8.8 MG/5 ML BULK BOTTLE GT SCH (21:30)
[2022-02-10] MEDS: carBAMazepine 200 MG/10 ML UNIT-DOSE CUP GT SCH ×5 (00:26→23:05)
[2022-02-10] MEDS: VANCOMYCIN 250 MG/5 ML ORAL SOLUTION GT SCH ×5 (00:26→23:11)
[2022-02-10] MEDS: SODIUM CHLORIDE 1 GM TABLET GT SCH ×3 (05:40→22:52)
[2022-02-10] MEDS: clonazePAM 0.25 MG ODT TABLETS SL SCH ×3 (05:40→22:51)
[2022-02-10] MEDS: levETIRAcetam 500 MG/5 ML ORAL SOLUTION (UNIT-DOSE CUPS) GT SCH ×3 (05:41→22:52)
[2022-02-10] MEDS: HEPARIN NA (PORCINE) 5,000 UNITS/ML 1ML VIAL SQ SCH ×3 (05:41→22:52)
[2022-02-10] MEDS: TIZANIDINE HCL 4 MG TABLET GT SCH ×3 (05:41→22:51)
[2022-02-10 07:00] LABS: BASO % 0.5 % (0-2.0); EOS % 1.2 % (0-4.5); HEMATOCRIT 35.4 % (35.4-49); HEMOGLOBIN 12.1 GM/dL (11.7-16.9); LYMPH % 25.2 % (8-40); MCH 33.6 pg (25.7-33.7); MCHC 34.1 g/dl (32.0-35.9); MEAN CELL VOLUME 98.5 fl (80-96); MEAN PLT VOLUME 7.5 fl (7.5-11.1); MONO % 8.6 % (3.8-10.2); NEUT % 64.5 % (42.8-82.8); PLATELET COUNT 631 10^3/uL (134-434); RBC 3.59 M/mm3 (4.00-5.60); RDW 14.9 % (11.9-15.9); WHITE BLOOD COUNT 15.3 K/mm3 (4.0-10.0)
[2022-02-10] MEDS: INSULIN SLIDING SCALE (NOVOLOG) 1 VIAL SQ SCH ×4 (07:00→22:39)
[2022-02-10 07:22] LABS: CALCIUM 9.1 mg/dL (8.5-10.1)
[2022-02-10 07:23] LABS: ALBUMIN 2.9 g/dl (3.4-5.0); BLOOD UREA NITROGEN 13.1 mg/dL (7-18); MAGNESIUM 2.4 mg/dL (1.8-2.4)
[2022-02-10 07:26] LABS: CREATININE 0.2 mg/dL (0.55-1.3)
[2022-02-10 07:27] LABS: BILIRUBIN,TOTAL 0.4 mg/dL (0.2-1); TOT PROT 6.5 g/dl (6.4-8.2)
[2022-02-10] MEDS: AMINO ACIDS/PROTEIN HYDROLYS 30 ML LIQUID.PKT GT SCH ×2 (10:32→22:52)
[2022-02-10] MEDS: PHENYTOIN 100 MG/4 ML U-D CUP GT SCH ×4 (10:33→22:52)
[2022-02-10] MEDS: FAMOTIDINE 40 MG/5 ML ORAL SUSPENSION PEG SCH (10:33)
[2022-02-10 12:19] LABS: URINE APPEARANCE CLOUDY; URINE BILIRUBIN NEGATIVE (NEGATIVE); URINE COLOR YELLOW; URINE GLUCOSE (UA) NEGATIVE (NEGATIVE); URINE KETONE NEGATIVE (NEGATIVE); URINE LEUK ESTERASE NEGATIVE (NEGATIVE); URINE NITRITE NEGATIVE (NEGATIVE); URINE PROTEIN TRACE (NEGATIVE); URINE UROBILINOGEN 0.2 mg/dL (0.2-1.0)
[2022-02-10] MEDS ORDERED: PIPERACILLIN/TAZOBACTAM 3.375 GM VIAL IVPB ONE ×2 (12:51→16:18)
[2022-02-10] MEDS ORDERED: DEXTROSE 5%-WATER - 50 ML IVPB ONE ×2 (12:51→16:18)
[2022-02-10] MEDS: PIPERACILLIN/TAZOB 3.375 GM 3.375 GM in DEXTROSE 5%-WATER - 50 ML IVPB SCH ×2 (12:58→17:02)
[2022-02-10] MEDS: methylPREDNISolone NA SUCC 40 MG/1 ML VIAL IVPUSH SCH ×2 (12:58→17:02)
[2022-02-10 14:05] VITALS: BMI 23.3
[2022-02-10] MEDS ORDERED: ALBUTEROL SO4 0.083% IH SOL 2.5 MG/3 ML VIAL.NEB. NEB SCH (16:00)
[2022-02-10] MEDS: SENNOSIDES 8.8 MG/5 ML BULK BOTTLE GT SCH (22:38)
[2022-02-10] MEDS: MAGNESIUM HYDROX 2400MG/30ML ORAL SUSPENSION 30 ML CUP GT SCH (22:52)
[2022-02-11] MEDS ORDERED: PIPERACILLIN/TAZOBACTAM 3.375 GM VIAL IVPB ONE ×3 (01:08→17:09)
[2022-02-11] MEDS ORDERED: DEXTROSE 5%-WATER - 50 ML IVPB ONE ×3 (01:08→17:09)
[2022-02-11] MEDS: PIPERACILLIN/TAZOB 3.375 GM 3.375 GM in DEXTROSE 5%-WATER - 50 ML IVPB SCH ×3 (02:55→17:18)
[2022-02-11] MEDS: methylPREDNISolone NA SUCC 40 MG/1 ML VIAL IVPUSH SCH ×3 (02:55→17:24)
[2022-02-11] MEDS: INSULIN SLIDING SCALE (NOVOLOG) 1 VIAL SQ SCH ×4 (06:31→22:19)
[2022-02-11] MEDS: TIZANIDINE HCL 4 MG TABLET GT SCH ×3 (06:36→21:55)
[2022-02-11] MEDS: VANCOMYCIN 250 MG/5 ML ORAL SOLUTION GT SCH ×3 (06:36→17:29)
[2022-02-11] MEDS: carBAMazepine 200 MG/10 ML UNIT-DOSE CUP GT SCH ×3 (06:36→17:26)
[2022-02-11] MEDS: SODIUM CHLORIDE 1 GM TABLET GT SCH ×3 (06:36→21:55)
[2022-02-11] MEDS: HEPARIN NA (PORCINE) 5,000 UNITS/ML 1ML VIAL SQ SCH ×3 (06:37→21:56)
[2022-02-11] MEDS: clonazePAM 0.25 MG ODT TABLETS SL SCH ×3 (06:37→21:55)
[2022-02-11] MEDS: levETIRAcetam 500 MG/5 ML ORAL SOLUTION (UNIT-DOSE CUPS) GT SCH ×3 (06:46→21:56)
[2022-02-11 08:22] LABS: BASO % 0.5 % (0-2.0); EOS % 0.1 % (0-4.5); HEMATOCRIT 35.5 % (35.4-49); LYMPH % 9.7 % (8-40); MCH 33.4 pg (25.7-33.7); MCHC 33.7 g/dl (32.0-35.9); MEAN CELL VOLUME 99.1 fl (80-96); MEAN PLT VOLUME 7.6 fl (7.5-11.1); MONO % 3.5 % (3.8-10.2); NEUT % 86.2 % (42.8-82.8); PLATELET COUNT 575 10^3/uL (134-434); RBC 3.58 M/mm3 (4.00-5.60); RDW 14.6 % (11.9-15.9); WHITE BLOOD COUNT 11.8 K/mm3 (4.0-10.0)
[2022-02-11 09:35] LABS: BLOOD UREA NITROGEN 10.9 mg/dL (7-18); CALCIUM 9.2 mg/dL (8.5-10.1)
[2022-02-11 09:36] LABS: MAGNESIUM 2.4 mg/dL (1.8-2.4)
[2022-02-11 09:38] LABS: CREATININE 0.2 mg/dL (0.55-1.3); PHOSPHOROUS 3.3 mg/dL (2.5-4.9)
[2022-02-11 09:40] LABS: BILIRUBIN,TOTAL 0.3 mg/dL (0.2-1); TOT PROT 6.4 g/dl (6.4-8.2)
[2022-02-11 09:43] LABS: ALBUMIN 2.9 g/dl (3.4-5.0)
[2022-02-11] MEDS: AMINO ACIDS/PROTEIN HYDROLYS 30 ML LIQUID.PKT GT SCH ×2 (10:50→21:55)
[2022-02-11] MEDS: FAMOTIDINE 40 MG/5 ML ORAL SUSPENSION PEG SCH (10:54)
[2022-02-11] MEDS: PHENYTOIN 100 MG/4 ML U-D CUP GT SCH ×4 (10:57→21:56)
[2022-02-11] MEDS: MAGNESIUM HYDROX 2400MG/30ML ORAL SUSPENSION 30 ML CUP GT SCH (21:55)
[2022-02-11] MEDS: SENNOSIDES 8.8 MG/5 ML BULK BOTTLE GT SCH (22:01)
[2022-02-12] MEDS: carBAMazepine 200 MG/10 ML UNIT-DOSE CUP GT SCH ×4 (01:34→18:06)
[2022-02-12] MEDS: VANCOMYCIN 250 MG/5 ML ORAL SOLUTION GT SCH ×4 (01:34→18:04)
[2022-02-12] MEDS ORDERED: PIPERACILLIN/TAZOBACTAM 3.375 GM VIAL IVPB ONE ×2 (01:35→08:26)
[2022-02-12] MEDS ORDERED: DEXTROSE 5%-WATER - 50 ML IVPB ONE ×3 (01:35→15:23)
[2022-02-12] MEDS: PIPERACILLIN/TAZOB 3.375 GM 3.375 GM in DEXTROSE 5%-WATER - 50 ML IVPB SCH ×2 (01:37→10:24)
[2022-02-12] MEDS: methylPREDNISolone NA SUCC 40 MG/1 ML VIAL IVPUSH SCH (01:37)
[2022-02-12] MEDS: SODIUM CHLORIDE 1 GM TABLET GT SCH ×3 (05:32→21:13)
[2022-02-12] MEDS: TIZANIDINE HCL 2 MG TABLET GT SCH ×3 (05:35→21:13)
[2022-02-12] MEDS: HEPARIN NA (PORCINE) 5,000 UNITS/ML 1ML VIAL SQ SCH ×3 (05:35→21:11)
[2022-02-12] MEDS: levETIRAcetam 500 MG/5 ML ORAL SOLUTION (UNIT-DOSE CUPS) GT SCH ×3 (05:35→21:11)
[2022-02-12] MEDS: clonazePAM 0.25 MG ODT TABLETS SL SCH ×3 (05:35→21:10)
[2022-02-12] MEDS: INSULIN SLIDING SCALE (NOVOLOG) 1 VIAL SQ SCH ×4 (06:53→21:34)
[2022-02-12] MEDS: PHENYTOIN 100 MG/4 ML U-D CUP GT SCH ×4 (10:20→21:13)
[2022-02-12] MEDS: FAMOTIDINE 40 MG/5 ML ORAL SUSPENSION PEG SCH (10:21)
[2022-02-12] MEDS: AMINO ACIDS/PROTEIN HYDROLYS 30 ML LIQUID.PKT GT SCH ×2 (10:24→21:11)
[2022-02-12] MEDS ORDERED: CEFTRIAXONE 1,000 MG in DEXTROSE 5%-WATER - 50 ML IVPB SCH (13:30)
[2022-02-12] MEDS ORDERED: CEFTRIAXONE 1 GM in DEXTROSE 5%-WATER - 50 ML IVPB SCH ×2 (13:41→15:30)
[2022-02-12] MEDS ORDERED: cefTRIAXone SODIUM 1 GM VIAL ONE (15:23)
[2022-02-12] MEDS: MAGNESIUM HYDROX 2400MG/30ML ORAL SUSPENSION 30 ML CUP GT SCH (21:11)
[2022-02-12] MEDS: SENNOSIDES 8.8 MG/5 ML BULK BOTTLE GT SCH (21:12)
[2022-02-13] MEDS: carBAMazepine 200 MG/10 ML UNIT-DOSE CUP GT SCH ×5 (00:22→23:14)
[2022-02-13] MEDS: TIZANIDINE HCL 2 MG TABLET GT SCH ×3 (05:21→22:44)
[2022-02-13] MEDS: HEPARIN NA (PORCINE) 5,000 UNITS/ML 1ML VIAL SQ SCH ×3 (05:22→22:45)
[2022-02-13] MEDS: clonazePAM 0.25 MG ODT TABLETS SL SCH ×3 (05:23→22:45)
[2022-02-13] MEDS: levETIRAcetam 500 MG/5 ML ORAL SOLUTION (UNIT-DOSE CUPS) GT SCH ×3 (05:56→22:45)
[2022-02-13] MEDS: SODIUM CHLORIDE 1 GM TABLET GT SCH ×3 (05:57→22:44)
[2022-02-13] MEDS: INSULIN SLIDING SCALE (NOVOLOG) 1 VIAL SQ SCH ×4 (06:10→22:40)
[2022-02-13 06:56] LABS: HEMATOCRIT 37.4 % (35.4-49); HEMOGLOBIN 12.8 GM/dL (11.7-16.9); MCH 33.6 pg (25.7-33.7); MCHC 34.3 g/dl (32.0-35.9); MEAN CELL VOLUME 97.8 fl (80-96); MEAN PLT VOLUME 7.4 fl (7.5-11.1); PLATELET COUNT 491 10^3/uL (134-434); RBC 3.82 M/mm3 (4.00-5.60); RDW 15.1 % (11.9-15.9); WHITE BLOOD COUNT 8.7 K/mm3 (4.0-10.0)
[2022-02-13] MEDS: AMINO ACIDS/PROTEIN HYDROLYS 30 ML LIQUID.PKT GT SCH ×2 (09:30→22:45)
[2022-02-13] MEDS: PHENYTOIN 100 MG/4 ML U-D CUP GT SCH ×4 (09:30→22:45)
[2022-02-13] MEDS: FAMOTIDINE 40 MG/5 ML ORAL SUSPENSION PEG SCH (09:31)
[2022-02-13] MEDS: VANCOMYCIN 250 MG/5 ML ORAL SOLUTION PEG SCH ×2 (17:07→23:14)
[2022-02-13] MEDS: SENNOSIDES 8.8 MG/5 ML BULK BOTTLE GT SCH (22:40)
[2022-02-13] MEDS: MAGNESIUM HYDROX 2400MG/30ML ORAL SUSPENSION 30 ML CUP GT SCH (22:45)
[2022-02-14] MEDS: HEPARIN NA (PORCINE) 5,000 UNITS/ML 1ML VIAL SQ SCH ×3 (06:05→22:05)
[2022-02-14] MEDS: levETIRAcetam 500 MG/5 ML ORAL SOLUTION (UNIT-DOSE CUPS) GT SCH ×3 (06:05→22:05)
[2022-02-14] MEDS: TIZANIDINE HCL 2 MG TABLET GT SCH ×3 (06:06→21:58)
[2022-02-14] MEDS: clonazePAM 0.25 MG ODT TABLETS SL SCH ×3 (06:06→21:58)
[2022-02-14] MEDS: SODIUM CHLORIDE 1 GM TABLET GT SCH ×3 (06:06→21:58)
[2022-02-14] MEDS: carBAMazepine 200 MG/10 ML UNIT-DOSE CUP GT SCH ×3 (06:06→17:05)
[2022-02-14] MEDS: VANCOMYCIN 250 MG/5 ML ORAL SOLUTION PEG SCH ×3 (06:07→17:00)
[2022-02-14] MEDS: INSULIN SLIDING SCALE (NOVOLOG) 1 VIAL SQ SCH ×4 (06:29→22:17)
[2022-02-14 07:23] LABS: EOS % 2.5 % (0-4.5); HEMOGLOBIN 13.1 GM/dL (11.7-16.9); LYMPH % 26.8 % (8-40); MCH 33.8 pg (25.7-33.7); MCHC 34.5 g/dl (32.0-35.9); MEAN CELL VOLUME 98.1 fl (80-96); MEAN PLT VOLUME 8.2 fl (7.5-11.1); MONO % 13.2 % (3.8-10.2); NEUT % 56.5 % (42.8-82.8); PLATELET COUNT 525 10^3/uL (134-434); RBC 3.88 M/mm3 (4.00-5.60); WHITE BLOOD COUNT 9.2 K/mm3 (4.0-10.0)
[2022-02-14 07:39] LABS: CALCIUM 9.7 mg/dL (8.5-10.1)
[2022-02-14 07:40] LABS: BLOOD UREA NITROGEN 13.8 mg/dL (7-18)
[2022-02-14 07:43] LABS: CREATININE 0.3 mg/dL (0.55-1.3)
[2022-02-14] MEDS: AMINO ACIDS/PROTEIN HYDROLYS 30 ML LIQUID.PKT GT SCH ×2 (09:58→21:58)
[2022-02-14] MEDS: FAMOTIDINE 40 MG/5 ML ORAL SUSPENSION PEG SCH (09:58)
[2022-02-14] MEDS: PHENYTOIN 100 MG/4 ML U-D CUP GT SCH ×4 (10:44→22:04)
[2022-02-14] MEDS: SENNOSIDES 8.8 MG/5 ML BULK BOTTLE GT SCH (21:58)
[2022-02-14] MEDS: MAGNESIUM HYDROX 2400MG/30ML ORAL SUSPENSION 30 ML CUP GT SCH (22:05)
[2022-02-15] MEDS: VANCOMYCIN 250 MG/5 ML ORAL SOLUTION PEG SCH ×4 (00:33→17:02)
[2022-02-15] MEDS: carBAMazepine 200 MG/10 ML UNIT-DOSE CUP GT SCH ×4 (00:34→17:02)
[2022-02-15] MEDS: clonazePAM 0.25 MG ODT TABLETS SL SCH ×3 (05:29→22:17)
[2022-02-15] MEDS: TIZANIDINE HCL 2 MG TABLET GT SCH ×3 (05:29→22:17)
[2022-02-15] MEDS: levETIRAcetam 500 MG/5 ML ORAL SOLUTION (UNIT-DOSE CUPS) GT SCH ×3 (05:30→22:17)
[2022-02-15] MEDS: SODIUM CHLORIDE 1 GM TABLET GT SCH ×2 (05:30→22:17)
[2022-02-15] MEDS: HEPARIN NA (PORCINE) 5,000 UNITS/ML 1ML VIAL SQ SCH ×3 (05:31→22:17)
[2022-02-15] MEDS: INSULIN SLIDING SCALE (NOVOLOG) 1 VIAL SQ SCH ×4 (06:13→22:18)
[2022-02-15 08:30] LABS: HEMATOCRIT 42.8 % (35.4-49); HEMOGLOBIN 14.3 GM/dL (11.7-16.9); MCH 33.5 pg (25.7-33.7); MCHC 33.5 g/dl (32.0-35.9); MEAN CELL VOLUME 99.9 fl (80-96); MEAN PLT VOLUME 8.5 fl (7.5-11.1); PLATELET COUNT 513 10^3/uL (134-434); RBC 4.28 M/mm3 (4.00-5.60); RDW 15.5 % (11.9-15.9); WHITE BLOOD COUNT 9.8 K/mm3 (4.0-10.0)
[2022-02-15 08:47] LABS: CALCIUM 10.2 mg/dL (8.5-10.1)
[2022-02-15 08:48] LABS: BLOOD UREA NITROGEN 15.2 mg/dL (7-18)
[2022-02-15 08:51] LABS: CREATININE 0.4 mg/dL (0.55-1.3)
[2022-02-15 08:53] LABS: BILIRUBIN,TOTAL 0.3 mg/dL (0.2-1); TOT PROT 7.5 g/dl (6.4-8.2)
[2022-02-15 09:03] LABS: ALBUMIN 3.6 g/dl (3.4-5.0)
[2022-02-15] MEDS: FAMOTIDINE 40 MG/5 ML ORAL SUSPENSION PEG SCH (11:03)
[2022-02-15] MEDS: PHENYTOIN 100 MG/4 ML U-D CUP GT SCH ×4 (11:03→22:17)
[2022-02-15] MEDS: AMINO ACIDS/PROTEIN HYDROLYS 30 ML LIQUID.PKT GT SCH ×2 (11:03→22:18)
[2022-02-15] MEDS: MAGNESIUM HYDROX 2400MG/30ML ORAL SUSPENSION 30 ML CUP GT SCH (22:17)
[2022-02-15] MEDS: SENNOSIDES 8.8 MG/5 ML BULK BOTTLE GT SCH (22:18)
[2022-02-16] MEDS: carBAMazepine 200 MG/10 ML UNIT-DOSE CUP GT SCH ×4 (01:00→17:10)
[2022-02-16] MEDS: VANCOMYCIN 250 MG/5 ML ORAL SOLUTION PEG SCH ×4 (01:00→17:11)
[2022-02-16] MEDS: TIZANIDINE HCL 2 MG TABLET GT SCH ×3 (05:17→22:41)
[2022-02-16] MEDS: clonazePAM 0.25 MG ODT TABLETS SL SCH ×3 (05:17→22:41)
[2022-02-16] MEDS: levETIRAcetam 500 MG/5 ML ORAL SOLUTION (UNIT-DOSE CUPS) GT SCH ×3 (05:17→22:53)
[2022-02-16] MEDS: HEPARIN NA (PORCINE) 5,000 UNITS/ML 1ML VIAL SQ SCH ×3 (05:17→22:53)
[2022-02-16] MEDS: INSULIN SLIDING SCALE (NOVOLOG) 1 VIAL SQ SCH ×4 (06:21→22:54)
[2022-02-16 08:31] LABS: ALBUMIN 3.3 g/dl (3.4-5.0); BLOOD UREA NITROGEN 15.9 mg/dL (7-18); MAGNESIUM 2.5 mg/dL (1.8-2.4)
[2022-02-16 08:34] LABS: CREATININE 0.3 mg/dL (0.55-1.3); PHOSPHOROUS 4.1 mg/dL (2.5-4.9)
[2022-02-16 08:35] LABS: BILIRUBIN,TOTAL 0.5 mg/dL (0.2-1); TOT PROT 7.2 g/dl (6.4-8.2)
[2022-02-16 09:27] LABS: BASO % 1.2 % (0-2.0); EOS % 3.3 % (0-4.5); HEMOGLOBIN 14.7 GM/dL (11.7-16.9); LYMPH % 30.7 % (8-40); MCH 34.1 pg (25.7-33.7); MCHC 34.2 g/dl (32.0-35.9); MEAN CELL VOLUME 99.9 fl (80-96); MEAN PLT VOLUME 8.5 fl (7.5-11.1); MONO % 11.2 % (3.8-10.2); NEUT % 53.6 % (42.8-82.8); PLATELET COUNT 432 10^3/uL (134-434); RDW 15.6 % (11.9-15.9); WHITE BLOOD COUNT 7.7 K/mm3 (4.0-10.0)
[2022-02-16] MEDS: FAMOTIDINE 40 MG/5 ML ORAL SUSPENSION PEG SCH (11:03)
[2022-02-16] MEDS: SODIUM CHLORIDE 1 GM TABLET GT SCH ×2 (11:03→22:41)
[2022-02-16] MEDS: AMINO ACIDS/PROTEIN HYDROLYS 30 ML LIQUID.PKT GT SCH ×2 (11:03→22:54)
[2022-02-16] MEDS: PHENYTOIN 100 MG/4 ML U-D CUP GT SCH ×4 (11:06→22:54)
[2022-02-16] MEDS: SENNOSIDES 8.8 MG/5 ML BULK BOTTLE GT SCH (22:53)
[2022-02-16] MEDS: MAGNESIUM HYDROX 2400MG/30ML ORAL SUSPENSION 30 ML CUP GT SCH (22:53)
[2022-02-17] MEDS: carBAMazepine 200 MG/10 ML UNIT-DOSE CUP GT SCH ×4 (00:56→17:18)
[2022-02-17] MEDS: VANCOMYCIN 250 MG/5 ML ORAL SOLUTION PEG SCH (00:56)
[2022-02-17] MEDS: clonazePAM 0.25 MG ODT TABLETS SL SCH ×3 (06:24→22:03)
[2022-02-17] MEDS: TIZANIDINE HCL 2 MG TABLET GT SCH ×3 (06:24→22:03)
[2022-02-17] MEDS: levETIRAcetam 500 MG/5 ML ORAL SOLUTION (UNIT-DOSE CUPS) GT SCH ×3 (06:31→22:04)
[2022-02-17] MEDS: HEPARIN NA (PORCINE) 5,000 UNITS/ML 1ML VIAL SQ SCH ×3 (06:31→22:04)
[2022-02-17] MEDS: INSULIN SLIDING SCALE (NOVOLOG) 1 VIAL SQ SCH ×4 (06:31→22:05)
[2022-02-17] MEDS: AMINO ACIDS/PROTEIN HYDROLYS 30 ML LIQUID.PKT GT SCH ×2 (10:14→22:04)
[2022-02-17] MEDS: PHENYTOIN 100 MG/4 ML U-D CUP GT SCH ×4 (10:16→22:04)
[2022-02-17] MEDS: SODIUM CHLORIDE 1 GM TABLET GT SCH ×2 (10:18→22:03)
[2022-02-17] MEDS: FAMOTIDINE 40 MG/5 ML ORAL SUSPENSION PEG SCH (10:32)
[2022-02-17] MEDS: MAGNESIUM HYDROX 2400MG/30ML ORAL SUSPENSION 30 ML CUP GT SCH (22:04)
[2022-02-17] MEDS: SENNOSIDES 8.8 MG/5 ML BULK BOTTLE GT SCH (22:05)
[2022-02-18] MEDS: carBAMazepine 200 MG/10 ML UNIT-DOSE CUP GT SCH ×5 (01:02→23:11)
[2022-02-18] MEDS: clonazePAM 0.25 MG ODT TABLETS SL SCH ×3 (06:41→21:37)
[2022-02-18] MEDS: HEPARIN NA (PORCINE) 5,000 UNITS/ML 1ML VIAL SQ SCH ×3 (06:41→21:38)
[2022-02-18] MEDS: TIZANIDINE HCL 2 MG TABLET GT SCH ×3 (06:41→21:38)
[2022-02-18] MEDS: levETIRAcetam 500 MG/5 ML ORAL SOLUTION (UNIT-DOSE CUPS) GT SCH ×3 (06:41→21:38)
[2022-02-18] MEDS: INSULIN SLIDING SCALE (NOVOLOG) 1 VIAL SQ SCH ×4 (06:42→21:37)
[2022-02-18] MEDS: PHENYTOIN 100 MG/4 ML U-D CUP GT SCH ×4 (10:32→21:37)
[2022-02-18] MEDS: FAMOTIDINE 40 MG/5 ML ORAL SUSPENSION PEG SCH (10:33)
[2022-02-18] MEDS: AMINO ACIDS/PROTEIN HYDROLYS 30 ML LIQUID.PKT GT SCH ×2 (10:33→21:37)
[2022-02-18] MEDS: SODIUM CHLORIDE 1 GM TABLET GT SCH ×2 (10:35→21:37)
[2022-02-18] MEDS: MAGNESIUM HYDROX 2400MG/30ML ORAL SUSPENSION 30 ML CUP GT SCH (21:38)
[2022-02-18] MEDS: SENNOSIDES 8.8 MG/5 ML BULK BOTTLE GT SCH (21:38)
[2022-02-18] MEDS ORDERED: SCOPOLAMINE HYDROBROMIDE 1 PATCH PATCH.TD72 TD SCH (22:15)
[2022-02-19] MEDS: clonazePAM 0.25 MG ODT TABLETS SL SCH ×2 (06:13→15:13)
[2022-02-19] MEDS: HEPARIN NA (PORCINE) 5,000 UNITS/ML 1ML VIAL SQ SCH ×2 (06:13→15:13)
[2022-02-19] MEDS: carBAMazepine 200 MG/10 ML UNIT-DOSE CUP GT SCH ×2 (06:14→12:28)
[2022-02-19] MEDS: levETIRAcetam 500 MG/5 ML ORAL SOLUTION (UNIT-DOSE CUPS) GT SCH ×2 (06:14→15:13)
[2022-02-19] MEDS: TIZANIDINE HCL 2 MG TABLET GT SCH ×2 (06:15→15:14)
[2022-02-19] MEDS: INSULIN SLIDING SCALE (NOVOLOG) 1 VIAL SQ SCH ×3 (06:58→15:41)
[2022-02-19] MEDS: PHENYTOIN 100 MG/4 ML U-D CUP GT SCH ×2 (09:04→15:13)
[2022-02-19] MEDS: AMINO ACIDS/PROTEIN HYDROLYS 30 ML LIQUID.PKT GT SCH (09:04)
[2022-02-19] MEDS: FAMOTIDINE 40 MG/5 ML ORAL SUSPENSION PEG SCH (09:04)
[2022-02-19] MEDS: SODIUM CHLORIDE 1 GM TABLET GT SCH (09:04)
[2022-02-19 15:14] VITALS: BP 106/66; PULSE 101; TEMP 99
== END 2022-02-19 16:33 | disposition home or self-care (01) | DRG 870 ==
LOC: JER 00:52 → JERBED 02:37 → J4S 22:23 → JICU 02-01 07:30 → J4S 02-08 00:14
PROVIDERS: ADMIT Internal Medicine; ATTEND Internal Medicine
PROC: 5A1955Z Respiratory Ventilation, Greater than 96 Consecutive Hours (ICD-10-PCS; principal; 2022-02-01)
PROC: 0BH17EZ Insertion of Endotracheal Airway into Trachea, Via Natural or Artificial Opening (ICD-10-PCS; 2022-02-01)
PROC: XW033E5 Introduction of Remdesivir Anti-infective into Peripheral Vein, Percutaneous Approach, New Technology Group 5 (ICD-10-PCS; 2022-02-10)
DX: A41.89 Other specified sepsis (principal); U07.1 COVID-19; J12.82 Pneumonia due to coronavirus disease 2019; J96.01 Acute respiratory failure with hypoxia; I21.A1 Myocardial infarction type 2; R53.2 Functional quadriplegia; A04.72 Enterocolitis due to Clostridium difficile, not specified as recurrent; N39.0 Urinary tract infection, site not specified; E87.0 Hyperosmolality and hypernatremia; J98.11 Atelectasis; E87.1 Hypo-osmolality and hyponatremia; J90 Pleural effusion, not elsewhere classified; G80.9 Cerebral palsy, unspecified; G40.909 Epilepsy, unspecified, not intractable, without status epilepticus; R74.01 Elevation of levels of liver transaminase levels; D72.829 Elevated white blood cell count, unspecified; K21.9 Gastro-esophageal reflux disease without esophagitis; B96.20 Unspecified Escherichia coli [E. coli] as the cause of diseases classified elsewhere
CPT/HCPCS: 0241U-QW; 36415; 36600; 71045-TC-FY; 71275-TC; 80048; 80053; 81003; 82272; 82308; 82550; 82553; 82728; 82803; 82962; 83605; 83735; 84100; 84484; 85025; 85027; 85379; 85610; 85651; 85730; 86140; 86480; 87040; 87045; 87046; 87070; 87086; 87116; 87177; 87186; 87205; 87206; 87209; 87324; 87449; 87899; 93005; 93010; 93306-TC; 93970-TC; 94002; 94761; 99291; C9399; C9803-CS; J1100; J1644; Q9967; U0003; U0005

== ENCOUNTER 2022-07-14 07:52 | Inpatient (IN) | payer OTHER ==
[2022-07-14] MEDS ORDERED: DEXAMETHASONE SOD PHOSPHATE 10 MG/1 ML VIAL IVPUSH ONE (08:04)
[2022-07-14] MEDS ORDERED: MAGNESIUM SULF 50% (8.12 MEQ/2 ML-1 GM VIAL) IVPB ONE (08:08)
[2022-07-14] MEDS ORDERED: MAGNESIUM SULFATE IN WATER 2 GM/50 ML IVPB IVPB ONE (09:38)
[2022-07-14] MEDS ORDERED: DEXAMETHASONE SOD PHOSPHATE 10 MG/1 ML VIAL ONE (09:38)
[2022-07-14 09:58] LABS: BASO % 0.5 % (0-2.0); EOS % 0.4 % (0-4.5); HEMATOCRIT 48.3 % (35.4-49); HEMOGLOBIN 16.4 GM/dL (11.7-16.9); LYMPH % 8.3 % (8-40); MCH 34.3 pg (25.7-33.7); MEAN CELL VOLUME 100.8 fl (80-96); MEAN PLT VOLUME 8.9 fl (7.5-11.1); MONO % 4.5 % (3.8-10.2); NEUT % 86.3 % (42.8-82.8); PLATELET COUNT 364 10^3/uL (134-434); RBC 4.79 M/mm3 (4.00-5.60); RDW 14.3 % (11.9-15.9); WHITE BLOOD COUNT 10.6 K/mm3 (4.0-10.0)
[2022-07-14 10:04] LABS: VENOUS O2 SATURATION 42.4 % (70-80); VENOUS PH 7.209 (7.310-7.410)
[2022-07-14 10:08] LABS: VENOUS PCO2 72.8 mmHg (38-52)
[2022-07-14 10:09] LABS: URINE APPEARANCE CLEAR; URINE BILIRUBIN NEGATIVE (NEGATIVE); URINE COLOR YELLOW; URINE GLUCOSE (UA) 1+ (NEGATIVE); URINE KETONE NEGATIVE (NEGATIVE); URINE LEUK ESTERASE NEGATIVE (NEGATIVE); URINE NITRITE NEGATIVE (NEGATIVE); URINE PROTEIN TRACE (NEGATIVE); URINE UROBILINOGEN 0.2 mg/dL (0.2-1.0)
[2022-07-14 10:18] LABS: CHLORIDE 93 mmol/L (98-107); SODIUM 129 mmol/L (136-145)
[2022-07-14 10:19] LABS: ALBUMIN 4.3 g/dl (3.4-5.0); CALCIUM 8.8 mg/dL (8.5-10.1); CO2 28 mmol/L (21-32); GLUCOSE,RANDOM 84 mg/dL (74-106)
[2022-07-14 10:20] LABS: BLOOD UREA NITROGEN 10.4 mg/dL (7-18)
[2022-07-14 10:24] LABS: CREATININE 0.5 mg/dL (0.55-1.3); TOT PROT 9.9 g/dl (6.4-8.2)
[2022-07-14 10:25] LABS: ALK PHOS 198 U/L (45-117)
[2022-07-14 10:39] LABS: LACTIC ACID 3.7 mmol/L (0.4-2.0)
[2022-07-14] MEDS ORDERED: SODIUM CHLORIDE 0.9% 500 ML INFUS.BAG IV ONE (10:53)
[2022-07-14 11:16] LABS: ANION GAP 8 MMOL/L (8-16); SGOT/AST 172 U/L (15-37); SGPT/ALT 130 U/L (13-61)
[2022-07-14 12:36] LABS: VENOUS BASE EXCESS -0.9 mmol/L (-2-2); VENOUS O2 SATURATION 74.1 % (70-80); VENOUS PCO2 53.5 mmHg (38-52); VENOUS PH 7.31 (7.310-7.410)
[2022-07-14 12:44] LABS: INR 1.03 (0.83-1.09); PROTHROMBIN TIME (PATIENT) 11.9 SEC (9.7-13.0)
[2022-07-14 12:47] LABS: ACTIVATED PTT 32.7 SECONDS (25.2-36.5)
[2022-07-14 13:03] LABS: CALCIUM 8.3 mg/dL (8.5-10.1)
[2022-07-14 13:04] LABS: BLOOD UREA NITROGEN 7.8 mg/dL (7-18)
[2022-07-14 13:07] LABS: CREATININE 0.3 mg/dL (0.55-1.3)
[2022-07-14 13:56] LABS: BILIRUBIN,DIRECT 0.2 mg/dL (0.0-0.2)
[2022-07-14 13:58] LABS: BILIRUBIN,TOTAL 0.4 mg/dL (0.2-1)
[2022-07-14] MEDS ORDERED: PIPERACILLIN/TAZOB 3.375 GM 3.375 GM in DEXTROSE 5%-WATER - 50 ML IVPB ONE (14:14)
[2022-07-14] MEDS ORDERED: VANCOMYCIN 1 GM in D5W (PRE-DOCKED) 1,000 MG/250 ML IVPB ONE (14:14)
[2022-07-14] MEDS ORDERED: VANCOMYCIN/WATER FOR INJ (PEG) 1,000 MG/200 ML BAG IVPB ONE (14:24)
[2022-07-14] MEDS ORDERED: PIPERACILLIN/TAZOB 3.375 GM 3.375 GM/50 ML BAG IVPB ONE (14:24)
[2022-07-14] MEDS ORDERED: BISACODYL 10 MG SUPP.RECT PR PRN (14:55)
[2022-07-14] MEDS ORDERED: diazePAM RECTAL GEL 10 MG KIT (PRE-CALIBRATED) RC PRN (14:55)
[2022-07-14] MEDS ORDERED: LYTES/YERBA SANTA 60 ML SPRAY MM PRN (14:55)
[2022-07-14] MEDS ORDERED: SIMETHICONE 40 MG/0.6 ML BOTTLE GT PRN (14:55)
[2022-07-14] MEDS ORDERED: ALBUTEROL SO4 2.5/IPRATROPIUM 0.5 INH SOL 3 ML VIAL.NEB. NEB PRN (15:00)
[2022-07-14] MEDS ORDERED: LACTOSE REDUCED FOOD GT SCH (18:00)
[2022-07-14] MEDS ORDERED: FIBER GT SCH (18:00)
[2022-07-14] MEDS ORDERED: [UNRECOGNIZED DRUG - OTHER] GT SCH (18:00)
[2022-07-14] MEDS ORDERED: ACETAMINOPHEN 1000 MG/100 ML BAG IVPB PRN (18:13)
[2022-07-14] MEDS ORDERED: PATIENT'S OWN MEDICATION (NON-FORMULARY) (Carbamazepine [Carbamazepine Er] 100 MG Cpmp.12h GT SCH (22:00)
[2022-07-14] MEDS: carBAMazepine 100 MG/5 ML UNIT-DOSE CUP GT SCH (22:00)
[2022-07-14] MEDS: AMINO ACIDS/PROTEIN HYDROLYS 30 ML LIQUID.PKT PO SCH (22:40)
[2022-07-14] MEDS: guaiFENesin 200 MG/10 ML 10 ML UNIT-DOSE CUPS GT SCH (22:40)
[2022-07-14] MEDS: levETIRAcetam 500 MG/5 ML ORAL SOLUTION (UNIT-DOSE CUPS) GT SCH (22:40)
[2022-07-14] MEDS: MAGNESIUM HYDROX 2400MG/30ML ORAL SUSPENSION 30 ML CUP GT SCH (22:40)
[2022-07-14] MEDS: clonazePAM 0.5 MG TABLET GT SCH (22:41)
[2022-07-14] MEDS: methylPREDNISolone NA SUCC 40 MG/1 ML VIAL IVPUSH SCH (22:41)
[2022-07-15] MEDS: PHENYTOIN 100 MG/4 ML U-D CUP GT SCH ×5 (00:49→17:37)
[2022-07-15] MEDS: SENNOSIDES 8.8 MG/5 ML BULK BOTTLE GT SCH ×2 (00:50→23:24)
[2022-07-15] MEDS: methylPREDNISolone NA SUCC 40 MG/1 ML VIAL IVPUSH SCH ×4 (02:50→20:21)
[2022-07-15] MEDS: BENZOYL PEROXIDE 5% 60 GM GEL..GRAM. TP SCH ×3 (02:52→23:31)
[2022-07-15] MEDS: CALCIUM 500MG/VIT-D 200 UNITS COMBO TABLET (FP) GT SCH ×2 (02:52→23:23)
[2022-07-15] MEDS: levETIRAcetam 500 MG/5 ML ORAL SOLUTION (UNIT-DOSE CUPS) GT SCH ×3 (06:10→23:22)
[2022-07-15] MEDS: clonazePAM 0.5 MG TABLET GT SCH ×3 (06:10→23:23)
[2022-07-15] MEDS: guaiFENesin 200 MG/10 ML 10 ML UNIT-DOSE CUPS GT SCH ×2 (10:06→23:24)
[2022-07-15] MEDS: ENOXAPARIN NA (PORCINE) 40 MG/0.4 ML DISP.SYRIN SQ SCH (10:09)
[2022-07-15] MEDS: AMINO ACIDS/PROTEIN HYDROLYS 30 ML LIQUID.PKT PO SCH ×2 (10:10→23:24)
[2022-07-15] MEDS: LACTOBACILLUS ACIDOPHILUS 1 TABLET GT SCH (10:10)
[2022-07-15] MEDS: carBAMazepine 100 MG/5 ML UNIT-DOSE CUP GT SCH ×4 (10:11→23:21)
[2022-07-15] MEDS: CHOLECALCIFEROL (VIT D3) 1,000 UNIT (25 MCG) TABLET GT SCH (10:15)
[2022-07-15 11:14] LABS: BASO % 0.3 % (0-2.0); HEMATOCRIT 40.6 % (35.4-49); HEMOGLOBIN 13.7 GM/dL (11.7-16.9); LYMPH % 6.9 % (8-40); MCH 33.7 pg (25.7-33.7); MCHC 33.7 g/dl (32.0-35.9); MEAN CELL VOLUME 100.2 fl (80-96); MEAN PLT VOLUME 9.1 fl (7.5-11.1); NEUT % 89.8 % (42.8-82.8); PLATELET COUNT 345 10^3/uL (134-434); RBC 4.05 M/mm3 (4.00-5.60); WHITE BLOOD COUNT 16.2 K/mm3 (4.0-10.0)
[2022-07-15 11:27] LABS: CALCIUM 8.9 mg/dL (8.5-10.1)
[2022-07-15 11:29] LABS: ALBUMIN 3.7 g/dl (3.4-5.0); BLOOD UREA NITROGEN 10.6 mg/dL (7-18)
[2022-07-15 11:32] LABS: CREATININE 0.3 mg/dL (0.55-1.3)
[2022-07-15 11:33] LABS: BILIRUBIN,TOTAL 0.3 mg/dL (0.2-1)
[2022-07-15 11:35] LABS: TOT PROT 7.3 g/dl (6.4-8.2)
[2022-07-15] MEDS ORDERED: TIAGABINE HCL 4 MG GT SCH (14:30)
[2022-07-15] MEDS: TIAGABINE HCL 4 MG GT SCH ×3 (15:01→23:26)
[2022-07-15] MEDS: MAGNESIUM HYDROX 2400MG/30ML ORAL SUSPENSION 30 ML CUP GT SCH (23:23)
[2022-07-15] MEDS: PHENYTOIN ORAL SUSP 125 MG/5 ML GT SCH (23:23)
[2022-07-16] MEDS: methylPREDNISolone NA SUCC 40 MG/1 ML VIAL IVPUSH SCH ×4 (02:13→21:45)
[2022-07-16] MEDS: clonazePAM 0.5 MG TABLET GT SCH ×3 (05:09→21:46)
[2022-07-16] MEDS: levETIRAcetam 500 MG/5 ML ORAL SOLUTION (UNIT-DOSE CUPS) GT SCH ×3 (05:09→21:47)
[2022-07-16] MEDS: TIAGABINE HCL 4 MG GT SCH ×3 (05:09→21:48)
[2022-07-16] MEDS: CHOLECALCIFEROL (VIT D3) 1,000 UNIT (25 MCG) TABLET GT SCH (11:08)
[2022-07-16] MEDS: LACTOBACILLUS ACIDOPHILUS 1 TABLET GT SCH (11:09)
[2022-07-16] MEDS: guaiFENesin 200 MG/10 ML 10 ML UNIT-DOSE CUPS GT SCH ×2 (11:09→21:49)
[2022-07-16] MEDS: AMINO ACIDS/PROTEIN HYDROLYS 30 ML LIQUID.PKT PO SCH (11:10)
[2022-07-16] MEDS: PHENYTOIN ORAL SUSP 125 MG/5 ML GT SCH ×4 (11:10→22:17)
[2022-07-16] MEDS: ENOXAPARIN NA (PORCINE) 40 MG/0.4 ML DISP.SYRIN SQ SCH (11:10)
[2022-07-16] MEDS: VANCOMYCIN/WATER FOR INJ (PEG) 1,000 MG/200 ML BAG IVPB SCH (11:11)
[2022-07-16] MEDS: carBAMazepine 100 MG/5 ML UNIT-DOSE CUP GT SCH ×4 (11:12→21:48)
[2022-07-16] MEDS: BENZOYL PEROXIDE 5% 60 GM GEL..GRAM. TP SCH ×2 (14:20→21:49)
[2022-07-16] MEDS: AMINO ACIDS/PROTEIN HYDROLYS 30 ML LIQUID.PKT GT SCH (21:45)
[2022-07-16] MEDS: SENNOSIDES 8.8 MG/5 ML BULK BOTTLE GT SCH (21:47)
[2022-07-16] MEDS: CALCIUM 500MG/VIT-D 200 UNITS COMBO TABLET (FP) GT SCH (21:47)
[2022-07-16] MEDS: MAGNESIUM HYDROX 2400MG/30ML ORAL SUSPENSION 30 ML CUP GT SCH (21:49)
[2022-07-16] MEDS ORDERED: ACETAMINOPHEN 1000 MG/100 ML BAG IVPB ONE (23:30)
[2022-07-17] MEDS: VANCOMYCIN/WATER FOR INJ (PEG) 1,000 MG/200 ML BAG IVPB SCH ×2 (00:33→10:59)
[2022-07-17] MEDS: methylPREDNISolone NA SUCC 40 MG/1 ML VIAL IVPUSH SCH ×4 (02:03→23:49)
[2022-07-17] MEDS: TIAGABINE HCL 4 MG GT SCH ×3 (05:33→23:48)
[2022-07-17] MEDS: levETIRAcetam 500 MG/5 ML ORAL SOLUTION (UNIT-DOSE CUPS) GT SCH ×3 (05:33→23:50)
[2022-07-17] MEDS: clonazePAM 0.5 MG TABLET GT SCH ×3 (05:33→23:50)
[2022-07-17] MEDS: ENOXAPARIN NA (PORCINE) 40 MG/0.4 ML DISP.SYRIN SQ SCH (10:49)
[2022-07-17] MEDS: LACTOBACILLUS ACIDOPHILUS 1 TABLET GT SCH (11:33)
[2022-07-17] MEDS: CHOLECALCIFEROL (VIT D3) 1,000 UNIT (25 MCG) TABLET GT SCH (11:33)
[2022-07-17] MEDS: guaiFENesin 200 MG/10 ML 10 ML UNIT-DOSE CUPS GT SCH ×2 (11:34→23:49)
[2022-07-17] MEDS: AMINO ACIDS/PROTEIN HYDROLYS 30 ML LIQUID.PKT GT SCH ×2 (11:34→23:51)
[2022-07-17] MEDS: BENZOYL PEROXIDE 5% 60 GM GEL..GRAM. TP SCH (11:35)
[2022-07-17] MEDS: carBAMazepine 100 MG/5 ML UNIT-DOSE CUP GT SCH ×4 (11:36→23:47)
[2022-07-17 11:46] LABS: BASO % 0.3 % (0-2.0); EOS % 0.1 % (0-4.5); HEMATOCRIT 38.3 % (35.4-49); HEMOGLOBIN 13.1 GM/dL (11.7-16.9); LYMPH % 11.7 % (8-40); MCH 34.2 pg (25.7-33.7); MCHC 34.1 g/dl (32.0-35.9); MEAN CELL VOLUME 100.1 fl (80-96); MEAN PLT VOLUME 8.2 fl (7.5-11.1); MONO % 8.3 % (3.8-10.2); NEUT % 79.6 % (42.8-82.8); PLATELET COUNT 297 10^3/uL (134-434); RBC 3.83 M/mm3 (4.00-5.60); WHITE BLOOD COUNT 13.9 K/mm3 (4.0-10.0)
[2022-07-17] MEDS: PHENYTOIN ORAL SUSP 125 MG/5 ML GT SCH ×3 (11:51→18:23)
[2022-07-17 12:10] LABS: ALBUMIN 3.4 g/dl (3.4-5.0); BLOOD UREA NITROGEN 8.6 mg/dL (7-18); MAGNESIUM 2.2 mg/dL (1.8-2.4)
[2022-07-17 12:11] LABS: PHOSPHOROUS 2.4 mg/dL (2.5-4.9)
[2022-07-17 12:13] LABS: BILIRUBIN,TOTAL 0.2 mg/dL (0.2-1); CREATININE 0.3 mg/dL (0.55-1.3); TOT PROT 6.7 g/dl (6.4-8.2)
[2022-07-17] MEDS ORDERED: ALBUTEROL SO4 0.083% IH SOL 2.5 MG/3 ML VIAL.NEB. NEB PRN (12:52)
[2022-07-17] MEDS: ALBUTEROL SO4 2.5/IPRATROPIUM 0.5 INH SOL 3 ML VIAL.NEB. NEB SCH ×2 (17:00→19:49)
[2022-07-17] MEDS ORDERED: NAPH,MB-DB/K PH,MBDB POWDER PACKET GT ONE (18:46)
[2022-07-17] MEDS: SENNOSIDES 8.8 MG/5 ML BULK BOTTLE GT SCH (23:49)
[2022-07-17] MEDS: MAGNESIUM HYDROX 2400MG/30ML ORAL SUSPENSION 30 ML CUP GT SCH (23:49)
[2022-07-18] MEDS: PHENYTOIN ORAL SUSP 125 MG/5 ML GT SCH ×2 (00:05→09:13)
[2022-07-18] MEDS: CALCIUM 500MG/VIT-D 200 UNITS COMBO TABLET (FP) GT SCH ×2 (00:42→21:38)
[2022-07-18] MEDS: BENZOYL PEROXIDE 5% 60 GM GEL..GRAM. TP SCH ×3 (00:50→21:32)
[2022-07-18] MEDS: methylPREDNISolone NA SUCC 40 MG/1 ML VIAL IVPUSH SCH ×3 (03:47→17:28)
[2022-07-18] MEDS: levETIRAcetam 500 MG/5 ML ORAL SOLUTION (UNIT-DOSE CUPS) GT SCH ×3 (05:36→21:36)
[2022-07-18] MEDS: TIAGABINE HCL 4 MG GT SCH ×3 (05:37→21:45)
[2022-07-18] MEDS: clonazePAM 0.5 MG TABLET GT SCH ×3 (05:37→21:37)
[2022-07-18] MEDS: ALBUTEROL SO4 2.5/IPRATROPIUM 0.5 INH SOL 3 ML VIAL.NEB. NEB SCH ×4 (08:13→20:05)
[2022-07-18] MEDS: AMINO ACIDS/PROTEIN HYDROLYS 30 ML LIQUID.PKT GT SCH ×2 (09:11→21:39)
[2022-07-18] MEDS: guaiFENesin 200 MG/10 ML 10 ML UNIT-DOSE CUPS GT SCH ×2 (09:11→21:40)
[2022-07-18] MEDS: LACTOBACILLUS ACIDOPHILUS 1 TABLET GT SCH (09:12)
[2022-07-18] MEDS: ENOXAPARIN NA (PORCINE) 40 MG/0.4 ML DISP.SYRIN SQ SCH (09:12)
[2022-07-18] MEDS: CHOLECALCIFEROL (VIT D3) 1,000 UNIT (25 MCG) TABLET GT SCH (09:13)
[2022-07-18] MEDS: carBAMazepine 100 MG/5 ML UNIT-DOSE CUP GT SCH ×4 (09:16→21:35)
[2022-07-18] MEDS ORDERED: PETROLATUM, WHITE 30 GM TUBE TP SCH (10:00)
[2022-07-18 10:33] LABS: BASO % 0.3 % (0-2.0); EOS % 0.1 % (0-4.5); HEMATOCRIT 38.4 % (35.4-49); HEMOGLOBIN 13.3 GM/dL (11.7-16.9); LYMPH % 16.5 % (8-40); MCH 34.6 pg (25.7-33.7); MCHC 34.6 g/dl (32.0-35.9); MEAN CELL VOLUME 99.7 fl (80-96); MEAN PLT VOLUME 8.3 fl (7.5-11.1); MONO % 11.1 % (3.8-10.2); PLATELET COUNT 297 10^3/uL (134-434); RBC 3.85 M/mm3 (4.00-5.60); RDW 14.2 % (11.9-15.9); WHITE BLOOD COUNT 8.1 K/mm3 (4.0-10.0)
[2022-07-18 10:52] LABS: CALCIUM 9.3 mg/dL (8.5-10.1)
[2022-07-18 10:53] LABS: ALBUMIN 3.4 g/dl (3.4-5.0); BLOOD UREA NITROGEN 13.1 mg/dL (7-18); MAGNESIUM 2.5 mg/dL (1.8-2.4)
[2022-07-18 10:56] LABS: CREATININE 0.3 mg/dL (0.55-1.3); PHOSPHOROUS 2.1 mg/dL (2.5-4.9)
[2022-07-18 10:57] LABS: BILIRUBIN,TOTAL 0.8 mg/dL (0.2-1); TOT PROT 6.8 g/dl (6.4-8.2)
[2022-07-18] MEDS: MINERAL OIL/PETROLAT/WATER TOPICAL CREAM 113 GM JAR TP PRN (11:19)
[2022-07-18] MEDS ORDERED: NAPH,MB-DB/K PH,MBDB POWDER PACKET GT ONE (12:02)
[2022-07-18] MEDS ORDERED: POTASSIUM CHLORIDE ORAL LIQUID 20 MEQ/15 ML GT ONE (12:02)
[2022-07-18] MEDS: PETROLATUM, WHITE 30 GM TUBE TP SCH (15:05)
[2022-07-18] MEDS: PROPOFOL 1,000,000 MCG/100 ML VIAL IVPUSH SCH (15:56)
[2022-07-18 16:49] LABS: ARTERIAL BLD GAS O2 SATURATION 99.5 % (95-98); ARTERIAL BLOOD GAS pH 7.507 (7.350-7.450)
[2022-07-18 16:51] LABS: ALLENS TEST POSITIVE
[2022-07-18 16:52] LABS: VENT MODE AC; VENT RATE 16
[2022-07-18 20:37] LABS: ARTERIAL BLD GAS O2 SATURATION 97.5 % (95-98); ARTERIAL BLOOD GAS BASE EXCESS 3.6 mmol/L (-2-2); ARTERIAL BLOOD GAS PO2 96.7 mmHg (80-100); ARTERIAL BLOOD GAS pH 7.429 (7.350-7.450)
[2022-07-18 20:39] LABS: VENT MODE V A/C; VENT RATE 12
[2022-07-18] MEDS: MAGNESIUM HYDROX 2400MG/30ML ORAL SUSPENSION 30 ML CUP GT SCH (21:38)
[2022-07-18] MEDS: SENNOSIDES 8.8 MG/5 ML BULK BOTTLE GT SCH (21:41)
[2022-07-19] MEDS: PROPOFOL 1,000,000 MCG/100 ML VIAL IVPUSH SCH ×2 (00:14→09:59)
[2022-07-19] MEDS: methylPREDNISolone NA SUCC 40 MG/1 ML VIAL IVPUSH SCH ×3 (01:10→17:07)
[2022-07-19 05:37] LABS: EPI CELLS 7 /uL (0-25.1); HYALINE CASTS 0 /uL (0-3.1); URINE APPEARANCE CLEAR; URINE BACTERIA 14 /uL (0-1359); URINE BILIRUBIN NEGATIVE (NEGATIVE); URINE COLOR DK YELLOW; URINE GLUCOSE (UA) NEGATIVE (NEGATIVE); URINE KETONE NEGATIVE (NEGATIVE); URINE LEUK ESTERASE TRACE (NEGATIVE); URINE NITRITE NEGATIVE (NEGATIVE); URINE PROTEIN 1+ (NEGATIVE); URINE RBC 40 /uL (0-23.9); URINE UROBILINOGEN 0.2 mg/dL (0.2-1.0); URINE WBC 14 /uL (0-25.8)
[2022-07-19] MEDS: TIAGABINE HCL 4 MG GT SCH ×3 (06:56→21:38)
[2022-07-19] MEDS: clonazePAM 0.5 MG TABLET GT SCH ×3 (06:56→21:34)
[2022-07-19] MEDS: levETIRAcetam 500 MG/5 ML ORAL SOLUTION (UNIT-DOSE CUPS) GT SCH ×3 (06:56→21:34)
[2022-07-19 07:46] LABS: URINE CRYSTALS MODERATE /hpf
[2022-07-19] MEDS: ALBUTEROL SO4 2.5/IPRATROPIUM 0.5 INH SOL 3 ML VIAL.NEB. NEB SCH ×4 (08:05→20:05)
[2022-07-19 08:07] LABS: CALCIUM 9.2 mg/dL (8.5-10.1)
[2022-07-19 08:08] LABS: ALBUMIN 3.4 g/dl (3.4-5.0); BLOOD UREA NITROGEN 14.8 mg/dL (7-18); MAGNESIUM 2.5 mg/dL (1.8-2.4)
[2022-07-19 08:11] LABS: CREATININE 0.3 mg/dL (0.55-1.3); PHOSPHOROUS 3.2 mg/dL (2.5-4.9)
[2022-07-19 08:12] LABS: BILIRUBIN,TOTAL 0.8 mg/dL (0.2-1); TOT PROT 7.1 g/dl (6.4-8.2)
[2022-07-19 09:52] LABS: N-TERMINAL BNP 55.7 pg/ml (5-125)
[2022-07-19] MEDS: PANTOPRAZOLE SODIUM 40 MG VIAL IVPUSH SCH (10:01)
[2022-07-19] MEDS: guaiFENesin 200 MG/10 ML 10 ML UNIT-DOSE CUPS GT SCH ×2 (10:01→21:37)
[2022-07-19] MEDS: CHOLECALCIFEROL (VIT D3) 1,000 UNIT (25 MCG) TABLET GT SCH (10:02)
[2022-07-19] MEDS: ENOXAPARIN NA (PORCINE) 40 MG/0.4 ML DISP.SYRIN SQ SCH (10:03)
[2022-07-19] MEDS: AMINO ACIDS/PROTEIN HYDROLYS 30 ML LIQUID.PKT GT SCH ×2 (10:03→21:37)
[2022-07-19] MEDS: LACTOBACILLUS ACIDOPHILUS 1 TABLET GT SCH (10:03)
[2022-07-19] MEDS: PETROLATUM, WHITE 30 GM TUBE TP SCH (10:06)
[2022-07-19] MEDS: carBAMazepine 100 MG/5 ML UNIT-DOSE CUP GT SCH ×5 (10:08→21:33)
[2022-07-19] MEDS: BENZOYL PEROXIDE 5% 60 GM GEL..GRAM. TP SCH ×2 (10:30→21:32)
[2022-07-19 11:27] LABS: BASO % 0.3 % (0-2.0); EOS % 0.8 % (0-4.5); HEMATOCRIT 42.5 % (35.4-49); HEMOGLOBIN 14.1 GM/dL (11.7-16.9); LYMPH % 19.9 % (8-40); MCH 33.5 pg (25.7-33.7); MCHC 33.2 g/dl (32.0-35.9); MEAN CELL VOLUME 100.8 fl (80-96); MEAN PLT VOLUME 8.1 fl (7.5-11.1); MONO % 10.4 % (3.8-10.2); NEUT % 68.6 % (42.8-82.8); PLATELET COUNT 329 10^3/uL (134-434); RBC 4.21 M/mm3 (4.00-5.60); RDW 13.9 % (11.9-15.9); WHITE BLOOD COUNT 13.5 K/mm3 (4.0-10.0)
[2022-07-19] MEDS: MAGNESIUM HYDROX 2400MG/30ML ORAL SUSPENSION 30 ML CUP GT SCH (21:35)
[2022-07-19] MEDS: CALCIUM 500MG/VIT-D 200 UNITS COMBO TABLET (FP) GT SCH (21:36)
[2022-07-19] MEDS: SENNOSIDES 8.8 MG/5 ML BULK BOTTLE GT SCH (21:38)
[2022-07-20] MEDS: methylPREDNISolone NA SUCC 40 MG/1 ML VIAL IVPUSH SCH ×2 (01:22→09:51)
[2022-07-20] MEDS: levETIRAcetam 500 MG/5 ML ORAL SOLUTION (UNIT-DOSE CUPS) GT SCH ×3 (05:49→21:01)
[2022-07-20] MEDS: TIAGABINE HCL 4 MG GT SCH ×3 (05:50→21:37)
[2022-07-20] MEDS: clonazePAM 0.5 MG TABLET GT SCH ×3 (05:50→21:01)
[2022-07-20 06:11] LABS: ARTERIAL BLD GAS O2 SATURATION 95.1 % (95-98); ARTERIAL BLOOD GAS BASE EXCESS 5.9 mmol/L (-2-2); ARTERIAL BLOOD GAS PO2 71.5 mmHg (80-100); ARTERIAL BLOOD GAS pH 7.463 (7.350-7.450)
[2022-07-20 06:14] LABS: VENT MODE A-A/C; VENT RATE 12
[2022-07-20 07:42] LABS: BASO % 0.2 % (0-2.0); EOS % 0.4 % (0-4.5); HEMATOCRIT 37.3 % (35.4-49); HEMOGLOBIN 12.5 GM/dL (11.7-16.9); LYMPH % 15.9 % (8-40); MCH 33.6 pg (25.7-33.7); MCHC 33.4 g/dl (32.0-35.9); MEAN CELL VOLUME 100.8 fl (80-96); MEAN PLT VOLUME 8.3 fl (7.5-11.1); MONO % 4.6 % (3.8-10.2); NEUT % 78.9 % (42.8-82.8); PLATELET COUNT 334 10^3/uL (134-434); WHITE BLOOD COUNT 7.6 K/mm3 (4.0-10.0)
[2022-07-20 08:05] LABS: CALCIUM 9.1 mg/dL (8.5-10.1)
[2022-07-20 08:06] LABS: BLOOD UREA NITROGEN 16.2 mg/dL (7-18); MAGNESIUM 2.5 mg/dL (1.8-2.4)
[2022-07-20 08:08] LABS: PHOSPHOROUS 3.7 mg/dL (2.5-4.9)
[2022-07-20 08:09] LABS: CREATININE 0.3 mg/dL (0.55-1.3)
[2022-07-20 08:10] LABS: BILIRUBIN,TOTAL 0.3 mg/dL (0.2-1); TOT PROT 6.4 g/dl (6.4-8.2)
[2022-07-20] MEDS: ALBUTEROL SO4 2.5/IPRATROPIUM 0.5 INH SOL 3 ML VIAL.NEB. NEB SCH ×4 (08:16→20:15)
[2022-07-20] MEDS: PROPOFOL 1,000,000 MCG/100 ML VIAL IVPUSH SCH ×2 (09:50→18:02)
[2022-07-20] MEDS: LACTOBACILLUS ACIDOPHILUS 1 TABLET GT SCH (09:50)
[2022-07-20] MEDS: BENZOYL PEROXIDE 5% 60 GM GEL..GRAM. TP SCH ×2 (09:50→21:03)
[2022-07-20] MEDS: AMINO ACIDS/PROTEIN HYDROLYS 30 ML LIQUID.PKT GT SCH ×2 (09:51→21:01)
[2022-07-20] MEDS: ENOXAPARIN NA (PORCINE) 40 MG/0.4 ML DISP.SYRIN SQ SCH (09:51)
[2022-07-20] MEDS: guaiFENesin 200 MG/10 ML 10 ML UNIT-DOSE CUPS GT SCH ×2 (09:51→21:04)
[2022-07-20] MEDS: carBAMazepine 100 MG/5 ML UNIT-DOSE CUP GT SCH ×4 (09:51→21:34)
[2022-07-20] MEDS: PANTOPRAZOLE SODIUM 40 MG VIAL IVPUSH SCH (09:51)
[2022-07-20] MEDS: PETROLATUM, WHITE 30 GM TUBE TP SCH (09:51)
[2022-07-20] MEDS: CHOLECALCIFEROL (VIT D3) 1,000 UNIT (25 MCG) TABLET GT SCH (09:52)
[2022-07-20] MEDS ORDERED: VANCOMYCIN 500 MG in DEXTROSE 5%-WATER 100 ML IVPB SCH (17:00)
[2022-07-20] MEDS ORDERED: PIPERACILLIN/TAZOB 3.375 GM 3.375 GM in DEXTROSE 5%-WATER - 50 ML IVPB SCH (18:00)
[2022-07-20] MEDS: VANCOMYCIN 500 MG in DEXTROSE 5%-WATER 100 ML IVPB SCH (18:02)
[2022-07-20] MEDS: PIPERACILLIN/TAZOB 3.375 GM 3.375 GM in DEXTROSE 5%-WATER - 50 ML IVPB SCH (18:03)
[2022-07-20] MEDS ORDERED: ACETAMINOPHEN 650 MG/20.3 ML ORAL SOLUTION (CUPS) PO ONE (20:08)
[2022-07-20] MEDS: MAGNESIUM HYDROX 2400MG/30ML ORAL SUSPENSION 30 ML CUP GT SCH (21:01)
[2022-07-20] MEDS: SENNOSIDES 8.8 MG/5 ML BULK BOTTLE GT SCH (21:36)
[2022-07-20] MEDS: CALCIUM 500MG/VIT-D 200 UNITS COMBO TABLET (FP) GT SCH (23:26)
[2022-07-21] MEDS: PIPERACILLIN/TAZOB 3.375 GM 3.375 GM in DEXTROSE 5%-WATER - 50 ML IVPB SCH ×3 (01:51→19:02)
[2022-07-21] MEDS: VANCOMYCIN 500 MG in DEXTROSE 5%-WATER 100 ML IVPB SCH (04:29)
[2022-07-21] MEDS: PROPOFOL 1,000,000 MCG/100 ML VIAL IVPUSH SCH (04:33)
[2022-07-21] MEDS: clonazePAM 0.5 MG TABLET GT SCH ×3 (05:02→21:09)
[2022-07-21] MEDS: levETIRAcetam 500 MG/5 ML ORAL SOLUTION (UNIT-DOSE CUPS) GT SCH ×3 (05:02→21:03)
[2022-07-21] MEDS: TIAGABINE HCL 4 MG GT SCH ×3 (05:03→21:10)
[2022-07-21 07:52] LABS: CALCIUM 8.8 mg/dL (8.5-10.1)
[2022-07-21 07:53] LABS: ALBUMIN 2.9 g/dl (3.4-5.0); BLOOD UREA NITROGEN 12.3 mg/dL (7-18); MAGNESIUM 2.3 mg/dL (1.8-2.4)
[2022-07-21 07:56] LABS: CREATININE 0.2 mg/dL (0.55-1.3)
[2022-07-21 07:58] LABS: BILIRUBIN,TOTAL 0.3 mg/dL (0.2-1); TOT PROT 5.9 g/dl (6.4-8.2)
[2022-07-21 08:17] LABS: BASO % 0.5 % (0-2.0); EOS % 3.5 % (0-4.5); HEMATOCRIT 36.8 % (35.4-49); HEMOGLOBIN 12.3 GM/dL (11.7-16.9); MCH 33.8 pg (25.7-33.7); MCHC 33.5 g/dl (32.0-35.9); MEAN CELL VOLUME 101.1 fl (80-96); MEAN PLT VOLUME 8.4 fl (7.5-11.1); MONO % 7.3 % (3.8-10.2); NEUT % 65.7 % (42.8-82.8); PLATELET COUNT 351 10^3/uL (134-434); RBC 3.64 M/mm3 (4.00-5.60); RDW 14.3 % (11.9-15.9); WHITE BLOOD COUNT 8.4 K/mm3 (4.0-10.0)
[2022-07-21] MEDS: ALBUTEROL SO4 2.5/IPRATROPIUM 0.5 INH SOL 3 ML VIAL.NEB. NEB SCH ×4 (08:29→20:40)
[2022-07-21] MEDS: ENOXAPARIN NA (PORCINE) 40 MG/0.4 ML DISP.SYRIN SQ SCH (10:07)
[2022-07-21] MEDS: LACTOBACILLUS ACIDOPHILUS 1 TABLET GT SCH (10:12)
[2022-07-21] MEDS: carBAMazepine 100 MG/5 ML UNIT-DOSE CUP GT SCH ×4 (10:12→21:03)
[2022-07-21] MEDS: PANTOPRAZOLE SODIUM 40 MG VIAL IVPUSH SCH (10:13)
[2022-07-21] MEDS: guaiFENesin 200 MG/10 ML 10 ML UNIT-DOSE CUPS GT SCH ×2 (10:14→21:08)
[2022-07-21] MEDS: methylPREDNISolone NA SUCC 40 MG/1 ML VIAL IVPUSH SCH (10:14)
[2022-07-21] MEDS: CHOLECALCIFEROL (VIT D3) 1,000 UNIT (25 MCG) TABLET GT SCH (10:15)
[2022-07-21] MEDS: PETROLATUM, WHITE 30 GM TUBE TP SCH (10:15)
[2022-07-21] MEDS: AMINO ACIDS/PROTEIN HYDROLYS 30 ML LIQUID.PKT GT SCH ×2 (10:24→21:03)
[2022-07-21] MEDS: BENZOYL PEROXIDE 5% 60 GM GEL..GRAM. TP SCH ×2 (10:30→21:04)
[2022-07-21] MEDS: VANCOMYCIN/WATER FOR INJ (PEG) 750 MG/150 ML BAG IVPB SCH (13:55)
[2022-07-21] MEDS ORDERED: PIPERACILLIN/TAZOB 3.375 GM 3.375 GM in DEXTROSE 5%-WATER - 50 ML IVPB SCH (19:00)
[2022-07-21] MEDS: MAGNESIUM HYDROX 2400MG/30ML ORAL SUSPENSION 30 ML CUP GT SCH (21:04)
[2022-07-21] MEDS: SENNOSIDES 8.8 MG/5 ML BULK BOTTLE GT SCH (21:09)
[2022-07-21] MEDS: CALCIUM 500MG/VIT-D 200 UNITS COMBO TABLET (FP) GT SCH (21:09)
[2022-07-22] MEDS: VANCOMYCIN/WATER FOR INJ (PEG) 750 MG/150 ML BAG IVPB SCH ×2 (01:42→13:04)
[2022-07-22] MEDS: PIPERACILLIN/TAZOB 3.375 GM 3.375 GM in DEXTROSE 5%-WATER - 50 ML IVPB SCH ×2 (01:42→10:16)
[2022-07-22] MEDS: TIAGABINE HCL 4 MG GT SCH ×3 (05:23→22:09)
[2022-07-22] MEDS: clonazePAM 0.5 MG TABLET GT SCH ×3 (05:23→21:40)
[2022-07-22] MEDS: levETIRAcetam 500 MG/5 ML ORAL SOLUTION (UNIT-DOSE CUPS) GT SCH ×3 (05:23→21:40)
[2022-07-22] MEDS: ALBUTEROL SO4 2.5/IPRATROPIUM 0.5 INH SOL 3 ML VIAL.NEB. NEB SCH ×4 (07:25→20:15)
[2022-07-22 08:09] LABS: BASO % 0.7 % (0-2.0); EOS % 3.9 % (0-4.5); HEMATOCRIT 36.3 % (35.4-49); HEMOGLOBIN 12.1 GM/dL (11.7-16.9); LYMPH % 23.1 % (8-40); MCH 33.8 pg (25.7-33.7); MCHC 33.3 g/dl (32.0-35.9); MEAN CELL VOLUME 101.4 fl (80-96); MEAN PLT VOLUME 8.2 fl (7.5-11.1); MONO % 7.5 % (3.8-10.2); NEUT % 64.8 % (42.8-82.8); PLATELET COUNT 393 10^3/uL (134-434); RBC 3.58 M/mm3 (4.00-5.60); RDW 13.9 % (11.9-15.9); WHITE BLOOD COUNT 8.8 K/mm3 (4.0-10.0)
[2022-07-22 08:33] LABS: CALCIUM 8.9 mg/dL (8.5-10.1)
[2022-07-22 08:34] LABS: ALBUMIN 2.8 g/dl (3.4-5.0); BLOOD UREA NITROGEN 12.6 mg/dL (7-18); MAGNESIUM 2.1 mg/dL (1.8-2.4)
[2022-07-22 08:35] LABS: BILIRUBIN,TOTAL 0.5 mg/dL (0.2-1)
[2022-07-22 08:36] LABS: PHOSPHOROUS 3.2 mg/dL (2.5-4.9)
[2022-07-22 08:37] LABS: CREATININE 0.2 mg/dL (0.55-1.3); TOT PROT 6.1 g/dl (6.4-8.2)
[2022-07-22] MEDS: LACTOBACILLUS ACIDOPHILUS 1 TABLET GT SCH (10:13)
[2022-07-22] MEDS: BENZOYL PEROXIDE 5% 60 GM GEL..GRAM. TP SCH ×2 (10:13→21:40)
[2022-07-22] MEDS: AMINO ACIDS/PROTEIN HYDROLYS 30 ML LIQUID.PKT GT SCH ×2 (10:14→21:39)
[2022-07-22] MEDS: carBAMazepine 100 MG/5 ML UNIT-DOSE CUP GT SCH ×4 (10:14→21:41)
[2022-07-22] MEDS: ENOXAPARIN NA (PORCINE) 40 MG/0.4 ML DISP.SYRIN SQ SCH (10:14)
[2022-07-22] MEDS: CHOLECALCIFEROL (VIT D3) 1,000 UNIT (25 MCG) TABLET GT SCH (10:15)
[2022-07-22] MEDS: PANTOPRAZOLE SODIUM 40 MG VIAL IVPUSH SCH (10:15)
[2022-07-22] MEDS: guaiFENesin 200 MG/10 ML 10 ML UNIT-DOSE CUPS GT SCH ×2 (10:15→21:39)
[2022-07-22] MEDS: methylPREDNISolone NA SUCC 40 MG/1 ML VIAL IVPUSH SCH (10:15)
[2022-07-22] MEDS: PETROLATUM, WHITE 30 GM TUBE TP SCH (10:15)
[2022-07-22] MEDS: SENNOSIDES 8.8 MG/5 ML BULK BOTTLE GT SCH (21:38)
[2022-07-22] MEDS: CALCIUM 500MG/VIT-D 200 UNITS COMBO TABLET (FP) GT SCH (21:39)
[2022-07-22] MEDS: MAGNESIUM HYDROX 2400MG/30ML ORAL SUSPENSION 30 ML CUP GT SCH (21:40)
[2022-07-23] MEDS: VANCOMYCIN/WATER FOR INJ (PEG) 750 MG/150 ML BAG IVPB SCH ×2 (00:32→12:43)
[2022-07-23] MEDS: levETIRAcetam 500 MG/5 ML ORAL SOLUTION (UNIT-DOSE CUPS) GT SCH ×3 (05:39→22:43)
[2022-07-23] MEDS: clonazePAM 0.5 MG TABLET GT SCH ×3 (05:40→22:44)
[2022-07-23] MEDS: TIAGABINE HCL 4 MG GT SCH ×3 (05:40→22:48)
[2022-07-23 07:37] LABS: BASO % 0.6 % (0-2.0); EOS % 5.8 % (0-4.5); HEMATOCRIT 36.2 % (35.4-49); HEMOGLOBIN 12.2 GM/dL (11.7-16.9); LYMPH % 32.4 % (8-40); MCHC 33.6 g/dl (32.0-35.9); MEAN CELL VOLUME 101.3 fl (80-96); MONO % 6.2 % (3.8-10.2); PLATELET COUNT 412 10^3/uL (134-434); RBC 3.58 M/mm3 (4.00-5.60); RDW 13.8 % (11.9-15.9); WHITE BLOOD COUNT 6.8 K/mm3 (4.0-10.0)
[2022-07-23 07:53] LABS: ALBUMIN 2.8 g/dl (3.4-5.0); BLOOD UREA NITROGEN 15.2 mg/dL (7-18); CALCIUM 8.6 mg/dL (8.5-10.1); MAGNESIUM 2.1 mg/dL (1.8-2.4)
[2022-07-23 07:56] LABS: CREATININE 0.2 mg/dL (0.55-1.3); PHOSPHOROUS 3.4 mg/dL (2.5-4.9)
[2022-07-23 07:58] LABS: BILIRUBIN,TOTAL 0.1 mg/dL (0.2-1)
[2022-07-23] MEDS: ALBUTEROL SO4 2.5/IPRATROPIUM 0.5 INH SOL 3 ML VIAL.NEB. NEB SCH ×4 (08:10→20:23)
[2022-07-23] MEDS: CHOLECALCIFEROL (VIT D3) 1,000 UNIT (25 MCG) TABLET GT SCH (09:19)
[2022-07-23] MEDS: carBAMazepine 100 MG/5 ML UNIT-DOSE CUP GT SCH ×4 (09:19→22:43)
[2022-07-23] MEDS: PANTOPRAZOLE SODIUM 40 MG VIAL IVPUSH SCH (09:19)
[2022-07-23] MEDS: LACTOBACILLUS ACIDOPHILUS 1 TABLET GT SCH (09:19)
[2022-07-23] MEDS: guaiFENesin 200 MG/10 ML 10 ML UNIT-DOSE CUPS GT SCH ×2 (09:19→22:45)
[2022-07-23] MEDS: ENOXAPARIN NA (PORCINE) 40 MG/0.4 ML DISP.SYRIN SQ SCH (09:19)
[2022-07-23] MEDS: AMINO ACIDS/PROTEIN HYDROLYS 30 ML LIQUID.PKT GT SCH ×2 (09:19→22:45)
[2022-07-23] MEDS: methylPREDNISolone NA SUCC 40 MG/1 ML VIAL IVPUSH SCH (09:19)
[2022-07-23] MEDS: PETROLATUM, WHITE 30 GM TUBE TP SCH (09:20)
[2022-07-23] MEDS: BENZOYL PEROXIDE 5% 60 GM GEL..GRAM. TP SCH ×2 (09:23→22:43)
[2022-07-23] MEDS: MEROPENEM 500 MG in DEXTROSE 5%-WATER 100 ML IVPB SCH ×2 (10:28→17:14)
[2022-07-23] MEDS: MAGNESIUM HYDROX 2400MG/30ML ORAL SUSPENSION 30 ML CUP GT SCH (22:44)
[2022-07-23] MEDS: CALCIUM 500MG/VIT-D 200 UNITS COMBO TABLET (FP) GT SCH (22:45)
[2022-07-23] MEDS: SENNOSIDES 8.8 MG/5 ML BULK BOTTLE GT SCH (22:45)
[2022-07-24] MEDS: VANCOMYCIN/WATER FOR INJ (PEG) 750 MG/150 ML BAG IVPB SCH (01:10)
[2022-07-24] MEDS: MEROPENEM 500 MG in DEXTROSE 5%-WATER 100 ML IVPB SCH ×3 (02:18→18:27)
[2022-07-24] MEDS: clonazePAM 0.5 MG TABLET GT SCH ×3 (05:53→21:42)
[2022-07-24] MEDS: TIAGABINE HCL 4 MG GT SCH ×3 (05:53→21:44)
[2022-07-24] MEDS: levETIRAcetam 500 MG/5 ML ORAL SOLUTION (UNIT-DOSE CUPS) GT SCH ×3 (05:53→21:42)
[2022-07-24 07:36] LABS: BASO % 0.4 % (0-2.0); EOS % 4.9 % (0-4.5); HEMATOCRIT 36.9 % (35.4-49); HEMOGLOBIN 12.4 GM/dL (11.7-16.9); LYMPH % 43.6 % (8-40); MCH 33.9 pg (25.7-33.7); MCHC 33.7 g/dl (32.0-35.9); MEAN CELL VOLUME 100.7 fl (80-96); MONO % 7.7 % (3.8-10.2); NEUT % 43.4 % (42.8-82.8); PLATELET COUNT 424 10^3/uL (134-434); RBC 3.67 M/mm3 (4.00-5.60); WHITE BLOOD COUNT 6.7 K/mm3 (4.0-10.0)
[2022-07-24 08:05] LABS: CALCIUM 8.9 mg/dL (8.5-10.1)
[2022-07-24 08:06] LABS: ALBUMIN 2.8 g/dl (3.4-5.0); BLOOD UREA NITROGEN 10.2 mg/dL (7-18); MAGNESIUM 2.1 mg/dL (1.8-2.4)
[2022-07-24 08:07] LABS: BILIRUBIN,DIRECT 0.1 mg/dL (0.0-0.2)
[2022-07-24 08:09] LABS: CREATININE 0.2 mg/dL (0.55-1.3); PHOSPHOROUS 3.7 mg/dL (2.5-4.9)
[2022-07-24 08:10] LABS: BILIRUBIN,TOTAL 0.5 mg/dL (0.2-1)
[2022-07-24] MEDS: ALBUTEROL SO4 2.5/IPRATROPIUM 0.5 INH SOL 3 ML VIAL.NEB. NEB SCH ×4 (08:40→20:10)
[2022-07-24] MEDS: LACTOBACILLUS ACIDOPHILUS 1 TABLET GT SCH (10:25)
[2022-07-24] MEDS: methylPREDNISolone NA SUCC 40 MG/1 ML VIAL IVPUSH SCH (10:25)
[2022-07-24] MEDS: CHOLECALCIFEROL (VIT D3) 1,000 UNIT (25 MCG) TABLET GT SCH (10:25)
[2022-07-24] MEDS: BENZOYL PEROXIDE 5% 60 GM GEL..GRAM. TP SCH ×2 (10:26→21:41)
[2022-07-24] MEDS: ENOXAPARIN NA (PORCINE) 40 MG/0.4 ML DISP.SYRIN SQ SCH (10:27)
[2022-07-24] MEDS: carBAMazepine 100 MG/5 ML UNIT-DOSE CUP GT SCH ×4 (10:27→21:42)
[2022-07-24] MEDS: AMINO ACIDS/PROTEIN HYDROLYS 30 ML LIQUID.PKT GT SCH ×2 (10:27→21:43)
[2022-07-24] MEDS: PANTOPRAZOLE SODIUM 40 MG VIAL IVPUSH SCH (10:27)
[2022-07-24] MEDS: guaiFENesin 200 MG/10 ML 10 ML UNIT-DOSE CUPS GT SCH ×2 (10:28→21:43)
[2022-07-24] MEDS: PETROLATUM, WHITE 30 GM TUBE TP SCH (10:28)
[2022-07-24] MEDS ORDERED: RAPID SEQUENCE INTUBATION KIT NR ONE (17:17)
[2022-07-24] MEDS ORDERED: PHENYLEPHRINE HCL 10 MG/1 ML SINGLE DOSE VIAL ONE (17:23)
[2022-07-24] MEDS ORDERED: ETOMIDATE 20 MG/10 ML VIAL IVPUSH ONE (17:58)
[2022-07-24] MEDS ORDERED: PHENYLEPHRINE HCL 10 MG/1 ML SINGLE DOSE VIAL IVPB ONE (17:58)
[2022-07-24] MEDS ORDERED: ROCURONIUM BROMIDE 50 MG/5 ML VIAL IV ONE (17:58)
[2022-07-24] MEDS: PROPOFOL 1,000,000 MCG/100 ML VIAL IVPUSH SCH ×2 (18:09→21:40)
[2022-07-24] MEDS ORDERED: MIDAZOLAM HCL 2 MG/2 ML SINGLE DOSE VIAL ONE (18:17)
[2022-07-24] MEDS ORDERED: MIDAZOLAM HCL 2 MG/2 ML SINGLE DOSE VIAL IVPUSH ONE (19:26)
[2022-07-24 21:24] LABS: ARTERIAL BLD GAS O2 SATURATION 99.1 % (95-98); ARTERIAL BLOOD GAS PO2 145.4 mmHg (80-100); ARTERIAL BLOOD GAS pH 7.516 (7.350-7.450)
[2022-07-24 21:26] LABS: VENT MODE V A/C; VENT RATE 24
[2022-07-24] MEDS: FENTANYL NS IVPB 500 MCG/100 ML BAG IVPB SCH (21:40)
[2022-07-24] MEDS: MAGNESIUM HYDROX 2400MG/30ML ORAL SUSPENSION 30 ML CUP GT SCH (21:43)
[2022-07-24] MEDS: CALCIUM 500MG/VIT-D 200 UNITS COMBO TABLET (FP) GT SCH (21:43)
[2022-07-24] MEDS: SENNOSIDES 8.8 MG/5 ML BULK BOTTLE GT SCH (21:43)
[2022-07-25 00:44] LABS: ARTERIAL BLOOD GAS PO2 85.7 mmHg (80-100); ARTERIAL BLOOD GAS pH 7.472 (7.350-7.450)
[2022-07-25 00:50] LABS: ALLENS TEST POSITIVE
[2022-07-25 00:51] LABS: VENT MODE A/C; VENT RATE 24
[2022-07-25] MEDS: MEROPENEM 500 MG in DEXTROSE 5%-WATER 100 ML IVPB SCH ×3 (01:37→18:17)
[2022-07-25] MEDS: levETIRAcetam 500 MG/5 ML ORAL SOLUTION (UNIT-DOSE CUPS) GT SCH ×3 (05:15→21:36)
[2022-07-25] MEDS: clonazePAM 0.5 MG TABLET GT SCH ×3 (05:15→21:37)
[2022-07-25] MEDS: TIAGABINE HCL 4 MG GT SCH ×3 (05:16→21:37)
[2022-07-25 06:09] LABS: ARTERIAL BLOOD GAS PO2 55.3 mmHg (80-100); ARTERIAL BLOOD GAS pH 7.494 (7.350-7.450)
[2022-07-25 06:11] LABS: ALLENS TEST POSITIVE; VENT MODE A/C; VENT RATE 24
[2022-07-25 07:53] LABS: BASO % 0.4 % (0-2.0); EOS % 0.4 % (0-4.5); HEMATOCRIT 39.1 % (35.4-49); HEMOGLOBIN 13.1 GM/dL (11.7-16.9); LYMPH % 20.3 % (8-40); MCH 33.6 pg (25.7-33.7); MCHC 33.5 g/dl (32.0-35.9); MEAN CELL VOLUME 100.3 fl (80-96); MEAN PLT VOLUME 7.9 fl (7.5-11.1); MONO % 5.7 % (3.8-10.2); NEUT % 73.2 % (42.8-82.8); PLATELET COUNT 533 10^3/uL (134-434); RDW 14.3 % (11.9-15.9); WHITE BLOOD COUNT 14.6 K/mm3 (4.0-10.0)
[2022-07-25 08:11] LABS: ALBUMIN 3.2 g/dl (3.4-5.0); CALCIUM 9.2 mg/dL (8.5-10.1)
[2022-07-25 08:12] LABS: BLOOD UREA NITROGEN 10.4 mg/dL (7-18); MAGNESIUM 2.2 mg/dL (1.8-2.4)
[2022-07-25 08:14] LABS: CREATININE 0.3 mg/dL (0.55-1.3); PHOSPHOROUS 3.3 mg/dL (2.5-4.9)
[2022-07-25 08:16] LABS: BILIRUBIN,TOTAL 0.6 mg/dL (0.2-1); TOT PROT 6.9 g/dl (6.4-8.2)
[2022-07-25] MEDS: ALBUTEROL SO4 2.5/IPRATROPIUM 0.5 INH SOL 3 ML VIAL.NEB. NEB SCH ×4 (08:20→20:32)
[2022-07-25] MEDS: PETROLATUM, WHITE 30 GM TUBE TP SCH (10:37)
[2022-07-25] MEDS: LACTOBACILLUS ACIDOPHILUS 1 TABLET GT SCH (10:37)
[2022-07-25] MEDS: methylPREDNISolone NA SUCC 40 MG/1 ML VIAL IVPUSH SCH (10:37)
[2022-07-25] MEDS: BENZOYL PEROXIDE 5% 60 GM GEL..GRAM. TP SCH ×2 (10:37→21:35)
[2022-07-25] MEDS: CHOLECALCIFEROL (VIT D3) 1,000 UNIT (25 MCG) TABLET GT SCH (10:37)
[2022-07-25] MEDS: AMINO ACIDS/PROTEIN HYDROLYS 30 ML LIQUID.PKT GT SCH ×2 (10:37→21:36)
[2022-07-25] MEDS: PANTOPRAZOLE SODIUM 40 MG VIAL IVPUSH SCH (10:37)
[2022-07-25] MEDS: carBAMazepine 100 MG/5 ML UNIT-DOSE CUP GT SCH ×4 (10:37→21:36)
[2022-07-25] MEDS: guaiFENesin 200 MG/10 ML 10 ML UNIT-DOSE CUPS GT SCH ×2 (10:37→21:36)
[2022-07-25] MEDS: ENOXAPARIN NA (PORCINE) 40 MG/0.4 ML DISP.SYRIN SQ SCH (10:37)
[2022-07-25 13:26] VITALS: BMI 27.2
[2022-07-25] MEDS: PROPOFOL 1,000,000 MCG/100 ML VIAL IVPUSH SCH (19:35)
[2022-07-25] MEDS: FENTANYL NS IVPB 500 MCG/100 ML BAG IVPB SCH (21:35)
[2022-07-25] MEDS: CALCIUM 500MG/VIT-D 200 UNITS COMBO TABLET (FP) GT SCH (21:36)
[2022-07-25] MEDS: SENNOSIDES 8.8 MG/5 ML BULK BOTTLE GT SCH (21:37)
[2022-07-25] MEDS: MAGNESIUM HYDROX 2400MG/30ML ORAL SUSPENSION 30 ML CUP GT SCH (21:37)
[2022-07-26] MEDS: MEROPENEM 500 MG in DEXTROSE 5%-WATER 100 ML IVPB SCH ×3 (02:27→18:07)
[2022-07-26] MEDS: clonazePAM 0.5 MG TABLET GT SCH ×3 (05:04→21:07)
[2022-07-26] MEDS: levETIRAcetam 500 MG/5 ML ORAL SOLUTION (UNIT-DOSE CUPS) GT SCH ×3 (05:04→21:06)
[2022-07-26] MEDS: TIAGABINE HCL 4 MG GT SCH ×3 (05:04→21:09)
[2022-07-26 06:30] LABS: ARTERIAL BLD GAS O2 SATURATION 99.3 % (95-98); ARTERIAL BLOOD GAS BASE EXCESS 7.2 mmol/L (-2-2); ARTERIAL BLOOD GAS PO2 170.7 mmHg (80-100)
[2022-07-26 06:32] LABS: ALLENS TEST POSITIVE; VENT MODE A/C; VENT RATE 20
[2022-07-26] MEDS: ALBUTEROL SO4 2.5/IPRATROPIUM 0.5 INH SOL 3 ML VIAL.NEB. NEB SCH ×4 (07:45→20:25)
[2022-07-26 07:54] LABS: BASO % 0.6 % (0-2.0); EOS % 3.7 % (0-4.5); HEMATOCRIT 31.8 % (35.4-49); HEMOGLOBIN 11.2 GM/dL (11.7-16.9); LYMPH % 49.7 % (8-40); MCH 35.3 pg (25.7-33.7); MCHC 35.1 g/dl (32.0-35.9); MEAN CELL VOLUME 100.4 fl (80-96); MEAN PLT VOLUME 7.8 fl (7.5-11.1); PLATELET COUNT 376 10^3/uL (134-434); RBC 3.17 M/mm3 (4.00-5.60); RDW 13.9 % (11.9-15.9); WHITE BLOOD COUNT 5.7 K/mm3 (4.0-10.0)
[2022-07-26 08:18] LABS: CHLORIDE 97 mmol/L (98-107); SODIUM 136 mmol/L (136-145)
[2022-07-26 08:21] LABS: CALCIUM 8.6 mg/dL (8.5-10.1)
[2022-07-26 08:22] LABS: ANION GAP 6 MMOL/L (8-16); BLOOD UREA NITROGEN 14.6 mg/dL (7-18); CO2 32 mmol/L (21-32); GLUCOSE,RANDOM 90 mg/dL (74-106); MAGNESIUM 1.9 mg/dL (1.8-2.4)
[2022-07-26 08:25] LABS: CREATININE 0.2 mg/dL (0.55-1.3); PHOSPHOROUS 3.7 mg/dL (2.5-4.9); SGOT/AST 307 U/L (15-37); SGPT/ALT 585 U/L (13-61)
[2022-07-26 08:26] LABS: BILIRUBIN,TOTAL 0.4 mg/dL (0.2-1)
[2022-07-26 08:27] LABS: TOT PROT 5.5 g/dl (6.4-8.2)
[2022-07-26 08:28] LABS: ALBUMIN 2.5 g/dl (3.4-5.0); ALK PHOS 224 U/L (45-117)
[2022-07-26] MEDS: guaiFENesin 200 MG/10 ML 10 ML UNIT-DOSE CUPS GT SCH ×2 (09:50→21:07)
[2022-07-26] MEDS: AMINO ACIDS/PROTEIN HYDROLYS 30 ML LIQUID.PKT GT SCH ×2 (09:50→21:07)
[2022-07-26] MEDS: methylPREDNISolone NA SUCC 40 MG/1 ML VIAL IVPUSH SCH (09:50)
[2022-07-26] MEDS: PANTOPRAZOLE SODIUM 40 MG VIAL IVPUSH SCH (09:50)
[2022-07-26] MEDS: carBAMazepine 100 MG/5 ML UNIT-DOSE CUP GT SCH ×4 (09:50→21:06)
[2022-07-26] MEDS: ENOXAPARIN NA (PORCINE) 40 MG/0.4 ML DISP.SYRIN SQ SCH (09:50)
[2022-07-26] MEDS: LACTOBACILLUS ACIDOPHILUS 1 TABLET GT SCH (09:50)
[2022-07-26] MEDS: PETROLATUM, WHITE 30 GM TUBE TP SCH (09:50)
[2022-07-26] MEDS: BENZOYL PEROXIDE 5% 60 GM GEL..GRAM. TP SCH ×2 (09:50→21:13)
[2022-07-26] MEDS: CHOLECALCIFEROL (VIT D3) 1,000 UNIT (25 MCG) TABLET GT SCH (09:51)
[2022-07-26] MEDS: CALCIUM 500MG/VIT-D 200 UNITS COMBO TABLET (FP) GT SCH (21:08)
[2022-07-26] MEDS: SENNOSIDES 8.8 MG/5 ML BULK BOTTLE GT SCH (21:42)
[2022-07-26] MEDS: MAGNESIUM HYDROX 2400MG/30ML ORAL SUSPENSION 30 ML CUP GT SCH (21:42)
[2022-07-27] MEDS: MEROPENEM 500 MG in DEXTROSE 5%-WATER 100 ML IVPB SCH ×3 (02:36→18:32)
[2022-07-27] MEDS: clonazePAM 0.5 MG TABLET GT SCH ×3 (05:20→21:57)
[2022-07-27] MEDS: TIAGABINE HCL 4 MG GT SCH ×3 (05:20→21:59)
[2022-07-27] MEDS: levETIRAcetam 500 MG/5 ML ORAL SOLUTION (UNIT-DOSE CUPS) GT SCH ×3 (05:20→21:57)
[2022-07-27 06:39] LABS: ARTERIAL BLD GAS O2 SATURATION 93.8 % (95-98); ARTERIAL BLOOD GAS PO2 62.4 mmHg (80-100); ARTERIAL BLOOD GAS pH 7.505 (7.350-7.450)
[2022-07-27 06:48] LABS: ALLENS TEST POSITIVE; VENT MODE A/C; VENT RATE 20
[2022-07-27 08:18] LABS: BASO % 0.8 % (0-2.0); EOS % 2.2 % (0-4.5); HEMATOCRIT 34.1 % (35.4-49); HEMOGLOBIN 11.5 GM/dL (11.7-16.9); LYMPH % 42.4 % (8-40); MCH 33.7 pg (25.7-33.7); MCHC 33.7 g/dl (32.0-35.9); MEAN CELL VOLUME 100.1 fl (80-96); MEAN PLT VOLUME 8.2 fl (7.5-11.1); MONO % 9.6 % (3.8-10.2); PLATELET COUNT 502 10^3/uL (134-434); RBC 3.41 M/mm3 (4.00-5.60); WHITE BLOOD COUNT 6.5 K/mm3 (4.0-10.0)
[2022-07-27] MEDS: ALBUTEROL SO4 2.5/IPRATROPIUM 0.5 INH SOL 3 ML VIAL.NEB. NEB SCH ×2 (08:30→12:05)
[2022-07-27 08:35] LABS: ALBUMIN 2.8 g/dl (3.4-5.0); BLOOD UREA NITROGEN 14.6 mg/dL (7-18); MAGNESIUM 2.3 mg/dL (1.8-2.4)
[2022-07-27 08:38] LABS: CREATININE 0.3 mg/dL (0.55-1.3); PHOSPHOROUS 3.7 mg/dL (2.5-4.9)
[2022-07-27 08:40] LABS: BILIRUBIN,TOTAL 0.3 mg/dL (0.2-1); TOT PROT 5.9 g/dl (6.4-8.2)
[2022-07-27] MEDS: PANTOPRAZOLE SODIUM 40 MG VIAL IVPUSH SCH (10:42)
[2022-07-27] MEDS: PETROLATUM, WHITE 30 GM TUBE TP SCH (10:42)
[2022-07-27] MEDS: LACTOBACILLUS ACIDOPHILUS 1 TABLET GT SCH (10:42)
[2022-07-27] MEDS: BENZOYL PEROXIDE 5% 60 GM GEL..GRAM. TP SCH ×2 (10:42→21:56)
[2022-07-27] MEDS: CHOLECALCIFEROL (VIT D3) 1,000 UNIT (25 MCG) TABLET GT SCH (10:42)
[2022-07-27] MEDS: carBAMazepine 100 MG/5 ML UNIT-DOSE CUP GT SCH ×4 (10:42→21:57)
[2022-07-27] MEDS: guaiFENesin 200 MG/10 ML 10 ML UNIT-DOSE CUPS GT SCH ×2 (10:42→21:58)
[2022-07-27] MEDS: ENOXAPARIN NA (PORCINE) 40 MG/0.4 ML DISP.SYRIN SQ SCH (10:42)
[2022-07-27] MEDS: AMINO ACIDS/PROTEIN HYDROLYS 30 ML LIQUID.PKT GT SCH ×2 (10:42→21:58)
[2022-07-27] MEDS: CALCIUM 500MG/VIT-D 200 UNITS COMBO TABLET (FP) GT SCH (21:57)
[2022-07-27] MEDS: SENNOSIDES 8.8 MG/5 ML BULK BOTTLE GT SCH (21:59)
[2022-07-27] MEDS: MAGNESIUM HYDROX 2400MG/30ML ORAL SUSPENSION 30 ML CUP GT SCH (21:59)
[2022-07-28] MEDS: MEROPENEM 500 MG in DEXTROSE 5%-WATER 100 ML IVPB SCH ×3 (01:08→18:01)
[2022-07-28] MEDS: levETIRAcetam 500 MG/5 ML ORAL SOLUTION (UNIT-DOSE CUPS) GT SCH ×3 (05:20→21:54)
[2022-07-28] MEDS: clonazePAM 0.5 MG TABLET GT SCH ×3 (05:20→21:54)
[2022-07-28] MEDS: TIAGABINE HCL 4 MG GT SCH ×3 (05:21→21:56)
[2022-07-28 06:50] LABS: ARTERIAL BLOOD GAS BASE EXCESS 8.3 mmol/L (-2-2); ARTERIAL BLOOD GAS PO2 106.5 mmHg (80-100); ARTERIAL BLOOD GAS pH 7.441 (7.350-7.450)
[2022-07-28 06:57] LABS: ALLENS TEST POSITIVE; VENT MODE A/C
[2022-07-28 06:58] LABS: VENT RATE 16
[2022-07-28] MEDS: ALBUTEROL SO4 2.5/IPRATROPIUM 0.5 INH SOL 3 ML VIAL.NEB. NEB SCH ×4 (07:50→20:27)
[2022-07-28 08:09] LABS: BASO % 0.9 % (0-2.0); EOS % 3.9 % (0-4.5); HEMATOCRIT 33.5 % (35.4-49); HEMOGLOBIN 11.5 GM/dL (11.7-16.9); LYMPH % 28.5 % (8-40); MCH 34.5 pg (25.7-33.7); MCHC 34.3 g/dl (32.0-35.9); MEAN CELL VOLUME 100.6 fl (80-96); MEAN PLT VOLUME 8.2 fl (7.5-11.1); MONO % 7.5 % (3.8-10.2); NEUT % 59.2 % (42.8-82.8); PLATELET COUNT 506 10^3/uL (134-434); RBC 3.33 M/mm3 (4.00-5.60); WHITE BLOOD COUNT 6.8 K/mm3 (4.0-10.0)
[2022-07-28 08:27] LABS: ALBUMIN 2.8 g/dl (3.4-5.0); BLOOD UREA NITROGEN 10.9 mg/dL (7-18); MAGNESIUM 2.2 mg/dL (1.8-2.4)
[2022-07-28 08:30] LABS: CREATININE 0.2 mg/dL (0.55-1.3); PHOSPHOROUS 3.7 mg/dL (2.5-4.9)
[2022-07-28 08:31] LABS: BILIRUBIN,TOTAL 0.4 mg/dL (0.2-1)
[2022-07-28] MEDS: BENZOYL PEROXIDE 5% 60 GM GEL..GRAM. TP SCH ×2 (09:43→21:53)
[2022-07-28] MEDS: LACTOBACILLUS ACIDOPHILUS 1 TABLET GT SCH (09:43)
[2022-07-28] MEDS: carBAMazepine 100 MG/5 ML UNIT-DOSE CUP GT SCH ×4 (09:43→21:54)
[2022-07-28] MEDS: PETROLATUM, WHITE 30 GM TUBE TP SCH (09:44)
[2022-07-28] MEDS: AMINO ACIDS/PROTEIN HYDROLYS 30 ML LIQUID.PKT GT SCH ×2 (09:44→21:55)
[2022-07-28] MEDS: CHOLECALCIFEROL (VIT D3) 1,000 UNIT (25 MCG) TABLET GT SCH (09:44)
[2022-07-28] MEDS: guaiFENesin 200 MG/10 ML 10 ML UNIT-DOSE CUPS GT SCH ×2 (09:44→21:55)
[2022-07-28] MEDS: ENOXAPARIN NA (PORCINE) 40 MG/0.4 ML DISP.SYRIN SQ SCH (09:44)
[2022-07-28] MEDS: PANTOPRAZOLE SODIUM 40 MG VIAL IVPUSH SCH (09:44)
[2022-07-28] MEDS: MAGNESIUM HYDROX 2400MG/30ML ORAL SUSPENSION 30 ML CUP GT SCH (21:54)
[2022-07-28] MEDS: SENNOSIDES 8.8 MG/5 ML BULK BOTTLE GT SCH (21:55)
[2022-07-28] MEDS: CALCIUM 500MG/VIT-D 200 UNITS COMBO TABLET (FP) GT SCH (21:55)
[2022-07-29] MEDS: MEROPENEM 500 MG in DEXTROSE 5%-WATER 100 ML IVPB SCH ×3 (03:10→17:25)
[2022-07-29] MEDS: clonazePAM 0.5 MG TABLET GT SCH ×3 (06:01→21:30)
[2022-07-29] MEDS: levETIRAcetam 500 MG/5 ML ORAL SOLUTION (UNIT-DOSE CUPS) GT SCH ×3 (06:01→21:30)
[2022-07-29] MEDS: TIAGABINE HCL 4 MG GT SCH ×3 (06:02→21:31)
[2022-07-29 07:26] LABS: BASO % 0.9 % (0-2.0); EOS % 4.3 % (0-4.5); HEMATOCRIT 35.6 % (35.4-49); HEMOGLOBIN 12.1 GM/dL (11.7-16.9); LYMPH % 18.6 % (8-40); MCH 34.1 pg (25.7-33.7); MCHC 34.1 g/dl (32.0-35.9); MEAN CELL VOLUME 100.1 fl (80-96); MEAN PLT VOLUME 7.7 fl (7.5-11.1); MONO % 9.6 % (3.8-10.2); NEUT % 66.6 % (42.8-82.8); PLATELET COUNT 505 10^3/uL (134-434); RBC 3.56 M/mm3 (4.00-5.60); RDW 13.7 % (11.9-15.9); WHITE BLOOD COUNT 7.8 K/mm3 (4.0-10.0)
[2022-07-29] MEDS: ALBUTEROL SO4 2.5/IPRATROPIUM 0.5 INH SOL 3 ML VIAL.NEB. NEB SCH ×4 (07:31→20:05)
[2022-07-29 07:33] LABS: INR 1.3 (0.83-1.09)
[2022-07-29 07:56] LABS: ALBUMIN 2.8 g/dl (3.4-5.0); BLOOD UREA NITROGEN 9.8 mg/dL (7-18); CALCIUM 9.1 mg/dL (8.5-10.1); MAGNESIUM 2.2 mg/dL (1.8-2.4)
[2022-07-29 07:59] LABS: CREATININE 0.2 mg/dL (0.55-1.3); PHOSPHOROUS 3.2 mg/dL (2.5-4.9)
[2022-07-29 08:00] LABS: BILIRUBIN,TOTAL 0.3 mg/dL (0.2-1); TOT PROT 6.2 g/dl (6.4-8.2)
[2022-07-29] MEDS: PHENYTOIN 100 MG/4 ML U-D CUP NGT SCH ×4 (10:00→21:30)
[2022-07-29] MEDS: FOLIC ACID 1 MG TABLET (FP) NGT SCH (10:42)
[2022-07-29] MEDS: CHOLECALCIFEROL (VIT D3) 1,000 UNIT (25 MCG) TABLET GT SCH (10:42)
[2022-07-29] MEDS: guaiFENesin 200 MG/10 ML 10 ML UNIT-DOSE CUPS GT SCH ×2 (10:42→21:30)
[2022-07-29] MEDS: PANTOPRAZOLE SODIUM 40 MG VIAL IVPUSH SCH (10:42)
[2022-07-29] MEDS: ENOXAPARIN NA (PORCINE) 40 MG/0.4 ML DISP.SYRIN SQ SCH (10:42)
[2022-07-29] MEDS: AMINO ACIDS/PROTEIN HYDROLYS 30 ML LIQUID.PKT GT SCH (10:42)
[2022-07-29] MEDS: PETROLATUM, WHITE 30 GM TUBE TP SCH (10:42)
[2022-07-29] MEDS: LACTOBACILLUS ACIDOPHILUS 1 TABLET GT SCH (10:43)
[2022-07-29] MEDS: BENZOYL PEROXIDE 5% 60 GM GEL..GRAM. TP SCH ×2 (10:43→21:31)
[2022-07-29] MEDS: carBAMazepine 100 MG/5 ML UNIT-DOSE CUP GT SCH ×4 (10:43→21:30)
[2022-07-29] MEDS: MAGNESIUM HYDROX 2400MG/30ML ORAL SUSPENSION 30 ML CUP GT SCH (21:30)
[2022-07-29] MEDS: CALCIUM 500MG/VIT-D 200 UNITS COMBO TABLET (FP) GT SCH (21:30)
[2022-07-29] MEDS: SENNOSIDES 8.8 MG/5 ML BULK BOTTLE GT SCH (21:31)
[2022-07-30] MEDS: MEROPENEM 500 MG in DEXTROSE 5%-WATER 100 ML IVPB SCH ×3 (01:01→18:30)
[2022-07-30] MEDS: levETIRAcetam 500 MG/5 ML ORAL SOLUTION (UNIT-DOSE CUPS) GT SCH ×3 (06:06→21:55)
[2022-07-30] MEDS: clonazePAM 0.5 MG TABLET GT SCH ×3 (06:06→21:56)
[2022-07-30] MEDS: TIAGABINE HCL 4 MG GT SCH ×3 (06:06→21:57)
[2022-07-30 08:00] LABS: BASO % 0.7 % (0-2.0); EOS % 1.7 % (0-4.5); HEMATOCRIT 39.4 % (35.4-49); HEMOGLOBIN 13.7 GM/dL (11.7-16.9); MCH 34.7 pg (25.7-33.7); MCHC 34.8 g/dl (32.0-35.9); MEAN CELL VOLUME 99.5 fl (80-96); NEUT % 73.6 % (42.8-82.8); PLATELET COUNT 507 10^3/uL (134-434); RBC 3.96 M/mm3 (4.00-5.60); RDW 13.7 % (11.9-15.9)
[2022-07-30] MEDS: ALBUTEROL SO4 2.5/IPRATROPIUM 0.5 INH SOL 3 ML VIAL.NEB. NEB SCH (08:15)
[2022-07-30 08:28] LABS: CALCIUM 9.1 mg/dL (8.5-10.1)
[2022-07-30 08:29] LABS: ALBUMIN 3.1 g/dl (3.4-5.0); BLOOD UREA NITROGEN 9.1 mg/dL (7-18); MAGNESIUM 2.4 mg/dL (1.8-2.4)
[2022-07-30 08:31] LABS: PHOSPHOROUS 2.4 mg/dL (2.5-4.9)
[2022-07-30 08:32] LABS: CREATININE 0.3 mg/dL (0.55-1.3)
[2022-07-30 08:33] LABS: BILIRUBIN,TOTAL 0.5 mg/dL (0.2-1); TOT PROT 6.7 g/dl (6.4-8.2)
[2022-07-30] MEDS ORDERED: IBUPROFEN 800 MG/8 ML IJ IVPB ONE (09:16)
[2022-07-30] MEDS ORDERED: SODIUM CHLORIDE 500 ML IV STA (09:37)
[2022-07-30] MEDS: ENOXAPARIN NA (PORCINE) 40 MG/0.4 ML DISP.SYRIN SQ SCH (10:20)
[2022-07-30] MEDS: AMINO ACIDS/PROTEIN HYDROLYS 30 ML LIQUID.PKT GT SCH (10:20)
[2022-07-30] MEDS: LACTOBACILLUS ACIDOPHILUS 1 TABLET GT SCH (10:21)
[2022-07-30] MEDS: guaiFENesin 200 MG/10 ML 10 ML UNIT-DOSE CUPS GT SCH ×2 (10:22→21:56)
[2022-07-30] MEDS: PETROLATUM, WHITE 30 GM TUBE TP SCH (10:22)
[2022-07-30] MEDS: CHOLECALCIFEROL (VIT D3) 1,000 UNIT (25 MCG) TABLET GT SCH (10:22)
[2022-07-30] MEDS: PANTOPRAZOLE SODIUM 40 MG VIAL IVPUSH SCH (10:23)
[2022-07-30] MEDS: FOLIC ACID 1 MG TABLET (FP) NGT SCH (10:23)
[2022-07-30] MEDS: carBAMazepine 100 MG/5 ML UNIT-DOSE CUP GT SCH ×4 (10:23→21:57)
[2022-07-30] MEDS: PHENYTOIN 100 MG/4 ML U-D CUP NGT SCH ×4 (10:24→21:56)
[2022-07-30] MEDS: BENZOYL PEROXIDE 5% 60 GM GEL..GRAM. TP SCH ×2 (10:45→21:56)
[2022-07-30] MEDS: ACETYLCYSTEINE 20% 200MG/ML 4 ML VIAL *FOR ORAL / INH USE ONLY NEB SCH ×3 (11:50→20:05)
[2022-07-30] MEDS: ALBUTEROL SO4 0.083% IH SOL 2.5 MG/3 ML VIAL.NEB. NEB SCH ×3 (11:50→20:05)
[2022-07-30] MEDS: CALCIUM 500MG/VIT-D 200 UNITS COMBO TABLET (FP) GT SCH (21:56)
[2022-07-30] MEDS: SENNOSIDES 8.8 MG/5 ML BULK BOTTLE GT SCH (21:57)
[2022-07-30] MEDS: MAGNESIUM HYDROX 2400MG/30ML ORAL SUSPENSION 30 ML CUP GT SCH (21:57)
[2022-07-31] MEDS: MEROPENEM 500 MG in DEXTROSE 5%-WATER 100 ML IVPB SCH ×3 (01:00→17:20)
[2022-07-31] MEDS: TIAGABINE HCL 4 MG GT SCH ×3 (06:22→21:39)
[2022-07-31] MEDS: levETIRAcetam 500 MG/5 ML ORAL SOLUTION (UNIT-DOSE CUPS) GT SCH ×3 (06:22→21:38)
[2022-07-31] MEDS: clonazePAM 0.5 MG TABLET GT SCH ×3 (06:22→21:38)
[2022-07-31 06:58] LABS: BASO % 0.7 % (0-2.0); EOS % 3.8 % (0-4.5); HEMATOCRIT 34.2 % (35.4-49); HEMOGLOBIN 11.6 GM/dL (11.7-16.9); LYMPH % 17.6 % (8-40); MCH 33.9 pg (25.7-33.7); MEAN CELL VOLUME 99.7 fl (80-96); MEAN PLT VOLUME 8.5 fl (7.5-11.1); MONO % 7.6 % (3.8-10.2); NEUT % 70.3 % (42.8-82.8); PLATELET COUNT 387 10^3/uL (134-434); RBC 3.43 M/mm3 (4.00-5.60); RDW 14.3 % (11.9-15.9); WHITE BLOOD COUNT 9.2 K/mm3 (4.0-10.0)
[2022-07-31 07:16] LABS: CALCIUM 8.4 mg/dL (8.5-10.1)
[2022-07-31 07:17] LABS: ALBUMIN 2.6 g/dl (3.4-5.0); BLOOD UREA NITROGEN 8.5 mg/dL (7-18); MAGNESIUM 2.1 mg/dL (1.8-2.4)
[2022-07-31 07:19] LABS: PHOSPHOROUS 2.4 mg/dL (2.5-4.9)
[2022-07-31 07:20] LABS: CREATININE 0.2 mg/dL (0.55-1.3)
[2022-07-31 07:21] LABS: BILIRUBIN,TOTAL 0.4 mg/dL (0.2-1); TOT PROT 5.5 g/dl (6.4-8.2)
[2022-07-31] MEDS: ACETYLCYSTEINE 20% 200MG/ML 4 ML VIAL *FOR ORAL / INH USE ONLY NEB SCH ×4 (07:53→20:45)
[2022-07-31] MEDS: ALBUTEROL SO4 0.083% IH SOL 2.5 MG/3 ML VIAL.NEB. NEB SCH ×4 (07:53→20:45)
[2022-07-31] MEDS ORDERED: SODIUM PHOSPHATE - 15 MM in SODIUM CHLORIDE 250 ML IVPB ONE (09:15)
[2022-07-31] MEDS: PANTOPRAZOLE SODIUM 40 MG VIAL IVPUSH SCH (09:21)
[2022-07-31] MEDS: BENZOYL PEROXIDE 5% 60 GM GEL..GRAM. TP SCH ×2 (09:21→21:37)
[2022-07-31] MEDS: AMINO ACIDS/PROTEIN HYDROLYS 30 ML LIQUID.PKT GT SCH (09:21)
[2022-07-31] MEDS: LACTOBACILLUS ACIDOPHILUS 1 TABLET GT SCH (09:21)
[2022-07-31] MEDS: FOLIC ACID 1 MG TABLET (FP) NGT SCH (09:21)
[2022-07-31] MEDS: CHOLECALCIFEROL (VIT D3) 1,000 UNIT (25 MCG) TABLET GT SCH (09:22)
[2022-07-31] MEDS: guaiFENesin 200 MG/10 ML 10 ML UNIT-DOSE CUPS GT SCH ×2 (09:22→21:38)
[2022-07-31] MEDS: ENOXAPARIN NA (PORCINE) 40 MG/0.4 ML DISP.SYRIN SQ SCH (09:22)
[2022-07-31] MEDS: PETROLATUM, WHITE 30 GM TUBE TP SCH (09:22)
[2022-07-31] MEDS: carBAMazepine 100 MG/5 ML UNIT-DOSE CUP GT SCH ×4 (09:23→21:38)
[2022-07-31] MEDS: PHENYTOIN 100 MG/4 ML U-D CUP NGT SCH ×4 (09:24→21:38)
[2022-07-31] MEDS: CALCIUM 500MG/VIT-D 200 UNITS COMBO TABLET (FP) GT SCH (21:38)
[2022-07-31] MEDS: MAGNESIUM HYDROX 2400MG/30ML ORAL SUSPENSION 30 ML CUP GT SCH (21:38)
[2022-07-31] MEDS: SENNOSIDES 8.8 MG/5 ML BULK BOTTLE GT SCH (21:39)
[2022-08-01] MEDS: MEROPENEM 500 MG in DEXTROSE 5%-WATER 100 ML IVPB SCH ×3 (02:14→17:13)
[2022-08-01] MEDS: levETIRAcetam 500 MG/5 ML ORAL SOLUTION (UNIT-DOSE CUPS) GT SCH ×3 (05:16→22:50)
[2022-08-01] MEDS: TIAGABINE HCL 4 MG GT SCH ×3 (05:16→22:51)
[2022-08-01] MEDS: clonazePAM 0.5 MG TABLET GT SCH ×3 (05:16→22:50)
[2022-08-01 08:12] LABS: BASO % 0.8 % (0-2.0); EOS % 4.6 % (0-4.5); HEMATOCRIT 33.2 % (35.4-49); HEMOGLOBIN 11.6 GM/dL (11.7-16.9); LYMPH % 19.3 % (8-40); MCH 35.2 pg (25.7-33.7); MEAN CELL VOLUME 100.5 fl (80-96); MEAN PLT VOLUME 8.4 fl (7.5-11.1); MONO % 7.7 % (3.8-10.2); NEUT % 67.6 % (42.8-82.8); PLATELET COUNT 359 10^3/uL (134-434); RDW 13.8 % (11.9-15.9); WHITE BLOOD COUNT 6.9 K/mm3 (4.0-10.0)
[2022-08-01 08:30] LABS: ALBUMIN 2.7 g/dl (3.4-5.0); CALCIUM 8.5 mg/dL (8.5-10.1); MAGNESIUM 2.2 mg/dL (1.8-2.4); PHOSPHOROUS 3.2 mg/dL (2.5-4.9); TOT PROT 5.9 g/dl (6.4-8.2)
[2022-08-01] MEDS: ALBUTEROL SO4 0.083% IH SOL 2.5 MG/3 ML VIAL.NEB. NEB SCH ×4 (08:30→20:50)
[2022-08-01] MEDS: ACETYLCYSTEINE 20% 200MG/ML 4 ML VIAL *FOR ORAL / INH USE ONLY NEB SCH ×4 (08:30→20:50)
[2022-08-01 08:32] LABS: BILIRUBIN,TOTAL 0.4 mg/dL (0.2-1); CREATININE 0.2 mg/dL (0.55-1.3)
[2022-08-01] MEDS: guaiFENesin 200 MG/10 ML 10 ML UNIT-DOSE CUPS GT SCH ×2 (10:21→22:51)
[2022-08-01] MEDS: ENOXAPARIN NA (PORCINE) 40 MG/0.4 ML DISP.SYRIN SQ SCH (10:49)
[2022-08-01] MEDS: PANTOPRAZOLE SODIUM 40 MG VIAL IVPUSH SCH (10:49)
[2022-08-01] MEDS: AMINO ACIDS/PROTEIN HYDROLYS 30 ML LIQUID.PKT GT SCH ×2 (10:49→17:16)
[2022-08-01] MEDS: carBAMazepine 100 MG/5 ML UNIT-DOSE CUP GT SCH ×4 (10:50→22:50)
[2022-08-01] MEDS: LACTOBACILLUS ACIDOPHILUS 1 TABLET GT SCH (10:50)
[2022-08-01] MEDS: BENZOYL PEROXIDE 5% 60 GM GEL..GRAM. TP SCH ×2 (10:50→22:50)
[2022-08-01] MEDS: CHOLECALCIFEROL (VIT D3) 1,000 UNIT (25 MCG) TABLET GT SCH (10:50)
[2022-08-01] MEDS: FOLIC ACID 1 MG TABLET (FP) NGT SCH (10:50)
[2022-08-01] MEDS: PHENYTOIN 100 MG/4 ML U-D CUP NGT SCH ×4 (10:51→22:50)
[2022-08-01] MEDS: PETROLATUM, WHITE 30 GM TUBE TP SCH (10:51)
[2022-08-01] MEDS: SENNOSIDES 8.8 MG/5 ML BULK BOTTLE GT SCH (22:51)
[2022-08-01] MEDS: CALCIUM 500MG/VIT-D 200 UNITS COMBO TABLET (FP) GT SCH (22:51)
[2022-08-01] MEDS: MAGNESIUM HYDROX 2400MG/30ML ORAL SUSPENSION 30 ML CUP GT SCH (22:51)
[2022-08-02] MEDS: MEROPENEM 500 MG in DEXTROSE 5%-WATER 100 ML IVPB SCH ×3 (02:50→18:30)
[2022-08-02] MEDS: TIAGABINE HCL 4 MG GT SCH ×3 (06:38→21:41)
[2022-08-02] MEDS: clonazePAM 0.5 MG TABLET GT SCH ×3 (06:38→21:30)
[2022-08-02] MEDS: levETIRAcetam 500 MG/5 ML ORAL SOLUTION (UNIT-DOSE CUPS) GT SCH ×3 (06:38→21:29)
[2022-08-02 07:39] LABS: BASO % 0.6 % (0-2.0); EOS % 5.5 % (0-4.5); HEMATOCRIT 32.5 % (35.4-49); HEMOGLOBIN 11.2 GM/dL (11.7-16.9); LYMPH % 25.1 % (8-40); MCHC 34.3 g/dl (32.0-35.9); MEAN PLT VOLUME 8.3 fl (7.5-11.1); MONO % 9.7 % (3.8-10.2); NEUT % 59.1 % (42.8-82.8); PLATELET COUNT 419 10^3/uL (134-434); RBC 3.28 M/mm3 (4.00-5.60); RDW 13.7 % (11.9-15.9); WHITE BLOOD COUNT 5.5 K/mm3 (4.0-10.0)
[2022-08-02 08:00] LABS: ALBUMIN 2.7 g/dl (3.4-5.0); BLOOD UREA NITROGEN 3.6 mg/dL (7-18); CALCIUM 8.9 mg/dL (8.5-10.1); MAGNESIUM 2.2 mg/dL (1.8-2.4)
[2022-08-02 08:02] LABS: CREATININE 0.2 mg/dL (0.55-1.3)
[2022-08-02] MEDS: ALBUTEROL SO4 0.083% IH SOL 2.5 MG/3 ML VIAL.NEB. NEB SCH ×4 (08:04→20:41)
[2022-08-02] MEDS: ACETYLCYSTEINE 20% 200MG/ML 4 ML VIAL *FOR ORAL / INH USE ONLY NEB SCH ×4 (08:04→20:41)
[2022-08-02 08:05] LABS: BILIRUBIN,TOTAL 0.5 mg/dL (0.2-1)
[2022-08-02] MEDS: AMINO ACIDS/PROTEIN HYDROLYS 30 ML LIQUID.PKT GT SCH ×2 (09:00→17:26)
[2022-08-02] MEDS: LACTOBACILLUS ACIDOPHILUS 1 TABLET GT SCH (09:42)
[2022-08-02] MEDS: MINERAL OIL/PETROLAT/WATER TOPICAL CREAM 113 GM JAR TP PRN ×2 (09:43→21:58)
[2022-08-02] MEDS: BENZOYL PEROXIDE 5% 60 GM GEL..GRAM. TP SCH ×2 (09:44→21:31)
[2022-08-02] MEDS: carBAMazepine 100 MG/5 ML UNIT-DOSE CUP GT SCH ×4 (09:45→21:31)
[2022-08-02] MEDS: PHENYTOIN 100 MG/4 ML U-D CUP NGT SCH ×4 (09:45→21:30)
[2022-08-02] MEDS: FOLIC ACID 1 MG TABLET (FP) NGT SCH (09:46)
[2022-08-02] MEDS: ENOXAPARIN NA (PORCINE) 40 MG/0.4 ML DISP.SYRIN SQ SCH (09:46)
[2022-08-02] MEDS: guaiFENesin 200 MG/10 ML 10 ML UNIT-DOSE CUPS GT SCH ×2 (09:47→21:32)
[2022-08-02] MEDS: PANTOPRAZOLE SODIUM 40 MG VIAL IVPUSH SCH (09:47)
[2022-08-02] MEDS: CHOLECALCIFEROL (VIT D3) 1,000 UNIT (25 MCG) TABLET GT SCH (09:48)
[2022-08-02] MEDS: PETROLATUM, WHITE 30 GM TUBE TP SCH (10:05)
[2022-08-02] MEDS: IBUPROFEN 800 MG/8 ML IJ IVPB PRN (14:46)
[2022-08-02] MEDS ORDERED: ALBUTEROL SO4 2.5/IPRATROPIUM 0.5 INH SOL 3 ML VIAL.NEB. NEB ONE (14:50)
[2022-08-02] MEDS: MAGNESIUM HYDROX 2400MG/30ML ORAL SUSPENSION 30 ML CUP GT SCH (21:29)
[2022-08-02] MEDS: DEXAMETHASONE SOD PHOSPHATE 4 MG/1 ML VIAL IVPUSH SCH (21:30)
[2022-08-02] MEDS: SENNOSIDES 8.8 MG/5 ML BULK BOTTLE GT SCH ×2 (21:32→21:52)
[2022-08-02] MEDS: CALCIUM 500MG/VIT-D 200 UNITS COMBO TABLET (FP) GT SCH (21:32)
[2022-08-03] MEDS: MEROPENEM 500 MG in DEXTROSE 5%-WATER 100 ML IVPB SCH ×3 (01:26→17:10)
[2022-08-03] MEDS: levETIRAcetam 500 MG/5 ML ORAL SOLUTION (UNIT-DOSE CUPS) GT SCH ×3 (05:07→21:38)
[2022-08-03] MEDS: clonazePAM 0.5 MG TABLET GT SCH ×3 (05:08→21:39)
[2022-08-03] MEDS: TIAGABINE HCL 4 MG GT SCH ×3 (05:08→21:40)
[2022-08-03] MEDS: AMINO ACIDS/PROTEIN HYDROLYS 30 ML LIQUID.PKT GT SCH ×2 (08:05→16:37)
[2022-08-03] MEDS: ACETYLCYSTEINE 20% 200MG/ML 4 ML VIAL *FOR ORAL / INH USE ONLY NEB SCH ×4 (08:10→20:05)
[2022-08-03] MEDS: ALBUTEROL SO4 0.083% IH SOL 2.5 MG/3 ML VIAL.NEB. NEB SCH ×4 (08:10→20:05)
[2022-08-03] MEDS: PHENYTOIN 100 MG/4 ML U-D CUP NGT SCH ×4 (09:43→21:39)
[2022-08-03] MEDS: PANTOPRAZOLE SODIUM 40 MG VIAL IVPUSH SCH (09:43)
[2022-08-03] MEDS: ENOXAPARIN NA (PORCINE) 40 MG/0.4 ML DISP.SYRIN SQ SCH (09:45)
[2022-08-03] MEDS: LACTOBACILLUS ACIDOPHILUS 1 TABLET GT SCH (09:45)
[2022-08-03] MEDS: DEXAMETHASONE SOD PHOSPHATE 4 MG/1 ML VIAL IVPUSH SCH ×2 (09:45→21:38)
[2022-08-03] MEDS: FOLIC ACID 1 MG TABLET (FP) NGT SCH (09:46)
[2022-08-03] MEDS: carBAMazepine 100 MG/5 ML UNIT-DOSE CUP GT SCH ×4 (09:46→21:39)
[2022-08-03] MEDS: CHOLECALCIFEROL (VIT D3) 1,000 UNIT (25 MCG) TABLET GT SCH (09:46)
[2022-08-03] MEDS: guaiFENesin 200 MG/10 ML 10 ML UNIT-DOSE CUPS GT SCH ×2 (10:10→21:40)
[2022-08-03] MEDS: PETROLATUM, WHITE 30 GM TUBE TP SCH (10:10)
[2022-08-03] MEDS: BENZOYL PEROXIDE 5% 60 GM GEL..GRAM. TP SCH ×2 (10:10→21:40)
[2022-08-03] MEDS: CALCIUM 500MG/VIT-D 200 UNITS COMBO TABLET (FP) GT SCH (21:38)
[2022-08-03] MEDS: MAGNESIUM HYDROX 2400MG/30ML ORAL SUSPENSION 30 ML CUP GT SCH (21:38)
[2022-08-03] MEDS: SENNOSIDES 8.8 MG/5 ML BULK BOTTLE GT SCH (21:40)
[2022-08-04] MEDS: IBUPROFEN 800 MG/8 ML IJ IVPB PRN (02:25)
[2022-08-04] MEDS: MEROPENEM 500 MG in DEXTROSE 5%-WATER 100 ML IVPB SCH ×2 (02:31→09:49)
[2022-08-04] MEDS: clonazePAM 0.5 MG TABLET GT SCH ×3 (05:32→21:16)
[2022-08-04] MEDS: levETIRAcetam 500 MG/5 ML ORAL SOLUTION (UNIT-DOSE CUPS) GT SCH ×3 (05:32→21:15)
[2022-08-04] MEDS: TIAGABINE HCL 4 MG GT SCH ×3 (05:32→21:17)
[2022-08-04 08:01] LABS: BASO % 0.7 % (0-2.0); EOS % 1.4 % (0-4.5); HEMATOCRIT 33.1 % (35.4-49); HEMOGLOBIN 10.9 GM/dL (11.7-16.9); LYMPH % 16.9 % (8-40); MCH 33.2 pg (25.7-33.7); MCHC 32.9 g/dl (32.0-35.9); MEAN CELL VOLUME 100.9 fl (80-96); MEAN PLT VOLUME 8.5 fl (7.5-11.1); MONO % 5.5 % (3.8-10.2); NEUT % 75.5 % (42.8-82.8); PLATELET COUNT 478 10^3/uL (134-434); RBC 3.28 M/mm3 (4.00-5.60); RDW 13.9 % (11.9-15.9); WHITE BLOOD COUNT 12.1 K/mm3 (4.0-10.0)
[2022-08-04 08:15] LABS: CHLORIDE 100 mmol/L (98-107); SODIUM 138 mmol/L (136-145)
[2022-08-04 08:41] LABS: CALCIUM 8.8 mg/dL (8.5-10.1)
[2022-08-04 08:43] LABS: ALBUMIN 2.6 g/dl (3.4-5.0); ANION GAP 9 MMOL/L (8-16); BLOOD UREA NITROGEN 8.6 mg/dL (7-18); CO2 30 mmol/L (21-32); GLUCOSE,RANDOM 80 mg/dL (74-106)
[2022-08-04 08:45] LABS: CREATININE < 0.2 mg/dL (0.55-1.3); SGOT/AST 42 U/L (15-37); SGPT/ALT 91 U/L (13-61)
[2022-08-04] MEDS: ACETYLCYSTEINE 20% 200MG/ML 4 ML VIAL *FOR ORAL / INH USE ONLY NEB SCH ×4 (08:45→20:33)
[2022-08-04] MEDS: ALBUTEROL SO4 0.083% IH SOL 2.5 MG/3 ML VIAL.NEB. NEB SCH ×4 (08:45→20:33)
[2022-08-04 08:46] LABS: TOT PROT 5.9 g/dl (6.4-8.2)
[2022-08-04 08:47] LABS: BILIRUBIN,TOTAL 0.2 mg/dL (0.2-1)
[2022-08-04 08:48] LABS: ALK PHOS 141 U/L (45-117)
[2022-08-04] MEDS: AMINO ACIDS/PROTEIN HYDROLYS 30 ML LIQUID.PKT GT SCH ×2 (08:55→16:59)
[2022-08-04] MEDS: CHOLECALCIFEROL (VIT D3) 1,000 UNIT (25 MCG) TABLET GT SCH (09:49)
[2022-08-04] MEDS: PETROLATUM, WHITE 30 GM TUBE TP SCH (09:50)
[2022-08-04] MEDS: guaiFENesin 200 MG/10 ML 10 ML UNIT-DOSE CUPS GT SCH ×2 (09:51→21:16)
[2022-08-04] MEDS: LACTOBACILLUS ACIDOPHILUS 1 TABLET GT SCH (09:53)
[2022-08-04] MEDS: carBAMazepine 100 MG/5 ML UNIT-DOSE CUP GT SCH ×4 (09:53→21:13)
[2022-08-04] MEDS: BENZOYL PEROXIDE 5% 60 GM GEL..GRAM. TP SCH ×2 (09:53→21:12)
[2022-08-04] MEDS: PHENYTOIN 100 MG/4 ML U-D CUP NGT SCH ×4 (09:54→21:13)
[2022-08-04] MEDS: FOLIC ACID 1 MG TABLET (FP) NGT SCH (09:54)
[2022-08-04] MEDS: ENOXAPARIN NA (PORCINE) 40 MG/0.4 ML DISP.SYRIN SQ SCH (09:54)
[2022-08-04] MEDS: PANTOPRAZOLE SODIUM 40 MG VIAL IVPUSH SCH (09:55)
[2022-08-04] MEDS: MAGNESIUM HYDROX 2400MG/30ML ORAL SUSPENSION 30 ML CUP GT SCH (21:14)
[2022-08-04] MEDS: SENNOSIDES 8.8 MG/5 ML BULK BOTTLE GT SCH (21:14)
[2022-08-04] MEDS: CALCIUM 500MG/VIT-D 200 UNITS COMBO TABLET (FP) GT SCH (21:15)
[2022-08-05] MEDS ORDERED: LYTES/YERBA SANTA 60 ML SPRAY MM PRN (00:28)
[2022-08-05] MEDS ORDERED: MINERAL OIL/PETROLAT/WATER TOPICAL CREAM 113 GM JAR TP PRN (00:28)
[2022-08-05] MEDS ORDERED: BISACODYL 10 MG SUPP.RECT PR PRN (00:28)
[2022-08-05] MEDS ORDERED: diazePAM RECTAL GEL 10 MG KIT (PRE-CALIBRATED) RC PRN (00:28)
[2022-08-05] MEDS: clonazePAM 0.5 MG TABLET GT SCH ×3 (05:42→22:21)
[2022-08-05] MEDS: TIAGABINE HCL GT SCH ×3 (05:43→22:26)
[2022-08-05] MEDS: levETIRAcetam 500 MG/5 ML ORAL SOLUTION (UNIT-DOSE CUPS) GT SCH ×3 (06:35→22:23)
[2022-08-05 07:44] LABS: BASO % 1.1 % (0-2.0); EOS % 7.8 % (0-4.5); HEMATOCRIT 30.2 % (35.4-49); HEMOGLOBIN 10.3 GM/dL (11.7-16.9); LYMPH % 26.6 % (8-40); MCH 34.2 pg (25.7-33.7); MCHC 34.1 g/dl (32.0-35.9); MEAN CELL VOLUME 100.2 fl (80-96); MEAN PLT VOLUME 8.4 fl (7.5-11.1); MONO % 7.5 % (3.8-10.2); PLATELET COUNT 439 10^3/uL (134-434); RBC 3.02 M/mm3 (4.00-5.60); RDW 13.9 % (11.9-15.9); WHITE BLOOD COUNT 6.2 K/mm3 (4.0-10.0)
[2022-08-05 08:01] LABS: CALCIUM 8.8 mg/dL (8.5-10.1)
[2022-08-05 08:02] LABS: ALBUMIN 2.5 g/dl (3.4-5.0); BLOOD UREA NITROGEN 8.5 mg/dL (7-18); MAGNESIUM 2.2 mg/dL (1.8-2.4)
[2022-08-05 08:05] LABS: CREATININE 0.2 mg/dL (0.55-1.3); PHOSPHOROUS 2.8 mg/dL (2.5-4.9)
[2022-08-05 08:06] LABS: BILIRUBIN,TOTAL 0.2 mg/dL (0.2-1); TOT PROT 5.6 g/dl (6.4-8.2)
[2022-08-05] MEDS: ACETYLCYSTEINE 20% 200MG/ML 4 ML VIAL *FOR ORAL / INH USE ONLY NEB SCH ×4 (08:55→20:49)
[2022-08-05] MEDS: ALBUTEROL SO4 0.083% IH SOL 2.5 MG/3 ML VIAL.NEB. NEB SCH ×4 (08:55→20:50)
[2022-08-05] MEDS ORDERED: PHENYTOIN 100 MG/4 ML U-D CUP NGT SCH (10:00)
[2022-08-05] MEDS: guaiFENesin 200 MG/10 ML 10 ML UNIT-DOSE CUPS GT SCH ×2 (10:19→22:23)
[2022-08-05] MEDS: FOLIC ACID 1 MG TABLET (FP) NGT SCH (10:20)
[2022-08-05] MEDS: PETROLATUM, WHITE 30 GM TUBE TP SCH (10:20)
[2022-08-05] MEDS: AMINO ACIDS/PROTEIN HYDROLYS 30 ML LIQUID.PKT GT SCH ×2 (10:20→17:02)
[2022-08-05] MEDS: CHOLECALCIFEROL (VIT D3) 1,000 UNIT (25 MCG) TABLET GT SCH (10:20)
[2022-08-05] MEDS: ENOXAPARIN NA (PORCINE) 40 MG/0.4 ML DISP.SYRIN SQ SCH (10:20)
[2022-08-05] MEDS: PANTOPRAZOLE SODIUM 40 MG VIAL IVPUSH SCH (10:20)
[2022-08-05] MEDS: BENZOYL PEROXIDE 5% 60 GM GEL..GRAM. TP SCH ×2 (10:20→22:29)
[2022-08-05] MEDS: carBAMazepine 100 MG/5 ML UNIT-DOSE CUP GT SCH ×4 (10:21→22:22)
[2022-08-05] MEDS: LACTOBACILLUS ACIDOPHILUS 1 TABLET GT SCH (10:21)
[2022-08-05] MEDS: PHENYTOIN 100 MG/4 ML U-D CUP GT SCH ×3 (17:02→22:22)
[2022-08-05] MEDS: CALCIUM 500MG/VIT-D 200 UNITS COMBO TABLET (FP) GT SCH (22:23)
[2022-08-05] MEDS: SENNOSIDES 8.8 MG/5 ML BULK BOTTLE GT SCH (22:27)
[2022-08-05] MEDS: MAGNESIUM HYDROX 2400MG/30ML ORAL SUSPENSION 30 ML CUP GT SCH (22:27)
[2022-08-06] MEDS ORDERED: ACETAMINOPHEN 1000 MG/100 ML BAG IVPB ONE ×2 (02:15)
[2022-08-06] MEDS: ALBUTEROL SO4 0.083% IH SOL 2.5 MG/3 ML VIAL.NEB. NEB PRN (02:19)
[2022-08-06] MEDS: clonazePAM 0.5 MG TABLET GT SCH ×3 (06:02→22:20)
[2022-08-06] MEDS: TIAGABINE HCL GT SCH ×3 (06:03→22:23)
[2022-08-06] MEDS: levETIRAcetam 500 MG/5 ML ORAL SOLUTION (UNIT-DOSE CUPS) GT SCH ×3 (06:03→22:19)
[2022-08-06 07:59] LABS: HEMATOCRIT 31.1 % (35.4-49); HEMOGLOBIN 10.7 GM/dL (11.7-16.9); MCH 34.4 pg (25.7-33.7); MCHC 34.4 g/dl (32.0-35.9); PLATELET COUNT 466 10^3/uL (134-434); RBC 3.11 M/mm3 (4.00-5.60); RDW 13.7 % (11.9-15.9); WHITE BLOOD COUNT 9.6 K/mm3 (4.0-10.0)
[2022-08-06] MEDS: ACETYLCYSTEINE 20% 200MG/ML 4 ML VIAL *FOR ORAL / INH USE ONLY NEB SCH ×4 (08:05→21:01)
[2022-08-06] MEDS: ALBUTEROL SO4 0.083% IH SOL 2.5 MG/3 ML VIAL.NEB. NEB SCH ×4 (08:05→21:01)
[2022-08-06 08:27] LABS: ALBUMIN 2.6 g/dl (3.4-5.0); BLOOD UREA NITROGEN 8.4 mg/dL (7-18); CALCIUM 8.7 mg/dL (8.5-10.1); MAGNESIUM 2.3 mg/dL (1.8-2.4)
[2022-08-06 08:30] LABS: CREATININE 0.2 mg/dL (0.55-1.3); PHOSPHOROUS 3.7 mg/dL (2.5-4.9)
[2022-08-06 08:31] LABS: BILIRUBIN,TOTAL 0.4 mg/dL (0.2-1); TOT PROT 5.8 g/dl (6.4-8.2)
[2022-08-06] MEDS: AMINO ACIDS/PROTEIN HYDROLYS 30 ML LIQUID.PKT GT SCH ×2 (08:57→18:15)
[2022-08-06] MEDS: LACTOBACILLUS ACIDOPHILUS 1 TABLET GT SCH (10:44)
[2022-08-06] MEDS: guaiFENesin 200 MG/10 ML 10 ML UNIT-DOSE CUPS GT SCH ×2 (10:44→22:20)
[2022-08-06] MEDS: PANTOPRAZOLE SODIUM 40 MG VIAL IVPUSH SCH (10:45)
[2022-08-06] MEDS: ENOXAPARIN NA (PORCINE) 40 MG/0.4 ML DISP.SYRIN SQ SCH (10:45)
[2022-08-06] MEDS: BENZOYL PEROXIDE 5% 60 GM GEL..GRAM. TP SCH ×2 (10:45→22:16)
[2022-08-06] MEDS: CHOLECALCIFEROL (VIT D3) 1,000 UNIT (25 MCG) TABLET GT SCH (10:45)
[2022-08-06] MEDS: PHENYTOIN 100 MG/4 ML U-D CUP GT SCH ×4 (10:47→22:18)
[2022-08-06] MEDS: FOLIC ACID 1 MG TABLET (FP) NGT SCH (10:48)
[2022-08-06] MEDS: PETROLATUM, WHITE 30 GM TUBE TP SCH (10:48)
[2022-08-06] MEDS: carBAMazepine 100 MG/5 ML UNIT-DOSE CUP GT SCH ×4 (10:51→22:17)
[2022-08-06] MEDS: CALCIUM 500MG/VIT-D 200 UNITS COMBO TABLET (FP) GT SCH (22:20)
[2022-08-06] MEDS: MAGNESIUM HYDROX 2400MG/30ML ORAL SUSPENSION 30 ML CUP GT SCH (22:20)
[2022-08-06] MEDS: SENNOSIDES 8.8 MG/5 ML BULK BOTTLE GT SCH (22:21)
[2022-08-07] MEDS: clonazePAM 0.5 MG TABLET GT SCH ×3 (06:30→22:41)
[2022-08-07] MEDS: TIAGABINE HCL GT SCH ×3 (06:31→22:44)
[2022-08-07] MEDS: levETIRAcetam 500 MG/5 ML ORAL SOLUTION (UNIT-DOSE CUPS) GT SCH ×3 (07:39→22:41)
[2022-08-07] MEDS: ACETYLCYSTEINE 20% 200MG/ML 4 ML VIAL *FOR ORAL / INH USE ONLY NEB SCH ×4 (08:05→20:20)
[2022-08-07] MEDS: ALBUTEROL SO4 0.083% IH SOL 2.5 MG/3 ML VIAL.NEB. NEB SCH ×4 (08:05→20:20)
[2022-08-07] MEDS: AMINO ACIDS/PROTEIN HYDROLYS 30 ML LIQUID.PKT GT SCH ×2 (08:30→17:39)
[2022-08-07 08:39] LABS: HEMOGLOBIN 11.1 GM/dL (11.7-16.9); MCH 34.4 pg (25.7-33.7); MCHC 34.6 g/dl (32.0-35.9); MEAN CELL VOLUME 99.3 fl (80-96); MEAN PLT VOLUME 7.7 fl (7.5-11.1); PLATELET COUNT 485 10^3/uL (134-434); RBC 3.22 M/mm3 (4.00-5.60)
[2022-08-07 09:00] LABS: ALBUMIN 2.8 g/dl (3.4-5.0); CALCIUM 9.2 mg/dL (8.5-10.1)
[2022-08-07 09:03] LABS: CREATININE 0.2 mg/dL (0.55-1.3)
[2022-08-07 09:05] LABS: BILIRUBIN,TOTAL 0.4 mg/dL (0.2-1); TOT PROT 6.3 g/dl (6.4-8.2)
[2022-08-07] MEDS: ENOXAPARIN NA (PORCINE) 40 MG/0.4 ML DISP.SYRIN SQ SCH (10:22)
[2022-08-07] MEDS: guaiFENesin 200 MG/10 ML 10 ML UNIT-DOSE CUPS GT SCH ×2 (10:23→22:42)
[2022-08-07] MEDS: CHOLECALCIFEROL (VIT D3) 1,000 UNIT (25 MCG) TABLET GT SCH (10:23)
[2022-08-07] MEDS: PANTOPRAZOLE SODIUM 40 MG VIAL IVPUSH SCH (10:23)
[2022-08-07] MEDS: LACTOBACILLUS ACIDOPHILUS 1 TABLET GT SCH (10:23)
[2022-08-07] MEDS: FOLIC ACID 1 MG TABLET (FP) NGT SCH (10:23)
[2022-08-07] MEDS: PETROLATUM, WHITE 30 GM TUBE TP SCH (10:23)
[2022-08-07] MEDS: PHENYTOIN 100 MG/4 ML U-D CUP GT SCH ×4 (10:24→22:40)
[2022-08-07] MEDS: carBAMazepine 100 MG/5 ML UNIT-DOSE CUP GT SCH ×4 (10:24→22:40)
[2022-08-07] MEDS: BENZOYL PEROXIDE 5% 60 GM GEL..GRAM. TP SCH ×2 (10:24→22:53)
[2022-08-07] MEDS: IBUPROFEN 800 MG/8 ML IJ IVPB PRN (18:19)
[2022-08-07] MEDS ORDERED: FUROSEMIDE 40 MG/4 ML INJECTABLE VIAL IVPUSH ONE (21:59)
[2022-08-07] MEDS: CALCIUM 500MG/VIT-D 200 UNITS COMBO TABLET (FP) GT SCH (22:41)
[2022-08-07] MEDS: MAGNESIUM HYDROX 2400MG/30ML ORAL SUSPENSION 30 ML CUP GT SCH (22:41)
[2022-08-07] MEDS: SENNOSIDES 8.8 MG/5 ML BULK BOTTLE GT SCH (22:43)
[2022-08-08] MEDS: levETIRAcetam 500 MG/5 ML ORAL SOLUTION (UNIT-DOSE CUPS) GT SCH ×3 (06:33→22:14)
[2022-08-08] MEDS: clonazePAM 0.5 MG TABLET GT SCH ×3 (06:33→22:14)
[2022-08-08] MEDS: TIAGABINE HCL GT SCH ×3 (06:34→22:15)
[2022-08-08 08:03] LABS: BASO % 0.1 % (0-2.0); EOS % 1.1 % (0-4.5); HEMOGLOBIN 11.9 GM/dL (11.7-16.9); LYMPH % 11.7 % (8-40); MCH 33.4 pg (25.7-33.7); MCHC 33.2 g/dl (32.0-35.9); MEAN CELL VOLUME 100.8 fl (80-96); MEAN PLT VOLUME 8.5 fl (7.5-11.1); MONO % 2.7 % (3.8-10.2); NEUT % 84.4 % (42.8-82.8); PLATELET COUNT 496 10^3/uL (134-434); RBC 3.57 M/mm3 (4.00-5.60); RDW 14.3 % (11.9-15.9); WHITE BLOOD COUNT 16.4 K/mm3 (4.0-10.0)
[2022-08-08 08:10] LABS: ALBUMIN 2.9 g/dl (3.4-5.0); BLOOD UREA NITROGEN 12.4 mg/dL (7-18); MAGNESIUM 2.2 mg/dL (1.8-2.4)
[2022-08-08 08:13] LABS: CREATININE 0.3 mg/dL (0.55-1.3); PHOSPHOROUS 3.9 mg/dL (2.5-4.9)
[2022-08-08 08:15] LABS: BILIRUBIN,TOTAL 0.8 mg/dL (0.2-1); TOT PROT 6.5 g/dl (6.4-8.2)
[2022-08-08] MEDS: ACETYLCYSTEINE 20% 200MG/ML 4 ML VIAL *FOR ORAL / INH USE ONLY NEB SCH ×4 (08:26→20:05)
[2022-08-08] MEDS: ALBUTEROL SO4 0.083% IH SOL 2.5 MG/3 ML VIAL.NEB. NEB SCH ×4 (08:26→20:05)
[2022-08-08] MEDS: AMINO ACIDS/PROTEIN HYDROLYS 30 ML LIQUID.PKT GT SCH ×2 (09:00→17:43)
[2022-08-08] MEDS: PANTOPRAZOLE SODIUM 40 MG VIAL IVPUSH SCH (10:11)
[2022-08-08] MEDS: CHOLECALCIFEROL (VIT D3) 1,000 UNIT (25 MCG) TABLET GT SCH (10:11)
[2022-08-08] MEDS: FOLIC ACID 1 MG TABLET (FP) NGT SCH (10:11)
[2022-08-08] MEDS: ENOXAPARIN NA (PORCINE) 40 MG/0.4 ML DISP.SYRIN SQ SCH (10:11)
[2022-08-08] MEDS: LACTOBACILLUS ACIDOPHILUS 1 TABLET GT SCH (10:11)
[2022-08-08] MEDS: PHENYTOIN 100 MG/4 ML U-D CUP GT SCH ×4 (10:12→22:14)
[2022-08-08] MEDS: SIMETHICONE 40 MG/0.6 ML BOTTLE GT PRN (10:14)
[2022-08-08] MEDS: BENZOYL PEROXIDE 5% 60 GM GEL..GRAM. TP SCH ×2 (10:15→22:13)
[2022-08-08] MEDS: guaiFENesin 200 MG/10 ML 10 ML UNIT-DOSE CUPS GT SCH ×2 (10:16→22:35)
[2022-08-08] MEDS: PETROLATUM, WHITE 30 GM TUBE TP SCH (10:16)
[2022-08-08] MEDS: carBAMazepine 100 MG/5 ML UNIT-DOSE CUP GT SCH ×4 (10:19→22:13)
[2022-08-08] MEDS: DEXAMETHASONE SOD PHOSPHATE 4 MG/1 ML VIAL IVPUSH SCH ×2 (15:01→21:10)
[2022-08-08 17:10] LABS: CALCIUM 8.7 mg/dL (8.5-10.1)
[2022-08-08 17:11] LABS: ALBUMIN 2.6 g/dl (3.4-5.0); BLOOD UREA NITROGEN 11.2 mg/dL (7-18)
[2022-08-08 17:14] LABS: CREATININE 0.2 mg/dL (0.55-1.3)
[2022-08-08 17:16] LABS: BILIRUBIN,TOTAL 0.6 mg/dL (0.2-1)
[2022-08-08] MEDS: CALCIUM 500MG/VIT-D 200 UNITS COMBO TABLET (FP) GT SCH (22:15)
[2022-08-09] MEDS: ALBUTEROL SO4 0.083% IH SOL 2.5 MG/3 ML VIAL.NEB. NEB PRN (02:00)
[2022-08-09] MEDS: DEXAMETHASONE SOD PHOSPHATE 4 MG/1 ML VIAL IVPUSH SCH ×4 (04:00→22:00)
[2022-08-09] MEDS: levETIRAcetam 500 MG/5 ML ORAL SOLUTION (UNIT-DOSE CUPS) GT SCH ×2 (06:57→13:53)
[2022-08-09] MEDS: TIAGABINE HCL GT SCH ×2 (06:57→13:54)
[2022-08-09] MEDS: clonazePAM 0.5 MG TABLET GT SCH ×3 (06:57→22:00)
[2022-08-09] MEDS ORDERED: FUROSEMIDE 40 MG/4 ML INJECTABLE VIAL IVPUSH ONE (08:23)
[2022-08-09] MEDS: ACETYLCYSTEINE 20% 200MG/ML 4 ML VIAL *FOR ORAL / INH USE ONLY NEB SCH ×3 (08:25→20:33)
[2022-08-09 08:29] LABS: HEMATOCRIT 34.9 % (35.4-49); HEMOGLOBIN 11.6 GM/dL (11.7-16.9); MCH 33.6 pg (25.7-33.7); MCHC 33.4 g/dl (32.0-35.9); MEAN CELL VOLUME 100.5 fl (80-96); MEAN PLT VOLUME 8.6 fl (7.5-11.1); PLATELET COUNT 473 10^3/uL (134-434); RBC 3.47 M/mm3 (4.00-5.60); RDW 13.6 % (11.9-15.9); WHITE BLOOD COUNT 16.7 K/mm3 (4.0-10.0)
[2022-08-09 08:59] LABS: BLOOD UREA NITROGEN 12.4 mg/dL (7-18); CALCIUM 9.2 mg/dL (8.5-10.1); MAGNESIUM 2.3 mg/dL (1.8-2.4)
[2022-08-09 09:02] LABS: CREATININE 0.3 mg/dL (0.55-1.3); PHOSPHOROUS 4.1 mg/dL (2.5-4.9)
[2022-08-09 09:03] LABS: TOT PROT 6.8 g/dl (6.4-8.2)
[2022-08-09 09:04] LABS: BILIRUBIN,TOTAL 0.7 mg/dL (0.2-1)
[2022-08-09] MEDS: PANTOPRAZOLE SODIUM 40 MG VIAL IVPUSH SCH (09:55)
[2022-08-09] MEDS: AMINO ACIDS/PROTEIN HYDROLYS 30 ML LIQUID.PKT GT SCH ×2 (10:04→18:02)
[2022-08-09] MEDS: LACTOBACILLUS ACIDOPHILUS 1 TABLET GT SCH (10:04)
[2022-08-09] MEDS: ENOXAPARIN NA (PORCINE) 40 MG/0.4 ML DISP.SYRIN SQ SCH (10:05)
[2022-08-09] MEDS: CHOLECALCIFEROL (VIT D3) 1,000 UNIT (25 MCG) TABLET GT SCH (10:05)
[2022-08-09] MEDS: guaiFENesin 200 MG/10 ML 10 ML UNIT-DOSE CUPS GT SCH ×2 (10:05→22:00)
[2022-08-09] MEDS: FOLIC ACID 1 MG TABLET (FP) NGT SCH (10:05)
[2022-08-09] MEDS: carBAMazepine 100 MG/5 ML UNIT-DOSE CUP GT SCH ×3 (10:13→18:02)
[2022-08-09] MEDS: BENZOYL PEROXIDE 5% 60 GM GEL..GRAM. TP SCH ×2 (10:14→22:00)
[2022-08-09] MEDS: PETROLATUM, WHITE 30 GM TUBE TP SCH (10:14)
[2022-08-09] MEDS: PHENYTOIN 100 MG/4 ML U-D CUP GT SCH ×3 (10:14→18:02)
[2022-08-09] MEDS: ALBUTEROL SO4 0.083% IH SOL 2.5 MG/3 ML VIAL.NEB. NEB SCH ×3 (12:45→20:34)
[2022-08-09] MEDS: CALCIUM 500MG/VIT-D 200 UNITS COMBO TABLET (FP) GT SCH (22:00)
[2022-08-10] MEDS: levETIRAcetam 500 MG/5 ML ORAL SOLUTION (UNIT-DOSE CUPS) GT SCH ×4 (00:55→21:03)
[2022-08-10] MEDS: PHENYTOIN 100 MG/4 ML U-D CUP GT SCH ×5 (00:55→21:02)
[2022-08-10] MEDS: TIAGABINE HCL GT SCH ×4 (00:56→21:06)
[2022-08-10] MEDS: carBAMazepine 100 MG/5 ML UNIT-DOSE CUP GT SCH ×5 (00:56→21:02)
[2022-08-10] MEDS: DEXAMETHASONE SOD PHOSPHATE 4 MG/1 ML VIAL IVPUSH SCH ×2 (03:40→09:15)
[2022-08-10] MEDS: AMINO ACIDS/PROTEIN HYDROLYS 30 ML LIQUID.PKT GT SCH ×2 (08:15→17:30)
[2022-08-10] MEDS: ALBUTEROL SO4 0.083% IH SOL 2.5 MG/3 ML VIAL.NEB. NEB SCH ×4 (08:45→22:08)
[2022-08-10] MEDS: ACETYLCYSTEINE 20% 200MG/ML 4 ML VIAL *FOR ORAL / INH USE ONLY NEB SCH ×4 (08:45→22:07)
[2022-08-10 09:09] LABS: HEMOGLOBIN 11.7 GM/dL (11.7-16.9); MCH 33.1 pg (25.7-33.7); MCHC 32.6 g/dl (32.0-35.9); MEAN CELL VOLUME 101.8 fl (80-96); MEAN PLT VOLUME 8.9 fl (7.5-11.1); PLATELET COUNT 505 10^3/uL (134-434); RBC 3.54 M/mm3 (4.00-5.60); RDW 14.1 % (11.9-15.9); WHITE BLOOD COUNT 11.2 K/mm3 (4.0-10.0)
[2022-08-10 09:17] LABS: ALBUMIN 3.1 g/dl (3.4-5.0); CALCIUM 9.5 mg/dL (8.5-10.1)
[2022-08-10 09:18] LABS: BLOOD UREA NITROGEN 17.2 mg/dL (7-18); MAGNESIUM 2.3 mg/dL (1.8-2.4)
[2022-08-10 09:20] LABS: CREATININE 0.2 mg/dL (0.55-1.3)
[2022-08-10 09:21] LABS: PHOSPHOROUS 4.3 mg/dL (2.5-4.9)
[2022-08-10 09:22] LABS: BILIRUBIN,TOTAL 0.5 mg/dL (0.2-1); TOT PROT 7.3 g/dl (6.4-8.2)
[2022-08-10] MEDS: CHOLECALCIFEROL (VIT D3) 1,000 UNIT (25 MCG) TABLET GT SCH (10:42)
[2022-08-10] MEDS: FOLIC ACID 1 MG TABLET (FP) NGT SCH (10:43)
[2022-08-10] MEDS: LACTOBACILLUS ACIDOPHILUS 1 TABLET GT SCH (10:46)
[2022-08-10] MEDS: ENOXAPARIN NA (PORCINE) 40 MG/0.4 ML DISP.SYRIN SQ SCH (10:46)
[2022-08-10] MEDS: SIMETHICONE 40 MG/0.6 ML BOTTLE GT PRN (10:47)
[2022-08-10] MEDS: PANTOPRAZOLE SODIUM 40 MG VIAL IVPUSH SCH (10:48)
[2022-08-10] MEDS: PETROLATUM, WHITE 30 GM TUBE TP SCH (10:48)
[2022-08-10] MEDS: BENZOYL PEROXIDE 5% 60 GM GEL..GRAM. TP SCH ×2 (10:50→21:04)
[2022-08-10] MEDS: guaiFENesin 200 MG/10 ML 10 ML UNIT-DOSE CUPS GT SCH ×2 (11:08→21:06)
[2022-08-10] MEDS ORDERED: DEXAMETHASONE SOD PHOSPHATE 4 MG/1 ML VIAL IVPUSH ONE (15:00)
[2022-08-10] MEDS: clonazePAM 0.5 MG TABLET GT SCH ×3 (15:26→21:05)
[2022-08-10] MEDS ORDERED: MULTIVIT-MINERALS ORAL LIQUID GT SCH (18:00)
[2022-08-10] MEDS: ASCORBIC ACID 500 MG/5 ML UNIT DOSE CUP GT SCH (18:53)
[2022-08-10] MEDS: CALCIUM 500MG/VIT-D 200 UNITS COMBO TABLET (FP) GT SCH (21:05)
[2022-08-10] MEDS: PIPERACILLIN/TAZOB 2.25 GM 2.25 GM in DEXTROSE 5%-WATER - 50 ML IVPB SCH (21:38)
[2022-08-11] MEDS: PIPERACILLIN/TAZOB 2.25 GM 2.25 GM in DEXTROSE 5%-WATER - 50 ML IVPB SCH (04:17)
[2022-08-11] MEDS: clonazePAM 0.5 MG TABLET GT SCH ×3 (05:51→21:23)
[2022-08-11] MEDS: levETIRAcetam 500 MG/5 ML ORAL SOLUTION (UNIT-DOSE CUPS) GT SCH ×3 (05:51→21:23)
[2022-08-11] MEDS: TIAGABINE HCL GT SCH ×3 (05:52→21:25)
[2022-08-11] MEDS: ASCORBIC ACID 500 MG/5 ML UNIT DOSE CUP GT SCH ×2 (06:35→19:30)
[2022-08-11 07:51] LABS: BLOOD UREA NITROGEN 17.4 mg/dL (7-18); CALCIUM 9.4 mg/dL (8.5-10.1); MAGNESIUM 2.3 mg/dL (1.8-2.4)
[2022-08-11 07:54] LABS: CREATININE 0.3 mg/dL (0.55-1.3); PHOSPHOROUS 3.2 mg/dL (2.5-4.9)
[2022-08-11 07:56] LABS: BILIRUBIN,TOTAL 0.6 mg/dL (0.2-1); TOT PROT 6.9 g/dl (6.4-8.2)
[2022-08-11 08:06] LABS: HEMOGLOBIN 12.4 GM/dL (11.7-16.9); MCH 33.6 pg (25.7-33.7); MCHC 33.4 g/dl (32.0-35.9); MEAN CELL VOLUME 100.5 fl (80-96); MEAN PLT VOLUME 8.6 fl (7.5-11.1); PLATELET COUNT 473 10^3/uL (134-434); RBC 3.68 M/mm3 (4.00-5.60); RDW 13.9 % (11.9-15.9); WHITE BLOOD COUNT 11.2 K/mm3 (4.0-10.0)
[2022-08-11] MEDS: ALBUTEROL SO4 0.083% IH SOL 2.5 MG/3 ML VIAL.NEB. NEB SCH ×4 (08:22→20:45)
[2022-08-11] MEDS: ACETYLCYSTEINE 20% 200MG/ML 4 ML VIAL *FOR ORAL / INH USE ONLY NEB SCH ×4 (08:22→20:45)
[2022-08-11] MEDS ORDERED: DEXAMETHASONE SOD PHOSPHATE 4 MG/1 ML VIAL IVPUSH SCH ×2 (09:15→10:48)
[2022-08-11] MEDS: PANTOPRAZOLE SODIUM 40 MG VIAL IVPUSH SCH (10:06)
[2022-08-11] MEDS: AMINO ACIDS/PROTEIN HYDROLYS 30 ML LIQUID.PKT GT SCH ×2 (10:07→17:40)
[2022-08-11] MEDS: LACTOBACILLUS ACIDOPHILUS 1 TABLET GT SCH (10:07)
[2022-08-11] MEDS: BENZOYL PEROXIDE 5% 60 GM GEL..GRAM. TP SCH ×2 (10:08→21:22)
[2022-08-11] MEDS: PETROLATUM, WHITE 30 GM TUBE TP SCH (10:10)
[2022-08-11] MEDS: FOLIC ACID 1 MG TABLET (FP) NGT SCH (10:10)
[2022-08-11] MEDS: CHOLECALCIFEROL (VIT D3) 1,000 UNIT (25 MCG) TABLET GT SCH (10:10)
[2022-08-11] MEDS: ENOXAPARIN NA (PORCINE) 40 MG/0.4 ML DISP.SYRIN SQ SCH (10:11)
[2022-08-11] MEDS: guaiFENesin 200 MG/10 ML 10 ML UNIT-DOSE CUPS GT SCH ×2 (10:11→21:24)
[2022-08-11] MEDS: PHENYTOIN 100 MG/4 ML U-D CUP GT SCH ×4 (10:12→21:57)
[2022-08-11] MEDS: carBAMazepine 100 MG/5 ML UNIT-DOSE CUP GT SCH ×4 (10:12→21:57)
[2022-08-11] MEDS ORDERED: MEROPENEM 500 MG in DEXTROSE 5%-WATER 100 ML IVPB SCH (11:00)
[2022-08-11] MEDS ORDERED: diazePAM RECTAL GEL 10 MG KIT (PRE-CALIBRATED) RC PRN (16:41)
[2022-08-11] MEDS ORDERED: SIMETHICONE 40 MG/0.6 ML BOTTLE GT PRN (16:41)
[2022-08-11] MEDS ORDERED: MINERAL OIL/PETROLAT/WATER TOPICAL CREAM 113 GM JAR TP PRN (16:41)
[2022-08-11] MEDS ORDERED: BISACODYL 10 MG SUPP.RECT PR PRN (16:41)
[2022-08-11] MEDS ORDERED: ALBUTEROL SO4 0.083% IH SOL 2.5 MG/3 ML VIAL.NEB. NEB PRN (16:41)
[2022-08-11] MEDS ORDERED: LYTES/YERBA SANTA 60 ML SPRAY MM PRN (16:41)
[2022-08-11] MEDS: MEROPENEM 500 MG in DEXTROSE 5%-WATER 100 ML IVPB SCH (18:35)
[2022-08-11] MEDS: MULTIVIT-MINERALS ORAL LIQUID GT SCH (19:29)
[2022-08-11] MEDS: DEXAMETHASONE SOD PHOSPHATE 4 MG/1 ML VIAL IVPUSH SCH (21:19)
[2022-08-11] MEDS: MUPIROCIN 2% TOPICAL OINTMENT FOR DECOLONIZATION NS SCH (21:20)
[2022-08-11] MEDS: CHLORHEXIDINE GLUCONATE 4% CLEANSER FOR DECOLONIZATION TP SCH (21:23)
[2022-08-11] MEDS: CALCIUM 500MG/VIT-D 200 UNITS COMBO TABLET (FP) GT SCH (22:09)
[2022-08-12] MEDS: MEROPENEM 500 MG in DEXTROSE 5%-WATER 100 ML IVPB SCH ×3 (02:42→17:02)
[2022-08-12] MEDS: DEXAMETHASONE SOD PHOSPHATE 4 MG/1 ML VIAL IVPUSH SCH ×4 (02:42→21:42)
[2022-08-12] MEDS: clonazePAM 0.5 MG TABLET GT SCH ×3 (05:26→21:49)
[2022-08-12] MEDS: levETIRAcetam 500 MG/5 ML ORAL SOLUTION (UNIT-DOSE CUPS) GT SCH ×3 (05:26→21:57)
[2022-08-12] MEDS: TIAGABINE HCL GT SCH ×4 (05:26→23:33)
[2022-08-12] MEDS: ASCORBIC ACID 500 MG/5 ML UNIT DOSE CUP GT SCH ×2 (05:27→17:01)
[2022-08-12 07:43] LABS: BASO % 0.3 % (0-2.0); HEMATOCRIT 30.4 % (35.4-49); HEMOGLOBIN 10.6 GM/dL (11.7-16.9); LYMPH % 11.7 % (8-40); MCH 34.5 pg (25.7-33.7); MCHC 34.7 g/dl (32.0-35.9); MEAN CELL VOLUME 99.4 fl (80-96); MONO % 2.2 % (3.8-10.2); NEUT % 85.8 % (42.8-82.8); PLATELET COUNT 395 10^3/uL (134-434); RBC 3.06 M/mm3 (4.00-5.60); RDW 13.9 % (11.9-15.9); WHITE BLOOD COUNT 10.2 K/mm3 (4.0-10.0)
[2022-08-12] MEDS: ACETYLCYSTEINE 20% 200MG/ML 4 ML VIAL *FOR ORAL / INH USE ONLY NEB SCH ×4 (08:06→20:26)
[2022-08-12] MEDS: ALBUTEROL SO4 0.083% IH SOL 2.5 MG/3 ML VIAL.NEB. NEB SCH ×4 (08:06→20:26)
[2022-08-12 08:12] LABS: BLOOD UREA NITROGEN 13.7 mg/dL (7-18)
[2022-08-12 08:13] LABS: ALBUMIN 2.8 g/dl (3.4-5.0); CALCIUM 9.2 mg/dL (8.5-10.1)
[2022-08-12 08:16] LABS: CREATININE 0.3 mg/dL (0.55-1.3); PHOSPHOROUS 2.9 mg/dL (2.5-4.9)
[2022-08-12 08:17] LABS: TOT PROT 6.6 g/dl (6.4-8.2)
[2022-08-12 08:18] LABS: BILIRUBIN,TOTAL 0.7 mg/dL (0.2-1)
[2022-08-12] MEDS: AMINO ACIDS/PROTEIN HYDROLYS 30 ML LIQUID.PKT GT SCH ×2 (08:50→16:34)
[2022-08-12] MEDS: LACTOBACILLUS ACIDOPHILUS 1 TABLET GT SCH (09:07)
[2022-08-12] MEDS: MUPIROCIN 2% TOPICAL OINTMENT FOR DECOLONIZATION NS SCH ×2 (09:08→23:33)
[2022-08-12] MEDS: BENZOYL PEROXIDE 5% 60 GM GEL..GRAM. TP SCH ×2 (09:08→23:33)
[2022-08-12] MEDS: PHENYTOIN 100 MG/4 ML U-D CUP GT SCH ×4 (09:09→21:57)
[2022-08-12] MEDS: carBAMazepine 100 MG/5 ML UNIT-DOSE CUP GT SCH ×4 (09:09→21:57)
[2022-08-12] MEDS: ENOXAPARIN NA (PORCINE) 40 MG/0.4 ML DISP.SYRIN SQ SCH (09:10)
[2022-08-12] MEDS: ERYTHROMYCIN 0.5% OPHTHALMIC OINTMENT 3.5 GM TUBE OU SCH (09:10)
[2022-08-12] MEDS: FOLIC ACID 1 MG TABLET (FP) NGT SCH (09:10)
[2022-08-12] MEDS: PANTOPRAZOLE SODIUM 40 MG VIAL IVPUSH SCH (09:11)
[2022-08-12] MEDS: guaiFENesin 200 MG/10 ML 10 ML UNIT-DOSE CUPS GT SCH ×2 (09:11→21:49)
[2022-08-12] MEDS: PETROLATUM, WHITE 30 GM TUBE TP SCH (09:12)
[2022-08-12] MEDS: CHOLECALCIFEROL (VIT D3) 1,000 UNIT (25 MCG) TABLET GT SCH (09:13)
[2022-08-12] MEDS ORDERED: ERYTHROMYCIN 0.5% OPHTHALMIC OINTMENT 3.5 GM TUBE OU SCH (10:00)
[2022-08-12] MEDS: MULTIVIT-MINERALS ORAL LIQUID GT SCH (17:01)
[2022-08-12] MEDS: CALCIUM 500MG/VIT-D 200 UNITS COMBO TABLET (FP) GT SCH (21:47)
[2022-08-12] MEDS: CHLORHEXIDINE GLUCONATE 4% CLEANSER FOR DECOLONIZATION TP SCH (23:33)
[2022-08-13] MEDS: MEROPENEM 500 MG in DEXTROSE 5%-WATER 100 ML IVPB SCH ×3 (02:48→18:04)
[2022-08-13] MEDS: DEXAMETHASONE SOD PHOSPHATE 4 MG/1 ML VIAL IVPUSH SCH ×2 (03:31→12:02)
[2022-08-13] MEDS: levETIRAcetam 500 MG/5 ML ORAL SOLUTION (UNIT-DOSE CUPS) GT SCH ×3 (05:29→21:43)
[2022-08-13] MEDS: clonazePAM 0.5 MG TABLET GT SCH ×3 (05:29→21:43)
[2022-08-13] MEDS: TIAGABINE HCL GT SCH ×3 (05:30→21:44)
[2022-08-13] MEDS: ASCORBIC ACID 500 MG/5 ML UNIT DOSE CUP GT SCH ×2 (05:30→18:02)
[2022-08-13] MEDS: ACETYLCYSTEINE 20% 200MG/ML 4 ML VIAL *FOR ORAL / INH USE ONLY NEB SCH ×4 (08:10→20:05)
[2022-08-13] MEDS: ALBUTEROL SO4 0.083% IH SOL 2.5 MG/3 ML VIAL.NEB. NEB SCH ×4 (08:10→20:05)
[2022-08-13] MEDS: AMINO ACIDS/PROTEIN HYDROLYS 30 ML LIQUID.PKT GT SCH ×2 (08:30→18:00)
[2022-08-13] MEDS: LACTOBACILLUS ACIDOPHILUS 1 TABLET GT SCH (12:00)
[2022-08-13] MEDS: CHOLECALCIFEROL (VIT D3) 1,000 UNIT (25 MCG) TABLET GT SCH (12:00)
[2022-08-13] MEDS: FOLIC ACID 1 MG TABLET (FP) NGT SCH (12:00)
[2022-08-13] MEDS: ENOXAPARIN NA (PORCINE) 40 MG/0.4 ML DISP.SYRIN SQ SCH (12:00)
[2022-08-13] MEDS: ERYTHROMYCIN 0.5% OPHTHALMIC OINTMENT 3.5 GM TUBE OU SCH (12:01)
[2022-08-13] MEDS: carBAMazepine 100 MG/5 ML UNIT-DOSE CUP GT SCH ×4 (12:01→21:43)
[2022-08-13] MEDS: PHENYTOIN 100 MG/4 ML U-D CUP GT SCH ×4 (12:01→21:43)
[2022-08-13] MEDS: PANTOPRAZOLE SODIUM 40 MG VIAL IVPUSH SCH (12:01)
[2022-08-13] MEDS: guaiFENesin 200 MG/10 ML 10 ML UNIT-DOSE CUPS GT SCH ×2 (12:02→21:43)
[2022-08-13] MEDS: MUPIROCIN 2% TOPICAL OINTMENT FOR DECOLONIZATION NS SCH (12:02)
[2022-08-13] MEDS: BENZOYL PEROXIDE 5% 60 GM GEL..GRAM. TP SCH ×2 (12:02→22:46)
[2022-08-13] MEDS: PETROLATUM, WHITE 30 GM TUBE TP SCH (12:03)
[2022-08-13] MEDS ORDERED: SODIUM CHLORIDE 1,000 ML IV SCH (13:45)
[2022-08-13] MEDS: MULTIVIT-MINERALS ORAL LIQUID GT SCH (18:01)
[2022-08-13] MEDS ORDERED: MINERAL OIL/PETROLAT/WATER TOPICAL CREAM 113 GM JAR TP PRN (19:06)
[2022-08-13] MEDS ORDERED: ALBUTEROL SO4 0.083% IH SOL 2.5 MG/3 ML VIAL.NEB. NEB PRN (19:06)
[2022-08-13] MEDS ORDERED: SIMETHICONE 40 MG/0.6 ML BOTTLE GT PRN (19:06)
[2022-08-13] MEDS ORDERED: diazePAM RECTAL GEL 10 MG KIT (PRE-CALIBRATED) RC PRN (19:06)
[2022-08-13] MEDS ORDERED: BISACODYL 10 MG SUPP.RECT PR PRN (19:06)
[2022-08-13] MEDS: PIPERACILLIN/TAZOB 2.25 GM 2.25 GM in DEXTROSE 5%-WATER - 50 ML IVPB SCH (21:07)
[2022-08-13] MEDS ORDERED: CHLORHEXIDINE GLUCONATE 4% CLEANSER FOR DECOLONIZATION TP SCH (22:00)
[2022-08-13] MEDS ORDERED: MUPIROCIN 2% TOPICAL OINTMENT FOR DECOLONIZATION NS SCH (22:00)
[2022-08-13] MEDS ORDERED: CALCIUM 500MG/VIT-D 200 UNITS COMBO TABLET (FP) GT SCH (22:00)
[2022-08-13] MEDS: LYTES/YERBA SANTA 60 ML SPRAY MM PRN (22:46)
[2022-08-14] MEDS ORDERED: MEROPENEM 500 MG in DEXTROSE 5%-WATER 100 ML IVPB SCH (02:00)
[2022-08-14] MEDS: levETIRAcetam 500 MG/5 ML ORAL SOLUTION (UNIT-DOSE CUPS) GT SCH ×3 (05:23→21:23)
[2022-08-14] MEDS: clonazePAM 0.5 MG TABLET GT SCH ×3 (05:23→21:23)
[2022-08-14] MEDS: TIAGABINE HCL GT SCH ×3 (05:24→21:29)
[2022-08-14] MEDS: LYTES/YERBA SANTA 60 ML SPRAY MM PRN (05:25)
[2022-08-14] MEDS ORDERED: ASCORBIC ACID 500 MG/5 ML UNIT DOSE CUP GT SCH (06:00)
[2022-08-14] MEDS ORDERED: ALBUTEROL SO4 2.5/IPRATROPIUM 0.5 INH SOL 3 ML VIAL.NEB. NEB ONE (06:03)
[2022-08-14] MEDS ORDERED: IBUPROFEN 200 MG TABLET PO ONE (06:03)
[2022-08-14] MEDS ORDERED: RAPID SEQUENCE INTUBATION KIT NR ONE (07:30)
[2022-08-14] MEDS ORDERED: AMINO ACIDS/PROTEIN HYDROLYS 30 ML LIQUID.PKT GT SCH (08:00)
[2022-08-14] MEDS ORDERED: DEXMEDETOMIDINE PREMIX 400 MCG/100 ML BAG IVPB SCH (08:45)
[2022-08-14] MEDS: ACETYLCYSTEINE 20% 200MG/ML 4 ML VIAL *FOR ORAL / INH USE ONLY NEB SCH ×5 (09:43→20:32)
[2022-08-14] MEDS: ALBUTEROL SO4 0.083% IH SOL 2.5 MG/3 ML VIAL.NEB. NEB SCH ×5 (09:43→20:32)
[2022-08-14] MEDS ORDERED: LACTOBACILLUS ACIDOPHILUS 1 TABLET GT SCH (10:00)
[2022-08-14] MEDS ORDERED: PETROLATUM, WHITE 30 GM TUBE TP SCH (10:00)
[2022-08-14] MEDS ORDERED: ERYTHROMYCIN 0.5% OPHTHALMIC OINTMENT 3.5 GM TUBE OU SCH (10:00)
[2022-08-14] MEDS ORDERED: PANTOPRAZOLE SODIUM 40 MG VIAL IVPUSH SCH (10:00)
[2022-08-14] MEDS ORDERED: CHOLECALCIFEROL (VIT D3) 1,000 UNIT (25 MCG) TABLET GT SCH (10:00)
[2022-08-14] MEDS ORDERED: FOLIC ACID 1 MG TABLET (FP) NGT SCH (10:00)
[2022-08-14] MEDS ORDERED: ENOXAPARIN NA (PORCINE) 40 MG/0.4 ML DISP.SYRIN SQ SCH (10:00)
[2022-08-14] MEDS ORDERED: BISACODYL 10 MG SUPP.RECT PR PRN (11:12)
[2022-08-14] MEDS ORDERED: MINERAL OIL/PETROLAT/WATER TOPICAL CREAM 113 GM JAR TP PRN (11:12)
[2022-08-14] MEDS ORDERED: diazePAM RECTAL GEL 10 MG KIT (PRE-CALIBRATED) RC PRN (11:12)
[2022-08-14] MEDS ORDERED: ALBUTEROL SO4 0.083% IH SOL 2.5 MG/3 ML VIAL.NEB. NEB PRN (11:12)
[2022-08-14] MEDS ORDERED: SODIUM CHLORIDE 1,000 ML IV SCH (11:12)
[2022-08-14] MEDS ORDERED: SIMETHICONE 40 MG/0.6 ML BOTTLE GT PRN (11:12)
[2022-08-14] MEDS ORDERED: LYTES/YERBA SANTA 60 ML SPRAY MM PRN (11:12)
[2022-08-14] MEDS: PHENYTOIN 100 MG/4 ML U-D CUP GT SCH ×4 (11:19→21:31)
[2022-08-14] MEDS: carBAMazepine 100 MG/5 ML UNIT-DOSE CUP GT SCH ×4 (11:19→21:32)
[2022-08-14] MEDS: PIPERACILLIN/TAZOB 2.25 GM 2.25 GM in DEXTROSE 5%-WATER - 50 ML IVPB SCH ×2 (12:10→17:42)
[2022-08-14] MEDS: BENZOYL PEROXIDE 5% 60 GM GEL..GRAM. TP SCH ×2 (12:19→21:23)
[2022-08-14] MEDS: guaiFENesin 200 MG/10 ML 10 ML UNIT-DOSE CUPS GT SCH ×2 (12:21→21:24)
[2022-08-14] MEDS ORDERED: levETIRAcetam 500 MG/5 ML ORAL SOLUTION (UNIT-DOSE CUPS) GT SCH (14:00)
[2022-08-14] MEDS ORDERED: carBAMazepine 100 MG/5 ML UNIT-DOSE CUP GT SCH (14:00)
[2022-08-14 16:22] LABS: BASO % 0.4 % (0-2.0); EOS % 0.6 % (0-4.5); HEMATOCRIT 31.6 % (35.4-49); HEMOGLOBIN 10.6 GM/dL (11.7-16.9); LYMPH % 10.9 % (8-40); MCH 33.5 pg (25.7-33.7); MCHC 33.6 g/dl (32.0-35.9); MEAN CELL VOLUME 99.7 fl (80-96); MEAN PLT VOLUME 8.6 fl (7.5-11.1); MONO % 2.5 % (3.8-10.2); NEUT % 85.6 % (42.8-82.8); PLATELET COUNT 407 10^3/uL (134-434); RBC 3.16 M/mm3 (4.00-5.60); RDW 14.4 % (11.9-15.9); WHITE BLOOD COUNT 14.5 K/mm3 (4.0-10.0)
[2022-08-14 16:41] LABS: CHLORIDE 94 mmol/L (98-107); SODIUM 138 mmol/L (136-145)
[2022-08-14 16:43] LABS: BLOOD UREA NITROGEN 8.6 mg/dL (7-18); CALCIUM 9.3 mg/dL (8.5-10.1); CO2 32 mmol/L (21-32); GLUCOSE,RANDOM 103 mg/dL (74-106)
[2022-08-14 16:44] LABS: ALBUMIN 2.8 g/dl (3.4-5.0)
[2022-08-14 16:46] LABS: SGOT/AST 144 U/L (15-37); SGPT/ALT 245 U/L (13-61)
[2022-08-14 16:47] LABS: CREATININE 0.2 mg/dL (0.55-1.3); PHOSPHOROUS 2.1 mg/dL (2.5-4.9)
[2022-08-14 16:48] LABS: BILIRUBIN,TOTAL 0.6 mg/dL (0.2-1); TOT PROT 6.2 g/dl (6.4-8.2)
[2022-08-14] MEDS ORDERED: NAPH,MB-DB/K PH,MBDB POWDER PACKET NGT ONE (17:23)
[2022-08-14] MEDS: MUPIROCIN 2% TOPICAL OINTMENT FOR DECOLONIZATION NS SCH ×2 (17:34→21:22)
[2022-08-14] MEDS: AMINO ACIDS/PROTEIN HYDROLYS 30 ML LIQUID.PKT GT SCH (17:40)
[2022-08-14] MEDS: MULTIVIT-MINERALS ORAL LIQUID GT SCH (17:43)
[2022-08-14] MEDS: ASCORBIC ACID 500 MG/5 ML UNIT DOSE CUP GT SCH (17:44)
[2022-08-14 17:49] LABS: ALK PHOS 247 U/L (45-117); ANION GAP 13 MMOL/L (8-16); LACTIC ACID 2.3 mmol/L (0.4-2.0)
[2022-08-14] MEDS ORDERED: MULTIVIT-MINERALS ORAL LIQUID GT SCH (18:00)
[2022-08-14] MEDS ORDERED: POTASSIUM CHLORIDE ORAL LIQUID 20 MEQ/15 ML PO ONE (18:10)
[2022-08-14] MEDS: KCL 10 MEQ IVPB 10 MEQ/100 ML INFUS.BAG IVPB SCH ×3 (18:31→21:33)
[2022-08-14 18:35] LABS: URINE APPEARANCE TURBID; URINE BILIRUBIN NEGATIVE (NEGATIVE); URINE COLOR YELLOW; URINE GLUCOSE (UA) NEGATIVE (NEGATIVE); URINE KETONE NEGATIVE (NEGATIVE); URINE LEUK ESTERASE NEGATIVE (NEGATIVE); URINE NITRITE NEGATIVE (NEGATIVE); URINE PROTEIN NEGATIVE (NEGATIVE)
[2022-08-14] MEDS: CHLORHEXIDINE GLUCONATE 4% CLEANSER FOR DECOLONIZATION TP SCH (21:23)
[2022-08-14] MEDS: CALCIUM 500MG/VIT-D 200 UNITS COMBO TABLET (FP) GT SCH (21:33)
[2022-08-15] MEDS: PIPERACILLIN/TAZOB 2.25 GM 2.25 GM in DEXTROSE 5%-WATER - 50 ML IVPB SCH ×3 (02:27→18:52)
[2022-08-15] MEDS: TIAGABINE HCL GT SCH ×3 (05:45→21:32)
[2022-08-15] MEDS: clonazePAM 0.5 MG TABLET GT SCH ×3 (05:45→21:31)
[2022-08-15] MEDS: levETIRAcetam 500 MG/5 ML ORAL SOLUTION (UNIT-DOSE CUPS) GT SCH ×3 (05:45→21:32)
[2022-08-15] MEDS: ASCORBIC ACID 500 MG/5 ML UNIT DOSE CUP GT SCH ×2 (05:47→18:54)
[2022-08-15] MEDS: ACETYLCYSTEINE 20% 200MG/ML 4 ML VIAL *FOR ORAL / INH USE ONLY NEB SCH ×4 (08:37→20:05)
[2022-08-15] MEDS: ALBUTEROL SO4 0.083% IH SOL 2.5 MG/3 ML VIAL.NEB. NEB SCH ×4 (08:37→20:05)
[2022-08-15 08:42] LABS: HEMATOCRIT 27.6 % (35.4-49); HEMOGLOBIN 9.4 GM/dL (11.7-16.9); MCHC 33.9 g/dl (32.0-35.9); MEAN CELL VOLUME 100.3 fl (80-96); MEAN PLT VOLUME 8.7 fl (7.5-11.1); PLATELET COUNT 345 10^3/uL (134-434); RBC 2.75 M/mm3 (4.00-5.60); RDW 14.1 % (11.9-15.9); WHITE BLOOD COUNT 9.5 K/mm3 (4.0-10.0)
[2022-08-15 09:05] LABS: CALCIUM 8.6 mg/dL (8.5-10.1)
[2022-08-15 09:06] LABS: ALBUMIN 2.5 g/dl (3.4-5.0); BLOOD UREA NITROGEN 6.4 mg/dL (7-18); MAGNESIUM 1.9 mg/dL (1.8-2.4)
[2022-08-15 09:08] LABS: PHOSPHOROUS 2.3 mg/dL (2.5-4.9)
[2022-08-15 09:09] LABS: CREATININE 0.2 mg/dL (0.55-1.3)
[2022-08-15 09:10] LABS: BILIRUBIN,TOTAL 0.6 mg/dL (0.2-1); TOT PROT 5.5 g/dl (6.4-8.2)
[2022-08-15] MEDS: AMINO ACIDS/PROTEIN HYDROLYS 30 ML LIQUID.PKT GT SCH ×2 (10:33→18:53)
[2022-08-15] MEDS: LACTOBACILLUS ACIDOPHILUS 1 TABLET GT SCH (10:34)
[2022-08-15] MEDS: CHOLECALCIFEROL (VIT D3) 1,000 UNIT (25 MCG) TABLET GT SCH (10:35)
[2022-08-15] MEDS: FOLIC ACID 1 MG TABLET (FP) NGT SCH (10:36)
[2022-08-15] MEDS: MUPIROCIN 2% TOPICAL OINTMENT FOR DECOLONIZATION NS SCH ×2 (10:36→21:31)
[2022-08-15] MEDS: guaiFENesin 200 MG/10 ML 10 ML UNIT-DOSE CUPS GT SCH ×2 (10:37→21:32)
[2022-08-15] MEDS: ENOXAPARIN NA (PORCINE) 40 MG/0.4 ML DISP.SYRIN SQ SCH (10:38)
[2022-08-15] MEDS: PHENYTOIN 100 MG/4 ML U-D CUP GT SCH ×4 (10:39→21:32)
[2022-08-15] MEDS: carBAMazepine 100 MG/5 ML UNIT-DOSE CUP GT SCH ×4 (10:40→21:31)
[2022-08-15] MEDS: PANTOPRAZOLE SODIUM 40 MG VIAL IVPUSH SCH (10:42)
[2022-08-15] MEDS: BENZOYL PEROXIDE 5% 60 GM GEL..GRAM. TP SCH ×2 (10:46→21:31)
[2022-08-15] MEDS: PETROLATUM, WHITE 30 GM TUBE TP SCH (10:46)
[2022-08-15] MEDS: MULTIVIT-MINERALS ORAL LIQUID GT SCH (18:53)
[2022-08-15] MEDS: ERYTHROMYCIN 0.5% OPHTHALMIC OINTMENT 3.5 GM TUBE OU SCH (18:54)
[2022-08-15] MEDS: CALCIUM 500MG/VIT-D 200 UNITS COMBO TABLET (FP) GT SCH (21:32)
[2022-08-15] MEDS: CHLORHEXIDINE GLUCONATE 4% CLEANSER FOR DECOLONIZATION TP SCH (21:32)
[2022-08-16] MEDS: PIPERACILLIN/TAZOB 2.25 GM 2.25 GM in DEXTROSE 5%-WATER - 50 ML IVPB SCH ×3 (02:00→17:19)
[2022-08-16] MEDS: TIAGABINE HCL GT SCH ×3 (05:58→21:09)
[2022-08-16] MEDS: ASCORBIC ACID 500 MG/5 ML UNIT DOSE CUP GT SCH ×2 (05:58→17:21)
[2022-08-16] MEDS: levETIRAcetam 500 MG/5 ML ORAL SOLUTION (UNIT-DOSE CUPS) GT SCH ×3 (05:58→21:08)
[2022-08-16] MEDS: clonazePAM 0.5 MG TABLET GT SCH ×3 (05:58→21:08)
[2022-08-16 07:43] LABS: BASO % 0.5 % (0-2.0); EOS % 7.4 % (0-4.5); HEMATOCRIT 25.1 % (35.4-49); HEMOGLOBIN 8.4 GM/dL (11.7-16.9); LYMPH % 33.4 % (8-40); MCH 33.5 pg (25.7-33.7); MCHC 33.4 g/dl (32.0-35.9); MEAN CELL VOLUME 100.4 fl (80-96); MEAN PLT VOLUME 8.3 fl (7.5-11.1); MONO % 5.5 % (3.8-10.2); NEUT % 53.2 % (42.8-82.8); PLATELET COUNT 348 10^3/uL (134-434); RDW 14.6 % (11.9-15.9); WHITE BLOOD COUNT 6.5 K/mm3 (4.0-10.0)
[2022-08-16 07:59] LABS: CALCIUM 8.9 mg/dL (8.5-10.1)
[2022-08-16 08:00] LABS: ALBUMIN 2.5 g/dl (3.4-5.0); BLOOD UREA NITROGEN 5.8 mg/dL (7-18)
[2022-08-16 08:03] LABS: CREATININE 0.2 mg/dL (0.55-1.3)
[2022-08-16 08:04] LABS: TOT PROT 5.6 g/dl (6.4-8.2)
[2022-08-16 08:05] LABS: BILIRUBIN,TOTAL 0.4 mg/dL (0.2-1)
[2022-08-16] MEDS: ALBUTEROL SO4 0.083% IH SOL 2.5 MG/3 ML VIAL.NEB. NEB SCH ×4 (08:10→20:32)
[2022-08-16] MEDS: ACETYLCYSTEINE 20% 200MG/ML 4 ML VIAL *FOR ORAL / INH USE ONLY NEB SCH ×4 (08:10→20:33)
[2022-08-16] MEDS: LACTOBACILLUS ACIDOPHILUS 1 TABLET GT SCH (10:41)
[2022-08-16] MEDS: AMINO ACIDS/PROTEIN HYDROLYS 30 ML LIQUID.PKT GT SCH ×2 (10:41→17:20)
[2022-08-16] MEDS: ENOXAPARIN NA (PORCINE) 40 MG/0.4 ML DISP.SYRIN SQ SCH (10:42)
[2022-08-16] MEDS: MUPIROCIN 2% TOPICAL OINTMENT FOR DECOLONIZATION NS SCH ×2 (10:42→21:07)
[2022-08-16] MEDS: BENZOYL PEROXIDE 5% 60 GM GEL..GRAM. TP SCH ×2 (10:42→21:07)
[2022-08-16] MEDS: PHENYTOIN 100 MG/4 ML U-D CUP GT SCH ×4 (10:43→21:08)
[2022-08-16] MEDS: ERYTHROMYCIN 0.5% OPHTHALMIC OINTMENT 3.5 GM TUBE OU SCH (10:43)
[2022-08-16] MEDS: carBAMazepine 100 MG/5 ML UNIT-DOSE CUP GT SCH ×4 (10:43→21:08)
[2022-08-16] MEDS: PANTOPRAZOLE SODIUM 40 MG VIAL IVPUSH SCH (10:44)
[2022-08-16] MEDS: guaiFENesin 200 MG/10 ML 10 ML UNIT-DOSE CUPS GT SCH ×2 (10:44→21:09)
[2022-08-16] MEDS: FOLIC ACID 1 MG TABLET (FP) NGT SCH (10:44)
[2022-08-16] MEDS: PETROLATUM, WHITE 30 GM TUBE TP SCH (10:45)
[2022-08-16] MEDS: CHOLECALCIFEROL (VIT D3) 1,000 UNIT (25 MCG) TABLET GT SCH (10:45)
[2022-08-16] MEDS: MULTIVIT-MINERALS ORAL LIQUID GT SCH (17:20)
[2022-08-16] MEDS: CHLORHEXIDINE GLUCONATE 4% CLEANSER FOR DECOLONIZATION TP SCH (21:08)
[2022-08-16] MEDS: CALCIUM 500MG/VIT-D 200 UNITS COMBO TABLET (FP) GT SCH (21:08)
[2022-08-17] MEDS: PIPERACILLIN/TAZOB 2.25 GM 2.25 GM in DEXTROSE 5%-WATER - 50 ML IVPB SCH ×3 (01:14→17:04)
[2022-08-17] MEDS: levETIRAcetam 500 MG/5 ML ORAL SOLUTION (UNIT-DOSE CUPS) GT SCH ×3 (05:24→21:03)
[2022-08-17] MEDS: clonazePAM 0.5 MG TABLET GT SCH ×3 (05:24→21:03)
[2022-08-17] MEDS: TIAGABINE HCL GT SCH ×3 (05:24→21:04)
[2022-08-17] MEDS: ASCORBIC ACID 500 MG/5 ML UNIT DOSE CUP GT SCH ×2 (05:25→17:02)
[2022-08-17 07:40] LABS: BASO % 0.8 % (0-2.0); EOS % 5.4 % (0-4.5); HEMATOCRIT 28.9 % (35.4-49); HEMOGLOBIN 9.5 GM/dL (11.7-16.9); LYMPH % 36.3 % (8-40); MCH 33.5 pg (25.7-33.7); MCHC 32.9 g/dl (32.0-35.9); MEAN PLT VOLUME 8.4 fl (7.5-11.1); MONO % 5.3 % (3.8-10.2); NEUT % 52.2 % (42.8-82.8); PLATELET COUNT 394 10^3/uL (134-434); RBC 2.83 M/mm3 (4.00-5.60); RDW 14.6 % (11.9-15.9); WHITE BLOOD COUNT 6.3 K/mm3 (4.0-10.0)
[2022-08-17 07:45] LABS: ALBUMIN 2.7 g/dl (3.4-5.0); BLOOD UREA NITROGEN 6.3 mg/dL (7-18); CALCIUM 8.8 mg/dL (8.5-10.1)
[2022-08-17 07:48] LABS: CREATININE 0.3 mg/dL (0.55-1.3)
[2022-08-17 07:50] LABS: BILIRUBIN,TOTAL 0.4 mg/dL (0.2-1); TOT PROT 6.1 g/dl (6.4-8.2)
[2022-08-17] MEDS: ALBUTEROL SO4 0.083% IH SOL 2.5 MG/3 ML VIAL.NEB. NEB SCH ×4 (08:10→20:35)
[2022-08-17] MEDS: ACETYLCYSTEINE 20% 200MG/ML 4 ML VIAL *FOR ORAL / INH USE ONLY NEB SCH ×4 (08:10→20:35)
[2022-08-17] MEDS: AMINO ACIDS/PROTEIN HYDROLYS 30 ML LIQUID.PKT GT SCH ×2 (09:00→17:01)
[2022-08-17] MEDS: LACTOBACILLUS ACIDOPHILUS 1 TABLET GT SCH (10:23)
[2022-08-17] MEDS: MUPIROCIN 2% TOPICAL OINTMENT FOR DECOLONIZATION NS SCH ×2 (10:24→21:02)
[2022-08-17] MEDS: carBAMazepine 100 MG/5 ML UNIT-DOSE CUP GT SCH ×4 (10:25→21:03)
[2022-08-17] MEDS: PHENYTOIN 100 MG/4 ML U-D CUP GT SCH ×4 (10:25→21:03)
[2022-08-17] MEDS: BENZOYL PEROXIDE 5% 60 GM GEL..GRAM. TP SCH ×2 (10:25→21:02)
[2022-08-17] MEDS: FOLIC ACID 1 MG TABLET (FP) NGT SCH (10:26)
[2022-08-17] MEDS: ENOXAPARIN NA (PORCINE) 40 MG/0.4 ML DISP.SYRIN SQ SCH (10:26)
[2022-08-17] MEDS: ERYTHROMYCIN 0.5% OPHTHALMIC OINTMENT 3.5 GM TUBE OU SCH (10:26)
[2022-08-17] MEDS: PANTOPRAZOLE SODIUM 40 MG VIAL IVPUSH SCH (10:27)
[2022-08-17] MEDS: PETROLATUM, WHITE 30 GM TUBE TP SCH (10:27)
[2022-08-17] MEDS: guaiFENesin 200 MG/10 ML 10 ML UNIT-DOSE CUPS GT SCH ×2 (10:27→21:04)
[2022-08-17] MEDS: CHOLECALCIFEROL (VIT D3) 1,000 UNIT (25 MCG) TABLET GT SCH (10:27)
[2022-08-17] MEDS: POLYETHYLENE GLYCOL (HEALTHYLAX) 3350 17 GM PACKET PO SCH (10:48)
[2022-08-17] MEDS: MULTIVIT-MINERALS ORAL LIQUID GT SCH (17:01)
[2022-08-17] MEDS: CHLORHEXIDINE GLUCONATE 4% CLEANSER FOR DECOLONIZATION TP SCH (21:03)
[2022-08-17] MEDS: CALCIUM 500MG/VIT-D 200 UNITS COMBO TABLET (FP) GT SCH (21:04)
[2022-08-18] MEDS: PIPERACILLIN/TAZOB 2.25 GM 2.25 GM in DEXTROSE 5%-WATER - 50 ML IVPB SCH ×3 (02:13→17:31)
[2022-08-18] MEDS: levETIRAcetam 500 MG/5 ML ORAL SOLUTION (UNIT-DOSE CUPS) GT SCH ×3 (04:59→21:00)
[2022-08-18] MEDS: ASCORBIC ACID 500 MG/5 ML UNIT DOSE CUP GT SCH ×2 (04:59→17:15)
[2022-08-18] MEDS: clonazePAM 0.5 MG TABLET GT SCH ×3 (04:59→21:00)
[2022-08-18] MEDS: TIAGABINE HCL GT SCH ×3 (05:00→21:01)
[2022-08-18 07:29] LABS: CALCIUM 9.2 mg/dL (8.5-10.1); HEMATOCRIT 29.4 % (35.4-49); HEMOGLOBIN 9.9 GM/dL (11.7-16.9); MAGNESIUM 2.3 mg/dL (1.8-2.4); MCH 33.9 pg (25.7-33.7); MCHC 33.7 g/dl (32.0-35.9); MEAN CELL VOLUME 100.8 fl (80-96); MEAN PLT VOLUME 8.3 fl (7.5-11.1); PLATELET COUNT 519 10^3/uL (134-434); RBC 2.91 M/mm3 (4.00-5.60); RDW 14.3 % (11.9-15.9); WHITE BLOOD COUNT 7.3 K/mm3 (4.0-10.0)
[2022-08-18 07:33] LABS: CREATININE 0.3 mg/dL (0.55-1.3); PHOSPHOROUS 6.2 mg/dL (2.5-4.9)
[2022-08-18] MEDS: ACETYLCYSTEINE 20% 200MG/ML 4 ML VIAL *FOR ORAL / INH USE ONLY NEB SCH ×4 (08:16→20:30)
[2022-08-18] MEDS: ALBUTEROL SO4 0.083% IH SOL 2.5 MG/3 ML VIAL.NEB. NEB SCH ×4 (08:16→20:30)
[2022-08-18] MEDS: AMINO ACIDS/PROTEIN HYDROLYS 30 ML LIQUID.PKT GT SCH ×2 (09:00→17:31)
[2022-08-18] MEDS: LACTOBACILLUS ACIDOPHILUS 1 TABLET GT SCH (09:24)
[2022-08-18] MEDS: MUPIROCIN 2% TOPICAL OINTMENT FOR DECOLONIZATION NS SCH ×2 (09:25→20:59)
[2022-08-18] MEDS: PHENYTOIN 100 MG/4 ML U-D CUP GT SCH ×4 (09:25→21:00)
[2022-08-18] MEDS: carBAMazepine 100 MG/5 ML UNIT-DOSE CUP GT SCH ×4 (09:25→20:59)
[2022-08-18] MEDS: PANTOPRAZOLE SODIUM 40 MG VIAL IVPUSH SCH (09:26)
[2022-08-18] MEDS: FOLIC ACID 1 MG TABLET (FP) NGT SCH (09:26)
[2022-08-18] MEDS: ERYTHROMYCIN 0.5% OPHTHALMIC OINTMENT 3.5 GM TUBE OU SCH (09:26)
[2022-08-18] MEDS: ENOXAPARIN NA (PORCINE) 40 MG/0.4 ML DISP.SYRIN SQ SCH (09:26)
[2022-08-18] MEDS: guaiFENesin 200 MG/10 ML 10 ML UNIT-DOSE CUPS GT SCH ×2 (09:27→21:00)
[2022-08-18] MEDS: CHOLECALCIFEROL (VIT D3) 1,000 UNIT (25 MCG) TABLET GT SCH (09:27)
[2022-08-18] MEDS: BENZOYL PEROXIDE 5% 60 GM GEL..GRAM. TP SCH ×2 (09:28→20:59)
[2022-08-18] MEDS: POLYETHYLENE GLYCOL (HEALTHYLAX) 3350 17 GM PACKET PO SCH (09:29)
[2022-08-18] MEDS: PETROLATUM, WHITE 30 GM TUBE TP SCH (10:00)
[2022-08-18] MEDS: MULTIVIT-MINERALS ORAL LIQUID GT SCH (17:15)
[2022-08-18] MEDS: ACETAMINOPHEN 650 MG/20.3 ML ORAL SOLUTION (CUPS) PO PRN (19:42)
[2022-08-18] MEDS: CHLORHEXIDINE GLUCONATE 4% CLEANSER FOR DECOLONIZATION TP SCH (21:00)
[2022-08-18] MEDS: CALCIUM 500MG/VIT-D 200 UNITS COMBO TABLET (FP) GT SCH (21:00)
[2022-08-19] MEDS: PIPERACILLIN/TAZOB 2.25 GM 2.25 GM in DEXTROSE 5%-WATER - 50 ML IVPB SCH ×3 (01:29→18:13)
[2022-08-19] MEDS: TIAGABINE HCL GT SCH ×3 (05:42→21:06)
[2022-08-19] MEDS: ASCORBIC ACID 500 MG/5 ML UNIT DOSE CUP GT SCH ×2 (05:43→18:13)
[2022-08-19] MEDS: levETIRAcetam 500 MG/5 ML ORAL SOLUTION (UNIT-DOSE CUPS) GT SCH ×3 (05:43→21:03)
[2022-08-19] MEDS: clonazePAM 0.5 MG TABLET GT SCH ×3 (05:46→21:03)
[2022-08-19 07:12] LABS: HEMATOCRIT 29.6 % (35.4-49); HEMOGLOBIN 9.8 GM/dL (11.7-16.9); MCH 33.9 pg (25.7-33.7); MEAN CELL VOLUME 102.6 fl (80-96); PLATELET COUNT 442 10^3/uL (134-434); RBC 2.88 M/mm3 (4.00-5.60); RDW 14.8 % (11.9-15.9); WHITE BLOOD COUNT 15.4 K/mm3 (4.0-10.0)
[2022-08-19 07:29] LABS: INR 1.23 (0.83-1.09); PROTHROMBIN TIME (PATIENT) 14.2 SEC (9.7-13.0)
[2022-08-19 07:32] LABS: CALCIUM 8.6 mg/dL (8.5-10.1)
[2022-08-19 07:33] LABS: BLOOD UREA NITROGEN 7.2 mg/dL (7-18); MAGNESIUM 2.4 mg/dL (1.8-2.4)
[2022-08-19 07:36] LABS: CREATININE 0.2 mg/dL (0.55-1.3); PHOSPHOROUS 3.2 mg/dL (2.5-4.9)
[2022-08-19] MEDS: ALBUTEROL SO4 0.083% IH SOL 2.5 MG/3 ML VIAL.NEB. NEB SCH (08:45)
[2022-08-19] MEDS: ACETYLCYSTEINE 20% 200MG/ML 4 ML VIAL *FOR ORAL / INH USE ONLY NEB SCH (08:45)
[2022-08-19] MEDS: AMINO ACIDS/PROTEIN HYDROLYS 30 ML LIQUID.PKT GT SCH ×2 (08:47→18:13)
[2022-08-19] MEDS: BENZOYL PEROXIDE 5% 60 GM GEL..GRAM. TP SCH ×2 (09:04→21:03)
[2022-08-19] MEDS: carBAMazepine 100 MG/5 ML UNIT-DOSE CUP GT SCH ×4 (09:04→21:03)
[2022-08-19] MEDS: LACTOBACILLUS ACIDOPHILUS 1 TABLET GT SCH (09:04)
[2022-08-19] MEDS: POLYETHYLENE GLYCOL (HEALTHYLAX) 3350 17 GM PACKET PO SCH (09:05)
[2022-08-19] MEDS: PETROLATUM, WHITE 30 GM TUBE TP SCH (09:05)
[2022-08-19] MEDS: ERYTHROMYCIN 0.5% OPHTHALMIC OINTMENT 3.5 GM TUBE OU SCH (09:05)
[2022-08-19] MEDS: guaiFENesin 200 MG/10 ML 10 ML UNIT-DOSE CUPS GT SCH ×2 (09:05→21:03)
[2022-08-19] MEDS: PHENYTOIN 100 MG/4 ML U-D CUP GT SCH ×4 (09:05→21:03)
[2022-08-19] MEDS: CHOLECALCIFEROL (VIT D3) 1,000 UNIT (25 MCG) TABLET GT SCH (09:05)
[2022-08-19] MEDS: ENOXAPARIN NA (PORCINE) 40 MG/0.4 ML DISP.SYRIN SQ SCH (09:05)
[2022-08-19] MEDS: FOLIC ACID 1 MG TABLET (FP) NGT SCH (09:05)
[2022-08-19] MEDS: PANTOPRAZOLE SODIUM 40 MG VIAL IVPUSH SCH (09:05)
[2022-08-19 12:34] LABS: URINE APPEARANCE CLOUDY; URINE BILIRUBIN NEGATIVE (NEGATIVE); URINE COLOR YELLOW; URINE GLUCOSE (UA) NEGATIVE (NEGATIVE); URINE KETONE NEGATIVE (NEGATIVE); URINE LEUK ESTERASE NEGATIVE (NEGATIVE); URINE NITRITE NEGATIVE (NEGATIVE); URINE PROTEIN NEGATIVE (NEGATIVE); URINE UROBILINOGEN 0.2 mg/dL (0.2-1.0)
[2022-08-19] MEDS: MULTIVIT-MINERALS ORAL LIQUID GT SCH (18:13)
[2022-08-19] MEDS: CALCIUM 500MG/VIT-D 200 UNITS COMBO TABLET (FP) GT SCH (21:03)
[2022-08-19] MEDS: CHLORHEXIDINE GLUCONATE 4% CLEANSER FOR DECOLONIZATION TP SCH (21:03)
[2022-08-20] MEDS: PIPERACILLIN/TAZOB 2.25 GM 2.25 GM in DEXTROSE 5%-WATER - 50 ML IVPB SCH ×3 (01:36→18:37)
[2022-08-20] MEDS: levETIRAcetam 500 MG/5 ML ORAL SOLUTION (UNIT-DOSE CUPS) GT SCH ×3 (05:38→21:39)
[2022-08-20] MEDS: clonazePAM 0.5 MG TABLET GT SCH ×3 (05:38→21:39)
[2022-08-20] MEDS: ASCORBIC ACID 500 MG/5 ML UNIT DOSE CUP GT SCH ×2 (05:38→18:12)
[2022-08-20] MEDS: TIAGABINE HCL GT SCH ×3 (05:38→21:48)
[2022-08-20 08:08] LABS: BASO % 0.8 % (0-2.0); EOS % 4.6 % (0-4.5); HEMATOCRIT 25.2 % (35.4-49); HEMOGLOBIN 8.6 GM/dL (11.7-16.9); LYMPH % 25.7 % (8-40); MCH 34.6 pg (25.7-33.7); MCHC 34.1 g/dl (32.0-35.9); MEAN CELL VOLUME 101.3 fl (80-96); MEAN PLT VOLUME 7.9 fl (7.5-11.1); MONO % 9.4 % (3.8-10.2); NEUT % 59.5 % (42.8-82.8); PLATELET COUNT 458 10^3/uL (134-434); RBC 2.49 M/mm3 (4.00-5.60); RDW 15.6 % (11.9-15.9)
[2022-08-20 08:41] LABS: BLOOD UREA NITROGEN 8.7 mg/dL (7-18); CALCIUM 8.6 mg/dL (8.5-10.1)
[2022-08-20 08:44] LABS: CREATININE 0.3 mg/dL (0.55-1.3)
[2022-08-20] MEDS: FOLIC ACID 1 MG TABLET (FP) NGT SCH (09:35)
[2022-08-20] MEDS: LACTOBACILLUS ACIDOPHILUS 1 TABLET GT SCH (09:35)
[2022-08-20] MEDS: PANTOPRAZOLE SODIUM 40 MG VIAL IVPUSH SCH (09:35)
[2022-08-20] MEDS: ERYTHROMYCIN 0.5% OPHTHALMIC OINTMENT 3.5 GM TUBE OU SCH (09:35)
[2022-08-20] MEDS: BENZOYL PEROXIDE 5% 60 GM GEL..GRAM. TP SCH ×2 (09:35→21:38)
[2022-08-20] MEDS: guaiFENesin 200 MG/10 ML 10 ML UNIT-DOSE CUPS GT SCH ×2 (09:35→21:39)
[2022-08-20] MEDS: CHOLECALCIFEROL (VIT D3) 1,000 UNIT (25 MCG) TABLET GT SCH (09:35)
[2022-08-20] MEDS: PHENYTOIN 100 MG/4 ML U-D CUP GT SCH ×4 (09:35→21:38)
[2022-08-20] MEDS: AMINO ACIDS/PROTEIN HYDROLYS 30 ML LIQUID.PKT GT SCH ×2 (09:35→18:11)
[2022-08-20] MEDS: PETROLATUM, WHITE 30 GM TUBE TP SCH (09:35)
[2022-08-20] MEDS: POLYETHYLENE GLYCOL (HEALTHYLAX) 3350 17 GM PACKET PO SCH (09:35)
[2022-08-20] MEDS: ENOXAPARIN NA (PORCINE) 40 MG/0.4 ML DISP.SYRIN SQ SCH (09:35)
[2022-08-20] MEDS: carBAMazepine 100 MG/5 ML UNIT-DOSE CUP GT SCH ×4 (09:35→21:39)
[2022-08-20 15:16] LABS: ALBUMIN 2.6 g/dl (3.4-5.0)
[2022-08-20 15:20] LABS: BILIRUBIN,DIRECT 0.1 mg/dL (0.0-0.2); BILIRUBIN,TOTAL 0.2 mg/dL (0.2-1)
[2022-08-20 15:22] LABS: TOT PROT 5.5 g/dl (6.4-8.2)
[2022-08-20] MEDS: MULTIVIT-MINERALS ORAL LIQUID GT SCH (18:12)
[2022-08-20] MEDS: CHLORHEXIDINE GLUCONATE 4% CLEANSER FOR DECOLONIZATION TP SCH (21:39)
[2022-08-20] MEDS: CALCIUM 500MG/VIT-D 200 UNITS COMBO TABLET (FP) GT SCH (21:39)
[2022-08-21] MEDS: PIPERACILLIN/TAZOB 2.25 GM 2.25 GM in DEXTROSE 5%-WATER - 50 ML IVPB SCH ×3 (01:10→17:32)
[2022-08-21] MEDS: clonazePAM 0.5 MG TABLET GT SCH (05:32)
[2022-08-21] MEDS: ACETAMINOPHEN 650 MG/20.3 ML ORAL SOLUTION (CUPS) PO PRN (05:32)
[2022-08-21] MEDS: levETIRAcetam 500 MG/5 ML ORAL SOLUTION (UNIT-DOSE CUPS) GT SCH ×3 (05:32→21:48)
[2022-08-21] MEDS: ASCORBIC ACID 500 MG/5 ML UNIT DOSE CUP GT SCH ×2 (05:33→17:32)
[2022-08-21] MEDS: TIAGABINE HCL GT SCH ×3 (05:33→21:49)
[2022-08-21] MEDS: AMINO ACIDS/PROTEIN HYDROLYS 30 ML LIQUID.PKT GT SCH ×2 (08:11→16:47)
[2022-08-21] MEDS ORDERED: ROCURONIUM BROMIDE 50 MG/5 ML VIAL IV ONE ×2 (09:00→12:36)
[2022-08-21] MEDS: PHENYTOIN 100 MG/4 ML U-D CUP GT SCH ×4 (09:04→21:50)
[2022-08-21] MEDS: carBAMazepine 100 MG/5 ML UNIT-DOSE CUP GT SCH ×5 (09:05→21:50)
[2022-08-21] MEDS: PANTOPRAZOLE SODIUM 40 MG VIAL IVPUSH SCH (09:06)
[2022-08-21] MEDS: CHOLECALCIFEROL (VIT D3) 1,000 UNIT (25 MCG) TABLET GT SCH (09:06)
[2022-08-21] MEDS: LACTOBACILLUS ACIDOPHILUS 1 TABLET GT SCH (09:06)
[2022-08-21] MEDS: FOLIC ACID 1 MG TABLET (FP) NGT SCH (09:06)
[2022-08-21 09:13] LABS: BASO % 0.6 % (0-2.0); EOS % 1.3 % (0-4.5); HEMATOCRIT 29.3 % (35.4-49); HEMOGLOBIN 9.7 GM/dL (11.7-16.9); LYMPH % 14.9 % (8-40); MCH 33.5 pg (25.7-33.7); MCHC 33.1 g/dl (32.0-35.9); MEAN CELL VOLUME 101.1 fl (80-96); MEAN PLT VOLUME 7.7 fl (7.5-11.1); NEUT % 77.2 % (42.8-82.8); PLATELET COUNT 540 10^3/uL (134-434); RDW 15.2 % (11.9-15.9); WHITE BLOOD COUNT 10.8 K/mm3 (4.0-10.0)
[2022-08-21] MEDS: guaiFENesin 200 MG/10 ML 10 ML UNIT-DOSE CUPS GT SCH ×2 (09:28→21:49)
[2022-08-21] MEDS: POLYETHYLENE GLYCOL (HEALTHYLAX) 3350 17 GM PACKET PO SCH (09:28)
[2022-08-21] MEDS: ERYTHROMYCIN 0.5% OPHTHALMIC OINTMENT 3.5 GM TUBE OU SCH (09:31)
[2022-08-21] MEDS: BENZOYL PEROXIDE 5% 60 GM GEL..GRAM. TP SCH ×2 (09:32→21:50)
[2022-08-21] MEDS: PETROLATUM, WHITE 30 GM TUBE TP SCH (10:00)
[2022-08-21 10:06] LABS: BLOOD UREA NITROGEN 9.8 mg/dL (7-18)
[2022-08-21 10:14] LABS: CREATININE 0.3 mg/dL (0.55-1.3)
[2022-08-21] MEDS ORDERED: PROPOFOL 20 ML ONE (12:57)
[2022-08-21] MEDS ORDERED: fentaNYL CITRATE 250 MCG/5 ML VIAL ONE (12:58)
[2022-08-21] MEDS: PROPOFOL 200 MG/20 ML VIAL IVPUSH ONE ×2 (13:24→14:17)
[2022-08-21] MEDS ORDERED: PROPOFOL 200 MG/20 ML VIAL IVPUSH ONE (13:41)
[2022-08-21] MEDS: MULTIVIT-MINERALS ORAL LIQUID GT SCH (17:31)
[2022-08-21 18:45] LABS: INR 1.18 (0.83-1.09); PROTHROMBIN TIME (PATIENT) 13.6 SEC (9.7-13.0)
[2022-08-21 18:48] LABS: ACTIVATED PTT 31.2 SECONDS (25.2-36.5)
[2022-08-21] MEDS: CHLORHEXIDINE GLUCONATE 4% CLEANSER FOR DECOLONIZATION TP SCH (21:48)
[2022-08-21] MEDS: CALCIUM 500MG/VIT-D 200 UNITS COMBO TABLET (FP) GT SCH (21:49)
[2022-08-22] MEDS: PIPERACILLIN/TAZOB 2.25 GM 2.25 GM in DEXTROSE 5%-WATER - 50 ML IVPB SCH ×3 (02:21→17:22)
[2022-08-22] MEDS: ASCORBIC ACID 500 MG/5 ML UNIT DOSE CUP GT SCH ×2 (06:18→17:22)
[2022-08-22] MEDS: levETIRAcetam 500 MG/5 ML ORAL SOLUTION (UNIT-DOSE CUPS) GT SCH ×3 (06:18→22:07)
[2022-08-22] MEDS: TIAGABINE HCL GT SCH ×3 (06:18→22:50)
[2022-08-22 08:03] LABS: BASO % 1.2 % (0-2.0); EOS % 1.8 % (0-4.5); HEMATOCRIT 28.1 % (35.4-49); HEMOGLOBIN 9.3 GM/dL (11.7-16.9); LYMPH % 25.7 % (8-40); MCH 33.4 pg (25.7-33.7); MCHC 33.2 g/dl (32.0-35.9); MEAN CELL VOLUME 100.4 fl (80-96); MEAN PLT VOLUME 7.6 fl (7.5-11.1); MONO % 8.8 % (3.8-10.2); NEUT % 62.5 % (42.8-82.8); PLATELET COUNT 549 10^3/uL (134-434); RDW 15.4 % (11.9-15.9); WHITE BLOOD COUNT 6.1 K/mm3 (4.0-10.0)
[2022-08-22] MEDS: AMINO ACIDS/PROTEIN HYDROLYS 30 ML LIQUID.PKT GT SCH ×2 (08:15→17:22)
[2022-08-22 08:21] LABS: CALCIUM 8.7 mg/dL (8.5-10.1)
[2022-08-22 08:22] LABS: BLOOD UREA NITROGEN 10.9 mg/dL (7-18)
[2022-08-22 08:25] LABS: CREATININE 0.3 mg/dL (0.55-1.3)
[2022-08-22] MEDS: POLYETHYLENE GLYCOL (HEALTHYLAX) 3350 17 GM PACKET PO SCH (10:15)
[2022-08-22] MEDS: ENOXAPARIN NA (PORCINE) 40 MG/0.4 ML DISP.SYRIN SQ SCH (10:15)
[2022-08-22] MEDS: LACTOBACILLUS ACIDOPHILUS 1 TABLET GT SCH (10:17)
[2022-08-22] MEDS: PHENYTOIN 100 MG/4 ML U-D CUP GT SCH ×4 (10:17→22:48)
[2022-08-22] MEDS: CHOLECALCIFEROL (VIT D3) 1,000 UNIT (25 MCG) TABLET GT SCH (10:17)
[2022-08-22] MEDS: carBAMazepine 100 MG/5 ML UNIT-DOSE CUP GT SCH ×4 (10:18→22:08)
[2022-08-22] MEDS: PANTOPRAZOLE SODIUM 40 MG VIAL IVPUSH SCH (10:21)
[2022-08-22] MEDS: PETROLATUM, WHITE 30 GM TUBE TP SCH (10:37)
[2022-08-22] MEDS: ERYTHROMYCIN 0.5% OPHTHALMIC OINTMENT 3.5 GM TUBE OU SCH (10:38)
[2022-08-22] MEDS: FOLIC ACID 1 MG TABLET (FP) NGT SCH (10:38)
[2022-08-22] MEDS: guaiFENesin 200 MG/10 ML 10 ML UNIT-DOSE CUPS GT SCH ×2 (10:38→22:18)
[2022-08-22] MEDS: BENZOYL PEROXIDE 5% 60 GM GEL..GRAM. TP SCH ×2 (12:39→22:44)
[2022-08-22] MEDS: MULTIVIT-MINERALS ORAL LIQUID GT SCH (17:21)
[2022-08-22] MEDS ORDERED: MINERAL OIL/PETROLAT/WATER TOPICAL CREAM 113 GM JAR TP PRN (20:37)
[2022-08-22] MEDS ORDERED: LYTES/YERBA SANTA 60 ML SPRAY MM PRN (20:37)
[2022-08-22] MEDS ORDERED: CHLORHEXIDINE GLUCONATE 4% CLEANSER FOR DECOLONIZATION TP SCH (22:00)
[2022-08-22] MEDS: CALCIUM 500MG/VIT-D 200 UNITS COMBO TABLET (FP) GT SCH (22:07)
[2022-08-23] MEDS: PIPERACILLIN/TAZOB 2.25 GM 2.25 GM in DEXTROSE 5%-WATER - 50 ML IVPB SCH ×3 (02:21→17:58)
[2022-08-23] MEDS: levETIRAcetam 500 MG/5 ML ORAL SOLUTION (UNIT-DOSE CUPS) GT SCH ×3 (05:24→23:38)
[2022-08-23] MEDS: TIAGABINE HCL GT SCH ×3 (05:24→23:40)
[2022-08-23] MEDS: ASCORBIC ACID 500 MG/5 ML UNIT DOSE CUP GT SCH ×2 (05:24→17:59)
[2022-08-23] MEDS: SIMETHICONE 40 MG/0.6 ML BOTTLE GT PRN (09:13)
[2022-08-23] MEDS: AMINO ACIDS/PROTEIN HYDROLYS 30 ML LIQUID.PKT GT SCH ×2 (09:15→17:58)
[2022-08-23] MEDS: carBAMazepine 100 MG/5 ML UNIT-DOSE CUP GT SCH ×4 (09:16→23:39)
[2022-08-23] MEDS: PHENYTOIN 100 MG/4 ML U-D CUP GT SCH ×2 (09:16→15:49)
[2022-08-23] MEDS: PANTOPRAZOLE SODIUM 40 MG VIAL IVPUSH SCH (09:18)
[2022-08-23] MEDS: LACTOBACILLUS ACIDOPHILUS 1 TABLET GT SCH (09:23)
[2022-08-23] MEDS: FOLIC ACID 1 MG TABLET (FP) NGT SCH (09:23)
[2022-08-23] MEDS: ENOXAPARIN NA (PORCINE) 40 MG/0.4 ML DISP.SYRIN SQ SCH (09:25)
[2022-08-23] MEDS: guaiFENesin 200 MG/10 ML 10 ML UNIT-DOSE CUPS GT SCH ×2 (09:26→23:39)
[2022-08-23] MEDS: CHOLECALCIFEROL (VIT D3) 1,000 UNIT (25 MCG) TABLET GT SCH (09:27)
[2022-08-23 10:34] LABS: BASO % 0.9 % (0-2.0); EOS % 2.6 % (0-4.5); HEMATOCRIT 28.7 % (35.4-49); HEMOGLOBIN 9.5 GM/dL (11.7-16.9); LYMPH % 25.5 % (8-40); MCH 33.8 pg (25.7-33.7); MCHC 33.2 g/dl (32.0-35.9); MEAN CELL VOLUME 101.9 fl (80-96); MEAN PLT VOLUME 7.9 fl (7.5-11.1); MONO % 10.3 % (3.8-10.2); NEUT % 60.7 % (42.8-82.8); PLATELET COUNT 505 10^3/uL (134-434); RBC 2.81 M/mm3 (4.00-5.60); RDW 15.5 % (11.9-15.9); WHITE BLOOD COUNT 7.2 K/mm3 (4.0-10.0)
[2022-08-23 10:59] LABS: CALCIUM 8.8 mg/dL (8.5-10.1)
[2022-08-23 11:00] LABS: BLOOD UREA NITROGEN 10.7 mg/dL (7-18)
[2022-08-23 11:03] LABS: CREATININE 0.2 mg/dL (0.55-1.3)
[2022-08-23] MEDS ORDERED: PHENYTOIN ORAL SUSP 125 MG/5 ML GT SCH (15:24)
[2022-08-23] MEDS: BENZOYL PEROXIDE 5% 60 GM GEL..GRAM. TP SCH ×2 (15:47→23:39)
[2022-08-23] MEDS: ERYTHROMYCIN 0.5% OPHTHALMIC OINTMENT 3.5 GM TUBE OU SCH (15:47)
[2022-08-23] MEDS: POLYETHYLENE GLYCOL (HEALTHYLAX) 3350 17 GM PACKET PO SCH (15:48)
[2022-08-23] MEDS: PETROLATUM, WHITE 30 GM TUBE TP SCH (15:50)
[2022-08-23] MEDS: MULTIVIT-MINERALS ORAL LIQUID GT SCH (17:58)
[2022-08-23] MEDS: CALCIUM 500MG/VIT-D 200 UNITS COMBO TABLET (FP) GT SCH (23:39)
[2022-08-24] MEDS: PHENYTOIN ORAL SUSP 125 MG/5 ML GT SCH ×3 (00:10→22:27)
[2022-08-24] MEDS: PIPERACILLIN/TAZOB 2.25 GM 2.25 GM in DEXTROSE 5%-WATER - 50 ML IVPB SCH ×3 (02:02→17:45)
[2022-08-24] MEDS: TIAGABINE HCL GT SCH ×2 (05:34→14:44)
[2022-08-24] MEDS: levETIRAcetam 500 MG/5 ML ORAL SOLUTION (UNIT-DOSE CUPS) GT SCH ×3 (05:34→22:29)
[2022-08-24] MEDS: ASCORBIC ACID 500 MG/5 ML UNIT DOSE CUP GT SCH ×2 (05:34→17:46)
[2022-08-24] MEDS: AMINO ACIDS/PROTEIN HYDROLYS 30 ML LIQUID.PKT GT SCH ×2 (08:33→16:49)
[2022-08-24] MEDS: POLYETHYLENE GLYCOL (HEALTHYLAX) 3350 17 GM PACKET PO SCH (09:03)
[2022-08-24] MEDS: ENOXAPARIN NA (PORCINE) 40 MG/0.4 ML DISP.SYRIN SQ SCH (09:04)
[2022-08-24] MEDS: LACTOBACILLUS ACIDOPHILUS 1 TABLET GT SCH (09:04)
[2022-08-24] MEDS: CHOLECALCIFEROL (VIT D3) 1,000 UNIT (25 MCG) TABLET GT SCH (09:05)
[2022-08-24] MEDS: guaiFENesin 200 MG/10 ML 10 ML UNIT-DOSE CUPS GT SCH (09:05)
[2022-08-24] MEDS: FOLIC ACID 1 MG TABLET (FP) NGT SCH (09:06)
[2022-08-24] MEDS: PANTOPRAZOLE SODIUM 40 MG VIAL IVPUSH SCH (09:06)
[2022-08-24] MEDS: BENZOYL PEROXIDE 5% 60 GM GEL..GRAM. TP SCH ×2 (09:07→22:25)
[2022-08-24] MEDS: ERYTHROMYCIN 0.5% OPHTHALMIC OINTMENT 3.5 GM TUBE OU SCH (09:08)
[2022-08-24] MEDS: carBAMazepine 100 MG/5 ML UNIT-DOSE CUP GT SCH ×4 (09:10→22:27)
[2022-08-24 09:48] LABS: HEMATOCRIT 28.3 % (35.4-49); HEMOGLOBIN 9.4 GM/dL (11.7-16.9); MCH 33.7 pg (25.7-33.7); MCHC 33.1 g/dl (32.0-35.9); MEAN CELL VOLUME 101.7 fl (80-96); MEAN PLT VOLUME 7.7 fl (7.5-11.1); PLATELET COUNT 505 10^3/uL (134-434); RBC 2.78 M/mm3 (4.00-5.60); RDW 15.7 % (11.9-15.9); WHITE BLOOD COUNT 8.1 K/mm3 (4.0-10.0)
[2022-08-24 10:06] LABS: ALBUMIN 2.6 g/dl (3.4-5.0); BLOOD UREA NITROGEN 6.8 mg/dL (7-18); CALCIUM 8.6 mg/dL (8.5-10.1); MAGNESIUM 2.3 mg/dL (1.8-2.4)
[2022-08-24 10:08] LABS: CREATININE 0.2 mg/dL (0.55-1.3)
[2022-08-24 10:10] LABS: BILIRUBIN,TOTAL 0.5 mg/dL (0.2-1)
[2022-08-24] MEDS: PETROLATUM, WHITE 30 GM TUBE TP SCH (15:02)
[2022-08-24] MEDS: MULTIVIT-MINERALS ORAL LIQUID GT SCH (17:45)
[2022-08-24] MEDS: CALCIUM 500MG/VIT-D 200 UNITS COMBO TABLET (FP) GT SCH (22:30)
[2022-08-24] MEDS: TIAGABINE HCL 4 MG GT SCH (22:31)
[2022-08-25] MEDS: guaiFENesin 200 MG/10 ML 10 ML UNIT-DOSE CUPS GT SCH ×3 (01:18→22:15)
[2022-08-25] MEDS: PIPERACILLIN/TAZOB 2.25 GM 2.25 GM in DEXTROSE 5%-WATER - 50 ML IVPB SCH ×3 (02:00→17:03)
[2022-08-25] MEDS: levETIRAcetam 500 MG/5 ML ORAL SOLUTION (UNIT-DOSE CUPS) GT SCH ×3 (05:58→22:15)
[2022-08-25] MEDS: TIAGABINE HCL 4 MG GT SCH ×3 (05:58→22:15)
[2022-08-25] MEDS: ACETAMINOPHEN 650 MG/20.3 ML ORAL SOLUTION (CUPS) PO PRN ×2 (06:00→19:59)
[2022-08-25] MEDS: ASCORBIC ACID 500 MG/5 ML UNIT DOSE CUP GT SCH ×2 (06:00→17:16)
[2022-08-25] MEDS: POLYETHYLENE GLYCOL (HEALTHYLAX) 3350 17 GM PACKET PO SCH (09:39)
[2022-08-25] MEDS: LACTOBACILLUS ACIDOPHILUS 1 TABLET GT SCH (09:40)
[2022-08-25] MEDS: AMINO ACIDS/PROTEIN HYDROLYS 30 ML LIQUID.PKT GT SCH ×2 (09:40→16:57)
[2022-08-25] MEDS: carBAMazepine 100 MG/5 ML UNIT-DOSE CUP GT SCH ×4 (09:41→22:14)
[2022-08-25] MEDS: SIMETHICONE 40 MG/0.6 ML BOTTLE GT PRN (09:41)
[2022-08-25] MEDS: PHENYTOIN ORAL SUSP 125 MG/5 ML GT SCH ×2 (09:41→22:14)
[2022-08-25] MEDS: ENOXAPARIN NA (PORCINE) 40 MG/0.4 ML DISP.SYRIN SQ SCH (09:45)
[2022-08-25] MEDS: PANTOPRAZOLE SODIUM 40 MG VIAL IVPUSH SCH (09:45)
[2022-08-25] MEDS: FOLIC ACID 1 MG TABLET (FP) NGT SCH (09:46)
[2022-08-25] MEDS: CHOLECALCIFEROL (VIT D3) 1,000 UNIT (25 MCG) TABLET GT SCH (09:46)
[2022-08-25] MEDS: ERYTHROMYCIN 0.5% OPHTHALMIC OINTMENT 3.5 GM TUBE OU SCH (10:06)
[2022-08-25] MEDS: BENZOYL PEROXIDE 5% 60 GM GEL..GRAM. TP SCH ×2 (10:06→22:43)
[2022-08-25] MEDS: PETROLATUM, WHITE 30 GM TUBE TP SCH (10:09)
[2022-08-25] MEDS: MULTIVIT-MINERALS ORAL LIQUID GT SCH (17:02)
[2022-08-25] MEDS: CALCIUM 500MG/VIT-D 200 UNITS COMBO TABLET (FP) GT SCH (22:43)
[2022-08-26] MEDS: PIPERACILLIN/TAZOB 2.25 GM 2.25 GM in DEXTROSE 5%-WATER - 50 ML IVPB SCH ×3 (01:04→17:13)
[2022-08-26] MEDS: levETIRAcetam 500 MG/5 ML ORAL SOLUTION (UNIT-DOSE CUPS) GT SCH ×3 (05:21→21:47)
[2022-08-26] MEDS: TIAGABINE HCL 4 MG GT SCH ×3 (05:21→21:45)
[2022-08-26] MEDS: ASCORBIC ACID 500 MG/5 ML UNIT DOSE CUP GT SCH ×2 (05:21→17:14)
[2022-08-26] MEDS: ENOXAPARIN NA (PORCINE) 40 MG/0.4 ML DISP.SYRIN SQ SCH (10:07)
[2022-08-26] MEDS: ACETAMINOPHEN 650 MG/20.3 ML ORAL SOLUTION (CUPS) PO PRN ×2 (10:07→22:07)
[2022-08-26] MEDS: CHOLECALCIFEROL (VIT D3) 1,000 UNIT (25 MCG) TABLET GT SCH (10:08)
[2022-08-26] MEDS: PANTOPRAZOLE SODIUM 40 MG VIAL IVPUSH SCH (10:08)
[2022-08-26] MEDS: POLYETHYLENE GLYCOL (HEALTHYLAX) 3350 17 GM PACKET PO SCH (10:09)
[2022-08-26] MEDS: AMINO ACIDS/PROTEIN HYDROLYS 30 ML LIQUID.PKT GT SCH ×2 (10:09→17:27)
[2022-08-26] MEDS: LACTOBACILLUS ACIDOPHILUS 1 TABLET GT SCH (10:09)
[2022-08-26] MEDS: FOLIC ACID 1 MG TABLET (FP) NGT SCH (10:09)
[2022-08-26] MEDS: PHENYTOIN ORAL SUSP 125 MG/5 ML GT SCH ×2 (10:10→21:48)
[2022-08-26] MEDS: carBAMazepine 100 MG/5 ML UNIT-DOSE CUP GT SCH ×4 (10:10→21:47)
[2022-08-26] MEDS: BENZOYL PEROXIDE 5% 60 GM GEL..GRAM. TP SCH ×2 (10:11→21:50)
[2022-08-26] MEDS: ERYTHROMYCIN 0.5% OPHTHALMIC OINTMENT 3.5 GM TUBE OU SCH (10:11)
[2022-08-26] MEDS: SIMETHICONE 40 MG/0.6 ML BOTTLE GT PRN (10:11)
[2022-08-26] MEDS: PETROLATUM, WHITE 30 GM TUBE TP SCH (10:13)
[2022-08-26] MEDS: guaiFENesin 200 MG/10 ML 10 ML UNIT-DOSE CUPS GT SCH ×2 (10:14→21:49)
[2022-08-26 10:54] LABS: HEMATOCRIT 31.2 % (35.4-49); HEMOGLOBIN 10.4 GM/dL (11.7-16.9); MCH 34.6 pg (25.7-33.7); MCHC 33.3 g/dl (32.0-35.9); MEAN CELL VOLUME 103.9 fl (80-96); MEAN PLT VOLUME 7.9 fl (7.5-11.1); PLATELET COUNT 684 10^3/uL (134-434); RDW 16.2 % (11.9-15.9); WHITE BLOOD COUNT 14.7 K/mm3 (4.0-10.0)
[2022-08-26 11:26] LABS: CALCIUM 9.3 mg/dL (8.5-10.1)
[2022-08-26 11:27] LABS: ALBUMIN 2.7 g/dl (3.4-5.0); BLOOD UREA NITROGEN 8.1 mg/dL (7-18); MAGNESIUM 2.3 mg/dL (1.8-2.4)
[2022-08-26 11:30] LABS: CREATININE 0.3 mg/dL (0.55-1.3); PHOSPHOROUS 3.4 mg/dL (2.5-4.9)
[2022-08-26 11:31] LABS: TOT PROT 6.5 g/dl (6.4-8.2)
[2022-08-26 11:32] LABS: BILIRUBIN,TOTAL 0.5 mg/dL (0.2-1)
[2022-08-26] MEDS: MULTIVIT-MINERALS ORAL LIQUID GT SCH (17:13)
[2022-08-26] MEDS: CALCIUM 500MG/VIT-D 200 UNITS COMBO TABLET (FP) GT SCH (21:49)
[2022-08-27] MEDS: PIPERACILLIN/TAZOB 2.25 GM 2.25 GM in DEXTROSE 5%-WATER - 50 ML IVPB SCH ×3 (01:36→17:15)
[2022-08-27] MEDS: levETIRAcetam 500 MG/5 ML ORAL SOLUTION (UNIT-DOSE CUPS) GT SCH ×3 (05:10→21:39)
[2022-08-27] MEDS: ASCORBIC ACID 500 MG/5 ML UNIT DOSE CUP GT SCH ×2 (05:11→17:11)
[2022-08-27] MEDS: TIAGABINE HCL 4 MG GT SCH ×3 (05:11→21:41)
[2022-08-27] MEDS: carBAMazepine 100 MG/5 ML UNIT-DOSE CUP GT SCH ×4 (09:55→22:40)
[2022-08-27] MEDS: LACTOBACILLUS ACIDOPHILUS 1 TABLET GT SCH (09:55)
[2022-08-27] MEDS: PANTOPRAZOLE SODIUM 40 MG VIAL IVPUSH SCH (09:55)
[2022-08-27] MEDS: CHOLECALCIFEROL (VIT D3) 1,000 UNIT (25 MCG) TABLET GT SCH (09:55)
[2022-08-27] MEDS: PHENYTOIN ORAL SUSP 125 MG/5 ML GT SCH ×2 (09:56→21:43)
[2022-08-27] MEDS: POLYETHYLENE GLYCOL (HEALTHYLAX) 3350 17 GM PACKET PO SCH (09:56)
[2022-08-27] MEDS: ENOXAPARIN NA (PORCINE) 40 MG/0.4 ML DISP.SYRIN SQ SCH (09:56)
[2022-08-27] MEDS: FOLIC ACID 1 MG TABLET (FP) NGT SCH (09:56)
[2022-08-27] MEDS: BENZOYL PEROXIDE 5% 60 GM GEL..GRAM. TP SCH ×2 (09:57→21:37)
[2022-08-27] MEDS: PETROLATUM, WHITE 30 GM TUBE TP SCH (09:57)
[2022-08-27] MEDS: AMINO ACIDS/PROTEIN HYDROLYS 30 ML LIQUID.PKT GT SCH ×2 (09:58→16:51)
[2022-08-27] MEDS: guaiFENesin 200 MG/10 ML 10 ML UNIT-DOSE CUPS GT SCH ×2 (10:18→21:40)
[2022-08-27] MEDS: ERYTHROMYCIN 0.5% OPHTHALMIC OINTMENT 3.5 GM TUBE OU SCH (10:19)
[2022-08-27] MEDS: ACETAMINOPHEN 650 MG/20.3 ML ORAL SOLUTION (CUPS) PO PRN (10:27)
[2022-08-27 12:19] LABS: BASO % 0.9 % (0-2.0); EOS % 3.1 % (0-4.5); HEMATOCRIT 25.5 % (35.4-49); HEMOGLOBIN 8.7 GM/dL (11.7-16.9); LYMPH % 21.4 % (8-40); MCH 35.2 pg (25.7-33.7); MCHC 34.3 g/dl (32.0-35.9); MEAN CELL VOLUME 102.6 fl (80-96); MEAN PLT VOLUME 8.1 fl (7.5-11.1); MONO % 9.7 % (3.8-10.2); NEUT % 64.9 % (42.8-82.8); PLATELET COUNT 589 10^3/uL (134-434); RBC 2.49 M/mm3 (4.00-5.60); RDW 17.2 % (11.9-15.9); WHITE BLOOD COUNT 6.9 K/mm3 (4.0-10.0)
[2022-08-27] MEDS: MULTIVIT-MINERALS ORAL LIQUID GT SCH (17:11)
[2022-08-27] MEDS: CALCIUM 500MG/VIT-D 200 UNITS COMBO TABLET (FP) GT SCH (21:39)
[2022-08-28] MEDS: PIPERACILLIN/TAZOB 2.25 GM 2.25 GM in DEXTROSE 5%-WATER - 50 ML IVPB SCH ×4 (01:32→17:32)
[2022-08-28] MEDS: levETIRAcetam 500 MG/5 ML ORAL SOLUTION (UNIT-DOSE CUPS) GT SCH ×3 (05:03→22:07)
[2022-08-28] MEDS: TIAGABINE HCL 4 MG GT SCH ×3 (05:04→22:04)
[2022-08-28] MEDS: ASCORBIC ACID 500 MG/5 ML UNIT DOSE CUP GT SCH ×2 (05:04→17:32)
[2022-08-28] MEDS: ACETAMINOPHEN 650 MG/20.3 ML ORAL SOLUTION (CUPS) PO PRN (06:45)
[2022-08-28 09:44] LABS: BASO % 0.9 % (0-2.0); EOS % 2.4 % (0-4.5); HEMATOCRIT 29.9 % (35.4-49); LYMPH % 12.4 % (8-40); MCH 34.4 pg (25.7-33.7); MCHC 33.3 g/dl (32.0-35.9); MEAN CELL VOLUME 103.2 fl (80-96); MEAN PLT VOLUME 7.6 fl (7.5-11.1); MONO % 6.6 % (3.8-10.2); NEUT % 77.7 % (42.8-82.8); PLATELET COUNT 635 10^3/uL (134-434); RDW 16.9 % (11.9-15.9); WHITE BLOOD COUNT 11.8 K/mm3 (4.0-10.0)
[2022-08-28 10:20] LABS: ALBUMIN 2.8 g/dl (3.4-5.0); BLOOD UREA NITROGEN 8.8 mg/dL (7-18)
[2022-08-28 10:22] LABS: BILIRUBIN,TOTAL 0.4 mg/dL (0.2-1); CREATININE 0.2 mg/dL (0.55-1.3); TOT PROT 6.5 g/dl (6.4-8.2)
[2022-08-28 10:23] LABS: CALCIUM 9.4 mg/dL (8.5-10.1); MAGNESIUM 2.4 mg/dL (1.8-2.4)
[2022-08-28] MEDS: PHENYTOIN ORAL SUSP 125 MG/5 ML GT SCH ×2 (12:03→22:05)
[2022-08-28] MEDS: POLYETHYLENE GLYCOL (HEALTHYLAX) 3350 17 GM PACKET PO SCH (12:03)
[2022-08-28] MEDS: ENOXAPARIN NA (PORCINE) 40 MG/0.4 ML DISP.SYRIN SQ SCH (12:04)
[2022-08-28] MEDS: FOLIC ACID 1 MG TABLET (FP) NGT SCH (12:04)
[2022-08-28] MEDS: LACTOBACILLUS ACIDOPHILUS 1 TABLET GT SCH (12:04)
[2022-08-28] MEDS: carBAMazepine 100 MG/5 ML UNIT-DOSE CUP GT SCH ×4 (12:04→22:08)
[2022-08-28] MEDS: CHOLECALCIFEROL (VIT D3) 1,000 UNIT (25 MCG) TABLET GT SCH (12:04)
[2022-08-28] MEDS: AMINO ACIDS/PROTEIN HYDROLYS 30 ML LIQUID.PKT GT SCH ×2 (12:04→17:31)
[2022-08-28] MEDS: ERYTHROMYCIN 0.5% OPHTHALMIC OINTMENT 3.5 GM TUBE OU SCH (12:05)
[2022-08-28] MEDS: PETROLATUM, WHITE 30 GM TUBE TP SCH (12:05)
[2022-08-28] MEDS: BENZOYL PEROXIDE 5% 60 GM GEL..GRAM. TP SCH ×2 (12:05→23:07)
[2022-08-28] MEDS: guaiFENesin 200 MG/10 ML 10 ML UNIT-DOSE CUPS GT SCH ×2 (12:05→22:07)
[2022-08-28] MEDS: PANTOPRAZOLE SODIUM 40 MG VIAL IVPUSH SCH (14:31)
[2022-08-28] MEDS: COLLAGENASE CLOSTRIDIUM HIST. 30 GRAMS TUBE TP SCH (15:11)
[2022-08-28] MEDS: MULTIVIT-MINERALS ORAL LIQUID GT SCH (17:32)
[2022-08-28 20:43] LABS: ALBUMIN 2.7 g/dl (3.4-5.0); BLOOD UREA NITROGEN 11.1 mg/dL (7-18)
[2022-08-28 20:46] LABS: CREATININE 0.3 mg/dL (0.55-1.3)
[2022-08-28 20:47] LABS: BILIRUBIN,TOTAL 0.3 mg/dL (0.2-1); TOT PROT 6.2 g/dl (6.4-8.2)
[2022-08-28] MEDS: CALCIUM 500MG/VIT-D 200 UNITS COMBO TABLET (FP) GT SCH (22:05)
[2022-08-28] MEDS: ENOXAPARIN NA (PORCINE) 60 MG/0.6 ML DISP.SYRIN SQ SCH (22:10)
[2022-08-29] MEDS: PIPERACILLIN/TAZOB 2.25 GM 2.25 GM in DEXTROSE 5%-WATER - 50 ML IVPB SCH ×2 (02:07→10:49)
[2022-08-29] MEDS: ASCORBIC ACID 500 MG/5 ML UNIT DOSE CUP GT SCH ×2 (05:19→18:22)
[2022-08-29] MEDS: TIAGABINE HCL 4 MG GT SCH ×3 (05:19→22:40)
[2022-08-29] MEDS: levETIRAcetam 500 MG/5 ML ORAL SOLUTION (UNIT-DOSE CUPS) GT SCH ×3 (05:19→22:37)
[2022-08-29] MEDS: AMINO ACIDS/PROTEIN HYDROLYS 30 ML LIQUID.PKT GT SCH ×2 (08:11→18:22)
[2022-08-29 08:54] LABS: BASO % 1.2 % (0-2.0); EOS % 4.9 % (0-4.5); HEMATOCRIT 26.2 % (35.4-49); HEMOGLOBIN 9.2 GM/dL (11.7-16.9); LYMPH % 30.5 % (8-40); MCH 35.8 pg (25.7-33.7); MEAN CELL VOLUME 102.5 fl (80-96); MEAN PLT VOLUME 7.6 fl (7.5-11.1); MONO % 10.2 % (3.8-10.2); NEUT % 53.2 % (42.8-82.8); PLATELET COUNT 602 10^3/uL (134-434); RBC 2.56 M/mm3 (4.00-5.60); WHITE BLOOD COUNT 6.7 K/mm3 (4.0-10.0)
[2022-08-29] MEDS: carBAMazepine 100 MG/5 ML UNIT-DOSE CUP GT SCH ×4 (10:49→22:38)
[2022-08-29] MEDS: guaiFENesin 200 MG/10 ML 10 ML UNIT-DOSE CUPS GT SCH ×2 (10:49→22:39)
[2022-08-29] MEDS: POLYETHYLENE GLYCOL (HEALTHYLAX) 3350 17 GM PACKET PO SCH (10:49)
[2022-08-29] MEDS: ENOXAPARIN NA (PORCINE) 60 MG/0.6 ML DISP.SYRIN SQ SCH (10:50)
[2022-08-29] MEDS: PETROLATUM, WHITE 30 GM TUBE TP SCH (10:52)
[2022-08-29] MEDS: LACTOBACILLUS ACIDOPHILUS 1 TABLET GT SCH (10:52)
[2022-08-29] MEDS: CHOLECALCIFEROL (VIT D3) 1,000 UNIT (25 MCG) TABLET GT SCH (10:52)
[2022-08-29] MEDS: PHENYTOIN ORAL SUSP 125 MG/5 ML GT SCH ×2 (10:52→22:37)
[2022-08-29] MEDS: FOLIC ACID 1 MG TABLET (FP) NGT SCH (10:52)
[2022-08-29] MEDS: COLLAGENASE CLOSTRIDIUM HIST. 30 GRAMS TUBE TP SCH (10:52)
[2022-08-29] MEDS: PANTOPRAZOLE SODIUM 40 MG VIAL IVPUSH SCH (10:52)
[2022-08-29] MEDS: ERYTHROMYCIN 0.5% OPHTHALMIC OINTMENT 3.5 GM TUBE OU SCH (10:53)
[2022-08-29] MEDS: BENZOYL PEROXIDE 5% 60 GM GEL..GRAM. TP SCH ×2 (10:53→23:49)
[2022-08-29] MEDS ORDERED: BENZOYL PEROXIDE 5% 60 GM GEL..GRAM. TP ONE (12:00)
[2022-08-29 17:06] LABS: BLOOD UREA NITROGEN 10.6 mg/dL (7-18); CALCIUM 9.2 mg/dL (8.5-10.1)
[2022-08-29 17:08] LABS: ALBUMIN 2.7 g/dl (3.4-5.0)
[2022-08-29 17:10] LABS: CREATININE 0.3 mg/dL (0.55-1.3)
[2022-08-29 17:11] LABS: BILIRUBIN,TOTAL 0.4 mg/dL (0.2-1); TOT PROT 6.1 g/dl (6.4-8.2)
[2022-08-29] MEDS: MULTIVIT-MINERALS ORAL LIQUID GT SCH (18:22)
[2022-08-29] MEDS: APIXABAN 5 MG TABLET GT SCH (22:36)
[2022-08-29] MEDS: CALCIUM 500MG/VIT-D 200 UNITS COMBO TABLET (FP) GT SCH (22:37)
[2022-08-30] MEDS: levETIRAcetam 500 MG/5 ML ORAL SOLUTION (UNIT-DOSE CUPS) GT SCH ×3 (05:11→22:37)
[2022-08-30] MEDS: TIAGABINE HCL 4 MG GT SCH ×3 (05:11→23:31)
[2022-08-30] MEDS: ASCORBIC ACID 500 MG/5 ML UNIT DOSE CUP GT SCH ×2 (05:12→17:01)
[2022-08-30 10:07] LABS: EOS % 4.3 % (0-4.5); HEMOGLOBIN 9.5 GM/dL (11.7-16.9); MCH 35.2 pg (25.7-33.7); MEAN CELL VOLUME 103.6 fl (80-96); MEAN PLT VOLUME 7.7 fl (7.5-11.1); MONO % 9.7 % (3.8-10.2); PLATELET COUNT 653 10^3/uL (134-434); RDW 17.2 % (11.9-15.9); WHITE BLOOD COUNT 7.9 K/mm3 (4.0-10.0)
[2022-08-30] MEDS: LACTOBACILLUS ACIDOPHILUS 1 TABLET GT SCH (11:46)
[2022-08-30] MEDS: FOLIC ACID 1 MG TABLET (FP) NGT SCH (11:46)
[2022-08-30] MEDS: AMINO ACIDS/PROTEIN HYDROLYS 30 ML LIQUID.PKT GT SCH ×2 (11:46→16:58)
[2022-08-30] MEDS: POLYETHYLENE GLYCOL (HEALTHYLAX) 3350 17 GM PACKET PO SCH (11:47)
[2022-08-30] MEDS: APIXABAN 5 MG TABLET GT SCH ×2 (11:47→22:37)
[2022-08-30] MEDS: CHOLECALCIFEROL (VIT D3) 1,000 UNIT (25 MCG) TABLET GT SCH (11:47)
[2022-08-30] MEDS: PHENYTOIN ORAL SUSP 125 MG/5 ML GT SCH ×2 (11:48→22:36)
[2022-08-30] MEDS: BENZOYL PEROXIDE 5% 60 GM GEL..GRAM. TP SCH ×2 (11:49→21:45)
[2022-08-30] MEDS: carBAMazepine 100 MG/5 ML UNIT-DOSE CUP GT SCH ×4 (11:49→23:31)
[2022-08-30] MEDS: ERYTHROMYCIN 0.5% OPHTHALMIC OINTMENT 3.5 GM TUBE OU SCH (11:50)
[2022-08-30] MEDS: PANTOPRAZOLE SODIUM 40 MG VIAL IVPUSH SCH (11:50)
[2022-08-30] MEDS: PETROLATUM, WHITE 30 GM TUBE TP SCH (11:51)
[2022-08-30] MEDS: COLLAGENASE CLOSTRIDIUM HIST. 30 GRAMS TUBE TP SCH (11:51)
[2022-08-30] MEDS: guaiFENesin 200 MG/10 ML 10 ML UNIT-DOSE CUPS GT SCH ×2 (12:13→22:37)
[2022-08-30] MEDS: MULTIVIT-MINERALS ORAL LIQUID GT SCH (17:00)
[2022-08-30 17:34] LABS: ALBUMIN 2.6 g/dl (3.4-5.0); CALCIUM 9.3 mg/dL (8.5-10.1)
[2022-08-30 17:35] LABS: BLOOD UREA NITROGEN 10.1 mg/dL (7-18)
[2022-08-30 17:37] LABS: CREATININE 0.2 mg/dL (0.55-1.3)
[2022-08-30 17:40] LABS: BILIRUBIN,TOTAL 0.9 mg/dL (0.2-1)
[2022-08-30 17:41] LABS: TOT PROT 6.3 g/dl (6.4-8.2)
[2022-08-30] MEDS: CALCIUM 500MG/VIT-D 200 UNITS COMBO TABLET (FP) GT SCH (22:37)
[2022-08-31] MEDS: ACETAMINOPHEN 650 MG/20.3 ML ORAL SOLUTION (CUPS) PO PRN (01:57)
[2022-08-31] MEDS: TIAGABINE HCL 4 MG GT SCH ×3 (05:41→23:17)
[2022-08-31] MEDS: levETIRAcetam 500 MG/5 ML ORAL SOLUTION (UNIT-DOSE CUPS) GT SCH ×3 (05:41→22:52)
[2022-08-31] MEDS: ASCORBIC ACID 500 MG/5 ML UNIT DOSE CUP GT SCH ×2 (05:45→17:18)
[2022-08-31] MEDS: AMINO ACIDS/PROTEIN HYDROLYS 30 ML LIQUID.PKT GT SCH ×2 (07:41→17:18)
[2022-08-31] MEDS: PANTOPRAZOLE SODIUM 40 MG VIAL IVPUSH SCH (09:31)
[2022-08-31] MEDS: LACTOBACILLUS ACIDOPHILUS 1 TABLET GT SCH (09:31)
[2022-08-31] MEDS: FOLIC ACID 1 MG TABLET (FP) NGT SCH (09:32)
[2022-08-31] MEDS: PHENYTOIN ORAL SUSP 125 MG/5 ML GT SCH ×2 (09:32→22:52)
[2022-08-31] MEDS: CHOLECALCIFEROL (VIT D3) 1,000 UNIT (25 MCG) TABLET GT SCH (09:32)
[2022-08-31] MEDS: carBAMazepine 100 MG/5 ML UNIT-DOSE CUP GT SCH ×4 (09:32→22:51)
[2022-08-31] MEDS: POLYETHYLENE GLYCOL (HEALTHYLAX) 3350 17 GM PACKET PO SCH (09:32)
[2022-08-31] MEDS: BENZOYL PEROXIDE 5% 60 GM GEL..GRAM. TP SCH ×2 (09:32→22:52)
[2022-08-31] MEDS: APIXABAN 5 MG TABLET GT SCH ×2 (09:32→22:52)
[2022-08-31] MEDS: PETROLATUM, WHITE 30 GM TUBE TP SCH (09:33)
[2022-08-31] MEDS: COLLAGENASE CLOSTRIDIUM HIST. 30 GRAMS TUBE TP SCH (09:33)
[2022-08-31] MEDS: guaiFENesin 200 MG/10 ML 10 ML UNIT-DOSE CUPS GT SCH ×2 (09:33→22:52)
[2022-08-31] MEDS: ERYTHROMYCIN 0.5% OPHTHALMIC OINTMENT 3.5 GM TUBE OU SCH (09:33)
[2022-08-31 10:41] LABS: EOS % 7.3 % (0-4.5); HEMATOCRIT 28.5 % (35.4-49); HEMOGLOBIN 9.6 GM/dL (11.7-16.9); LYMPH % 22.7 % (8-40); MCH 34.9 pg (25.7-33.7); MCHC 33.5 g/dl (32.0-35.9); MEAN CELL VOLUME 104.1 fl (80-96); MEAN PLT VOLUME 7.8 fl (7.5-11.1); PLATELET COUNT 637 10^3/uL (134-434); RBC 2.74 M/mm3 (4.00-5.60); RDW 17.3 % (11.9-15.9); WHITE BLOOD COUNT 8.3 K/mm3 (4.0-10.0)
[2022-08-31 11:24] LABS: MAGNESIUM 2.2 mg/dL (1.8-2.4)
[2022-08-31 11:28] LABS: PHOSPHOROUS 4.4 mg/dL (2.5-4.9)
[2022-08-31] MEDS ORDERED: POLYETHYLENE GLYCOL (HEALTHYLAX) 3350 17 GM PACKET PO PRN (13:44)
[2022-08-31] MEDS: MULTIVIT-MINERALS ORAL LIQUID GT SCH (17:18)
[2022-08-31 18:35] LABS: CALCIUM 9.4 mg/dL (8.5-10.1)
[2022-08-31 18:36] LABS: BLOOD UREA NITROGEN 10.6 mg/dL (7-18)
[2022-08-31 18:39] LABS: CREATININE 0.3 mg/dL (0.55-1.3)
[2022-08-31 18:41] LABS: BILIRUBIN,TOTAL 0.4 mg/dL (0.2-1); TOT PROT 6.6 g/dl (6.4-8.2)
[2022-08-31] MEDS: CALCIUM 500MG/VIT-D 200 UNITS COMBO TABLET (FP) GT SCH (22:51)
[2022-09-01] MEDS: ASCORBIC ACID 500 MG/5 ML UNIT DOSE CUP GT SCH ×2 (05:22→17:13)
[2022-09-01] MEDS: TIAGABINE HCL 4 MG GT SCH ×3 (05:22→22:25)
[2022-09-01] MEDS: levETIRAcetam 500 MG/5 ML ORAL SOLUTION (UNIT-DOSE CUPS) GT SCH ×3 (05:22→22:24)
[2022-09-01] MEDS: AMINO ACIDS/PROTEIN HYDROLYS 30 ML LIQUID.PKT GT SCH ×2 (07:59→17:13)
[2022-09-01] MEDS: CHOLECALCIFEROL (VIT D3) 1,000 UNIT (25 MCG) TABLET GT SCH (08:59)
[2022-09-01] MEDS: PANTOPRAZOLE SODIUM 40 MG VIAL IVPUSH SCH (08:59)
[2022-09-01] MEDS: APIXABAN 5 MG TABLET GT SCH ×2 (08:59→22:24)
[2022-09-01] MEDS: FOLIC ACID 1 MG TABLET (FP) NGT SCH (08:59)
[2022-09-01] MEDS: carBAMazepine 100 MG/5 ML UNIT-DOSE CUP GT SCH ×4 (08:59→22:23)
[2022-09-01] MEDS: LACTOBACILLUS ACIDOPHILUS 1 TABLET GT SCH (08:59)
[2022-09-01] MEDS: guaiFENesin 200 MG/10 ML 10 ML UNIT-DOSE CUPS GT SCH ×2 (09:01→22:24)
[2022-09-01] MEDS: PETROLATUM, WHITE 30 GM TUBE TP SCH (09:01)
[2022-09-01] MEDS: ERYTHROMYCIN 0.5% OPHTHALMIC OINTMENT 3.5 GM TUBE OU SCH (09:01)
[2022-09-01] MEDS: COLLAGENASE CLOSTRIDIUM HIST. 30 GRAMS TUBE TP SCH (09:01)
[2022-09-01] MEDS: PHENYTOIN ORAL SUSP 125 MG/5 ML GT SCH ×2 (09:01→22:21)
[2022-09-01] MEDS: BENZOYL PEROXIDE 5% 60 GM GEL..GRAM. TP SCH ×2 (09:01→22:21)
[2022-09-01 10:05] LABS: BASO % 0.9 % (0-2.0); EOS % 5.5 % (0-4.5); HEMATOCRIT 30.6 % (35.4-49); HEMOGLOBIN 10.2 GM/dL (11.7-16.9); LYMPH % 28.7 % (8-40); MCH 34.8 pg (25.7-33.7); MCHC 33.2 g/dl (32.0-35.9); MEAN PLT VOLUME 8.5 fl (7.5-11.1); NEUT % 54.9 % (42.8-82.8); PLATELET COUNT 608 10^3/uL (134-434); RBC 2.92 M/mm3 (4.00-5.60); RDW 17.3 % (11.9-15.9); WHITE BLOOD COUNT 7.7 K/mm3 (4.0-10.0)
[2022-09-01 10:46] LABS: ALBUMIN 2.8 g/dl (3.4-5.0); BLOOD UREA NITROGEN 9.9 mg/dL (7-18); CALCIUM 9.1 mg/dL (8.5-10.1); MAGNESIUM 2.1 mg/dL (1.8-2.4)
[2022-09-01 10:49] LABS: CREATININE 0.3 mg/dL (0.55-1.3); PHOSPHOROUS 4.3 mg/dL (2.5-4.9)
[2022-09-01 10:51] LABS: BILIRUBIN,TOTAL 0.6 mg/dL (0.2-1); TOT PROT 6.4 g/dl (6.4-8.2)
[2022-09-01 12:01] LABS: ANISOCYTOSIS 2+; MACROCYTOSIS 0
[2022-09-01 16:33] LABS: CALCIUM 9.6 mg/dL (8.5-10.1)
[2022-09-01 16:34] LABS: ALBUMIN 3.1 g/dl (3.4-5.0); BLOOD UREA NITROGEN 8.4 mg/dL (7-18)
[2022-09-01 16:37] LABS: CREATININE 0.3 mg/dL (0.55-1.3)
[2022-09-01 16:38] LABS: BILIRUBIN,TOTAL 0.4 mg/dL (0.2-1)
[2022-09-01 16:39] LABS: TOT PROT 6.8 g/dl (6.4-8.2)
[2022-09-01] MEDS: MULTIVIT-MINERALS ORAL LIQUID GT SCH (17:13)
[2022-09-01] MEDS: CALCIUM 500MG/VIT-D 200 UNITS COMBO TABLET (FP) GT SCH (22:25)
[2022-09-02] MEDS: levETIRAcetam 500 MG/5 ML ORAL SOLUTION (UNIT-DOSE CUPS) GT SCH ×3 (05:05→21:53)
[2022-09-02] MEDS: TIAGABINE HCL 4 MG GT SCH ×3 (05:05→21:58)
[2022-09-02] MEDS: ASCORBIC ACID 500 MG/5 ML UNIT DOSE CUP GT SCH ×2 (05:05→17:39)
[2022-09-02] MEDS: carBAMazepine 100 MG/5 ML UNIT-DOSE CUP GT SCH ×4 (09:46→21:55)
[2022-09-02] MEDS: AMINO ACIDS/PROTEIN HYDROLYS 30 ML LIQUID.PKT GT SCH ×2 (09:46→17:37)
[2022-09-02] MEDS: SIMETHICONE 40 MG/0.6 ML BOTTLE GT PRN (09:48)
[2022-09-02] MEDS: APIXABAN 5 MG TABLET GT SCH ×2 (09:52→21:57)
[2022-09-02] MEDS: LACTOBACILLUS ACIDOPHILUS 1 TABLET GT SCH (09:52)
[2022-09-02] MEDS: FOLIC ACID 1 MG TABLET (FP) NGT SCH (09:53)
[2022-09-02] MEDS: guaiFENesin 200 MG/10 ML 10 ML UNIT-DOSE CUPS GT SCH (09:54)
[2022-09-02] MEDS: CHOLECALCIFEROL (VIT D3) 1,000 UNIT (25 MCG) TABLET GT SCH (09:57)
[2022-09-02] MEDS: ERYTHROMYCIN 0.5% OPHTHALMIC OINTMENT 3.5 GM TUBE OU SCH (10:01)
[2022-09-02] MEDS: PETROLATUM, WHITE 30 GM TUBE TP SCH (10:04)
[2022-09-02] MEDS: PANTOPRAZOLE SODIUM 40 MG VIAL IVPUSH SCH (10:56)
[2022-09-02 11:31] LABS: BASO % 1.1 % (0-2.0); EOS % 5.3 % (0-4.5); HEMATOCRIT 30.7 % (35.4-49); HEMOGLOBIN 10.1 GM/dL (11.7-16.9); LYMPH % 29.8 % (8-40); MEAN PLT VOLUME 7.9 fl (7.5-11.1); MONO % 8.2 % (3.8-10.2); NEUT % 55.6 % (42.8-82.8); PLATELET COUNT 624 10^3/uL (134-434); RBC 2.89 M/mm3 (4.00-5.60); RDW 18.2 % (11.9-15.9); WHITE BLOOD COUNT 6.9 K/mm3 (4.0-10.0)
[2022-09-02] MEDS: PHENYTOIN ORAL SUSP 125 MG/5 ML GT SCH ×2 (11:39→21:53)
[2022-09-02] MEDS: BENZOYL PEROXIDE 5% 60 GM GEL..GRAM. TP SCH ×2 (12:50→21:56)
[2022-09-02] MEDS: COLLAGENASE CLOSTRIDIUM HIST. 30 GRAMS TUBE TP SCH (15:42)
[2022-09-02] MEDS: MULTIVIT-MINERALS ORAL LIQUID GT SCH (17:38)
[2022-09-03] MEDS: CALCIUM 500MG/VIT-D 200 UNITS COMBO TABLET (FP) GT SCH ×2 (02:06→22:32)
[2022-09-03] MEDS: guaiFENesin 200 MG/10 ML 10 ML UNIT-DOSE CUPS GT SCH ×3 (02:06→22:32)
[2022-09-03] MEDS: levETIRAcetam 500 MG/5 ML ORAL SOLUTION (UNIT-DOSE CUPS) GT SCH ×3 (05:21→22:32)
[2022-09-03] MEDS: TIAGABINE HCL 4 MG GT SCH ×3 (05:22→22:33)
[2022-09-03] MEDS: ASCORBIC ACID 500 MG/5 ML UNIT DOSE CUP GT SCH ×2 (05:22→17:50)
[2022-09-03 10:15] LABS: HEMATOCRIT 32.8 % (35.4-49); MCH 35.6 pg (25.7-33.7); MCHC 33.6 g/dl (32.0-35.9); MEAN CELL VOLUME 105.9 fl (80-96); MEAN PLT VOLUME 8.5 fl (7.5-11.1); PLATELET COUNT 590 10^3/uL (134-434); RBC 3.09 M/mm3 (4.00-5.60); RDW 18.7 % (11.9-15.9); WHITE BLOOD COUNT 7.1 K/mm3 (4.0-10.0)
[2022-09-03 10:29] LABS: ALBUMIN 3.1 g/dl (3.4-5.0)
[2022-09-03 10:32] LABS: CALCIUM 9.6 mg/dL (8.5-10.1); MAGNESIUM 2.3 mg/dL (1.8-2.4)
[2022-09-03 10:33] LABS: BLOOD UREA NITROGEN 10.5 mg/dL (7-18)
[2022-09-03 10:36] LABS: CREATININE 0.3 mg/dL (0.55-1.3)
[2022-09-03 10:37] LABS: BILIRUBIN,TOTAL 0.4 mg/dL (0.2-1); TOT PROT 6.6 g/dl (6.4-8.2)
[2022-09-03] MEDS: PANTOPRAZOLE SODIUM 40 MG VIAL IVPUSH SCH (12:11)
[2022-09-03] MEDS: LACTOBACILLUS ACIDOPHILUS 1 TABLET GT SCH (12:11)
[2022-09-03] MEDS: AMINO ACIDS/PROTEIN HYDROLYS 30 ML LIQUID.PKT GT SCH ×2 (12:12→17:49)
[2022-09-03] MEDS: FOLIC ACID 1 MG TABLET (FP) NGT SCH (12:12)
[2022-09-03] MEDS: APIXABAN 5 MG TABLET GT SCH ×2 (12:12→22:31)
[2022-09-03] MEDS: carBAMazepine 100 MG/5 ML UNIT-DOSE CUP GT SCH ×4 (12:14→22:30)
[2022-09-03] MEDS: BENZOYL PEROXIDE 5% 60 GM GEL..GRAM. TP SCH ×2 (12:15→22:40)
[2022-09-03] MEDS: PHENYTOIN ORAL SUSP 125 MG/5 ML GT SCH ×2 (12:15→22:31)
[2022-09-03] MEDS: PETROLATUM, WHITE 30 GM TUBE TP SCH (12:15)
[2022-09-03] MEDS: ERYTHROMYCIN 0.5% OPHTHALMIC OINTMENT 3.5 GM TUBE OU SCH (12:15)
[2022-09-03] MEDS: CHOLECALCIFEROL (VIT D3) 1,000 UNIT (25 MCG) TABLET GT SCH (12:16)
[2022-09-03] MEDS: COLLAGENASE CLOSTRIDIUM HIST. 30 GRAMS TUBE TP SCH (14:00)
[2022-09-03] MEDS: MULTIVIT-MINERALS ORAL LIQUID GT SCH (17:50)
[2022-09-04] MEDS: TIAGABINE HCL 4 MG GT SCH ×3 (05:14→23:21)
[2022-09-04] MEDS: ASCORBIC ACID 500 MG/5 ML UNIT DOSE CUP GT SCH ×2 (05:16→17:17)
[2022-09-04] MEDS: levETIRAcetam 500 MG/5 ML ORAL SOLUTION (UNIT-DOSE CUPS) GT SCH ×3 (05:23→23:18)
[2022-09-04 10:14] LABS: HEMATOCRIT 30.4 % (35.4-49); HEMOGLOBIN 10.4 GM/dL (11.7-16.9); MCH 35.8 pg (25.7-33.7); MCHC 34.1 g/dl (32.0-35.9); MEAN CELL VOLUME 104.8 fl (80-96); MEAN PLT VOLUME 8.1 fl (7.5-11.1); PLATELET COUNT 660 10^3/uL (134-434); RDW 17.8 % (11.9-15.9); WHITE BLOOD COUNT 8.1 K/mm3 (4.0-10.0)
[2022-09-04 11:24] LABS: CALCIUM 9.3 mg/dL (8.5-10.1)
[2022-09-04 11:25] LABS: BLOOD UREA NITROGEN 10.6 mg/dL (7-18); MAGNESIUM 2.2 mg/dL (1.8-2.4)
[2022-09-04 11:27] LABS: CREATININE 0.4 mg/dL (0.55-1.3); PHOSPHOROUS 4.3 mg/dL (2.5-4.9)
[2022-09-04 11:29] LABS: TOT PROT 6.6 g/dl (6.4-8.2)
[2022-09-04 11:30] LABS: BILIRUBIN,TOTAL 0.8 mg/dL (0.2-1)
[2022-09-04] MEDS: CHOLECALCIFEROL (VIT D3) 1,000 UNIT (25 MCG) TABLET GT SCH (12:16)
[2022-09-04] MEDS: LACTOBACILLUS ACIDOPHILUS 1 TABLET GT SCH (12:16)
[2022-09-04] MEDS: AMINO ACIDS/PROTEIN HYDROLYS 30 ML LIQUID.PKT GT SCH ×2 (12:16→17:16)
[2022-09-04] MEDS: ERYTHROMYCIN 0.5% OPHTHALMIC OINTMENT 3.5 GM TUBE OU SCH (12:17)
[2022-09-04] MEDS: APIXABAN 5 MG TABLET GT SCH ×2 (12:17→23:16)
[2022-09-04] MEDS: PANTOPRAZOLE SODIUM 40 MG VIAL IVPUSH SCH (12:17)
[2022-09-04] MEDS: PHENYTOIN ORAL SUSP 125 MG/5 ML GT SCH ×2 (12:17→23:17)
[2022-09-04] MEDS: FOLIC ACID 1 MG TABLET (FP) NGT SCH (12:17)
[2022-09-04] MEDS: BENZOYL PEROXIDE 5% 60 GM GEL..GRAM. TP SCH ×2 (12:17→23:40)
[2022-09-04] MEDS: guaiFENesin 200 MG/10 ML 10 ML UNIT-DOSE CUPS GT SCH ×2 (12:17→23:21)
[2022-09-04] MEDS: carBAMazepine 100 MG/5 ML UNIT-DOSE CUP GT SCH ×4 (12:17→23:17)
[2022-09-04] MEDS: PETROLATUM, WHITE 30 GM TUBE TP SCH (12:18)
[2022-09-04] MEDS: COLLAGENASE CLOSTRIDIUM HIST. 30 GRAMS TUBE TP SCH (12:18)
[2022-09-04] MEDS: MULTIVIT-MINERALS ORAL LIQUID GT SCH (17:16)
[2022-09-04] MEDS: POVIDONE-IODINE OINTMENT 10% - 28.4 GM TUBE TP SCH (17:18)
[2022-09-04] MEDS: CALCIUM 500MG/VIT-D 200 UNITS COMBO TABLET (FP) GT SCH (23:17)
[2022-09-05] MEDS: ASCORBIC ACID 500 MG/5 ML UNIT DOSE CUP GT SCH ×2 (05:15→17:50)
[2022-09-05] MEDS: levETIRAcetam 500 MG/5 ML ORAL SOLUTION (UNIT-DOSE CUPS) GT SCH ×3 (05:15→22:13)
[2022-09-05] MEDS: TIAGABINE HCL 4 MG GT SCH ×3 (05:15→22:14)
[2022-09-05] MEDS: CHOLECALCIFEROL (VIT D3) 1,000 UNIT (25 MCG) TABLET GT SCH (11:12)
[2022-09-05] MEDS: PANTOPRAZOLE SODIUM 40 MG VIAL IVPUSH SCH (11:12)
[2022-09-05] MEDS: LACTOBACILLUS ACIDOPHILUS 1 TABLET GT SCH (11:12)
[2022-09-05] MEDS: AMINO ACIDS/PROTEIN HYDROLYS 30 ML LIQUID.PKT GT SCH ×2 (11:13→17:49)
[2022-09-05] MEDS: FOLIC ACID 1 MG TABLET (FP) NGT SCH (11:13)
[2022-09-05] MEDS: carBAMazepine 100 MG/5 ML UNIT-DOSE CUP GT SCH ×4 (11:13→22:14)
[2022-09-05] MEDS: APIXABAN 5 MG TABLET GT SCH (11:13)
[2022-09-05] MEDS: BENZOYL PEROXIDE 5% 60 GM GEL..GRAM. TP SCH ×2 (11:14→22:15)
[2022-09-05] MEDS: POVIDONE-IODINE OINTMENT 10% - 28.4 GM TUBE TP SCH (11:15)
[2022-09-05] MEDS: ERYTHROMYCIN 0.5% OPHTHALMIC OINTMENT 3.5 GM TUBE OU SCH (11:16)
[2022-09-05] MEDS: guaiFENesin 200 MG/10 ML 10 ML UNIT-DOSE CUPS GT SCH ×2 (11:16→22:13)
[2022-09-05] MEDS: COLLAGENASE CLOSTRIDIUM HIST. 30 GRAMS TUBE TP SCH (11:17)
[2022-09-05] MEDS: PETROLATUM, WHITE 30 GM TUBE TP SCH (11:17)
[2022-09-05] MEDS: PHENYTOIN ORAL SUSP 125 MG/5 ML GT SCH ×2 (12:06→22:13)
[2022-09-05] MEDS: FAMOTIDINE 40 MG/5 ML ORAL SUSPENSION PEG SCH (12:47)
[2022-09-05 12:49] LABS: BLOOD UREA NITROGEN 11.8 mg/dL (7-18); CALCIUM 9.1 mg/dL (8.5-10.1); MAGNESIUM 2.2 mg/dL (1.8-2.4)
[2022-09-05 12:51] LABS: CREATININE 0.3 mg/dL (0.55-1.3); PHOSPHOROUS 3.6 mg/dL (2.5-4.9)
[2022-09-05 12:52] LABS: BILIRUBIN,TOTAL 0.4 mg/dL (0.2-1); TOT PROT 6.4 g/dl (6.4-8.2)
[2022-09-05] MEDS: MULTIVIT-MINERALS ORAL LIQUID GT SCH (17:50)
[2022-09-05] MEDS: CALCIUM 500MG/VIT-D 200 UNITS COMBO TABLET (FP) GT SCH (22:13)
[2022-09-06] MEDS: levETIRAcetam 500 MG/5 ML ORAL SOLUTION (UNIT-DOSE CUPS) GT SCH ×3 (06:22→22:55)
[2022-09-06] MEDS: ASCORBIC ACID 500 MG/5 ML UNIT DOSE CUP GT SCH ×2 (06:22→17:06)
[2022-09-06] MEDS: TIAGABINE HCL 4 MG GT SCH ×3 (06:23→22:56)
[2022-09-06] MEDS: AMINO ACIDS/PROTEIN HYDROLYS 30 ML LIQUID.PKT GT SCH ×2 (10:03→17:06)
[2022-09-06] MEDS: FAMOTIDINE 40 MG/5 ML ORAL SUSPENSION PEG SCH (10:03)
[2022-09-06] MEDS: carBAMazepine 100 MG/5 ML UNIT-DOSE CUP GT SCH ×4 (10:03→22:54)
[2022-09-06] MEDS: CHOLECALCIFEROL (VIT D3) 1,000 UNIT (25 MCG) TABLET GT SCH (10:03)
[2022-09-06] MEDS: LACTOBACILLUS ACIDOPHILUS 1 TABLET GT SCH (10:04)
[2022-09-06] MEDS: guaiFENesin 200 MG/10 ML 10 ML UNIT-DOSE CUPS GT SCH ×2 (10:04→22:56)
[2022-09-06] MEDS: FOLIC ACID 1 MG TABLET (FP) NGT SCH (10:04)
[2022-09-06] MEDS: ERYTHROMYCIN 0.5% OPHTHALMIC OINTMENT 3.5 GM TUBE OU SCH (10:04)
[2022-09-06] MEDS: BENZOYL PEROXIDE 5% 60 GM GEL..GRAM. TP SCH ×2 (10:04→22:54)
[2022-09-06] MEDS: PETROLATUM, WHITE 30 GM TUBE TP SCH (10:05)
[2022-09-06] MEDS: COLLAGENASE CLOSTRIDIUM HIST. 30 GRAMS TUBE TP SCH (10:05)
[2022-09-06] MEDS: POVIDONE-IODINE OINTMENT 10% - 28.4 GM TUBE TP SCH (10:06)
[2022-09-06] MEDS: PHENYTOIN ORAL SUSP 125 MG/5 ML GT SCH ×2 (10:55→22:55)
[2022-09-06 11:34] LABS: HEMATOCRIT 32.4 % (35.4-49); MEAN PLT VOLUME 8.4 fl (7.5-11.1); PLATELET COUNT 574 10^3/uL (134-434); RBC 3.06 M/mm3 (4.00-5.60); RDW 18.4 % (11.9-15.9); WHITE BLOOD COUNT 7.4 K/mm3 (4.0-10.0)
[2022-09-06 12:07] LABS: ALBUMIN 3.2 g/dl (3.4-5.0); BLOOD UREA NITROGEN 10.1 mg/dL (7-18); CALCIUM 9.3 mg/dL (8.5-10.1)
[2022-09-06 12:08] LABS: CREATININE 0.4 mg/dL (0.55-1.3)
[2022-09-06 12:10] LABS: BILIRUBIN,TOTAL 0.3 mg/dL (0.2-1); TOT PROT 6.6 g/dl (6.4-8.2)
[2022-09-06] MEDS: MULTIVIT-MINERALS ORAL LIQUID GT SCH (17:06)
[2022-09-06] MEDS ORDERED: APIXABAN 5 MG TABLET GT ONE (17:59)
[2022-09-06] MEDS: CALCIUM 500MG/VIT-D 200 UNITS COMBO TABLET (FP) GT SCH (22:55)
[2022-09-07] MEDS: levETIRAcetam 500 MG/5 ML ORAL SOLUTION (UNIT-DOSE CUPS) GT SCH ×2 (05:01→13:53)
[2022-09-07] MEDS: ASCORBIC ACID 500 MG/5 ML UNIT DOSE CUP GT SCH ×2 (05:01→17:49)
[2022-09-07] MEDS: TIAGABINE HCL 4 MG GT SCH ×2 (05:02→13:53)
[2022-09-07] MEDS: LACTOBACILLUS ACIDOPHILUS 1 TABLET GT SCH (09:21)
[2022-09-07] MEDS: FAMOTIDINE 40 MG/5 ML ORAL SUSPENSION PEG SCH (09:21)
[2022-09-07] MEDS: AMINO ACIDS/PROTEIN HYDROLYS 30 ML LIQUID.PKT GT SCH ×2 (09:21→17:48)
[2022-09-07] MEDS: CHOLECALCIFEROL (VIT D3) 1,000 UNIT (25 MCG) TABLET GT SCH (09:21)
[2022-09-07] MEDS: PHENYTOIN ORAL SUSP 125 MG/5 ML GT SCH (09:22)
[2022-09-07] MEDS: carBAMazepine 100 MG/5 ML UNIT-DOSE CUP GT SCH ×3 (09:22→17:48)
[2022-09-07] MEDS: FOLIC ACID 1 MG TABLET (FP) NGT SCH (09:22)
[2022-09-07] MEDS: APIXABAN 5 MG TABLET GT SCH (09:22)
[2022-09-07] MEDS: ERYTHROMYCIN 0.5% OPHTHALMIC OINTMENT 3.5 GM TUBE OU SCH (09:23)
[2022-09-07] MEDS: POVIDONE-IODINE OINTMENT 10% - 28.4 GM TUBE TP SCH (09:23)
[2022-09-07] MEDS: BENZOYL PEROXIDE 5% 60 GM GEL..GRAM. TP SCH (09:23)
[2022-09-07] MEDS: guaiFENesin 200 MG/10 ML 10 ML UNIT-DOSE CUPS GT SCH (09:23)
[2022-09-07] MEDS: COLLAGENASE CLOSTRIDIUM HIST. 30 GRAMS TUBE TP SCH (09:24)
[2022-09-07] MEDS: PETROLATUM, WHITE 30 GM TUBE TP SCH (09:24)
[2022-09-07] MEDS: MULTIVIT-MINERALS ORAL LIQUID GT SCH (17:48)
[2022-09-08] MEDS: carBAMazepine 100 MG/5 ML UNIT-DOSE CUP GT SCH ×5 (00:56→22:45)
[2022-09-08] MEDS: PHENYTOIN ORAL SUSP 125 MG/5 ML GT SCH ×3 (00:56→22:45)
[2022-09-08] MEDS: APIXABAN 5 MG TABLET GT SCH ×3 (00:57→22:18)
[2022-09-08] MEDS: CALCIUM 500MG/VIT-D 200 UNITS COMBO TABLET (FP) GT SCH ×2 (00:57→22:21)
[2022-09-08] MEDS: levETIRAcetam 500 MG/5 ML ORAL SOLUTION (UNIT-DOSE CUPS) GT SCH ×4 (00:57→22:19)
[2022-09-08] MEDS: TIAGABINE HCL 4 MG GT SCH ×4 (00:58→22:24)
[2022-09-08] MEDS: guaiFENesin 200 MG/10 ML 10 ML UNIT-DOSE CUPS GT SCH ×3 (00:58→22:19)
[2022-09-08] MEDS: BENZOYL PEROXIDE 5% 60 GM GEL..GRAM. TP SCH ×2 (03:27→10:51)
[2022-09-08] MEDS ORDERED: CHOLECALCIFEROL (VIT D SOLUTION) 400 UNIT/1 ML DROPS GT SCH (05:17)
[2022-09-08] MEDS: ASCORBIC ACID 500 MG/5 ML UNIT DOSE CUP GT SCH ×2 (06:09→17:56)
[2022-09-08] MEDS: CHOLECALCIFEROL (VIT D3) 1,000 UNIT (25 MCG) TABLET GT SCH (10:50)
[2022-09-08] MEDS: LACTOBACILLUS ACIDOPHILUS 1 TABLET GT SCH (10:50)
[2022-09-08] MEDS: AMINO ACIDS/PROTEIN HYDROLYS 30 ML LIQUID.PKT GT SCH ×2 (10:50→17:56)
[2022-09-08] MEDS: POVIDONE-IODINE OINTMENT 10% - 28.4 GM TUBE TP SCH (10:51)
[2022-09-08] MEDS: FOLIC ACID 1 MG TABLET (FP) NGT SCH (10:51)
[2022-09-08] MEDS: COLLAGENASE CLOSTRIDIUM HIST. 30 GRAMS TUBE TP SCH (10:52)
[2022-09-08] MEDS: ERYTHROMYCIN 0.5% OPHTHALMIC OINTMENT 3.5 GM TUBE OU SCH (10:52)
[2022-09-08] MEDS: FAMOTIDINE 40 MG/5 ML ORAL SUSPENSION PEG SCH (10:52)
[2022-09-08] MEDS: PETROLATUM, WHITE 30 GM TUBE TP SCH (10:53)
[2022-09-08] MEDS: MULTIVIT-MINERALS ORAL LIQUID GT SCH (17:56)
[2022-09-09] MEDS: levETIRAcetam 500 MG/5 ML ORAL SOLUTION (UNIT-DOSE CUPS) GT SCH ×3 (05:19→22:53)
[2022-09-09] MEDS: TIAGABINE HCL 4 MG GT SCH ×3 (05:19→22:53)
[2022-09-09] MEDS: BENZOYL PEROXIDE 5% 60 GM GEL..GRAM. TP SCH ×3 (05:47→22:49)
[2022-09-09] MEDS: ASCORBIC ACID 500 MG/5 ML UNIT DOSE CUP GT SCH ×2 (06:19→18:18)
[2022-09-09] MEDS: AMINO ACIDS/PROTEIN HYDROLYS 30 ML LIQUID.PKT GT SCH ×2 (10:07→18:18)
[2022-09-09] MEDS: LACTOBACILLUS ACIDOPHILUS 1 TABLET GT SCH (10:08)
[2022-09-09] MEDS: PHENYTOIN ORAL SUSP 125 MG/5 ML GT SCH ×2 (10:09→22:51)
[2022-09-09] MEDS: APIXABAN 5 MG TABLET GT SCH ×2 (10:09→22:52)
[2022-09-09] MEDS: ERYTHROMYCIN 0.5% OPHTHALMIC OINTMENT 3.5 GM TUBE OU SCH (10:09)
[2022-09-09] MEDS: carBAMazepine 100 MG/5 ML UNIT-DOSE CUP GT SCH ×4 (10:09→22:50)
[2022-09-09] MEDS: FAMOTIDINE 40 MG/5 ML ORAL SUSPENSION PEG SCH (10:09)
[2022-09-09] MEDS: CHOLECALCIFEROL (VIT D3) 1,000 UNIT (25 MCG) TABLET GT SCH (10:09)
[2022-09-09] MEDS: FOLIC ACID 1 MG TABLET (FP) NGT SCH (10:09)
[2022-09-09] MEDS: POVIDONE-IODINE OINTMENT 10% - 28.4 GM TUBE TP SCH (10:10)
[2022-09-09] MEDS: guaiFENesin 200 MG/10 ML 10 ML UNIT-DOSE CUPS GT SCH ×2 (10:10→23:04)
[2022-09-09] MEDS: COLLAGENASE CLOSTRIDIUM HIST. 30 GRAMS TUBE TP SCH (10:10)
[2022-09-09] MEDS: PETROLATUM, WHITE 30 GM TUBE TP SCH (10:10)
[2022-09-09] MEDS: MULTIVIT-MINERALS ORAL LIQUID GT SCH (18:18)
[2022-09-09] MEDS: CALCIUM 500MG/VIT-D 200 UNITS COMBO TABLET (FP) GT SCH (22:52)
[2022-09-10] MEDS: levETIRAcetam 500 MG/5 ML ORAL SOLUTION (UNIT-DOSE CUPS) GT SCH ×3 (05:20→22:39)
[2022-09-10] MEDS: TIAGABINE HCL 4 MG GT SCH ×3 (05:21→22:41)
[2022-09-10] MEDS: ASCORBIC ACID 500 MG/5 ML UNIT DOSE CUP GT SCH ×2 (07:32→18:47)
[2022-09-10] MEDS: APIXABAN 5 MG TABLET GT SCH ×2 (10:55→22:40)
[2022-09-10] MEDS: AMINO ACIDS/PROTEIN HYDROLYS 30 ML LIQUID.PKT GT SCH ×2 (10:55→18:46)
[2022-09-10] MEDS: CHOLECALCIFEROL (VIT D3) 1,000 UNIT (25 MCG) TABLET GT SCH (10:55)
[2022-09-10] MEDS: LACTOBACILLUS ACIDOPHILUS 1 TABLET GT SCH (10:55)
[2022-09-10] MEDS: FOLIC ACID 1 MG TABLET (FP) NGT SCH (10:55)
[2022-09-10] MEDS: carBAMazepine 100 MG/5 ML UNIT-DOSE CUP GT SCH ×4 (10:56→22:38)
[2022-09-10] MEDS: PHENYTOIN ORAL SUSP 125 MG/5 ML GT SCH ×2 (10:56→22:40)
[2022-09-10] MEDS: BENZOYL PEROXIDE 5% 60 GM GEL..GRAM. TP SCH ×2 (10:56→22:41)
[2022-09-10] MEDS: POVIDONE-IODINE OINTMENT 10% - 28.4 GM TUBE TP SCH (10:56)
[2022-09-10] MEDS: guaiFENesin 200 MG/10 ML 10 ML UNIT-DOSE CUPS GT SCH ×2 (10:57→22:41)
[2022-09-10] MEDS: ERYTHROMYCIN 0.5% OPHTHALMIC OINTMENT 3.5 GM TUBE OU SCH (10:57)
[2022-09-10] MEDS: FAMOTIDINE 40 MG/5 ML ORAL SUSPENSION PEG SCH (10:57)
[2022-09-10] MEDS: COLLAGENASE CLOSTRIDIUM HIST. 30 GRAMS TUBE TP SCH (10:57)
[2022-09-10] MEDS: PETROLATUM, WHITE 30 GM TUBE TP SCH (10:57)
[2022-09-10] MEDS: MULTIVIT-MINERALS ORAL LIQUID GT SCH (18:46)
[2022-09-10] MEDS: POLYETHYLENE GLYCOL (HEALTHYLAX) 3350 17 GM PACKET GT SCH (22:38)
[2022-09-10] MEDS: CALCIUM 500MG/VIT-D 200 UNITS COMBO TABLET (FP) GT SCH (22:41)
[2022-09-11] MEDS: levETIRAcetam 500 MG/5 ML ORAL SOLUTION (UNIT-DOSE CUPS) GT SCH ×3 (05:19→22:05)
[2022-09-11] MEDS: ASCORBIC ACID 500 MG/5 ML UNIT DOSE CUP GT SCH ×2 (05:20→18:20)
[2022-09-11] MEDS: TIAGABINE HCL 4 MG GT SCH ×3 (05:20→22:06)
[2022-09-11] MEDS: AMINO ACIDS/PROTEIN HYDROLYS 30 ML LIQUID.PKT GT SCH ×2 (07:54→18:19)
[2022-09-11] MEDS: CHOLECALCIFEROL (VIT D3) 1,000 UNIT (25 MCG) TABLET GT SCH (09:12)
[2022-09-11] MEDS: LACTOBACILLUS ACIDOPHILUS 1 TABLET GT SCH (09:12)
[2022-09-11] MEDS: FOLIC ACID 1 MG TABLET (FP) NGT SCH (09:12)
[2022-09-11] MEDS: PHENYTOIN ORAL SUSP 125 MG/5 ML GT SCH ×2 (09:12→22:04)
[2022-09-11] MEDS: carBAMazepine 100 MG/5 ML UNIT-DOSE CUP GT SCH ×4 (09:12→22:04)
[2022-09-11] MEDS: APIXABAN 5 MG TABLET GT SCH ×2 (09:13→22:05)
[2022-09-11] MEDS: ERYTHROMYCIN 0.5% OPHTHALMIC OINTMENT 3.5 GM TUBE OU SCH (09:13)
[2022-09-11] MEDS: POVIDONE-IODINE OINTMENT 10% - 28.4 GM TUBE TP SCH (09:13)
[2022-09-11] MEDS: FAMOTIDINE 40 MG/5 ML ORAL SUSPENSION PEG SCH (09:13)
[2022-09-11] MEDS: BENZOYL PEROXIDE 5% 60 GM GEL..GRAM. TP SCH ×2 (09:13→22:05)
[2022-09-11] MEDS: COLLAGENASE CLOSTRIDIUM HIST. 30 GRAMS TUBE TP SCH (09:14)
[2022-09-11] MEDS: PETROLATUM, WHITE 30 GM TUBE TP SCH (09:14)
[2022-09-11 10:40] LABS: HEMATOCRIT 32.4 % (35.4-49); HEMOGLOBIN 10.9 GM/dL (11.7-16.9); MCH 36.3 pg (25.7-33.7); MCHC 33.8 g/dl (32.0-35.9); MEAN CELL VOLUME 107.4 fl (80-96); MEAN PLT VOLUME 8.4 fl (7.5-11.1); PLATELET COUNT 455 10^3/uL (134-434); RBC 3.02 M/mm3 (4.00-5.60); RDW 18.1 % (11.9-15.9); WHITE BLOOD COUNT 6.3 K/mm3 (4.0-10.0)
[2022-09-11] MEDS: guaiFENesin 200 MG/10 ML 10 ML UNIT-DOSE CUPS GT SCH ×2 (10:50→22:04)
[2022-09-11 11:24] LABS: BLOOD UREA NITROGEN 14.2 mg/dL (7-18); CALCIUM 8.9 mg/dL (8.5-10.1)
[2022-09-11 11:25] LABS: MAGNESIUM 2.2 mg/dL (1.8-2.4)
[2022-09-11 11:28] LABS: BILIRUBIN,TOTAL 0.3 mg/dL (0.2-1); CREATININE 0.4 mg/dL (0.55-1.3); PHOSPHOROUS 4.8 mg/dL (2.5-4.9); TOT PROT 6.3 g/dl (6.4-8.2)
[2022-09-11] MEDS: MULTIVIT-MINERALS ORAL LIQUID GT SCH (18:19)
[2022-09-11] MEDS: CALCIUM 500MG/VIT-D 200 UNITS COMBO TABLET (FP) GT SCH (22:05)
[2022-09-12] MEDS: TIAGABINE HCL 4 MG GT SCH ×3 (05:01→23:26)
[2022-09-12] MEDS: levETIRAcetam 500 MG/5 ML ORAL SOLUTION (UNIT-DOSE CUPS) GT SCH ×3 (05:02→23:22)
[2022-09-12] MEDS: ASCORBIC ACID 500 MG/5 ML UNIT DOSE CUP GT SCH ×2 (05:02→17:50)
[2022-09-12] MEDS: FAMOTIDINE 40 MG/5 ML ORAL SUSPENSION PEG SCH (11:07)
[2022-09-12] MEDS: LACTOBACILLUS ACIDOPHILUS 1 TABLET GT SCH (11:07)
[2022-09-12] MEDS: AMINO ACIDS/PROTEIN HYDROLYS 30 ML LIQUID.PKT GT SCH ×2 (11:07→17:50)
[2022-09-12] MEDS: carBAMazepine 100 MG/5 ML UNIT-DOSE CUP GT SCH ×4 (11:08→23:25)
[2022-09-12] MEDS: APIXABAN 5 MG TABLET GT SCH ×2 (11:08→23:22)
[2022-09-12] MEDS: BENZOYL PEROXIDE 5% 60 GM GEL..GRAM. TP SCH ×2 (11:08→23:25)
[2022-09-12] MEDS: PHENYTOIN ORAL SUSP 125 MG/5 ML GT SCH ×2 (11:08→23:24)
[2022-09-12] MEDS: POVIDONE-IODINE OINTMENT 10% - 28.4 GM TUBE TP SCH (11:08)
[2022-09-12] MEDS: CHOLECALCIFEROL (VIT D3) 1,000 UNIT (25 MCG) TABLET GT SCH (11:08)
[2022-09-12] MEDS: FOLIC ACID 1 MG TABLET (FP) NGT SCH (11:08)
[2022-09-12] MEDS: COLLAGENASE CLOSTRIDIUM HIST. 30 GRAMS TUBE TP SCH (11:09)
[2022-09-12] MEDS: ERYTHROMYCIN 0.5% OPHTHALMIC OINTMENT 3.5 GM TUBE OU SCH (11:09)
[2022-09-12] MEDS: guaiFENesin 200 MG/10 ML 10 ML UNIT-DOSE CUPS GT SCH ×2 (11:09→23:22)
[2022-09-12] MEDS: PETROLATUM, WHITE 30 GM TUBE TP SCH (11:10)
[2022-09-12] MEDS: MULTIVIT-MINERALS ORAL LIQUID GT SCH (17:49)
[2022-09-12] MEDS: POLYETHYLENE GLYCOL (HEALTHYLAX) 3350 17 GM PACKET GT SCH (23:22)
[2022-09-12] MEDS: CALCIUM 500MG/VIT-D 200 UNITS COMBO TABLET (FP) GT SCH (23:23)
[2022-09-13] MEDS: levETIRAcetam 500 MG/5 ML ORAL SOLUTION (UNIT-DOSE CUPS) GT SCH ×3 (06:30→21:42)
[2022-09-13] MEDS: ASCORBIC ACID 500 MG/5 ML UNIT DOSE CUP GT SCH ×2 (06:30→17:03)
[2022-09-13] MEDS: TIAGABINE HCL 4 MG GT SCH ×3 (06:30→21:45)
[2022-09-13] MEDS: AMINO ACIDS/PROTEIN HYDROLYS 30 ML LIQUID.PKT GT SCH ×2 (07:35→17:02)
[2022-09-13] MEDS: PHENYTOIN ORAL SUSP 125 MG/5 ML GT SCH (10:21)
[2022-09-13] MEDS: carBAMazepine 100 MG/5 ML UNIT-DOSE CUP GT SCH ×4 (11:22→21:44)
[2022-09-13] MEDS: guaiFENesin 200 MG/10 ML 10 ML UNIT-DOSE CUPS GT SCH ×2 (12:16→21:43)
[2022-09-13] MEDS: SIMETHICONE 40 MG/0.6 ML BOTTLE GT PRN (12:16)
[2022-09-13] MEDS: COLLAGENASE CLOSTRIDIUM HIST. 30 GRAMS TUBE TP SCH (12:17)
[2022-09-13] MEDS: PETROLATUM, WHITE 30 GM TUBE TP SCH (12:20)
[2022-09-13] MEDS: CHOLECALCIFEROL (VIT D3) 1,000 UNIT (25 MCG) TABLET GT SCH (12:20)
[2022-09-13] MEDS: FOLIC ACID 1 MG TABLET (FP) NGT SCH (12:20)
[2022-09-13] MEDS: FAMOTIDINE 40 MG/5 ML ORAL SUSPENSION PEG SCH (12:21)
[2022-09-13] MEDS: BENZOYL PEROXIDE 5% 60 GM GEL..GRAM. TP SCH ×2 (12:22→21:43)
[2022-09-13] MEDS: LACTOBACILLUS ACIDOPHILUS 1 TABLET GT SCH (12:22)
[2022-09-13] MEDS: POVIDONE-IODINE OINTMENT 10% - 28.4 GM TUBE TP SCH (12:22)
[2022-09-13] MEDS: APIXABAN 5 MG TABLET GT SCH ×2 (12:23→21:43)
[2022-09-13] MEDS: ERYTHROMYCIN 0.5% OPHTHALMIC OINTMENT 3.5 GM TUBE OU SCH (12:23)
[2022-09-13 12:26] LABS: BLOOD UREA NITROGEN 14.2 mg/dL (7-18)
[2022-09-13 12:27] LABS: CALCIUM 9.3 mg/dL (8.5-10.1)
[2022-09-13 12:29] LABS: CREATININE 0.4 mg/dL (0.55-1.3)
[2022-09-13] MEDS: MULTIVIT-MINERALS ORAL LIQUID GT SCH (17:02)
[2022-09-13] MEDS: CALCIUM 500MG/VIT-D 200 UNITS COMBO TABLET (FP) GT SCH (21:44)
[2022-09-14] MEDS ORDERED: diazePAM RECTAL GEL 5 MG KIT (PRE-CALIBRATED) RC PRN (00:45)
[2022-09-14] MEDS: PHENYTOIN ORAL SUSP 125 MG/5 ML GT SCH ×3 (01:00→11:24)
[2022-09-14] MEDS: carBAMazepine 100 MG/5 ML UNIT-DOSE CUP GT SCH ×3 (01:02→11:25)
[2022-09-14] MEDS: APIXABAN 5 MG TABLET GT SCH ×3 (01:02→11:23)
[2022-09-14] MEDS: levETIRAcetam 500 MG/5 ML ORAL SOLUTION (UNIT-DOSE CUPS) GT SCH ×3 (01:02→05:59)
[2022-09-14] MEDS: guaiFENesin 200 MG/10 ML 10 ML UNIT-DOSE CUPS GT SCH ×3 (01:02→11:22)
[2022-09-14] MEDS: CALCIUM 500MG/VIT-D 200 UNITS COMBO TABLET (FP) GT SCH ×2 (01:02→02:07)
[2022-09-14] MEDS: TIAGABINE HCL 4 MG GT SCH ×3 (01:03→05:59)
[2022-09-14 02:02] VITALS: RESP 20
[2022-09-14] MEDS: ASCORBIC ACID 500 MG/5 ML UNIT DOSE CUP GT SCH (06:03)
[2022-09-14] MEDS: AMINO ACIDS/PROTEIN HYDROLYS 30 ML LIQUID.PKT GT SCH (11:22)
[2022-09-14] MEDS: CHOLECALCIFEROL (VIT D3) 1,000 UNIT (25 MCG) TABLET GT SCH (11:23)
[2022-09-14] MEDS: FOLIC ACID 1 MG TABLET (FP) NGT SCH (11:23)
[2022-09-14] MEDS: LACTOBACILLUS ACIDOPHILUS 1 TABLET GT SCH (11:23)
[2022-09-14] MEDS: FAMOTIDINE 40 MG/5 ML ORAL SUSPENSION PEG SCH (11:24)
[2022-09-14] MEDS: ERYTHROMYCIN 0.5% OPHTHALMIC OINTMENT 3.5 GM TUBE OU SCH (11:25)
[2022-09-14] MEDS: PETROLATUM, WHITE 30 GM TUBE TP SCH (11:25)
[2022-09-14] MEDS: BENZOYL PEROXIDE 5% 60 GM GEL..GRAM. TP SCH (11:25)
[2022-09-14] MEDS: POVIDONE-IODINE OINTMENT 10% - 28.4 GM TUBE TP SCH (11:25)
[2022-09-14] MEDS: COLLAGENASE CLOSTRIDIUM HIST. 30 GRAMS TUBE TP SCH (11:25)
[2022-09-14 12:07] VITALS: BP 146/76; PULSE 70; TEMP 98.4
== END 2022-09-14 13:42 | disposition home or self-care (01) | DRG 4 ==
LOC: JER 07:52 → JERBED 13:06 → J5S 17:27 → JICU 07-18 15:08 → J4W 08-05 00:28 → JICU 08-11 17:17 → J4S 08-12 20:20 → JICU 08-14 08:19 → J5S 08-22 20:59
PROVIDERS: ADMIT Internal Medicine; ATTEND Internal Medicine
PROC: 3E0G76Z Introduction of Nutritional Substance into Upper GI, Via Natural or Artificial Opening (ICD-10-PCS; 2022-07-14)
PROC: 5A1955Z Respiratory Ventilation, Greater than 96 Consecutive Hours (ICD-10-PCS; 2022-07-18)
PROC: 0BH17EZ Insertion of Endotracheal Airway into Trachea, Via Natural or Artificial Opening (ICD-10-PCS; 2022-07-18)
PROC: 5A1955Z Respiratory Ventilation, Greater than 96 Consecutive Hours (ICD-10-PCS; 2022-07-24)
PROC: 0BH17EZ Insertion of Endotracheal Airway into Trachea, Via Natural or Artificial Opening (ICD-10-PCS; 2022-07-24)
PROC: 5A1955Z Respiratory Ventilation, Greater than 96 Consecutive Hours (ICD-10-PCS; 2022-08-14)
PROC: 0BH17EZ Insertion of Endotracheal Airway into Trachea, Via Natural or Artificial Opening (ICD-10-PCS; 2022-08-14)
PROC: 0B113Z4 Bypass Trachea to Cutaneous, Percutaneous Approach (ICD-10-PCS; principal; 2022-08-21)
PROC: 0BJ08ZZ Inspection of Tracheobronchial Tree, Via Natural or Artificial Opening Endoscopic (ICD-10-PCS; 2022-08-21)
DX: J96.02 Acute respiratory failure with hypercapnia (principal); L89.893 Pressure ulcer of other site, stage 3; L89.313 Pressure ulcer of right buttock, stage 3; J69.0 Pneumonitis due to inhalation of food and vomit; K72.00 Acute and subacute hepatic failure without coma; J15.1 Pneumonia due to Pseudomonas; E87.20 Acidosis, unspecified; J44.1 Chronic obstructive pulmonary disease with (acute) exacerbation; R64 Cachexia; J98.11 Atelectasis; N39.0 Urinary tract infection, site not specified; J95.851 Ventilator associated pneumonia; E87.1 Hypo-osmolality and hyponatremia; E87.3 Alkalosis; T17.890A Other foreign object in other parts of respiratory tract causing asphyxiation, initial encounter; I82.412 Acute embolism and thrombosis of left femoral vein; R78.81 Bacteremia; J96.01 Acute respiratory failure with hypoxia; G80.8 Other cerebral palsy; M81.0 Age-related osteoporosis without current pathological fracture; H47.619 Cortical blindness, unspecified side of brain; R62.50 Unspecified lack of expected normal physiological development in childhood; Z86.16 Personal history of COVID-19; Z93.1 Gastrostomy status; G40.909 Epilepsy, unspecified, not intractable, without status epilepticus; M41.9 Scoliosis, unspecified; K63.89 Other specified diseases of intestine; R74.01 Elevation of levels of liver transaminase levels; Z68.24 Body mass index [BMI] 24.0-24.9, adult; B96.1 Klebsiella pneumoniae [K. pneumoniae] as the cause of diseases classified elsewhere; K59.00 Constipation, unspecified; R22.9 Localized swelling, mass and lump, unspecified; Y84.8 Other medical procedures as the cause of abnormal reaction of the patient, or of later complication, without mention of misadventure at the time of the procedure; N32.89 Other specified disorders of bladder; D18.09 Hemangioma of other sites; D53.9 Nutritional anemia, unspecified; F79 Unspecified intellectual disabilities; X58.XXXA Exposure to other specified factors, initial encounter; Y93.89 Activity, other specified; Y92.230 Patient room in hospital as the place of occurrence of the external cause; Y99.8 Other external cause status; Q02 Microcephaly; R94.31 Abnormal electrocardiogram [ECG] [EKG]
CPT/HCPCS: 0241U-QW; 31500; 36415; 36600; 71045-TC-FY; 74018-TC-FY; 74178-TC; 76700-TC; 76705-TC; 80048; 80053; 80076; 80156; 80177; 80185; 80186; 81003; 82150; 82247; 82248; 82550; 82553; 82607; 82746; 82803; 82962; 82977; 83516; 83605; 83690; 83735; 83880; 84100; 84450; 84460; 84484; 85025; 85027; 85610; 85730; 86038; 86704; 86803; 86850; 86900; 86901; 87040; 87070; 87076; 87077; 87081; 87086; 87186; 87205; 87324; 87340; 87449; 87517; 87899; 93005; 93010; 93970-TC; 94002; 94640; 94660; 99285-25; C9803-CS; J1100; Q9967; U0003; U0005